=== PATIENT | female | born 1950 | race Caucasian/White ===

== ENCOUNTER 2023-03-13 17:23 | Emergency (ER) | payer OTHER ==
--- OUTSIDE RECORDS SUMMARY | 2023-03-13 17:39 | XMS REPORT | Continuity of Care Document ---
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 [place] 58 the Medical morning Branch and 100 mg at noon and 100 mg in the evening. BABY Yes 81mg Take 81 mg [facility] ASPIRIN 1-31 by mouth ity of ORAL 13:15: daily. [place] [address] Medical Branch cholecalcif Yes 1{capsu Take 1 U nivers bubba, 1-31 le} capsule by ity of vitamin D3, 13:15: mouth in [place] 25 mcg 58 the Medical (1,000 morning. Branch unit) tablet Diphenhydra Yes 1{tbl} Take 1 Un [place] mine-Acetam 1-31 tablet by ity of inophen 13:15: mouth at [place] 25-500 mg 58 bedtime as Medi gunner Tab needed. Branch albuterol Yes 4{puff} Take 4 Uni vers 90 1-31 Puffs by ity of mcg/actuati 13:15: mouth 2 [place] as on inhaler 58 (two) Medical times Branch daily. albuterol Yes 2{puff} Inhale 2 U nivers 90 1-31 Puffs ity of mcg/actuati 13:15: every 6 [place] as on inhaler 58 (six) Medical hours as Branch needed. famotidine 0 Yes 20mg Take 20 mg U nivers 20 mg 1-31 by mouth ity of tablet 13:15: in the [place] [address] morning Medical and 20 mg Branch in the evening. ferrous 2022-0 Yes 2{tbl} Take 2 Univer s sulfate 325 1-31 tablets by it y of mg (65 mg 13:15: [place] iron[place] 58 the Medical tablet morning. Branch fluticasone 2022-0 Yes 1{spray Use 1 Un [place] propionate 1-31 } [place] in ity o f 50 13:15: each [place] mcg/actuati 58 nostril in Co dical on nasal the Branch spray morning. As needed foLIC acid 2022-0 Yes 1mg Take 1 mg Un [place] 1 mg tablet 1-31 by mouth ity of 13:15: in the [place] [address] morning. Medical Branch gabapentin 2022-0 Yes 300mg Take 300 Un [place] 300 mg 1-31 mg by ity of capsule 13:15: mouth in [place] 58 the Medical morning Branch and 300 mg in the evening. mirtazapine 2022-0 Yes 15mg Take 15 mg [facility] 7.5 mg 1-31 by mouth ity of tablet 13:15: every [place] [address] evening. Medical Branch simvastatin 2022-0 Yes 20mg Take 20 mg [facility] 20 mg 1-31 by mouth ity of tablet 13:15: every [place] [address] evening. Medical Branch zonisamide 2022-0 Yes 100mg Take 100 Un [place] 100 mg 1-31 mg by ity of capsule 13:15: mouth in [place] [address] the Medical morning Branch and 100 mg at noon and 100 mg in the evening. BABY 2022-0 Yes 81mg Take 81 mg [facility] ASPIRIN 1-31 by mouth ity of ORAL 13:15: daily. [place] [address] Medical Branch cholecalcif 2022-0 Yes 1{capsu Take 1 U nivers bubba, 1-31 le} capsule by ity of vitamin D3, 13:15: mouth in [place] 25 mcg 58 the Medical (1,000 morning. Branch unit) tablet Diphenhydra 2022-0 Yes 1{tbl} Take 1 Un [place] mine-Acetam 1-31 tablet by ity of inophen 13:15: mouth at [place] 25-500 mg 58 bedtime as Medi gunner Tab needed. Branch albuterol 0 Yes 4{puff} Take 4 Uni vers 90 1-31 Puffs by ity of mcg/actuati 13:15: mouth 2 [place] as on inhaler 58 (two) Medical times Branch daily. albuterol 2022-0 Yes 2{puff} Inhale 2 U nivers 90 1-31 Puffs ity of mcg/actuati 13:15: every 6 [place] as on inhaler 58 (six) Medical hours as Branch needed. famotidine 0 Yes 20mg Take 20 mg U nivers 20 mg 1-31 by mouth ity of tablet 13:15: in the [place] morning Medical and 20 mg Branch in the evening. ferrous 2022-0 Yes 2{tbl} Take 2 Univer s sulfate 325 1-31 tablets by it y of mg (65 mg 13:15: mouth in [facility] s iron) 58 the Medical tablet morning. Branch fluticasone Yes 1{spray Use 1 Un [place] propionate 1-31 } [place] in ity o f 50 13:15: each [place] mcg/actuati 58 nostril in Co dical on nasal the Branch spray morning. As needed foLIC acid 0 Yes 1mg Take 1 mg Un [place] 1 mg tablet 1-31 by mouth ity of 13:15: in the [place] morning. Medical Branch gabapentin 2022-0 Yes 300mg Take 300 Un [place] 300 mg 1-31 mg by ity of capsule 13:15: mouth in [place] 58 the Medical morning Branch and 300 mg in the evening. mirtazapine 2022-0 Yes 15mg Take 15 mg [facility] 7.5 mg 1-31 by mouth ity of tablet 13:15: every [place] evening. Medical Branch simvastatin 2022-0 Yes 20mg Take 20 mg [facility] 20 mg 1-31 by mouth ity of tablet 13:15: every [place] evening. Medical Branch zonisamide 2022-0 Yes 100mg Take 100 Un [place] 100 mg 1-31 mg by ity of capsule 13:15: mouth in [place] 58 the Medical morning Branch and 100 mg at noon and 100 mg in the evening. BABY 2022-0 Yes 81mg Take 81 mg [facility] ASPIRIN 1-31 by mouth ity of ORAL 13:15: daily. [place] [address] Medical Branch cholecalcif Yes 1{capsu Take 1 U nivers bubba, 1-31 le} capsule by ity of vitamin D3, 13:15: mouth in [place] 25 mcg 58 the Medical (1,000 morning. Branch unit) tablet Diphenhydra Yes 1{tbl} Take 1 Un [place] mine-Acetam 1-31 tablet by ity of inophen 13:15: mouth at [place] 25-500 mg 58 bedtime as Medi gunner Tab needed. Branch albuterol Yes 4{puff} Take 4 Uni vers 90 1-31 Puffs by ity of mcg/actuati 13:15: mouth 2 [place] as on inhaler 58 (two) Medical times Branch daily. albuterol Yes 2{puff} Inhale 2 U nivers 90 1-31 Puffs ity of mcg/actuati 13:15: every 6 [place] as on inhaler 58 (six) Medical hours as Branch needed. famotidine Yes 20mg Take 20 mg U nivers 20 mg 1-31 by mouth ity of tablet 13:15: in the [place] [address] morning Medical and 20 mg Branch in the evening. ferrous Yes 2{tbl} Take 2 Univer s sulfate 325 1-31 tablets by it y of mg (65 mg 13:15: mouth in [facility] s iron) 58 the Medical tablet morning. Branch fluticasone Yes 1{spray Use 1 Un m[place] propionate 1-31 } [place] in ity o f 50 13:15: each [place] mcg/actuati 58 nostril in Co dical on nasal the Branch spray morning. As needed foLIC acid Yes 1mg Take 1 mg Un m[place] 1 mg tablet 1-31 by mouth ity of 13:15: in the [place] [address] morning. Medical Branch gabapentin 0 Yes 300mg Take 300 Un [place] 300 mg 1-31 mg by ity of capsule 13:15: mouth in [place] 58 the Medical morning Branch and 300 mg in the evening. mirtazapine 0 Yes 15mg Take 15 mg [facility] 7.5 mg 1-31 by mouth ity of tablet 13:15: every [place] evening. Medical Branch simvastatin Yes 20mg Take 20 mg [facility] 20 mg 1-31 by mouth ity of tablet 13:15: every [place] [address] evening. Medical Branch zonisamide Yes 100mg Take 100 Un m[place] 100 mg 1-31 mg by ity of capsule 13:15: mouth in [place] 58 the Medical morning Branch and 100 mg at noon and 100 mg in the evening. BABY Yes 81mg Take 81 mg [facility] ASPIRIN 1-31 by mouth ity of ORAL 13:15: daily. [place] [address] Medical Branch cholecalcif Yes 1{capsu Take 1 U nivers bubba, 1-31 le} capsule by ity of vitamin D3, 13:15: mouth in [place] 25 mcg 58 the Medical (1,000 morning. Branch unit) tablet Diphenhydra Yes 1{tbl} Take 1 Un [place] mine-Acetam 1-31 tablet by ity of inophen 13:15: mouth at [place] 25-500 mg 58 bedtime as Medi gunner Tab needed. Branch albuterol Yes 4{puff} Take 4 Uni vers 90 1-31 Puffs by ity of mcg/actuati 13:15: mouth 2 [place] as on inhaler 58 (two) Medical times Branch daily. albuterol Yes 2{puff} Inhale 2 U nivers 90 1-31 Puffs ity of mcg/actuati 13:15: every 6 [place] as on inhaler 58 (six) Medical hours as Branch needed. famotidine Yes 20mg Take 20 mg U nivers 20 mg 1-31 by mouth ity of tablet 13:15: in the [place] [address] morning Medical and 20 mg Branch in the evening. ferrous Yes 2{tbl} Take 2 Univer s sulfate 325 1-31 tablets by it y of mg (65 mg 13:15: mouth [place] iron[place] 58 the Medical tablet morning. Branch fluticasone Yes 1{spray Use 1 Un m[place] propionate 1-31 } [place] in ity o f 50 13:15: each [place] mcg/actuati 58 nostril in Co dical on nasal the Branch spray morning. As needed foLIC acid Yes 1mg Take 1 mg Un m[place] 1 mg tablet 1-31 by mouth ity of 13:15: in the [place] [address] morning. Medical Branch gabapentin Yes 300mg Take 300 Un [place] 300 mg 1-31 mg by ity of capsule 13:15: mouth in [place] 58 the Medical morning Branch and 300 mg in the evening. mirtazapine Yes 15mg Take 15 mg [facility] 7.5 mg 1-31 by mouth ity of tablet 13:15: every [place] [address] evening. Medical Branch simvastatin 0 Yes 20mg Take 20 mg [facility] 20 mg 1-31 by mouth ity of tablet 13:15: every [place] [address] evening. Medical Branch zonisamide Yes 100mg Take 100 Un [place] 100 mg 1-31 mg by ity of capsule 13:15: mouth in [place] 58 the Medical morning Branch and 100 mg at noon and 100 mg in the evening. BABY Yes 81mg Take 81 mg [facility] ASPIRIN 1-31 by mouth ity of ORAL 13:15: daily. [place] [address] Medical Branch cholecalcif Yes 1{capsu Take 1 U nivers bubba, 1-31 le} capsule by ity of vitamin D3, 13:15: mouth in [place] 25 mcg 58 the Medical (1,000 morning. Branch unit) tablet Diphenhydra Yes 1{tbl} Take 1 Un [place] mine-Acetam 1-31 tablet by ity of inophen 13:15: mouth at [place] 25-500 mg 58 bedtime as Medi gunner Tab needed. Branch albuterol Yes 4{puff} Take 4 Uni vers 90 1-31 Puffs by ity of mcg/actuati 13:15: mouth 2 [place] as on inhaler 58 (two) Medical times Branch daily. albuterol Yes 2{puff} Inhale 2 U nivers 90 1-31 Puffs ity of mcg/actuati 13:15: every 6 [place] as on inhaler 58 (six) Medical hours as Branch needed. famotidine Yes 20mg Take 20 mg U nivers 20 mg 1-31 by mouth ity of tablet 13:15: in the [place] [address] morning Medical and 20 mg Branch in the evening. ferrous Yes 2{tbl} Take 2 Univer s sulfate 325 1-31 tablets by it y of mg (65 mg 13:15: mouth in [place] iron[place] 58 the Medical tablet morning. Branch fluticasone Yes 1{spray Use 1 Un [place] propionate 1-31 } [place] in ity o f 50 13:15: each [place] mcg/actuati 58 nostril in Me dical on nasal the Branch spray morning. As needed foLIC acid 0 Yes 1mg Take 1 mg Un m[place] 1 mg tablet 1-31 by mouth ity of 13:15: in the [place] 58 morning. Medical Branch gabapentin 0 Yes 300mg Take 300 Un [place] 300 mg 1-31 mg by ity of capsule 13:15: mouth in [place] 58 the Medical morning Branch and 300 mg in the evening. mirtazapine 0 Yes 15mg Take 15 mg [facility] 7.5 mg 1-31 by mouth ity of tablet 13:15: every [place] 58 evening. Medical Branch simvastatin 2022-0 Yes 20mg Take 20 mg [facility] 20 mg 1-31 by mouth ity of tablet 13:15: every [place] 58 evening. Medical Branch zonisamide Yes 100mg Take 100 Un [place] 100 mg 1-31 mg by ity of capsule 13:15: mouth in [place] 58 the Medical morning Branch and 100 mg at noon and 100 mg in the evening. BABY 0 Yes 81mg Take 81 mg [facility] ASPIRIN 1-31 by mouth ity of ORAL 13:15: daily. [place] 58 Medical Branch cholecalcif 0 Yes 1{capsu Take 1 U nivers bubba, 1-31 le} capsule by ity of vitamin D3, 13:15: mouth in [place] 25 mcg 58 the Medical (1,000 morning. Branch unit) tablet Diphenhydra Yes 1{tbl} Take 1 Un [place] mine-Acetam 1-31 tablet by ity of inophen 13:15: mouth at [place] 25-500 mg 58 bedtime as Medi gunner Tab needed. Branch albuterol Yes 4{puff} Take 4 Uni vers 90 1-31 Puffs by ity of mcg/actuati 13:15: mouth 2 [place] as on inhaler 58 (two) Medical times Branch daily. albuterol Yes 2{puff} Inhale 2 U nivers 90 1-31 Puffs ity of mcg/actuati 13:15: every 6 [place] as on inhaler 58 (six) Medical hours as Branch needed. famotidine 0 Yes 20mg Take 20 mg U nivers 20 mg 1-31 by mouth ity of tablet 13:15: in the [place] [address] morning Medical and 20 mg Branch in the evening. ferrous 2022-0 Yes 2{tbl} Take 2 Univer s sulfate 325 1-31 tablets by it y of mg (65 mg 13:15: mouth in [place] iron[place] 58 the Medical tablet morning. Branch fluticasone 2022-0 Yes 1{spray Use 1 Un [place] propionate 1-31 } [place] in ity o f 50 13:15: each [place] mcg/actuati 58 nostril in Co dical on nasal the Branch spray morning. As needed foLIC acid 2022-0 Yes 1mg Take 1 mg Un m[place]icio 1 mg tablet 1-31 by mouth ity of 13:15: in the [place] [address] morning. Medical Branch gabapentin 2022-0 Yes 300mg Take 300 Un [place] 300 mg 1-31 mg by ity of capsule 13:15: mouth in [place] 58 the Medical morning Branch and 300 mg in the evening. mirtazapine 2022-0 Yes 15mg Take 15 mg [facility] 7.5 mg 1-31 by mouth ity of tablet 13:15: every [place] [address] evening. Medical Branch simvastatin 2022-0 Yes 20mg Take 20 mg [facility] 20 mg 1-31 by mouth ity of tablet 13:15: every [place] [address] evening. Medical Branch zonisamide 2022-0 Yes 100mg Take 100 Un [place] 100 mg 1-31 mg by ity of capsule 13:15: mouth in [place] [address] the Medical morning Branch and 100 mg at noon and 100 mg in the evening. BABY 2022-0 Yes 81mg Take 81 mg [facility] ASPIRIN 1-31 by mouth ity of ORAL 13:15: daily. [place] [address] Medical Branch cholecalcif 2022-0 Yes 1{capsu Take 1 U nivers bubba, 1-31 le} capsule by ity of vitamin D3, 13:15: mouth in [place] 25 mcg 58 the Medical (1,000 morning. Branch unit) tablet Diphenhydra 2022-0 Yes 1{tbl} Take 1 Un [place] mine-Acetam 1-31 tablet by ity of inophen 13:15: mouth at [place] 25-500 mg 58 bedtime as Medi gunner Tab needed. Branch albuterol Yes 4{puff} Take 4 Uni vers 90 1-31 Puffs by ity of mcg/actuati 13:15: mouth 2 [place] as on inhaler 58 (two) Medical times Branch daily. albuterol 0 Yes 2{puff} Inhale 2 U nivers 90 1-31 Puffs ity of mcg/actuati 13:15: every 6 [place] as on inhaler 58 (six) Medical hours as Branch needed. famotidine Yes 20mg Take 20 mg U nivers 20 mg 1-31 by mouth ity of tablet 13:15: in the [place] 58 morning Medical and 20 mg Branch in the evening. ferrous Yes 2{tbl} Take 2 Univer s sulfate 325 1-31 tablets by it y of mg (65 mg 13:15: mouth in [facility] s iron) 58 the Medical tablet morning. Branch fluticasone Yes 1{spray Use 1 Un [place] propionate 1-31 } [place] in ity o f 50 13:15: each [place] mcg/actuati 58 nostril in Me dical on nasal the Branch spray morning. As needed foLIC acid Yes 1mg Take 1 mg Un m[place] 1 mg tablet 1-31 by mouth ity of 13:15: in the [place] morning. Medical Branch gabapentin 2022-0 Yes 300mg Take 300 Un m[place] 300 mg 1-31 mg by ity of capsule 13:15: mouth in [place] 58 the Medical morning Branch and 300 mg in the evening. mirtazapine 0 Yes 15mg Take 15 mg [facility] 7.5 mg 1-31 by mouth ity of tablet 13:15: every [place] evening. Medical Branch simvastatin 2022-0 Yes 20mg Take 20 mg [facility] 20 mg 1-31 by mouth ity of tablet 13:15: every [place] 58 evening. Medical Branch zonisamide 2022-0 Yes 100mg Take 100 Un [place] 100 mg 1-31 mg by ity of capsule 13:15: mouth in [place] 58 the Medical morning Branch and 100 mg at noon and 100 mg in the evening. BABY 2022-0 Yes 81mg Take 81 mg [facility] ASPIRIN 1-31 by mouth ity of ORAL 13:15: daily. [place] [address] Medical Branch cholecalcif 2022-0 Yes 1{capsu Take 1 U nivers bubba, 1-31 le} capsule by ity of vitamin D3, 13:15: mouth in [place] 25 mcg 58 the Medical (1,000 morning. Branch unit) tablet Diphenhydra Yes 1{tbl} Take 1 Un [place] mine-Acetam 1-31 tablet by ity of inophen 13:15: mouth at [place] 25-500 mg 58 bedtime as Medi gunner Tab needed. Branch albuterol Yes 4{puff} Take 4 Uni vers 90 1-31 Puffs by ity of mcg/actuati 13:15: mouth 2 [place] on inhaler 58 (two) Medical times Branch daily. albuterol Yes 2{puff} Inhale 2 U nivers 90 1-31 Puffs ity of mcg/actuati 13:15: every 6 [place] on inhaler 58 (six) Medical hours as Branch needed. famotidine Yes 20mg Take 20 mg U nivers 20 mg 1-31 by mouth ity of tablet 13:15: in the [place] [address] morning Medical and 20 mg Branch in the evening. ferrous Yes 2{tbl} Take 2 Univer s sulfate 325 1-31 tablets by it y of mg (65 mg 13:15: mouth in [place] iron) 58 the Medical tablet morning. Branch fluticasone Yes 1{spray Use 1 Un [place] propionate 1-31 } [place] in ity o f 50 13:15: each [place] mcg/actuati 58 nostril in Co dical on nasal the Branch spray morning. As needed foLIC acid 0 Yes 1mg Take 1 mg Un m[place]icio 1 mg tablet 1-31 by mouth ity of 13:15: in the [place] [address] morning. Medical Branch gabapentin 2022-0 Yes 300mg Take 300 Un [place] 300 mg 1-31 mg by ity of capsule 13:15: mouth in [place] 58 the Medical morning Branch and 300 mg in the evening. mirtazapine 2022-0 Yes 15mg Take 15 mg [facility] 7.5 mg 1-31 by mouth ity of tablet 13:15: every [place] evening. Medical Branch simvastatin Yes 20mg Take 20 mg [facility] 20 mg 1-31 by mouth ity of tablet 13:15: every [place] [address] evening. Medical Branch zonisamide Yes 100mg Take 100 Un [place] 100 mg 1-31 mg by ity of capsule 13:15: mouth in [place] 58 the Medical morning Branch and 100 mg at noon and 100 mg in the evening. BABY Yes 81mg Take 81 mg [facility] ASPIRIN 1-31 by mouth ity of ORAL 13:15: daily. [place] [address] Medical Branch cholecalcif Yes 1{capsu Take 1 U nivers bubba, 1-31 le} capsule by ity of vitamin D3, 13:15: mouth in [place] 25 mcg 58 the Medical (1,000 morning. Branch unit) tablet Diphenhydra Yes 1{tbl} Take 1 Un [place] mine-Acetam 1-31 tablet by ity of inophen 13:15: mouth at [place] 25-500 mg 58 bedtime as Medi gunner Tab needed. Branch albuterol Yes 4{puff} Take 4 Uni vers 90 1-31 Puffs by ity of mcg/actuati 13:15: mouth 2 [place] as on inhaler 58 (two) Medical times Branch daily. albuterol Yes 2{puff} Inhale 2 U nivers 90 1-31 Puffs ity of mcg/actuati 13:15: every 6 [place] on inhaler 58 (six) Medical hours as Branch needed. HYDROcodone 2022- No 4647 1{tbl} Take 1 U nivers -acetaminop 1-31 02-08 tablet by it y of hen ([facility]) 00:00: 05:59 [place] 5-325 mg 00 :00 every 6 Medical tablet (six) Branch hours as needed for Pain (scale 7-10) for up to 7 days. Indication s: acute pain HYDROcodone 2022- No 4647 1{tbl} Take 1 U nivers -acetaminop 1-31 02-08 tablet by it y of hen ([facility]CO) 00:00: 05:59 mouth [place] 5-325 mg 00 :00 every 6 Medical tablet (six) Branch hours as needed for Pain (scale 7-10) for up to 7 days. Indication s: acute pain HYDROcodone 0 2022- No 4647 1{tbl} Take 1 U nivers -acetaminop -08 tablet by it y of hen (NORCO) 00:00: 05:59 mouth [place] 5-325 mg 00 :00 every 6 Medical tablet (six) Branch hours as needed for Pain (scale 7-10) for up to 7 days. Indication s: acute pain No known 2021-09 No No known Unive rs medications 2-22 medication it y of 14:21: s [place] [address] Medical Branch gabapentin 2021-09 Yes 300mg Take 300 Un [place] 300 mg 2-22 mg by ity of capsule 13:39: mouth in [place] [address] the Medical morning Branch and 300 mg in the evening. mirtazapine 2021-09 Yes 15mg Take 15 mg [facility] 7.5 mg 2-22 by mouth ity of tablet 13:39: every [place] [address] evening. Medical Branch simvastatin 2021-09 Yes 20mg Take 20 mg [facility] 20 mg 2-22 by mouth ity of tablet 13:39: every [place] [address] evening. Medical Branch zonisamide 2021-09 Yes 300mg Take 300 Un [place] 100 mg 2-22 mg by ity of capsule 13:39: mouth in [place] [address] the Medical morning. Branch gabapentin 2021-09 Yes 300mg Take 300 Un [place] 300 mg 2-22 mg by ity of capsule 13:39: mouth in [place] [address] the Medical morning Branch and 300 mg in the evening. mirtazapine 2021-09 Yes 15mg Take 15 mg [facility] 7.5 mg 2-22 by mouth ity of tablet 13:39: every [place] [address] evening. Medical Branch simvastatin 2021-09 Yes 20mg Take 20 mg [facility] 20 mg 2-22 by mouth ity of tablet 13:39: every [place] [address] evening. Medical Branch zonisamide 2021-09 Yes 300mg Take 300 Un [place] 100 mg 2-22 mg by ity of capsule 13:39: mouth in [place] [address] the Medical morning. Branch gabapentin 2021-09 Yes 300mg Take 300 Un [place] 300 mg 2-22 mg by ity of capsule 13:39: mouth in [place] [address] the Medical morning Branch and 300 mg in the evening. mirtazapine 2021-1 Yes 15mg Take 15 mg [facility] 7.5 mg 2-22 by mouth ity of tablet 13:39: every [place] 29 evening. Medical Branch simvastatin 2021- Yes 20mg Take 20 mg [facility] 20 mg 2-22 by mouth ity of tablet 13:39: every [place] 29 evening. Medical Branch zonisamide 2021- Yes 300mg Take 300 Un [place] 100 mg 2-22 mg by ity of capsule 13:39: mouth in [place] 29 the Medical morning. Branch gabapentin 2021- Yes 300mg Take 300 Un [place] 300 mg 2-22 mg by ity of capsule 13:39: mouth in [place] 29 the Medical morning Branch and 300 mg in the evening. mirtazapine 2021-1 Yes 15mg Take 15 mg [facility] 7.5 mg 2-22 by mouth ity of tablet 13:39: every [place] 29 evening. Medical Branch simvastatin 2021- Yes 20mg Take 20 mg [facility] 20 mg 2-22 by mouth ity of tablet 13:39: every [place] 29 evening. Medical Branch zonisamide 2021- Yes 300mg Take 300 Un [place] 100 mg 2-22 mg by ity of capsule 13:39: mouth in [place] 29 the Medical morning. Branch gabapentin 2021- Yes 300mg Take 300 Un [place] 300 mg 2-22 mg by ity of capsule 13:39: mouth in [place] 29 the Medical morning Branch and 300 mg in the evening. mirtazapine 2021- Yes 15mg Take 15 mg [facility] 7.5 mg 2-22 by mouth ity of tablet 13:39: every [place] 29 evening. Medical Branch simvastatin 2021- Yes 20mg Take 20 mg [facility] 20 mg 2-22 by mouth ity of tablet 13:39: every [place] 29 evening. Medical Branch zonisamide 2021- Yes 300mg Take 300 Un [place] 100 mg 2-22 mg by ity of capsule 13:39: mouth in [place] 29 the Medical morning. Branch gabapentin 2021- Yes 300mg Take 300 Un [place] 300 mg 2-22 mg by ity of capsule 13:39: mouth in [place] 29 the Medical morning Branch and 300 mg in the evening. mirtazapine 2-1 Yes 15mg Take 15 mg [facility] 7.5 mg 2-22 by mouth ity of tablet 13:39: every [place] 29 evening. Medical Branch simvastatin 2021-09 Yes 20mg Take 20 mg [facility] 20 mg 2-22 by mouth ity of tablet 13:39: every [place] 29 evening. Medical Branch zonisamide 2021-09 Yes 300mg Take 300 Un [place] 100 mg 2-22 mg by ity of capsule 13:39: mouth in [place] 29 the Medical morning. Branch gabapentin 2021-09 Yes 300mg Take 300 Un [place] 300 mg 2-22 mg by ity of capsule 13:39: mouth in [place] 29 the Medical morning Branch and 300 mg in the evening. mirtazapine 2021-09 Yes 15mg Take 15 mg [facility] 7.5 mg 2-22 by mouth ity of tablet 13:39: every [place] 29 evening. Medical Branch simvastatin 2021-09 Yes 20mg Take 20 mg [facility] 20 mg 2-22 by mouth ity of tablet 13:39: every [place] 29 evening. Medical Branch zonisamide 2021-09 Yes 300mg Take 300 Un [place] 100 mg 2-22 mg by ity of capsule 13:39: mouth in [place] 29 the Medical morning. Branch fluticasone 2021-09 Yes 1{spray Use 1 Un [place] propionate 2-22 } [place] in ity o f 50 13:39: each [place] mcg/actuati 28 nostril in Co dical on nasal the Branch spray morning. foLIC acid 2021-09 Yes 1mg Take 1 mg Un m[place] 1 mg tablet 2-22 by mouth ity of 13:39: in the [place] 28 morning. Medical Branch BABY 2021-09 Yes 325mg Take 325 [facility] ASPIRIN 2-22 mg by ity of ORAL 13:39: mouth [place] 28 daily. Medical Branch cholecalcif 2021-09 Yes 1{capsu Take 1 U nivers bubba, 2-22 le} capsule by ity of vitamin D3, 13:39: mouth in [place] 25 mcg 28 the Medical (1,000 morning. Branch unit) tablet Diphenhydra 2021-09 Yes 1{tbl} Take 1 Un [place] mine-Acetam 2-22 tablet by ity of inophen 13:39: mouth at [place] 25-500 mg 28 bedtime as Medi gunner Tab needed. Branch albuterol 2021-09 Yes 4{puff} Take 4 Uni vers 90 2-22 Puffs by ity of mcg/actuati 13:39: mouth 2 [place] on inhaler 28 (two) Medical times Branch daily. albuterol 2021-09 Yes 2{puff} Inhale 2 U nivers 90 2-22 Puffs ity of mcg/actuati 13:39: every 6 [place] as on inhaler 28 (six) Medical hours as Branch needed. famotidine 2021-09 Yes 20mg Take 20 mg U nivers 20 mg 2-22 by mouth ity of tablet 13:39: in the [place] 28 morning Medical and 20 mg Branch in the evening. ferrous 2021-09 Yes 2{tbl} Take 2 Univer s sulfate 325 2-22 tablets by it y of mg (65 mg 13:39: [place] iron[place] 28 the Medical tablet morning. Branch fluticasone 2021-09 Yes 1{spray Use 1 Un [facility] propionate 2-22 } [place] in ity o f 50 13:39: each [place] mcg/actuati 28 nostril in Co dical on nasal the Branch spray morning. foLIC acid 2021-09 Yes 1mg Take 1 mg [facility] m[facility] 1 mg tablet 2-22 by mouth ity of 13:39: in the [place] 28 morning. Medical Branch BABY 2021-09 Yes 325mg Take 325 [facility] ASPIRIN 2-22 mg by ity of ORAL 13:39: mouth [place] 28 daily. Medical Branch cholecalcif 2021-09 Yes 1{capsu Take 1 U nivers bubba, 2-22 le} capsule by ity of vitamin D3, 13:39: mouth in [place] 25 mcg 28 the Medical (1,000 morning. Branch unit) tablet Diphenhydra 2021-09 Yes 1{tbl} Take 1 Un m[facility] mine-Acetam 2-22 tablet by ity of inophen 13:39: mouth at [place] 25-500 mg 28 bedtime as Medi gunner Tab needed. Branch albuterol 2021-09 Yes 4{puff} Take 4 Uni vers 90 2-22 Puffs by ity of mcg/actuati 13:39: mouth 2 [place] as on inhaler 28 (two) Medical times Branch daily. albuterol 2021-09 Yes 2{puff} Inhale 2 U nivers 90 2-22 Puffs ity of mcg/actuati 13:39: every 6 [place] as on inhaler 28 (six) Medical hours as Branch needed. famotidine 2021-09 Yes 20mg Take 20 mg [facility] nivers 20 mg 2-22 by mouth ity of tablet 13:39: in the [place] 28 morning Medical and 20 mg Branch in the evening. ferrous 2021-09 Yes 2{tbl} Take 2 Univer s sulfate 325 2-22 tablets by it y of mg (65 mg 13:39: [place] iron[place] 28 the Medical tablet morning. Branch fluticasone 2021-09 Yes 1{spray Use 1 Un [facility] propionate 2-22 } [place] in ity o f 50 13:39: each [place] mcg/actuati 28 nostril in Me dical on nasal the Branch spray morning. foLIC acid 2021-09 Yes 1mg Take 1 mg [facility] 1 mg tablet 2-22 by mouth ity of 13:39: in the [place] 28 morning. Medical Branch BABY 2021-09 Yes 325mg Take 325 [facility] ASPIRIN 2-22 mg by ity of ORAL 13:39: mouth [place] 28 daily. Medical Branch cholecalcif 2021-09 Yes 1{capsu Take 1 U nivers bubba, 2-22 le} capsule by ity of vitamin D3, 13:39: mouth in [place] 25 mcg 28 the Medical (1,000 morning. Branch unit) tablet Diphenhydra 2021-09 Yes 1{tbl} Take 1 Un [facility] mine-Acetam 2-22 tablet by ity of inophen 13:39: mouth at [place] 25-500 mg 28 bedtime as Medi gunner Tab needed. Branch albuterol 2021-09 Yes 4{puff} Take 4 Uni vers 90 2-22 Puffs by ity of mcg/actuati 13:39: mouth 2 [place] on inhaler 28 (two) Medical times Branch daily. albuterol 2021-09 Yes 2{puff} Inhale 2 U nivers 90 2-22 Puffs ity of mcg/actuati 13:39: every 6 [place] on inhaler 28 (six) Medical hours as Branch needed. famotidine 2021-09 Yes 20mg Take 20 mg U nivers 20 mg 2-22 by mouth ity of tablet 13:39: in the [place] 28 morning Medical and 20 mg Branch in the evening. ferrous 2021-09 Yes 2{tbl} Take 2 Un[facility] s sulfate 325 2-22 tablets by it y of mg (65 mg 13:39: [facility] the Medical tablet morning. Branch fluticasone 2021-09 Yes 1{spray Use 1 Un m[facility] propionate 2-22 } [place] in ity o f 50 13:39: each [place] mcg/actuati 28 nostril in Co dical on nasal the Branch spray morning. foLIC acid 2021-09 Yes 1mg Take 1 mg [facility] 1 mg tablet 2-22 by mouth ity of 13:39: in the [place] 28 morning. Medical Branch BABY 2021-09 Yes 325mg Take 325 [facility] ASPIRIN 2-22 mg by ity of ORAL 13:39: mouth [place] 28 daily. Medical Branch cholecalcif 2021-09 Yes 1{capsu Take 1 U nivers bubba, 2-22 le} capsule by ity of vitamin D3, 13:39: mouth in [place] 25 mcg 28 the Medical (1,000 morning. Branch unit) tablet Diphenhydra 2021-09 Yes 1{tbl} Take 1 [facility] mine-Acetam 2-22 tablet by ity of inophen 13:39: mouth at [place] 25-500 mg 28 bedtime as Medi gunner Tab needed. Branch albuterol 2021-09 Yes 4{puff} Take 4 Uni vers 90 2-22 Puffs by ity of mcg/actuati 13:39: mouth 2 [place] on inhaler 28 (two) Medical times Branch daily. albuterol 2021-09 Yes 2{puff} Inhale 2 U nivers 90 2-22 Puffs ity of mcg/actuati 13:39: every 6 [place] on inhaler 28 (six) Medical hours as Branch needed. famotidine 2021-09 Yes 20mg Take 20 mg U nivers 20 mg 2-22 by mouth ity of tablet 13:39: in the [place] 28 morning Medical and 20 mg Branch in the evening. ferrous 2021-09 Yes 2{tbl} Take 2 Univer s sulfate 325 2-22 tablets by it y of mg (65 mg 13:39: mouth [place] iron[place] 28 the Medical tablet morning. Branch fluticasone 2021-09 Yes 1{spray Use 1 Un [facility] propionate 2-22 } [place] in ity o f 50 13:39: each [place] mcg/actuati 28 nostril in Me dical on nasal the Branch spray morning. foLIC acid 2021-09 Yes 1mg Take 1 mg [facility] m[facility] 1 mg tablet 2-22 by mouth ity of 13:39: in the [place] 28 morning. Medical Branch BABY 2021-09 Yes 325mg Take 325 [facility] ASPIRIN 2-22 mg by ity of ORAL 13:39: mouth [place] 28 daily. Medical Branch cholecalcif 2021-09 Yes 1{capsu Take 1 U nivers bubba, 2-22 le} capsule by ity of vitamin D3, 13:39: mouth in [place] 25 mcg 28 the Medical (1,000 morning. Branch unit) tablet Diphenhydra 2021-09 Yes 1{tbl} Take 1 [facility] mine-Acetam 2-22 tablet by ity of inophen 13:39: mouth at [place] 25-500 mg 28 bedtime as Medi gunner Tab needed. Branch albuterol 2021-09 Yes 4{puff} Take 4 Uni vers 90 2-22 Puffs by ity of mcg/actuati 13:39: mouth 2 [place] on inhaler 28 (two) Medical times Branch daily. albuterol 2021-09 Yes 2{puff} Inhale 2 U nivers 90 2-22 Puffs ity of mcg/actuati 13:39: every 6 [place] on inhaler 28 (six) Medical hours as Branch needed. famotidine 2021-09 Yes 20mg Take 20 mg U nivers 20 mg 2-22 by mouth ity of tablet 13:39: in the [place] 28 morning Medical and 20 mg Branch in the evening. ferrous 2021-09 Yes 2{tbl} Take 2 Univer s sulfate 325 2-22 tablets by it y of mg (65 mg 13:39: mouth [place] iron[place] 28 the Medical tablet morning. Branch fluticasone 2021-09 Yes 1{spray Use 1 Un [facility] propionate 2-22 } [place] in ity o f 50 13:39: each [place] mcg/actuati 28 nostril in Me dical on nasal the Branch spray morning. foLIC acid 2021-09 Yes 1mg Take 1 mg [facility] 1 mg tablet 2-22 by mouth ity of 13:39: in the [place] 28 morning. Medical Branch BABY 2021-09 Yes 325mg Take 325 [facility] ASPIRIN 2-22 mg by ity of ORAL 13:39: mouth [place] 28 daily. Medical Branch cholecalcif 2021-09 Yes 1{capsu Take 1 U nivers bubba, 2-22 le} capsule by ity of vitamin D3, 13:39: mouth in [place] 25 mcg 28 the Medical (1,000 morning. Branch unit) tablet Diphenhydra 2021-09 Yes 1{tbl} Take 1 Un [facility] mine-Acetam 2-22 tablet by ity of inophen 13:39: mouth at [place] 25-500 mg 28 bedtime as Medi gunner Tab needed. Branch albuterol 2021-09 Yes 4{puff} Take 4 Uni vers 90 2-22 Puffs by ity of mcg/actuati 13:39: mouth 2 [place] on inhaler 28 (two) Medical times Branch daily. albuterol 2021-09 Yes 2{puff} Inhale 2 U nivers 90 2-22 Puffs ity of mcg/actuati 13:39: every 6 [place] on inhaler 28 (six) Medical hours as Branch needed. famotidine 2021-09 Yes 20mg Take 20 mg U nivers 20 mg 2-22 by mouth ity of tablet 13:39: in the [place] 28 morning Medical and 20 mg Branch in the evening. ferrous 2021-09 Yes 2{tbl} Take 2 Univer s sulfate 325 2-22 tablets by it y of mg (65 mg 13:39: mouth [place] iron[place] 28 the Medical tablet morning. Branch fluticasone 2021-09 Yes 1{spray Use 1 Un [facility] propionate 2-22 } [place] in ity o f 50 13:39: each [place] mcg/actuati 28 nostril in Me dical on nasal the Branch spray morning. foLIC acid 2021-09 Yes 1mg Take 1 mg [facility] 1 mg tablet 2-22 by mouth ity of 13:39: in the [place] 28 morning. Medical Branch BABY 2021-09 Yes 325mg Take 325 [facility] ASPIRIN 2-22 mg by ity of ORAL 13:39: mouth [place] 28 daily. Medical Branch cholecalcif 2021-09 Yes 1{capsu Take 1 U nivers bubba, 2-22 le} capsule by ity of vitamin D3, 13:39: mouth in [place] 25 mcg 28 the Medical (1,000 morning. Branch unit) tablet Diphenhydra 2021-09 Yes 1{tbl} Take 1 Un [facility] mine-Acetam 2-22 tablet by ity of inophen 13:39: mouth at [place] 25-500 mg 28 bedtime as Medi gunner Tab needed. Branch albuterol 2021-09 Yes 4{puff} Take 4 Uni vers 90 2-22 Puffs by ity of mcg/actuati 13:39: mouth 2 [place] on inhaler 28 (two) Medical times Branch daily. albuterol 2021-09 Yes 2{puff} Inhale 2 U nivers 90 2-22 Puffs ity of mcg/actuati 13:39: every 6 [place] on inhaler 28 (six) Medical hours as Branch needed. famotidine 2021-09 Yes 20mg Take 20 mg U nivers 20 mg 2-22 by mouth ity of tablet 13:39: in the [place] 28 morning Medical and 20 mg Branch in the evening. ferrous 2021-09 Yes 2{tbl} Take 2 Univer s sulfate 325 2-22 tablets by it y of mg (65 mg 13:39: mouth [place] iron[place] 28 the Medical tablet morning. Branch sodium 2021-09 Yes 650mg Take 650 Univer s bicarbonate 2-09 mg by ity of 650 mg 00:00: mouth in [place] tablet 00 the Medical morning Branch and 650 mg in the evening. calcium 2021-09 Yes 2{capsu Take 2 Unive rs acetate,morena 2-09 le} capsules ity of sphat bind, 00:00: by mouth [place] 667 mg 00 in the Medical capsule morning Branch and 2 capsules in the evening. sodium 2021-09 Yes 650mg Take 650 Univer s bicarbonate 2-09 mg by ity of 650 mg 00:00: mouth in [place] tablet 00 the Medical morning Branch and 650 mg in the evening. calcium 2021-09 Yes 2{capsu Take 2 Unive rs acetate,morena 2-09 le} capsules ity of sphat bind, 00:00: by mouth [place] 667 mg 00 in the Medical capsule morning Branch and 2 capsules in the evening. sodium 2021-09 Yes 650mg Take 650 Univer s bicarbonate 2-09 mg by ity of 650 mg 00:00: mouth in [place] tablet 00 the Medical morning Branch and 650 mg in the evening. calcium 2021-09 Yes 2{capsu Take 2 Unive rs acetate,morena 2-09 le} capsules ity of sphat bind, 00:00: by mouth [place] 667 mg 00 in the Medical capsule morning Branch and 2 capsules in the evening. sodium 2021-09 Yes 650mg Take 650 Univer s bicarbonate 2-09 mg by ity of 650 mg 00:00: mouth in [place] tablet 00 the Medical morning Branch and 650 mg in the evening. calcium 2021-09 Yes 2{capsu Take 2 Unive rs acetate,morena 2-09 le} capsules ity of sphat bind, 00:00: by mouth [place] 667 mg 00 in the Medical capsule morning Branch and 2 capsules in the evening. sodium 2021-09 Yes 650mg Take 650 Univer s bicarbonate 2-09 mg by ity of 650 mg 00:00: mouth in [place] tablet 00 the Medical morning Branch and 650 mg in the evening. calcium 2021-09 Yes 2{capsu Take 2 Unive rs acetate,morena 2-09 le} capsules ity of sphat bind, 00:00: by mouth [place] 667 mg 00 in the Medical capsule morning Branch and 2 capsules in the evening. sodium 2021-09 Yes 650mg Take 650 Univer s bicarbonate 2-09 mg by ity of 650 mg 00:00: mouth in [place] tablet 00 the Medical morning Branch and 650 mg in the evening. calcium 2021-09 Yes 2{capsu Take 2 Unive rs acetate,morena 2-09 le} capsules ity of sphat bind, 00:00: by mouth [place] 667 mg 00 in the Medical capsule morning Branch and 2 capsules in the evening. sodium 2021-09 Yes 650mg Take 650 Univer s bicarbonate 2-09 mg by ity of 650 mg 00:00: mouth in [place] tablet 00 the Medical morning Branch and 650 mg in the evening. calcium 2021-09 Yes 2{capsu Take 2 Unive rs acetate,morena 2-09 le} capsules ity of sphat bind, 00:00: by mouth [place] 667 mg 00 in the Medical capsule morning Branch and 2 capsules in the evening. sodium 2021-09 Yes 650mg Take 650 Univer s bicarbonate 2-09 mg by ity of 650 mg 00:00: mouth in [place] tablet 00 the Medical morning Branch and 650 mg in the evening. calcium 2021- Yes 2{capsu Take 2 Unive rs acetate,morena 2-09 le} capsules ity of sphat bind, 00:00: by mouth [place] 667 mg 00 in the Medical capsule morning Branch and 2 capsules in the evening. sodium 2021-09 Yes 650mg Take 650 Univer s bicarbonate 2-09 mg by ity of 650 mg 00:00: mouth in [place] tablet 00 the Medical morning Branch and 650 mg in the evening. calcium 2021-09 Yes 2{capsu Take 2 Unive rs acetate,morena 2-09 le} capsules ity of sphat bind, 00:00: by mouth [place] 667 mg 00 in the Medical capsule morning Branch and 2 capsules in the evening. sodium 2021-09 Yes 650mg Take 650 Univer s bicarbonate 2-09 mg by ity of 650 mg 00:00: mouth in [place] tablet 00 the Medical morning Branch and 650 mg in the evening. calcium 2021-09 Yes 2{capsu Take 2 Unive rs acetate,morena 2-09 le} capsules ity of sphat bind, 00:00: by mouth [place] 667 mg 00 in the Medical capsule morning Branch and 2 capsules in the evening. sodium 2021-09 Yes 650mg Take 650 Univer s bicarbonate 2-09 mg by ity of 650 mg 00:00: mouth in [place] tablet 00 the Medical morning Branch and 650 mg in the evening. calcium 2021-09 Yes 2{capsu Take 2 Unive rs acetate,morena 2-09 le} capsules ity of sphat bind, 00:00: by mouth [place] 667 mg 00 in the Medical capsule morning Branch and 2 capsules in the evening. sodium 2021-09 Yes 650mg Take 650 Univer s bicarbonate 2-09 mg by ity of 650 mg 00:00: mouth in [place] tablet 00 the Medical morning Branch and 650 mg in the evening. calcium 2021-09 Yes 2{capsu Take 2 Unive rs acetate,morena 2-09 le} capsules ity of sphat bind, 00:00: by mouth [place] 667 mg 00 in the Medical capsule morning Branch and 2 capsules in the evening. sodium 2021- Yes 650mg Take 650 Univer s bicarbonate 2-09 mg by ity of 650 mg 00:00: mouth in [place] tablet 00 the Medical morning Branch and 650 mg in the evening. calcium 2021- Yes 2{capsu Take 2 Unive rs acetate,morena 2-09 le} capsules ity of sphat bind, 00:00: by mouth [place] 667 mg 00 in the Medical capsule morning Branch and 2 capsules in the evening. sodium 2021- Yes 650mg Take 650 Univer s bicarbonate 2-09 mg by ity of 650 mg 00:00: mouth in [place] tablet 00 the Medical morning Branch and 650 mg in the evening. calcium 2021- Yes 2{capsu Take 2 Unive rs acetate,morena 2-09 le} capsules ity of sphat bind, 00:00: by mouth [place] 667 mg 00 in the Medical capsule morning Branch and 2 capsules in the evening. sodium 2021-09 Yes 650mg Take 650 Univer s bicarbonate 2-09 mg by ity of 650 mg 00:00: mouth in [place] tablet 00 the Medical morning Branch and 650 mg in the evening. calcium 2021- Yes 2{capsu Take 2 Unive rs acetate,morena 2-09 le} capsules ity of sphat bind, 00:00: by mouth [place] 667 mg 00 in the Medical capsule morning Branch and 2 capsules in the evening. sodium 2021-09 Yes 650mg Take 650 Univer s bicarbonate 2-09 mg by ity of 650 mg 00:00: mouth in [place] tablet 00 the Medical morning Branch and 650 mg in the evening. calcium 2021- Yes 2{capsu Take 2 Unive rs acetate,morena 2-09 le} capsules ity of sphat bind, 00:00: by mouth [place] 667 mg 00 in the Medical capsule morning Branch and 2 capsules in the evening. sodium 2021-09 Yes 650mg Take 650 Univer s bicarbonate 2-09 mg by ity of 650 mg 00:00: mouth in [place] tablet 00 the Medical morning Branch and 650 mg in the evening. calcium 2021- Yes 2{capsu Take 2 Unive rs acetate,morena 2-09 le} capsules ity of sphat bind, 00:00: by mouth [place] 667 mg 00 in the Medical capsule morning Branch and 2 capsules in the evening. sodium 2021- Yes 650mg Take 650 Univer s bicarbonate 2-09 mg by ity of 650 mg 00:00: mouth in [place] tablet 00 the Medical morning Branch and 650 mg in the evening. calcium 2021-09 Yes 2{capsu Take 2 Unive rs acetate,morena 11-07 le} capsules ity of sphat bind, 00:00: by mouth [place] 667 mg 00 in the Medical capsule morning Branch and 2 capsules in the evening. pantoprazol 2021-09- No 40mg Take 40 mg [facility] e 40 mg EC 11-07 by mouth ity of tablet 00:00: 05:59 in the [place] 00 :00 morning. Medical Branch pantoprazol 2021-2022- No 40mg Take 40 mg [facility] e 40 mg EC 11-07 by mouth ity of tablet 00:00: 05:59 in the [place] 00 :00 morning. Medical Branch pantoprazol 2021-2022- No 40mg Take 40 mg [facility] e 40 mg EC 11-07 by mouth ity of tablet 00:00: 05:59 in the [place] 00 :00 morning. Medical Branch pantoprazol 2021-2022- No 40mg Take 40 mg [facility] e 40 mg EC 11-07 by mouth ity of tablet 00:00: 05:59 in the [place] 00 :00 morning. Medical Branch pantoprazol 2021-2022- No 40mg Take 40 mg [facility] e 40 mg EC 11-07 by mouth ity of tablet 00:00: 05:59 in the [place] 00 :00 morning. Medical Branch pantoprazol 2021-2022- No 40mg Take 40 mg [facility] e 40 mg EC 11-07 by mouth ity of tablet 00:00: 05:59 in the [place] 00 :00 morning. Medical Branch pantoprazol 2021-2022- No 40mg Take 40 mg [facility] e 40 mg EC 11-07 by mouth ity of tablet 00:00: 05:59 in the [place] 00 :00 morning. Medical Branch pantoprazol 2021-2022- No 40mg Take 40 mg [facility] e 40 mg EC 11-07 by mouth ity of tablet 00:00: 05:59 in the [place] 00 :00 morning. Medical Branch pantoprazol 2021-2022- No 40mg Take 40 mg [facility] e 40 mg EC 11-07 by mouth ity of tablet 00:00: 05:59 in the [place] 00 :00 morning. Medical Branch pantoprazol 2021-09- No 40mg Take 40 mg [facility] e 40 mg EC 11-07 by mouth ity of tablet 00:00: 05:59 in the [place] 00 :00 morning. Medical Branch sucralfate 2021-2022- No 1g Take 1 g Un m[facility] 100 mg/mL 11-07 by mouth ity o f suspension 00:00: 05:59 every [place] 00 :00 evening. Medical Branch sucralfate 2021-09- No 1g Take 1 g Un m[facility] 100 mg/mL 11-07 by mouth ity o f suspension 00:00: 05:59 every [place] 00 :00 evening. Medical Branch sucralfate 2021-09- No 1g Take 1 g Un m[facility] 100 mg/mL 11-07 by mouth ity o f suspension 00:00: 05:59 every [place] 00 :00 evening. Medical Branch sucralfate 2021-09- No 1g Take 1 g Un m[facility] 100 mg/mL 11-07 by mouth ity o f suspension 00:00: 05:59 every [place] 00 :00 evening. Medical Branch sucralfate 2021-09- No 1g Take 1 g Un m[facility] 100 mg/mL 11-07 by mouth ity o f suspension 00:00: 05:59 every [place] 00 :00 evening. Medical Branch sucralfate 2021-09- No 1g Take 1 g Un m[facility] 100 mg/mL 11-07 by mouth ity o f suspension 00:00: 05:59 every [place] 00 :00 evening. Medical Branch sucralfate 2021-09- No 1g Take 1 g Un m[facility] 100 mg/mL 11-07 by mouth ity o f suspension 00:00: 05:59 every [place] 00 :00 evening. Medical Branch calcitrioL 2021-09 Yes .25ug Take 0.25 U nivers 0.25 mcg 2-08 mcg by ity of capsule 00:00: mouth in [place] 00 the Medical morning. Branch calcitrioL 2021-09 Yes .25ug Take 0.25 U nivers 0.25 mcg 2-08 mcg by ity of capsule 00:00: mouth in [place] the morning. Branch calcitrioL 2021-09 Yes .25ug Take 0.25 U nivers 0.25 mcg 2-08 mcg by ity of capsule 00:00: mouth in [place] the morning. Branch calcitrioL 2021-09 Yes .25ug Take 0.25 U nivers 0.25 mcg 2-08 mcg by ity of capsule 00:00: mouth in [place] the morning. Branch calcitrioL 2021-09 Yes .25ug Take 0.25 U nivers 0.25 mcg 2-08 mcg by ity of capsule 00:00: mouth in [place] the morning. Branch calcitrioL 2021-09 Yes .25ug Take 0.25 U nivers 0.25 mcg 2-08 mcg by ity of capsule 00:00: mouth in [place] the morning. Branch calcitrioL 2021-09 Yes .25ug Take 0.25 U nivers 0.25 mcg 2-08 mcg by ity of capsule 00:00: mouth in [place] the morning. Branch calcitrioL 2021-09 Yes .25ug Take 0.25 U nivers 0.25 mcg 2-08 mcg by ity of capsule 00:00: mouth in [place] the morning. Branch calcitrioL 2021-09 Yes .25ug Take 0.25 U nivers 0.25 mcg 2-08 mcg by ity of capsule 00:00: mouth in [place] the morning. Branch calcitrioL 2021-09 Yes .25ug Take 0.25 U nivers 0.25 mcg 2-08 mcg by ity of capsule 00:00: mouth in [place] the morning. Branch calcitrioL 2021-09 Yes .25ug Take 0.25 U nivers 0.25 mcg 2-08 mcg by ity of capsule 00:00: mouth in [place] the morning. Branch furosemide 2021-09 Yes 40mg Take 40 mg U nivers 40 mg 2-04 by mouth ity of tablet 00:00: in the [place] morning Medical and 40 mg Branch in the evening. furosemide 2021-1 Yes 40mg Take 40 mg U nivers 40 mg 2-04 by mouth ity of tablet 00:00: in the [place] morning Medical and 40 mg Branch in the evening. furosemide 2022-1 Yes 40mg Take 40 mg U nivers 40 mg 2-04 by mouth ity of tablet 00:00: in the [place] morning Medical and 40 mg Branch in the evening. furosemide 2022-1 Yes 40mg Take 40 mg U nivers 40 mg 2-04 by mouth ity of tablet 00:00: in the [place] morning Medical and 40 mg Branch in the evening. furosemide 2022-1 Yes 40mg Take 40 mg U nivers 40 mg 2-04 by mouth ity of tablet 00:00: in the [place] morning Medical and 40 mg Branch in the evening. furosemide 2022-1 Yes 40mg Take 40 mg U nivers 40 mg 2-04 by mouth ity of tablet 00:00: in the [place] morning Medical and 40 mg Branch in the evening. furosemide 2022-1 Yes 40mg Take 40 mg U nivers 40 mg 2-04 by mouth ity of tablet 00:00: in the [place] morning Medical and 40 mg Branch in the evening. furosemide 2022-1 Yes 40mg Take 40 mg U nivers 40 mg 2-04 by mouth ity of tablet 00:00: in the [place] morning Medical and 40 mg Branch in the evening. furosemide 2022-1 Yes 40mg Take 40 mg U nivers 40 mg 2-04 by mouth ity of tablet 00:00: in the [place] morning Medical and 40 mg Branch in the evening. furosemide 2022-1 Yes 40mg Take 40 mg U nivers 40 mg 2-04 by mouth ity of tablet 00:00: in the [place] morning Medical and 40 mg Branch in the evening. furosemide 2022-1 Yes 40mg Take 40 mg U nivers 40 mg 2-04 by mouth ity of tablet 00:00: in the [place] morning Medical and 40 mg Branch in the evening. furosemide 2022-1 Yes 40mg Take 40 mg U nivers 40 mg 2-04 by mouth ity of tablet 00:00: in the [place] morning Medical and 40 mg Branch in the evening. furosemide 2022-1 Yes 40mg Take 40 mg U nivers 40 mg 2-04 by mouth ity of tablet 00:00: in the [place] [id number] morning Medical and 40 mg Branch in the evening. furosemide 2022-1 Yes 40mg Take 40 mg U nivers 40 mg 2-04 by mouth ity of tablet 00:00: in the [place] 00 morning Medical and 40 mg Branch in the evening. furosemide 2022-1 Yes 40mg Take 40 mg U nivers 40 mg 2-04 by mouth ity of tablet 00:00: in the [place] 00 morning Medical and 40 mg Branch in the evening. furosemide 2022-1 Yes 40mg Take 40 mg U nivers 40 mg 2-04 by mouth ity of tablet 00:00: in the [place] 00 morning Medical and 40 mg Branch in the evening. furosemide 2022-1 Yes 40mg Take 40 mg U nivers 40 mg 2-04 by mouth ity of tablet 00:00: in the [place] 00 morning Medical and 40 mg Branch in the evening. furosemide 2022-1 Yes 40mg Take 40 mg [facility] nivers 40 mg 2-04 by mouth ity of tablet 00:00: in the [place] morning Medical and 40 mg Branch in the evening. clopidogreL 2022-1 Yes 75mg Take 75 mg [facility] 75 mg 2-03 by mouth ity of tablet 00:00: in the [place] 00 morning. Medical Branch clopidogreL 2022-1 Yes 75mg Take 75 mg [facility] 75 mg 2-03 by mouth ity of tablet 00:00: in the [place] 00 morning. Medical Branch clopidogreL 2022-1 Yes 75mg Take 75 mg [facility] 75 mg 2-03 by mouth ity of tablet 00:00: in the [place] 00 morning. Medical Branch clopidogreL 2022-1 Yes 75mg Take 75 mg [facility] 75 mg 2-03 by mouth ity of tablet 00:00: in the [place] 00 morning. Medical Branch clopidogreL 2022-1 Yes 75mg Take 75 mg [facility] 75 mg 2-03 by mouth ity of tablet 00:00: in the [place] 00 morning. Medical Branch clopidogreL 2022-1 Yes 75mg Take 75 mg [facility] 75 mg 2-03 by mouth ity of tablet 00:00: in the [place] 00 morning. Medical Branch clopidogreL 2022-1 Yes 75mg Take 75 mg [facility] 75 mg 2-03 by mouth ity of tablet 00:00: in the [place] 00 morning. Medical Branch clopidogreL 2022-1 Yes 75mg Take 75 mg [facility] 75 mg 2-03 by mouth ity of tablet 00:00: in the [place] 00 morning. Medical Branch clopidogreL 2022-1 Yes 75mg Take 75 mg [facility] 75 mg 2-03 by mouth ity of tablet 00:00: in the [place] 00 morning. Medical Branch clopidogreL 2-1 Yes 75mg Take 75 mg [facility] 75 mg 2-03 by mouth ity of tablet 00:00: in the [place] 00 morning. Medical Branch clopidogreL 2022-1 Yes 75mg Take 75 mg [facility] 75 mg 2-03 by mouth ity of tablet 00:00: in the [place] 00 morning. Medical Branch clopidogreL 2022-1 Yes 75mg Take 75 mg [facility] 75 mg 2-03 by mouth ity of tablet 00:00: in the [place] 00 morning. Medical Branch clopidogreL 2022-1 Yes 75mg Take 75 mg [facility] 75 mg 2-03 by mouth ity of tablet 00:00: in the [place] 00 morning. Medical Branch clopidogreL 2022-1 Yes 75mg Take 75 mg [facility] 75 mg 2-03 by mouth ity of tablet 00:00: in the [place] 00 morning. Medical Branch clopidogreL 2022-1 Yes 75mg Take 75 mg [facility] 75 mg 2-03 by mouth ity of tablet 00:00: in the [place] 00 morning. Medical Branch clopidogreL 2022-1 Yes 75mg Take 75 mg [facility] 75 mg 2-03 by mouth ity of tablet 00:00: in the [place] 00 morning. [facility] clopidogreL 2-1 Yes 75mg Take 75 mg [facility] 75 mg 2-03 by mouth ity of tablet 00:00: in the [place] 00 morning. [facility] Branch clopidogreL 2-1 Yes 75mg Take 75 mg [facility] 75 mg 2-03 by mouth ity of tablet 00:00: in the [place] 00 morning. [facility] Branch atorvastati 2-1 Yes 80mg Take 80 mg Univers n 80 mg 1-16 by mouth ity of tablet 00:00: at [place] [address] bedtime. Medical Branch atorvastati 2-1 Yes 80mg Take 80 mg Univers n 80 mg 1-16 by mouth ity of tablet 00:00: at [place] [address] bedtime. Medical Branch atorvastati 2022-1 Yes 80mg Take 80 mg Univers n 80 mg 1-16 by mouth ity of tablet 00:00: at [place] [address] bedtime. Medical Branch atorvastati 2022-1 Yes 80mg Take 80 mg Univers n 80 mg 1-16 by mouth ity of tablet 00:00: at [place] [address] bedtime. Medical Branch atorvastati 2-1 Yes 80mg Take 80 mg Univers n 80 mg 1-16 by mouth ity of tablet 00:00: at [place] [address] bedtime. [facility] Yes 80mg Take 80 mg [facility] n 80 mg 1-16 by mouth ity of tablet 00:00: at [place] [address] bedtime. Medical Branch atorvasta 2021-09 Yes 80mg Take 80 mg Univers n 80 mg 1-16 by mouth ity of tablet 00:00: at [place] [address] bedtime. Medical Branch atorvasta 2021-09 Yes 80mg Take 80 mg Univers n 80 mg 1-16 by mouth ity of tablet 00:00: at [place] [address] bedtime. Medical Branch atorvasta 2021-09 Yes 80mg Take 80 mg [facility] n 80 mg 1-16 by mouth ity of tablet 00:00: at [place] [address] bedtime. [facility] Branch atorvasta 2021-09 Yes 80mg Take 80 mg Univers n 80 mg 1-16 by mouth ity of tablet 00:00: at [place] [address] bedtime. Medical Branch atorvasta 2021-09 Yes 80mg Take 80 mg [facility] n 80 mg 1-16 by mouth ity of tablet 00:00: at [place] [address] bedtime. Medical Branch atorvasta 2021-09 Yes 80mg Take 80 mg [facility] n 80 mg 1-16 by mouth ity of tablet 00:00: at [place] [address] bedtime. Medical Branch atorvasta 2021-09 Yes 80mg Take 80 mg [facility] n 80 mg 1-16 by mouth ity of tablet 00:00: at [place] [address] bedtime. Medical Branch atorvasta 2021-09 Yes 80mg Take 80 mg [facility] n 80 mg 1-16 by mouth ity of tablet 00:00: at [place] [address] bedtime. Medical Branch atorvasta 2021-09 Yes 80mg Take 80 mg [facility] n 80 mg 1-16 by mouth ity of tablet 00:00: at [place] [address] bedtime. [facility] Branch atorvasta 2021-09 Yes 80mg Take 80 mg [facility] n 80 mg 1-16 by mouth ity of tablet 00:00: at [place] [address] bedtime. [facility] Branch atorvasta 2021-09 Yes 80mg Take 80 mg [facility] n 80 mg 1-16 by mouth ity of tablet 00:00: at [place] [address] bedtime. [facility] Branch atorvasta 2021-09 Yes 80mg Take 80 mg [facility] n 80 mg 1-16 by mouth ity of tablet 00:00: at [place] [address] bedtime. [facility] Branch rOPINIRole 2021-09 Yes 2mg Take 2 mg Un [facility] 2 mg tablet 1-10 by mouth ity of 00:00: at [place] bedtime. Medical Branch traMADoL 50 2021-09 Yes 1{tbl} Take 1 Un mauricio mg tablet 1-10 tablet by ity o f 00:00: mouth at [place] bedtime as Medical needed. Branch rOPINIRole 2021-09 Yes 2mg Take 2 mg Un m[facility]icio 2 mg tablet 1-10 by mouth ity of 00:00: at [place] bedtime. Medical Branch traMADoL 50 2021-09 Yes 1{tbl} Take 1 Un mauricio mg tablet 1-10 tablet by ity o f 00:00: mouth at [place] bedtime as Medical needed. Branch rOPINIRole 2021-09 Yes 2mg Take 2 mg Un mauricio 2 mg tablet 1-10 by mouth ity of 00:00: at [place] bedtime. Medical Branch traMADoL 50 2021-09 Yes 1{tbl} Take 1 Un mauricio mg tablet 1-10 tablet by ity o f 00:00: mouth at [place] bedtime as Medical needed. Branch rOPINIRole 2021-09 Yes 2mg Take 2 mg Un mauricio 2 mg tablet 1-10 by mouth ity of 00:00: at [place] [address] bedtime. Medical Branch traMADoL 50 2021-09 Yes 1{tbl} Take 1 Un mauricio mg tablet 1-10 tablet by ity o f 00:00: mouth at [place] [address] bedtime as Medical needed. Branch rOPINIRole 2021-09 Yes 2mg Take 2 mg Un mauricio 2 mg tablet 1-10 by mouth ity of 00:00: at [place] [address] bedtime. Medical Branch traMADoL 50 2021-09 Yes 1{tbl} Take 1 Un mauricio mg tablet 1-10 tablet by ity o f 00:00: mouth at [place] bedtime as Medical needed. Branch rOPINIRole 2021-09 Yes 2mg Take 2 mg Un mauricio 2 mg tablet 1-10 by mouth ity of 00:00: at [place] [address] bedtime. Medical Branch traMADoL 50 2021-09 Yes 1{tbl} Take 1 Un mauricio mg tablet 1-10 tablet by ity o f 00:00: mouth at [place] 00 bedtime as Medical needed. Branch rOPINIRole 2021-09 Yes 2mg Take 2 mg Un mauricio 2 mg tablet 1-10 by mouth ity of 00:00: at [place] bedtime. Medical Branch traMADoL 50 2021-09 Yes 1{tbl} Take 1 Un mauricio mg tablet 1-10 tablet by ity o f 00:00: mouth at [place] bedtime as Medical needed. Branch rOPINIRole 2021-09 Yes 2mg Take 2 mg Un mauricio 2 mg tablet 1-10 by mouth ity of 00:00: at [place] bedtime. Medical Branch traMADoL 50 2021-09 Yes 1{tbl} Take 1 Un mauricio mg tablet 1-10 tablet by ity o f 00:00: mouth at [place] bedtime as Medical needed. Branch rOPINIRole 2021-09 Yes 2mg Take 2 mg Un mauricio 2 mg tablet 1-10 by mouth ity of 00:00: at [place] bedtime. Medical Branch traMADoL 50 2021-09 Yes 1{tbl} Take 1 Un mauricio mg tablet 1-10 tablet by ity o f 00:00: mouth at [place] bedtime as Medical needed. Branch rOPINIRole 2021-09 Yes 2mg Take 2 mg Un m[facility]icio 2 mg tablet 1-10 by mouth ity of 00:00: at [place] [address] bedtime. Medical Branch traMADoL 50 2021-09 Yes 1{tbl} Take 1 Un mauricio mg tablet 1-10 tablet by ity o f 00:00: mouth at [place] [address] bedtime as Medical needed. Branch rOPINIRole 2021-09 Yes 2mg Take 2 mg Un mauricio 2 mg tablet 1-10 by mouth ity of 00:00: at [place] [address] bedtime. Medical Branch traMADoL 50 2021-09 Yes 1{tbl} Take 1 Un mauricio mg tablet 1-10 tablet by ity o f 00:00: mouth at [place] bedtime as Medical needed. Branch rOPINIRole 2021-09 Yes 2mg Take 2 mg Un mauricio 2 mg tablet 1-10 by mouth ity of 00:00: at [place] [address] bedtime. Medical Branch traMADoL 50 2021-09 Yes 1{tbl} Take 1 Un mauricio mg tablet 1-10 tablet by ity o f 00:00: mouth at [place] 00 bedtime as Medical needed. Branch rOPINIRole 2021-09 Yes 2mg Take 2 mg Un mauricio 2 mg tablet 1-10 by mouth ity of 00:00: at [place] bedtime. Medical Branch traMADoL 50 2021-09 Yes 1{tbl} Take 1 Un mauricio mg tablet 1-10 tablet by ity o f 00:00: mouth at [place] bedtime as Medical needed. Branch rOPINIRole 2021-09 Yes 2mg Take 2 mg Un mauricio 2 mg tablet 1-10 by mouth ity of 00:00: at [place] bedtime. Medical Branch traMADoL 50 2021-09 Yes 1{tbl} Take 1 Un mauricio mg tablet 1-10 tablet by ity o f 00:00: mouth at [place] bedtime as Medical needed. Branch rOPINIRole 2021-09 Yes 2mg Take 2 mg Un mauricio 2 mg tablet 1-10 by mouth ity of 00:00: at [place] bedtime. Medical Branch traMADoL 50 2021-09 Yes 1{tbl} Take 1 Un mauricio mg tablet 1-10 tablet by ity o f 00:00: mouth at [place] bedtime as Medical needed. Branch rOPINIRole 2021-09 Yes 2mg Take 2 mg Un mauricio 2 mg tablet 1-10 by mouth ity of 00:00: at [place] [address] bedtime. Medical Branch traMADoL 50 2021-09 Yes 1{tbl} Take 1 Un mauricio mg tablet 1-10 tablet by ity o f 00:00: mouth at [place] bedtime as Medical needed. Branch rOPINIRole 2021-09 Yes 2mg Take 2 mg Un mauricio 2 mg tablet 1-10 by mouth ity of 00:00: at [place] bedtime. Medical Branch traMADoL 50 2021-09 Yes 1{tbl} Take 1 Un mauricio mg tablet 1-10 tablet by ity o f 00:00: mouth at [place] bedtime as Medical needed. Branch rOPINIRole 2021-09 Yes 2mg Take 2 mg Un m[facility]icio 2 mg tablet 1-10 by mouth ity of 00:00: at [place] [address] bedtime. Medical Branch traMADoL 50 2021-09 Yes 1{tbl} Take 1 Un mauricio mg tablet 1-10 tablet by ity o f 00:00: mouth at [place] 00 bedtime as Medical needed. Branch No known 2021-09 No No known Unive rs medications 1-02 medication it y of 17:21: s [place] [facility] No known 2021-09 No No known Unive rs medications 1-02 medication it y of 17:21: s [address] No known 2021-09 No No known Unive rs medications 1-02 medication it y of 17:21: s [place] [facility] No known 2021- No No known Unive rs medications -02 medication it y of 17:21: s [place] [facility] No known 2021-09 No No known Unive rs medications -02 medication it y of 17:21: s [place] [facility] No known 2021-09 No No known Unive rs medications - medication it y of 17:21: s [place] [facility] amLODIPine 2021-09 Yes 1{tbl} Take 1 Uni vers 10 mg 1-02 tablet by ity of tablet 00:00: mouth [place] 00 every Medical evening. Branch amLODIPine 2021-09 Yes 1{tbl} Take 1 Uni vers 10 mg 1-02 tablet by ity of tablet 00:00: mouth [place] 00 every Medical evening. Branch amLODIPine 2021-09 Yes 1{tbl} Take 1 Uni vers 10 mg 1-02 tablet by ity of tablet 00:00: mouth [place] 00 every Medical evening. Branch amLODIPine 2021-09 Yes 1{tbl} Take 1 Uni vers 10 mg 1-02 tablet by ity of tablet 00:00: mouth [place] 00 every Medical evening. Branch amLODIPine 2021-09 Yes 1{tbl} Take 1 Uni vers 10 mg 1-02 tablet by ity of tablet 00:00: mouth [place] 00 every Medical evening. Branch amLODIPine 2021-09 Yes 1{tbl} Take 1 Uni vers 10 mg 1-02 tablet by ity of tablet 00:00: mouth [place] 00 every Medical evening. Branch amLODIPine 2021-09 Yes 1{tbl} Take 1 Uni vers 10 mg 1-02 tablet by ity of tablet 00:00: mouth [place] 00 every Medical evening. Branch amLODIPine 2021-09 Yes 1{tbl} Take 1 Uni vers 10 mg 1-02 tablet by ity of tablet 00:00: mouth [place] 00 every Medical evening. Branch amLODIPine 2021-09 Yes 1{tbl} Take 1 Uni vers 10 mg 1-02 tablet by ity of tablet 00:00: mouth [place] 00 every Medical evening. Branch amLODIPine 2021-09 Yes 1{tbl} Take 1 Uni vers 10 mg 1-02 tablet by ity of tablet 00:00: mouth [place] 00 every Medical evening. Branch amLODIPine 2021-09 Yes 1{tbl} Take 1 Uni vers 10 mg 1-02 tablet by ity of tablet 00:00: mouth [place] 00 every Medical evening. Branch amLODIPine 2021-09 Yes 1{tbl} Take 1 Uni vers 10 mg 1-02 tablet by ity of tablet 00:00: mouth [place] 00 every Medical evening. Branch amLODIPine 2021-09 Yes 1{tbl} Take 1 Uni vers 10 mg 1-02 tablet by ity of tablet 00:00: mouth [place] 00 every Medical evening. Branch amLODIPine 2021-09 Yes 1{tbl} Take 1 Uni vers 10 mg 1-02 tablet by ity of tablet 00:00: mouth [place] 00 every Medical evening. Branch amLODIPine 2021-09 Yes 1{tbl} Take 1 Uni vers 10 mg 1-02 tablet by ity of tablet 00:00: mouth [place] 00 every Medical evening. Branch amLODIPine 2021-09 Yes 1{tbl} Take 1 Uni vers 10 mg 1-02 tablet by ity of tablet 00:00: mouth [place] 00 every Medical evening. Branch amLODIPine 2021-09 Yes 1{tbl} Take 1 Uni vers 10 mg 1-02 tablet by ity of tablet 00:00: mouth [place] 00 every Medical evening. Branch amLODIPine 2021-09 Yes 1{tbl} Take 1 Uni vers 10 mg 1-02 tablet by ity of tablet 00:00: mouth [place] 00 every Medical evening. Branch No known 2021-09 No No known Unive rs medications 0-26 medication it y of 11:42: [address] No known 2021-09 No No known Unive rs medications 0-26 medication it y of 11:42: [address] No known 2021-09 No No known Unive rs medications 0-26 medication it y of 11:42: [address] Branch lisinopriL 2021-09 Yes 10mg Take 10 mg U nivers 10 mg 0-21 by mouth ity of tablet 00:00: in the [place] 00 morning. Medical Branch lisinopriL 2022-1 Yes 10mg Take 10 mg U nivers 10 mg 0-21 by mouth ity of tablet 00:00: in the [place] 00 morning. Medical Branch lisinopriL 2022-1 Yes 10mg Take 10 mg U nivers 10 mg 0-21 by mouth ity of tablet 00:00: in the [place] 00 morning. Medical Branch lisinopriL 2022-1 Yes 10mg Take 10 mg U nivers 10 mg 0-21 by mouth ity of tablet 00:00: in the [place] 00 morning. Medical Branch lisinopriL 2-1 Yes 10mg Take 10 mg U nivers 10 mg 0-21 by mouth ity of tablet 00:00: in the [place] 00 morning. Medical Branch lisinopriL 2-1 Yes 10mg Take 10 mg U nivers 10 mg 0-21 by mouth ity of tablet 00:00: in the [place] 00 morning. Medical Branch lisinopriL 2-1 Yes 10mg Take 10 mg U nivers 10 mg 0-21 by mouth ity of tablet 00:00: in the [place] 00 morning. Medical Branch lisinopriL 2-1 Yes 10mg Take 10 mg U nivers 10 mg 0-21 by mouth ity of tablet 00:00: in the [place] 00 morning. Medical Branch lisinopriL 2-1 Yes 10mg Take 10 mg U nivers 10 mg 0-21 by mouth ity of tablet 00:00: in the [place] 00 morning. Medical Branch lisinopriL 2022-1 Yes 10mg Take 10 mg U nivers 10 mg 0-21 by mouth ity of tablet 00:00: in the [place] 00 morning. Medical Branch lisinopriL 2022-1 Yes 10mg Take 10 mg U nivers 10 mg 0-21 by mouth ity of tablet 00:00: in the [place] 00 morning. Medical Branch lisinopriL 2022-1 Yes 10mg Take 10 mg U nivers 10 mg 0-21 by mouth ity of tablet 00:00: in the [place] 00 morning. Medical Branch lisinopriL 2022-1 Yes 10mg Take 10 mg U nivers 10 mg 0-21 by mouth ity of tablet 00:00: in the [place] 00 morning. Medical Branch lisinopriL 2022-1 Yes 10mg Take 10 mg U nivers 10 mg 0-21 by mouth ity of tablet 00:00: in the [place] 00 morning. Medical Branch lisinopriL 2021-09 Yes 10mg Take 10 mg U nivers 10 mg 0-21 by mouth ity of tablet 00:00: in the [place] 00 morning. Medical Branch lisinopriL 2021-09 Yes 10mg Take 10 mg U nivers 10 mg 0-21 by mouth ity of tablet 00:00: in the [place] 00 morning. Medical Branch lisinopriL 2021-09 Yes 10mg Take 10 mg U nivers 10 mg 0-21 by mouth ity of tablet 00:00: in the [place] 00 morning. Medical Branch lisinopriL 2021-09 Yes 10mg Take 10 mg U nivers 10 mg 0-21 by mouth ity of tablet 00:00: in the [place] 00 morning. Medical Branch calcitrioL 2022- No .25ug Take 0.25 Univers 0.25 mcg 7-22 12-22 mcg by ity of capsule 00:00: 00:00 mouth in [place] 00 :00 the Medical morning. Branch calcitrioL 2021-0 2022- No .25ug Take 0.25 Univers 0.25 mcg 7-22 12-22 mcg by ity of capsule 00:00: 00:00 mouth in [place] 00 :00 the Medical morning. Branch calcitrioL 0 2022- No .25ug Take 0.25 Univers 0.25 mcg 7-22 12-22 mcg by ity of capsule 00:00: 00:00 mouth in [place] 00 :00 the Medical morning. Branch zonisamide Yes Seizures TAKE Ho [facility]ris (ZONEGRAN) 4-13 THREE (3) Heal th 100 mg 00:00: CAPSULE(S) capsule 00 BY MOUTH DAILY. zonisamide Yes Seizures TAKE Ho rris (ZONEGRAN) 4-13 THREE (3) Heal th 100 mg 00:00: CAPSULE(S) capsule 00 BY MOUTH DAILY. lisinopriL Yes Essential TAKE ONE [facility] (PRINIVIL, 3-18 hypertensio (1) He alth ZESTRIL) 10 00:00: n TABLET(S) mg tablet 00 BY MOUTH DAILY. lisinopriL Yes Essential TAKE ONE [facility] (PRINIVIL, 3-18 hypertensio (1) He alth ZESTRIL) 10 00:00: n TABLET(S) mg tablet 00 BY MOUTH DAILY. clopidogreL Yes Coronary TAKE ONE [facility] (PLAVIX) 75 1-11 artery (1) Health mg tablet 00:00: disease TABLET(S) 00 with angina BY MOUTH pectoris, ONCE A unspecified DAY. vessel or lesion type, unspecified whether lovelock or transplante d heart clopidogreL Yes Coronary TAKE ONE [facility] (PLAVIX) 75 1-11 artery (1) Health mg tablet 00:00: disease TABLET(S) 00 with angina BY MOUTH pectoris, ONCE A unspecified DAY. vessel or lesion type, unspecified whether lovelock or transplante d heart Estradiol 2019-09 Yes See Memoria 0.1 MG/ML 2-09 Instructio l Vaginal 17:15: ns, apply Cynthia nn Cream 00 pea size [Estrace] amount to urethra and vagina 3xweek. May dispose of applicator ., # 43 gm, 3 Refill(s), Pharmacy: [facility], 149.86, cm, 09/06/20 10:05:00 [employer], Height, 77.273, kg, 09/06/20 10:05:00 [employer], Weight 24 HR 2019-09 Yes 10 mg = 1 Memoria Oxybutynin 2-09 tab, PO, l chloride 10 17:15: Daily, # He rmann MG Extended 00 30 tab, 1 Release Refill(s), Tablet Pharmacy: [Ditropan] [facility], 149.86, cm, 09/06/20 10:05:00 [employer], Height, 77.273, kg, 09/06/20 10:05:00 [employer], Weight Estradiol 2019-09 Yes See Memoria 0.1 MG/ML 2-09 Instructio l Vaginal 17:15: ns, apply Cynthia nn Cream 00 pea size [Estrace] amount to urethra and vagina 3xweek. May dispose of applicator ., # 43 gm, 3 Refill(s), Pharmacy: [facility], 149.86, cm, 09/06/20 10:05:00 [employer], Height, 77.273, kg, 09/06/20 10:05:00 [employer], Weight 24 HR 2019-09 Yes 10 mg = 1 [facility] Oxybutynin 2-09 tab, PO, l chloride 10 17:15: Daily, # He rmann MG Extended 00 30 tab, 1 Release Refill(s), Tablet Pharmacy: [Ditropan] [facility], 149.86, cm, 09/06/20 10:05:00 [employer], Height, 77.273, kg, 09/06/20 10:05:00 [employer], Weight Estradiol 2019-09 Yes See Memoria 0.1 MG/ML 2-09 Instructio l Vaginal 17:15: ns, apply Cynthia nn Cream 00 pea size [Estrace] amount to urethra and vagina 3xweek. May dispose of applicator ., # 43 gm, 3 Refill(s), Pharmacy: [facility], 149.86, cm, 09/06/20 10:05:00 [employer], Height, 77.273, kg, 09/06/20 10:05:00 [employer], Weight 24 HR 2019-09 Yes 10 mg = 1 [facility]oria Oxybutynin 2-09 tab, PO, l chloride 10 17:15: Daily, # He rmann MG Extended 00 30 tab, 1 Release Refill(s), Tablet Pharmacy: [Ditropan] [facility], 149.86, cm, 09/06/20 10:05:00 [employer], Height, 77.273, kg, 09/06/20 10:05:00 [employer], Weight Estradiol 2019-09 Yes See Memoria 0.1 MG/ML 2-09 Instructio l Vaginal 17:15: ns, apply Cynthia nn Cream 00 pea size [Estrace] amount to urethra and vagina 3xweek. May dispose of applicator ., # 43 gm, 3 Refill(s), Pharmacy: [facility], 149.86, cm, 09/06/20 10:05:00 [employer], Height, 77.273, kg, 09/06/20 10:05:00 [employer], Weight 24 HR 2019-09 Yes 10 mg = 1 [facility] Oxybutynin 2-09 tab, PO, l chloride 10 17:15: Daily, # He rmann MG Extended 00 30 tab, 1 Release Refill(s), Tablet Pharmacy: [Ditropan] [facility], 149.86, cm, 09/06/20 10:05:00 [employer], Height, 77.273, kg, 09/06/20 10:05:00 [employer], Weight Estradiol 2019-09 Yes See Memoria 0.1 MG/ML 2-09 Instructio l Vaginal 17:15: ns, apply Cynthia nn Cream 00 pea size [Estrace] amount to urethra and vagina 3xweek. May dispose of applicator ., # 43 gm, 3 Refill(s), Pharmacy: [facility], 149.86, cm, 09/06/20 10:05:00 [employer], Height, 77.273, kg, 09/06/20 10:05:00 [employer], Weight 24 HR 2019- Yes 10 mg = 1 [facility] Oxybutynin 2-09 tab, PO, l chloride 10 17:15: Daily, # He rmann MG Extended 00 30 tab, 1 Release Refill(s), Tablet Pharmacy: [Ditropan] [facility], 149.86, cm, 09/06/20 10:05:00 [employer], Height, 77.273, kg, 09/06/20 10:05:00 [employer], Weight Estradiol 2019-09 Yes See Memoria 0.1 MG/ML 2-09 Instructio l Vaginal 17:15: ns, apply Cynthia nn Cream 00 pea size [Estrace] amount to urethra and vagina 3xweek. May dispose of applicator ., # 43 gm, 3 Refill(s), Pharmacy: [facility], 149.86, cm, 09/06/20 10:05:00 [employer], Height, 77.273, kg, 09/06/20 10:05:00 [employer], Weight 24 HR 2019-09 Yes 10 mg = 1 [facility] Oxybutynin 2-09 tab, PO, l chloride 10 17:15: Daily, # He rmann MG Extended 00 30 tab, 1 Release Refill(s), Tablet Pharmacy: [Ditropan] [facility], 149.86, cm, 09/06/20 10:05:00 [employer], Height, 77.273, kg, 09/06/20 10:05:00 [employer], Weight Folic Acid 2019-09 Yes 0 Memoria 1 MG Oral 2-09 Refill(s) l Tablet 16:15: clopidogrel 2019-09 Yes 0 Memori a 75 mg oral 2-09 Refill(s) l tablet 16:15: lisinopril 2019-09 Yes 0 Memoria 10 mg oral 2-09 Refill(s) l tablet 16:15: Furosemide 2019-09 Yes 0 Memoria 40 MG Oral 2-09 Refill(s) l Tablet 16:15: cyclobenzap 2019-09 Yes 0 Memori a rine 10 mg 2-09 Refill(s) l oral tablet 16:15: Vitamin D3 2019-09 Yes 0 Memoria 2-09 Refill(s) l 16:15: biotin 2019-09 Yes PO, Daily, Memor ia 2-09 0 l 16:15: Refill(s) multivitami 2019-09 Yes Daily, 0 Me moria n 2-09 Refill(s) l 16:15: Fish Oil 2019-09 Yes PO, 0 Memoria 2-09 Refill(s) l 16:15: Folic Acid 2019-09 Yes 0 Memoria 1 MG Oral 2-09 Refill(s) l Tablet 16:15: clopidogrel 2019-09 Yes 0 Memori a 75 mg oral 2-09 Refill(s) l tablet 16:15: lisinopril 2019-09 Yes 0 Memoria 10 mg oral 2-09 Refill(s) l tablet 16:15: Furosemide 2019-09 Yes 0 Memoria 40 MG Oral 2-09 Refill(s) l Tablet 16:15: cyclobenzap 2019-09 Yes 0 Memori a rine 10 mg 2-09 Refill(s) l oral tablet 16:15: Ki n Vitamin D3 2019-09 Yes 0 Memoria 2-09 Refill(s) l 16:15: biotin 2019-09 Yes PO, Daily, Memor ia 2-09 0 l 16:15: Refill(s) multivitami 2019-09 Yes Daily, 0 Me moria n 2-09 Refill(s) l 16:15: Fish Oil 2019-09 Yes PO, 0 Memoria 2-09 Refill(s) l 16:15: Folic Acid 2019-09 Yes 0 Memoria 1 MG Oral 2-09 Refill(s) l Tablet 16:15: clopidogrel 2019-09 Yes 0 Memori a 75 mg oral 2-09 Refill(s) l tablet 16:15: lisinopril 2019-09 Yes 0 Memoria 10 mg oral 2-09 Refill(s) l tablet 16:15: Furosemide 2019-09 Yes 0 Memoria 40 MG Oral 2-09 Refill(s) l Tablet 16:15: cyclobenzap 2019-09 Yes 0 Memori a rine 10 mg 2-09 Refill(s) l oral tablet 16:15: Vitamin D3 2019-09 Yes 0 Memoria 2-09 Refill(s) l 16:15: biotin 2019-09 Yes PO, Daily, Memor ia 2-09 0 l 16:15: Refill(s) multivitami 2019-09 Yes Daily, 0 Me moria n 2-09 Refill(s) l 16:15: Fish Oil 2019-09 Yes PO, 0 Memoria 2-09 Refill(s) l 16:15: Folic Acid 2019-09 Yes 0 Memoria 1 MG Oral 2-09 Refill(s) l Tablet 16:15: clopidogrel 2019-09 Yes 0 Memori a 75 mg oral 2-09 Refill(s) l tablet 16:15: lisinopril 2019-09 Yes 0 Memoria 10 mg oral 2-09 Refill(s) l tablet 16:15: Furosemide 2019-09 Yes 0 Memoria 40 MG Oral 2-09 Refill(s) l Tablet 16:15: cyclobenzap 2019-09 Yes 0 Memori a rine 10 mg 2-09 Refill(s) l oral tablet 16:15: Vitamin D3 2019-09 Yes 0 Memoria 2-09 Refill(s) l 16:15: biotin 2019-09 Yes PO, Daily, Memor ia 2-09 0 l 16:15: Refill(s) multivitami 2019-09 Yes Daily, 0 Me moria n 2-09 Refill(s) l 16:15: Fish Oil 2019-09 Yes PO, 0 Memoria 2-09 Refill(s) l 16:15: Folic Acid 2019-09 Yes 0 Memoria 1 MG Oral 2-09 Refill(s) l Tablet 16:15: clopidogrel 2019-09 Yes 0 Memori a 75 mg oral 2-09 Refill(s) l tablet 16:15: lisinopril 2019-09 Yes 0 Memoria 10 mg oral 2-09 Refill(s) l tablet 16:15: Furosemide 2019-09 Yes 0 [facility]oria 40 MG Oral 2-09 Refill(s) l Tablet 16:15: cyclobenzap 2019-09 Yes 0 Memori a rine 10 mg 2-09 Refill(s) l oral tablet 16:15: Vitamin D3 2019-09 Yes 0 Memoria 2-09 Refill(s) l 16:15: biotin 2019-09 Yes PO, Daily, Memor ia 2-09 0 l 16:15: Refill(s) multivitami 2019-09 Yes Daily, 0 Me moria n 2-09 Refill(s) l 16:15: Fish Oil 2019-09 Yes PO, 0 Memoria 2-09 Refill(s) l 16:15: Folic Acid 2019-09 Yes 0 Memoria 1 MG Oral 2-09 Refill(s) l Tablet 16:15: clopidogrel 2019-09 Yes 0 Memori a 75 mg oral 2-09 Refill(s) l tablet 16:15: lisinopril 2019-09 Yes 0 Memoria 10 mg oral 2-09 Refill(s) l tablet 16:15: Furosemide 2019-09 Yes 0 Memoria 40 MG Oral 2-09 Refill(s) l Tablet 16:15: cyclobenzap 2019-09 Yes 0 Memori a rine 10 mg 2-09 Refill(s) l oral tablet 16:15: Ki Vitamin D3 2019-09 Yes 0 Memoria 2-09 Refill(s) l 16:15: biotin 2019-09 Yes PO, Daily, Memor ia 2-09 0 l 16:15: Refill(s) multivitami 2019-09 Yes Daily, 0 Me moria n 2-09 Refill(s) l 16:15: Fish Oil 2019-09 Yes PO, 0 Memoria 2-09 Refill(s) l 16:15: cyclobenzap Yes Chronic 10mg Take 1 H arris rine 7-20 left-sided tablet by [facility] (FLEXERIL) 00:00: back pain, mouth 3 10 mg 00 unspecified times tablet back daily as location needed for Muscle Spasms. folic acid Yes Coronary 1mg QD Take 1 H arris (FOLVITE) 1 7-20 artery tablet by [facility] mg tablet 00:00: disease mouth 00 with angina daily. pectoris, unspecified vessel or lesion type, unspecified whether lovelock or transplante d heart cyclobenzap Yes Chronic 10mg Take 1 H arris rine 7-20 left-sided tablet by [facility] (FLEXERIL) 00:00: back pain, mouth 3 10 mg 00 unspecified times tablet back daily as location needed for Muscle Spasms. folic acid Yes Coronary 1mg QD Take 1 H [facility] (FOLVITE) 1 7-20 artery tablet by [facility] mg tablet 00:00: disease mouth 00 with angina daily. pectoris, unspecified vessel or lesion type, unspecified whether lovelock or transplante d heart atorvastati Yes Type 2 80mg Take 1 Ho [facility]ris n (LIPITOR) 6-19 diabetes tablet by Health 80 mg 00:00: mellitus mouth at tablet 00 with bedtime chronic nightly. kidney disease, without long-term current use of insulin, unspecified CKD stage atorvastati Yes Type 2 80mg Take 1 [facility]ris n (LIPITOR) 6-19 diabetes tablet by Health 80 mg 00:00: mellitus mouth at tablet 00 with bedtime chronic nightly. kidney disease, without long-term current use of insulin, unspecified CKD stage cyclobenzap Yes History of 10mg Take 1 [facility] rine 4-21 nerve tablet by [facility] (FLEXERIL) 00:00: impingement mouth 3 10 mg 00 times tablet daily as needed for Muscle Spasms. cyclobenzap Yes History of 10mg Take 1 Rubio rine 4-21 nerve tablet by [facility] (FLEXERIL) 00:00: impingement mouth 3 10 mg 00 times tablet daily as needed for Muscle Spasms. folic acid Yes Alcoholism 1mg QD Take 1 [facility] (FOLVITE) 1 3-25 tablet by [facility] mg tablet 00:00: mouth 00 daily. furosemide Yes Lower 40mg Q.5D Take 1 Wesley is (LASIX) 40 3-25 extremity tablet by [facility] mg tablet 00:00: edema mouth 2 00 times daily. folic acid Yes Alcoholism 1mg QD Take 1 [facility] (FOLVITE) 1 3-25 tablet by a lth mg tablet 00:00: mouth 00 daily. furosemide Yes Lower 40mg Q.5D Take 1 [facility] is (LASIX) 40 3-25 extremity tablet by [facility] mg tablet 00:00: edema mouth 2 00 times daily. BIOTIN OR Yes 1{tbl} QD Take 1 Wesley is 2-19 tablet by [facility] 09:32: mouth 59 daily. cholecalcif 2018-09 Yes 1{capsu Take 1 H arris bubba, 2-10 le} capsule by [facility] vitamin D3, 13:31: mouth. (VITAMIN D3 46 OR) clopidogrel 2018-09 Yes Coronary 75mg QD Take 1 [facility] (PLAVIX) 75 0-28 artery tablet by [facility] mg tablet 00:00: disease mouth 00 involving daily. [place] heart, angina presence unspecified , unspecified vessel or lesion type clopidogrel 2018-09 Yes Coronary 75mg QD Take 1 [facility] (PLAVIX) 75 0-28 artery tablet by [facility]alth mg tablet 00:00: disease mouth 00 involving daily. [place] heart, angina presence unspecified , unspecified vessel or lesion type mirtazapine 2018-09 Yes 15mg Take 15 mg [facility] (REMERON) 0-22 by mouth Colleg e 7.5 MG 18:48: nightly. of tablet 33 Medicin e gabapentin 2018-09 Yes 100mg Take 100 [facility] (NEURONTIN) 0-22 mg by [facility] 300 MG 18:48: mouth 3 of capsule 33 times Medicin daily. e simvastatin 2018-09 Yes 20mg Take 20 mg [facility] (ZOCOR) 20 0-22 by mouth Colle ge MG tablet 18:48: every of 33 evening. Medicin e zonisamide 2018-09 Yes 100mg Take 100 [facility] (ZONEGRAN) 0-22 mg by [place] 100 MG 18:48: mouth 3 of capsule 33 times Medicin daily. e fluticasone 2018-09 Yes 1{spray 1 [place] by [facility] (FLONASE) 0-22 } Each College 50 MCG/ACT 18:48: Nostril of nasal spray 33 route Medicin daily. e albuterol 2018-09 Yes 4{puff} Inhale 4 [facility] HFA 0-22 Puffs by [facility] (PROVENTIL 18:48: mouth two of HFA, 33 times Medicin VENTOLIN daily. e HFA) 108 (90 base) mcg/act inhaler BABY 2018-09 Yes 325mg Take 325 [facility] ASPIRIN OR 0-22 mg by [facility] 18:48: mouth of 33 daily. Medicin e Multiple 2018-09 Yes Take by [facility] Vitamins-Mi 0-22 mouth. Rafael adkins nerals 18:48: of (MULTIVITAM 33 Medicin IN PO) e BIOTIN OR 2018-09 Yes 5000ug Take 5,000 [place] 0-22 mcg by [facility] 18:48: mouth of 33 daily. Medicin e FLAXSEED, 2018-09 Yes Take by [facility] r LINSEED, OR 0-22 mouth. Rafael adkins 18:48: of 33 Medicin e Coenzyme 2018-09 Yes Take by [facility] Q10 (COQ10 0-22 mouth. [place] OR) 18:48: of 33 Medicin e famotidine 2018-09 Yes 20mg Take 20 mg [facility] (PEPCID) 20 0-22 by mouth Sudeep ege MG tablet 18:48: two times of 33 daily. Medicin e folic acid 2018-09 Yes 1mg Take 1 mg [facility] (FOLVITE) 1 0-22 by mouth Sudeep ege MG tablet 18:48: daily. of 33 Medicin e atorvastati 2018-09 Yes 80mg Take 80 mg [facility] n (LIPITOR) 0-22 by mouth Sdueep ege 80 MG 18:48: daily. of tablet 33 Medicin e clopidogrel 2018-09 Yes 75mg Take 75 mg [facility] (PLAVIX) 75 0-22 by mouth Sudeep ege MG tablet 18:48: daily. of 33 Medicin e sertraline 2018-09 2019- No 50mg Take 50 mg [facility] (ZOLOFT) 50 0-22 10-22 by mouth Col lege MG tablet 18:47: 00:00 daily. of 55 :00 Medicin e sertraline 2018-09 2019- No 200mg Take 200 [facility] (ZOLOFT) 0-22 10-22 mg by College 100 MG 18:47: 00:00 mouth of tablet 52 :00 daily. Medicin e folic acid 2018-09 Yes 1mg Take 1 mg [facility] (FOLVITE) 1 0-17 by mouth Sudeep ege MG tablet 20:52: daily. of 05 Medicin e atorvastati 2018-09 Yes 80mg Take 80 mg [facility] n (LIPITOR) 0-17 by mouth Sudeep ege 80 MG 20:52: daily. of tablet 05 Medicin e clopidogrel 2018-09 Yes 75mg Take 75 mg [facility] (PLAVIX) 75 0-17 by mouth Sudeep ege MG tablet 20:52: daily. of 05 Medicin e Nutritional 2018-09 Yes Take by [place] [facility] Supplements 0-17 mouth. Colleg e (VITAMIN D 20:52: of BOOSTER OR) 05 Medicin e sertraline 2018-09 Yes 200mg Take 200 [facility] (ZOLOFT) 0-17 mg by [facility] 100 MG 20:52: mouth of tablet 05 daily. Medicin e sertraline 2018-09 Yes 50mg Take 50 mg [facility] (ZOLOFT) 50 0-17 by mouth Sudeep ege MG tablet 20:52: daily. of 05 Medicin e mirtazapine 2018-09 Yes 15mg Take 15 mg [facility] (REMERON) 0-17 by mouth Colleg e 7.5 MG 20:52: nightly. of tablet 05 Medicin e gabapentin 2018-09 Yes 100mg Take 100 [facility] (NEURONTIN) 0-17 mg by [facility] 300 MG 20:52: mouth 3 of capsule 05 times Medicin daily. e simvastatin 2018-09 Yes 20mg Take 20 mg [facility] (ZOCOR) 20 0-17 by mouth Colle ge MG tablet 20:52: every of 05 evening. Medicin e zonisamide 2018-09 Yes 300mg Take 300 [facility] (ZONEGRAN) 0-17 mg by [facility] 100 MG 20:52: mouth of capsule 05 daily. Medicin e fluticasone 2018-09 Yes 1{spray 1 [place] by [facility] (FLONASE) 0-17 } Each College 50 MCG/ACT 20:52: Nostril of nasal spray 05 route Medicin daily. e albuterol 2018-09 Yes 4{puff} Inhale 4 [facility] HFA 0-17 Puffs by [facility] (PROVENTIL 20:52: mouth two of HFA, 05 times Medicin VENTOLIN daily. e HFA) 108 (90 base) mcg/act inhaler BABY 2018-09 Yes 325mg Take 325 [facility] ASPIRIN OR 0-17 mg by [facility] 20:52: mouth of 05 daily. Medicin e Multiple 2018-09 Yes Take by [facility] Vitamins-Mi 0-17 mouth. Rafael adkins nerals 20:52: of (MULTIVITAM 05 Medicin IN PO) e Nutritional 2018-09 Yes Take by [facility] Supplements 0-17 mouth. Rafael adkins (VITAMIN D 20:52: of BOOSTER OR) 05 Medicin e BIOTIN OR 2018-09 Yes 5000ug Take 5,000 [facility] 0-17 mcg by [facility] 20:52: mouth of 05 daily. Medicin e FLAXSEED, 2018-09 Yes Take by [facility] r LINSEED, OR 0-17 mouth. Rafael adkins 20:52: of 05 Medicin e Coenzyme 2018-09 Yes Take by [facility] Q10 (COQ10 0-17 mouth. [facility] OR) 20:52: of 05 Medicin e famotidine 2018-09 Yes 20mg Take 20 mg [facility] (PEPCID) 20 0-17 by mouth Sudeep ege MG tablet 20:52: two times of 05 daily. Medicin e NIFEdipine 2018-09 Yes [id number] 30mg Take 1 Tab [facility] (ADALAT CC) 0-17 by mouth Sudeep ege 30 MG CR 00:00: daily. of tablet 00 Medicin e NIFEdipine 2018-09 Yes [id number] 30mg Take 1 Tab [facility] (ADALAT CC) 0-17 by mouth Sudeep ege 30 MG CR 00:00: daily. of tablet 00 Medicin e albuterol Yes Wheezing 2{puff} Inhale 2 [facility] 90 8-27 Puffs by Health mcg/actuati 00:00: mouth 4 on inhaler 00 times daily as needed for Wheezing. albuterol Yes Wheezing 2{puff} Inhale 2 [facility] 90 8-27 Puffs by Health mcg/actuati 00:00: mouth 4 on inhaler 00 times daily as needed for Wheezing. famotidine Yes Dyspepsia 20mg Take 1 [facility] (PEPCID) 20 8-13 tablet by [facility] mg tablet 00:00: mouth 2 00 times daily as needed for Heartburn. fluticasone 2019-0 Yes Other 1{spray Use 1 H arris propionate 8-13 seasonal } [place] in H ealth (FLONASE) 00:00: allergic each 50 00 rhinitis nostril mcg/actuati daily as on nasal needed for spray Rhinitis or Allergies. aspirin 2019- Yes Coronary 81mg QD Chew and [facility] (ASPIRIN) 8-13 artery swallow 1 [facility] 81 mg 00:00: disease tablet by chewable 00 involving mouth tablet [place] daily. heart, angina presence unspecified , unspecified vessel or lesion type famotidine Yes Dyspepsia 20mg Take 1 [facility] (PEPCID) 20 8-13 tablet by [facility] mg tablet 00:00: mouth 2 00 times daily as needed for Heartburn. fluticasone 2018- Yes Other 1{spray Use 1 H arris propionate 8-13 seasonal } [place] in [facility] (FLONASE) 00:00: allergic each 50 00 rhinitis nostril mcg/actuati daily as on nasal needed for spray Rhinitis or Allergies. aspirin Yes Coronary 81mg QD Chew and [facility] (ASPIRIN) 8-13 artery swallow 1 [facility] 81 mg 00:00: disease tablet by chewable 00 involving mouth tablet [place] daily. 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 lidocaine Yes History of QD Apply to [facility] (RECTICARE) 2-01 nerve affected [facility] 5 % topical 00:00: impingement area cream 00 daily. influenza 2017-09- No Encounter .5mL [facility] vaccine 10-25 for Health (65 16:30: 02:05 vaccination YR+) 00 :00 (FLUAD) 45 mcg (15 mcg x 3)/0.5 mL injection 0.5 mL influenza 2017-09- No Encounter .5mL [facility] vaccine 1-27 01-13 for Health (65 16:30: 02:05 vaccination YR+) 00 :00 (FLUAD) 45 mcg (15 mcg x 3)/0.5 mL injection 0.5 mL nicotine 2017-09 Yes Needs 1{patch Apply 1 [facility] (NICODERM 1-27 smoking } Patch to [facility] CQ) 21 00:00: cessation skin as mg/24 hr 00 education directed patch every 24 hours. nicotine 2017-09 Yes Needs 1{patch Apply 1 [facility] (NICODERM 1-27 smoking } Patch to [facility] CQ) 21 00:00: cessation skin as mg/24 hr 00 education directed patch every 24 hours. polyethylen Yes Fecal Add Harri s e glycol 8-03 occult lukewarm Healt h (GOLYTELY) 00:00: blood test drinking 236-22.74-6 00 positive water to .74 -5.86 the fill gram oral [place] (4 solution liters) and shake. Drink as directed by your doctor.. polyethylen Yes Fecal Add Harri s e glycol 8-03 occult lukewarm Healt h (GOLYTELY) 00:00: blood test drinking 236-22.74-6 00 positive water to .74 -5.86 the fill gram oral [place] (4 solution liters) and shake. Drink as directed by your doctor.. polyethylen Yes Positive Add Ho rris e glycol 6-11 fecal [facility] (ET Water) 00:00: occult drinking 236-22.74-6 00 blood test water to .74 -5.86 the fill gram oral [place] (4 solution liters) and shake. Drink as directed by your doctor.. polyethylen Yes Positive Add Ho rris e glycol 6-11 fecal [facility] (CaptureProofLY) 00:00: occult drinking 236-22.74-6 00 blood test water to .74 -5.86 the fill gram oral [place] (4 solution liters) and shake. Drink as directed by your doctor.. blood Yes Diabetes 2 times Harri s glucose 5-21 mellitus weekly to [facility] test strips 00:00: type 2 in test blood 00 nonobese sugar. blood Yes Diabetes 2 times Harri s glucose 5-21 mellitus weekly to [facility] test strips 00:00: type 2 in test blood 00 nonobese sugar. Furosemide No Notes: Memor ia 40 MG Oral 3-29 (Same as: l Tablet 15:07: Lasix) May Cynthia nn [Lasix] 00 cause GI upset. Give with food or milk. clopidogrel No Notes: Torito ruth 3-29 (Same As: l 15:07: Plavix) Roberto 00 Aspirin 81 No Notes: Do Me moria MG Enteric 3-29 not crush l Coated 15:07: or chew. [place] Tablet 00 (Same As: Ecotrin) Hydralazine No Notes: Torito ruth Hydrochlori 3-29 (Same as: l de 25 MG 15:07: Apresoline Her sherman Oral Tablet 00 ) May interfere w/enteral feedings Take With Food. Imdur No Notes: Memoria 3-29 (Same l 15:07: as:Imdur) Roberto 00 "Do Not Crush" Take on empty stomach/ full glass of water. Do not crush Furosemide No Notes: Memor ia 40 MG Oral 3-29 (Same as: l Tablet 15:07: Lasix) May Cynthia nn [Lasix] 00 cause GI upset. Give with food or milk. clopidogrel No Notes: Torito ruth 3-29 (Same As: l 15:07: Plavix) Furosemide No Notes: Memor ia 40 MG Oral 3-29 (Same as: l Tablet 15:07: Lasix) May Cynthia nn [Lasix] 00 cause GI upset. Give with food or milk. clopidogrel No Notes: Torito ruth 3-29 (Same As: l 15:07: Plavix) [place] 00 Aspirin 81 No Notes: Do Me moria MG Enteric 3-29 not crush l Coated 15:07: or chew. Roberto Tablet 00 (Same As: Ecotrin) Hydralazine No Notes: Torito ruth Hydrochlori 3-29 (Same as: l de 25 MG 15:07: Apresoline Her sherman Oral Tablet 00 ) May interfere w/enteral feedings Take With Food. Imdur No Notes: Memoria 3-29 (Same l 15:07: as:Imdur) [place] 00 "Do Not Crush" Take on empty stomach/ full glass of water. Do not crush Aspirin 81 No Notes: Do Me moria MG Enteric 3-29 not crush l Coated 15:07: or chew. [place] Tablet 00 (Same As: Ecotrin) Hydralazine No Notes: Torito ruth Hydrochlori 3-29 (Same as: l de 25 MG 15:07: Apresoline Her sherman Oral Tablet 00 ) May interfere w/enteral feedings Take With Food. Imdur No Notes: Memoria 3-29 (Same l 15:07: as:Imdur) [place] 00 "Do Not Crush" Take on empty stomach/ full glass of water. Do not crush Furosemide 2018- No Notes: Memor ia 40 MG Oral 3-29 (Same as: l Tablet 15:07: Lasix) May Cynthia nn [Lasix] 00 cause GI upset. Give with food or milk. clopidogrel No Notes: Torito ruth 3-29 (Same As: l 15:07: Plavix) [place] 00 Aspirin 81 No Notes: Do Me moria MG Enteric 3-29 not crush l Coated 15:07: or chew. [place] Tablet 00 (Same As: Ecotrin) Hydralazine No Notes: Torito ruth Hydrochlori 3-29 (Same as: l de 25 MG 15:07: Apresoline Her sherman Oral Tablet 00 ) May interfere w/enteral feedings Take With Food. Imdur No Notes: Memoria 3-29 (Same l 15:07: as:Imdur) [place] 00 "Do Not Crush" Take on empty stomach/ full glass of water. Do not crush Furosemide 2018-0 No Notes: Memor ia 40 MG Oral 3-29 (Same as: l Tablet 15:07: Lasix) May Cynthia nn [Lasix] 00 cause GI upset. Give with food or milk. clopidogrel 0 No Notes: Torito ruth 3-29 (Same As: l 15:07: Plavix) [place] 00 Aspirin 81 No Notes: Do Me moria MG Enteric 3-29 not crush l Coated 15:07: or chew. [place] Tablet 00 (Same As: Ecotrin) Hydralazine No Notes: Torito ruth Hydrochlori 3-29 (Same as: l de 25 MG 15:07: Apresoline Her sherman Oral Tablet 00 ) May interfere w/enteral feedings Take With Food. Imdur No Notes: Memoria 3-29 (Same l 15:07: as:Imdur) [place] 00 "Do Not Crush" Take on empty stomach/ full glass of water. Do not crush Furosemide No Notes: Memor ia 40 MG Oral 3-29 (Same as: l Tablet 15:07: Lasix) May Cynthia nn [Lasix] 00 cause GI upset. Give with food or milk. clopidogrel No Notes: Torito ruth 3-29 (Same As: l 15:07: Plavix) [place] 00 Aspirin 81 No Notes: Do Me moria MG Enteric 3-29 not crush l Coated 15:07: or chew. [place] Tablet 00 (Same As: Ecotrin) Hydralazine No Notes: Torito ruth Hydrochlori 3-29 (Same as: l de 25 MG 15:07: Apresoline Her sherman Oral Tablet 00 ) May interfere w/enteral feedings Take With Food. Imdur No Notes: Memoria 3-29 (Same l 15:07: as:Imdur) [place] 00 "Do Not Crush" Take on empty stomach/ full glass of water. Do not crush Zonegran No Notes: Memoria 3-29 Contraindi l 14:46: cated in Roberto 00 patients with hypersensi tivity to sulfonamid es. (Same As: Zonegran) [facility] No Notes: Memoria 3-29 Contraindi l 14:46: cated in [place] 00 patients with hypersensi tivity to sulfonamid es. (Same As: Zonegran) [facility] No Notes: Memoria 3-29 Contraindi l 14:46: cated in Roberto 00 patients with hypersensi tivity to sulfonamid es. (Same As: Zonegran) [facility] No Notes: Memoria 3-29 Contraindi l 14:46: cated in [place] 00 patients with hypersensi tivity to sulfonamid es. (Same As: [facility]) [facility] No Notes: Memoria 3-29 Contraindi l 14:46: cated in Roberto 00 patients with hypersensi tivity to sulfonamid es. (Same As: [facility]) [facility] No Notes: Memoria 3-29 Contraindi l 14:46: cated in Roberto 00 patients with hypersensi tivity to sulfonamid es. (Same As: [facility]) amLODIPine 2018-0 Yes 5 mg = 1 Mem oria 5 mg oral 3-29 tab, PO, l tablet 14:40: Daily, # [place] 00 30 tab, 0 Refill(s) gabapentin 2018-0 Yes C, PO, Memor ia 100 MG Oral 3-29 TID, # 90 l Capsule 14:40: cap, 1 Roberto 00 Refill(s) Hydrochloro 2018-0 Yes 25 mg, PO, Memoria thiazide 3-29 Daily, 0 l 14:40: Refill(s) zonisamide 2018-0 Yes 100 mg = 1 M emoria 100 MG Oral 3-29 cap, PO, l Capsule 14:40: TID, # 60 Cynthia nn [Zonegran] 00 cap, 0 Refill(s) atorvastati 2018-0 Yes 40 mg = 1 M emoria n 40 mg 3-29 tab, PO, l oral tablet 14:40: Bedtime, # Roberto 00 30 tab, 0 Refill(s) amLODIPine 2018-0 Yes 5 mg = 1 Mem oria 5 mg oral 3-29 tab, PO, l tablet 14:40: Daily, # [place] 00 30 tab, 0 Refill(s) gabapentin 2018-0 Yes C, PO, Memor ia 100 MG Oral 3-29 TID, # 90 l Capsule 14:40: cap, 1 [place] 00 Refill(s) Hydrochloro 2018-0 Yes 25 mg, PO, Memoria thiazide 3-29 Daily, 0 l 14:40: Refill(s) zonisamide 2018-0 Yes 100 mg = 1 M emoria 100 MG Oral 3-29 cap, PO, l Capsule 14:40: TID, # 60 Cynthia nn [Zonegran] 00 cap, 0 Refill(s) atorvastati 2018-0 Yes 40 mg = 1 M emoria n 40 mg 3-29 tab, PO, l oral tablet 14:40: Bedtime, # [place] 00 30 tab, 0 Refill(s) amLODIPine 2018-0 Yes 5 mg = 1 Mem oria 5 mg oral 3-29 tab, PO, l tablet 14:40: Daily, # [place] 00 30 tab, 0 Refill(s) gabapentin 2018-0 Yes C, PO, Memor ia 100 MG Oral 3-29 TID, # 90 l Capsule 14:40: cap, 1 Roberto 00 Refill(s) Hydrochloro 2018-0 Yes 25 mg, PO, Memoria thiazide 3-29 Daily, 0 l 14:40: Refill(s) zonisamide 2018-0 Yes 100 mg = 1 M emoria 100 MG Oral 3-29 cap, PO, l Capsule 14:40: TID, # 60 Cynthia nn [Zonegran] 00 cap, 0 Refill(s) atorvastati 2018-0 Yes 40 mg = 1 M emoria n 40 mg 3-29 tab, PO, l oral tablet 14:40: Bedtime, # [place] 00 30 tab, 0 Refill(s) amLODIPine 2018-0 Yes 5 mg = 1 Mem oria 5 mg oral 3-29 tab, PO, l tablet 14:40: Daily, # [place] 00 30 tab, 0 Refill(s) gabapentin 2018-0 Yes C, PO, Memor ia 100 MG Oral 3-29 TID, # 90 l Capsule 14:40: cap, 1 [place] 00 Refill(s) Hydrochloro 2018-0 Yes 25 mg, PO, Memoria thiazide 3-29 Daily, 0 l 14:40: Refill(s) zonisamide 2018-0 Yes 100 mg = 1 M emoria 100 MG Oral 3-29 cap, PO, l Capsule 14:40: TID, # 60 Cynthia nn [Zonegran] 00 cap, 0 Refill(s) atorvastati 2018-0 Yes 40 mg = 1 M emoria n 40 mg 3-29 tab, PO, l oral tablet 14:40: Bedtime, # [place] 00 30 tab, 0 Refill(s) amLODIPine 2018-0 Yes 5 mg = 1 Mem oria 5 mg oral 3-29 tab, PO, l tablet 14:40: Daily, # [place] 00 30 tab, 0 Refill(s) gabapentin 2018-0 Yes C, PO, Memor ia 100 MG Oral 3-29 TID, # 90 l Capsule 14:40: cap, 1 Roberto 00 Refill(s) Hydrochloro 2018-0 Yes 25 mg, PO, Memoria thiazide 3-29 Daily, 0 l 14:40: Refill(s) [place] 00 zonisamide 2017-0 Yes 100 mg = 1 M emoria 100 MG Oral 3-29 cap, PO, l Capsule 14:40: TID, # 60 Cynthia nn [Zonegran] 00 cap, 0 Refill(s) atorvastati 2018-0 Yes 40 mg = 1 M emoria n 40 mg 3-29 tab, PO, l oral tablet 14:40: Bedtime, # Roberto 00 30 tab, 0 Refill(s) amLODIPine Yes 5 mg = 1 Mem oria 5 mg oral 3-29 tab, PO, l tablet 14:40: Daily, # [place] 00 30 tab, 0 Refill(s) gabapentin 2017-0 Yes C, PO, Memor ia 100 MG Oral 3-29 TID, # 90 l Capsule 14:40: cap, 1 [place] 00 Refill(s) Hydrochloro 2018-0 Yes 25 mg, PO, Memoria thiazide 3-29 Daily, 0 l 14:40: Refill(s) [place] 00 zonisamide 2018-0 Yes 100 mg = 1 M emoria 100 MG Oral 3-29 cap, PO, l Capsule 14:40: TID, # 60 Cynthia nn [Zonegran] 00 cap, 0 Refill(s) atorvastati 2017-0 Yes 40 mg = 1 M emoria n 40 mg 3-29 tab, PO, l oral tablet 14:40: Bedtime, # [place] 00 30 tab, 0 Refill(s) Nitroglycer No Notes: Torito ruth in 12-24 (Same l 23:16: as:Nitroqu [place] 00 ick, Nitrostat) "Do Not Crush" Sublingual tablet Nitroglycer No Notes: Torito ruth in 12-24 (Same l 23:16: as:Nitroqu [place] 00 ick, Nitrostat) "Do Not Crush" Sublingual tablet Nitroglycer 2017-0 No Notes: Torito ruth in - (Same l 23:16: as:Nitroqu [place] 00 ick, Nitrostat) "Do Not Crush" Sublingual tablet Nitroglycer 0 No Notes: Torito ruth in 12-24 (Same l 23:16: as:Nitroqu [place] 00 ick, Nitrostat) "Do Not Crush" Sublingual tablet Nitroglycer 0 No Notes: Torito ruth in 12-24 (Same l 23:16: as:Nitroqu [place] 00 ick, Nitrostat) "Do Not Crush" Sublingual tablet Nitroglycer No Notes: Torito ruth in 12-24 (Same l 23:16: as:Nitroqu [place] 00 ick, Nitrostat) "Do Not Crush" Sublingual tablet atorvastati 0 No Notes: Torito ruth n 12-24 (Same as: l 14:37: Lipitor) [place] 00 metoprolol 0 No Notes: Memor ia extended - (Same as: l release 14:37: Toprol XL) Herm bekah 00 Do Not Crush atorvastati 2017-0 No Notes: Torito ruth n - (Same as: l 14:37: Lipitor) [place] 00 metoprolol 2017-0 No Notes: Memor ia extended - (Same as: l release 14:37: Toprol XL) Herm bekah 00 Do Not Crush atorvastati 2017-0 No Notes: Torito ruth n 3- (Same as: l 14:37: Lipitor) [place] 00 metoprolol 2017-0 No Notes: Memor ia extended - (Same as: l release 14:37: Toprol XL) Herm bekah 00 Do Not Crush atorvastati 2018-0 No Notes: Torito ruth n - (Same as: l 14:37: Lipitor) [place] 00 metoprolol 2017-0 No Notes: Memor ia extended - (Same as: l release 14:37: Toprol XL) Herm bekah 00 Do Not Crush atorvastati 2018-0 No Notes: Torito ruth n - (Same as: l 14:37: Lipitor) [place] 00 metoprolol 2018-0 No Notes: Memor ia extended 12-24 (Same as: l release 14:37: Toprol XL) Herm bekah 00 Do Not Crush atorvastati No Notes: Torito ruth n 12-24 (Same as: l 14:37: Lipitor) [place] 00 metoprolol No Notes: Memor ia extended 12-24 (Same as: l release 14:37: Toprol XL) Herm bekah 00 Do Not Crush Heparin 60 No Route: Memor ia unit/kg 12-24 IVP, PRN, l Bolus 14:36: 3,500 [place] (Heparin 00 unit, 3.5 Dosing mL, Drug Weight) form: INJ, PRN, Heparin Protocol, Start date: 12/24/17 9:36:00 CDT Stop date: 01/23/18 9:35:00 CDT, 30 day Heparin 30 No Route: Memor ia unit/kg 12-24 IVP, PRN, l Bolus 14:36: 1,800 [place] (Heparin 00 unit, 1.8 Dosing mL, Drug Weight) form: INJ, PRN, Heparin Protocol, Start date: 12/24/17 9:36:00 CDT Stop date: 01/23/18 9:35:00 CDT, 30 day Heparin - No 3,000 Memoria one time 12-24 unit, l bolus for 14:36: Route: IV, He rmann ACS 00 Drug form: INJ, ONCE, Dosing Weight 79.545, kg, Priority: STAT, Start date: 12/24/17 9:36:00 CDT, Stop date: 12/24/17 9:36:00 CDT heparin No 500 mL, Memoria additive 12-24 Rate: l 25,000 unit 14:36: 14.19 Cynthia nn [12 00 ml/hr, unit/kg/hr] Infuse + Premix over: 35.2 Diluent hr, Route: Dextrose 5% IV, Dosing 500 mL Weight 59.12 kg, Total Volume: 500 mL, Start date: 12/24/17 9:36:00 CDT, Duration: 30 day, Stop date: 01/23/18 9:35:00 CDT, 1.6, m2 Heparin 60 No Route: Memor ia unit/kg 12-24 IVP, PRN, l Bolus 14:36: 3,500 [place] (Heparin 00 unit, 3.5 Dosing mL, Drug Weight) form: INJ, PRN, Heparin Protocol, Start date: 12/24/17 9:36:00 CDT Stop date: 01/23/18 9:35:00 CDT, 30 day Heparin 30 No Route: Memor ia unit/kg - IVP, PRN, l Bolus 14:36: 1,800 [place] (Heparin 00 unit, 1.8 Dosing mL, Drug Weight) form: INJ, PRN, Heparin Protocol, Start date: 12/24/17 9:36:00 CDT Stop date: 01/23/18 9:35:00 CDT, 30 day Heparin - No 3,000 Memoria one time 12-24 unit, l bolus for 14:36: Route: IV, He rmann ACS 00 Drug form: INJ, ONCE, Dosing Weight 79.545, kg, Priority: STAT, Start date: 12/24/17 9:36:00 CDT, Stop date: 12/24/17 9:36:00 CDT heparin No 500 mL, Memoria additive 12-24 Rate: l 25,000 unit 14:36: 14.19 Cynthia nn [12 00 ml/hr, unit/kg/hr] Infuse + Premix over: 35.2 Diluent hr, Route: Dextrose 5% IV, Dosing 500 mL Weight 59.12 kg, Total Volume: 500 mL, Start date: 12/24/17 9:36:00 CDT, Duration: 30 day, Stop date: 01/23/18 9:35:00 CDT, 1.6, m2 Heparin 60 No Route: Memor ia unit/kg - IVP, PRN, l Bolus 14:36: 3,500 [place] (Heparin 00 unit, 3.5 Dosing mL, Drug Weight) form: INJ, PRN, Heparin Protocol, Start date: 12/24/17 9:36:00 CDT Stop date: 01/23/18 9:35:00 CDT, 30 day Heparin 30 No Route: Memor ia unit/kg 12-24 IVP, PRN, l Bolus 14:36: 1,800 [place] (Heparin 00 unit, 1.8 Dosing mL, Drug Weight) form: INJ, PRN, Heparin Protocol, Start date: 12/24/17 9:36:00 CDT Stop date: 01/23/18 9:35:00 CDT, 30 day Heparin - No 3,000 Memoria one time 3-28 unit, l bolus for 14:36: Route: IV, He ann ACS 00 Drug form: INJ, ONCE, Dosing Weight 79.545, kg, Priority: STAT, Start date: 12/24/17 9:36:00 CDT, Stop date: 12/24/17 9:36:00 CDT heparin No 500 mL, Memoria additive - Rate: l 25,000 unit 14:36: 14.19 Cynthia nn [12 00 ml/hr, unit/kg/hr] Infuse + Premix over: 35.2 Diluent hr, Route: Dextrose 5% IV, Dosing 500 mL Weight 59.12 kg, Total Volume: 500 mL, Start date: 12/24/17 9:36:00 CDT, Duration: 30 day, Stop date: 01/23/18 9:35:00 CDT, 1.6, m2 Heparin 60 0 No Route: Memor ia unit/kg - IVP, PRN, l Bolus 14:36: 3,500 [place] (Heparin 00 unit, 3.5 Dosing mL, Drug Weight) form: INJ, PRN, Heparin Protocol, Start date: 12/24/17 9:36:00 CDT Stop date: 01/23/18 9:35:00 CDT, 30 day Heparin 30 No Route: Memor ia unit/kg -28 IVP, PRN, l Bolus 14:36: 1,800 [place] (Heparin 00 unit, 1.8 Dosing mL, Drug Weight) form: INJ, PRN, Heparin Protocol, Start date: 12/24/17 9:36:00 CDT Stop date: 01/23/18 9:35:00 CDT, 30 day Heparin - No 3,000 Memoria one time 3-28 unit, l bolus for 14:36: Route: IV, He rmann ACS 00 Drug form: INJ, ONCE, Dosing Weight 79.545, kg, Priority: STAT, Start date: 12/24/17 9:36:00 CDT, Stop date: 12/24/17 9:36:00 CDT heparin No 500 mL, Memoria additive 3- Rate: l 25,000 unit 14:36: 14.19 Cynthia nn [12 00 ml/hr, unit/kg/hr] Infuse + Premix over: 35.2 Diluent hr, Route: Dextrose 5% IV, Dosing 500 mL Weight 59.12 kg, Total Volume: 500 mL, Start date: 12/24/17 9:36:00 CDT, Duration: 30 day, Stop date: 01/23/18 9:35:00 CDT, 1.6, m2 Heparin 60 No Route: Memor ia unit/kg 3- IVP, PRN, l Bolus 14:36: 3,500 [place] (Heparin 00 unit, 3.5 Dosing mL, Drug Weight) form: INJ, PRN, Heparin Protocol, Start date: 12/24/17 9:36:00 CDT Stop date: 01/23/18 9:35:00 CDT, 30 day Heparin 30 No Route: Memor ia unit/kg 3- IVP, PRN, l Bolus 14:36: 1,800 [place] (Heparin 00 unit, 1.8 Dosing mL, Drug Weight) form: INJ, PRN, Heparin Protocol, Start date: 12/24/17 9:36:00 CDT Stop date: 01/23/18 9:35:00 CDT, 30 day Heparin - No 3,000 Memoria one time 3-28 unit, l bolus for 14:36: Route: IV, He rmann ACS 00 Drug form: INJ, ONCE, Dosing Weight 79.545, kg, Priority: STAT, Start date: 12/24/17 9:36:00 CDT, Stop date: 12/24/17 9:36:00 CDT heparin No 500 mL, Memoria additive 3-28 Rate: l 25,000 unit 14:36: 14.19 Cynthia nn [12 00 ml/hr, unit/kg/hr] Infuse + Premix over: 35.2 Diluent hr, Route: Dextrose 5% IV, Dosing 500 mL Weight 59.12 kg, Total Volume: 500 mL, Start date: 12/24/17 9:36:00 CDT, Duration: 30 day, Stop date: 01/23/18 9:35:00 CDT, 1.6, m2 Heparin 60 No Route: Memor ia unit/kg 12-24 IVP, PRN, l Bolus 14:36: 3,500 [place] (Heparin 00 unit, 3.5 Dosing mL, Drug Weight) form: INJ, PRN, Heparin Protocol, Start date: 12/24/17 9:36:00 CDT Stop date: 01/23/18 9:35:00 CDT, 30 day Heparin 30 No Route: Memor ia unit/kg 12-24 IVP, PRN, l Bolus 14:36: 1,800 [place] (Heparin 00 unit, 1.8 Dosing mL, Drug Weight) form: INJ, PRN, Heparin Protocol, Start date: 12/24/17 9:36:00 CDT Stop date: 01/23/18 9:35:00 CDT, 30 day Heparin - No 3,000 Memoria one time - unit, l bolus for 14:36: Route: IV, He rmann ACS 00 Drug form: INJ, ONCE, Dosing Weight 79.545, kg, Priority: STAT, Start date: 12/24/17 9:36:00 CDT, Stop date: 12/24/17 9:36:00 CDT heparin No 500 mL, Memoria additive 12-24 Rate: l 25,000 unit 14:36: 14.19 Cynthia nn [12 00 ml/hr, unit/kg/hr] Infuse + Premix over: 35.2 Diluent hr, Route: Dextrose 5% IV, Dosing 500 mL Weight 59.12 kg, Total Volume: 500 mL, Start date: 12/24/17 9:36:00 CDT, Duration: 30 day, Stop date: 01/23/18 9:35:00 CDT, 1.6, m2 Docusate No Notes: Memoria 3-28 (Same as: l 14:00: Colace) [place] 00 (Do Not Crush) heparin No 5,000 Memoria 3-28 unit, l 14:00: Route: [place] 00 SUB-Q, Q12H, Dosing Weight 77.273, kg, Start date: 12/24/17 9:00:00 CDT, Stop date: 01/22/18 21:00:00 CDT Docusate 0 No Notes: Memoria 3-28 (Same as: l 14:00: Colace) Roberto 00 (Do Not Crush) heparin 0 No 5,000 Memoria 3-28 unit, l 14:00: Route: [place] 00 SUB-Q, Q12H, Dosing Weight 77.273, kg, Start date: 12/24/17 9:00:00 CDT, Stop date: 01/22/18 21:00:00 CDT Docusate 0 No Notes: Memoria 3-28 (Same as: l 14:00: Colace) [place] 00 (Do Not Crush) heparin 0 No 5,000 Memoria 3-28 unit, l 14:00: Route: Roberto 00 SUB-Q, Q12H, Dosing Weight 77.273, kg, Start date: 12/24/17 9:00:00 CDT, Stop date: 01/22/18 21:00:00 CDT Docusate 0 No Notes: Memoria 3-28 (Same as: l 14:00: Colace) [place] 00 (Do Not Crush) heparin 0 No 5,000 Memoria 3-28 unit, l 14:00: Route: [place] 00 SUB-Q, Q12H, Dosing Weight 77.273, kg, Start date: 12/24/17 9:00:00 CDT, Stop date: 01/22/18 21:00:00 CDT Docusate 0 No Notes: Memoria 3-28 (Same as: l 14:00: Colace) [place] 00 (Do Not Crush) heparin 0 No 5,000 Memoria 3-28 unit, l 14:00: Route: [place] 00 SUB-Q, Q12H, Dosing Weight 77.273, kg, Start date: 12/24/17 9:00:00 CDT, Stop date: 01/22/18 21:00:00 CDT Docusate 0 No Notes: Memoria 3-28 (Same as: l 14:00: Colace) [place] 00 (Do Not Crush) heparin 2017-0 No 5,000 Memoria 3-28 unit, l 14:00: Route: [place] 00 SUB-Q, Q12H, Dosing Weight 77.273, kg, Start date: 12/24/17 9:00:00 CDT, Stop date: 01/22/18 21:00:00 CDT ProAir HFA 2017-0 Yes 2 puff, Torito ruth 3-28 INHALATION l 13:46: , QID, 0 [place] 00 Refill(s) ProAir HFA 2017-0 Yes 2 puff, Torito ruth 3-28 INHALATION l 13:46: , QID, 0 [place] 00 Refill(s) ProAir HFA 2017-0 Yes 2 puff, Torito ruth 3-28 INHALATION l 13:46: , QID, 0 [place] 00 Refill(s) ProAir HFA 2017-0 Yes 2 puff, Torito ruth 3-28 INHALATION l 13:46: , QID, 0 [place] 00 Refill(s) ProAir HFA 2017-0 Yes 2 puff, Torito ruth 3-28 INHALATION l 13:46: , QID, 0 [place] 00 Refill(s) ProAir HFA 2017-0 Yes 2 puff, Torito ruth 3-28 INHALATION l 13:46: , QID, 0 [place] 00 Refill(s) Fluticasone 0 Yes 2 spray, Me moria propionate 3-28 NASAL, l 0.05 13:45: Daily, 0 [place] MG/ACTUAT 00 Refill(s) Metered Dose Nasal [place] [Flonase] Fluticasone 2017-0 Yes 2 spray, Me moria propionate 3-28 NASAL, l 0.05 13:45: Daily, 0 Roberto MG/ACTUAT 00 Refill(s) Metered Dose Nasal [place] [Flonase] Fluticasone 2018-0 Yes 2 spray, Me moria propionate 3-28 NASAL, l 0.05 13:45: Daily, 0 Roberto MG/ACTUAT 00 Refill(s) Metered Dose Nasal [place] [Flonase] Fluticasone 2018-0 Yes 2 spray, Me moria propionate 3-28 NASAL, l 0.05 13:45: Daily, 0 Roberto MG/ACTUAT 00 Refill(s) Metered Dose Nasal [place] [Flonase] Fluticasone Yes 2 spray, Me moria propionate 3-28 NASAL, l 0.05 13:45: Daily, 0 [place] MG/ACTUAT 00 Refill(s) Metered Dose Nasal [place] [Flonase] Fluticasone Yes 2 spray, Me moria propionate 3-28 NASAL, l 0.05 13:45: Daily, 0 [place] MG/ACTUAT 00 Refill(s) Metered Dose Nasal [place] [Flonase] Acetaminoph No Notes: Torito ruth en 325 MG / 328 (Same as: l Hydrocodone 06:32: [place] Cynthia nn Bitartrate 00 325/5) Do 5 MG Oral not exceed Tablet 4gm/day of acetaminop hen. Ondansetron No Notes: Torito ruth 3 (Same as: l 06:32: Zofran) Roberto 00 MEDICATION WASTE Product Size: 4 mg Product Wasted: ___ mg Morphine No Notes: Memoria 12-24 (Same l 06:32: as:MORPhin [place] 00 e Sulfate) Acetaminoph No Notes: Do M emoria en 12-24 not exceed l 06:32: 4 gm/day. [place] 00 (Same as: Tylenol) Acetaminoph No Notes: Torito ruth en 325 MG / 12-24 (Same as: l Hydrocodone 06:32: [place] Cynthia nn Bitartrate 00 325/5) Do 5 MG Oral not exceed Tablet 4gm/day of acetaminop hen. Ondansetron No Notes: Torito ruth - (Same as: l 06:32: Zofran) [place] 00 MEDICATION WASTE Product Size: 4 mg Product Wasted: ___ mg Morphine No Notes: Memoria 12-24 (Same l 06:32: as:MORPhin [place] 00 e Sulfate) Acetaminoph No Notes: Do M emoria en 12-24 not exceed l 06:32: 4 gm/day. Roberto 00 (Same as: Tylenol) Acetaminoph No Notes: Torito ruth en 325 MG / 328 (Same as: l Hydrocodone 06:32: [place] Cynthia nn Bitartrate 00 325/5) Do 5 MG Oral not exceed Tablet 4gm/day of acetaminop hen. Acetaminoph No Notes: Torito ruth en 325 MG / 12-24 (Same as: l Hydrocodone 06:32: [place] Cynthia nn Bitartrate 00 325/5) Do 5 MG Oral not exceed Tablet 4gm/day of acetaminop hen. Ondansetron No Notes: Torito ruth 12-24 (Same as: l 06:32: Zofran) [place] 00 MEDICATION WASTE Product Size: 4 mg Product Wasted: ___ mg Morphine No Notes: Memoria 12-24 (Same l 06:32: as:MORPhin [place] 00 e Sulfate) Acetaminoph No Notes: Do M emoria en 12-24 not exceed l 06:32: 4 gm/day. [place] 00 (Same as: Tylenol) Ondansetron No Notes: Torito ruth 12-24 (Same as: l 06:32: Zofran) [place] 00 MEDICATION WASTE Product Size: 4 mg Product Wasted: ___ mg Morphine No Notes: Memoria 12-24 (Same l 06:32: as:MORPhin [place] 00 e Sulfate) Acetaminoph No Notes: Do M emoria en 12-24 not exceed l 06:32: 4 gm/day. [place] 00 (Same as: Tylenol) Acetaminoph No Notes: Torito ruth en 325 MG / 12-24 (Same as: l Hydrocodone 06:32: [place] Cynthia nn Bitartrate 00 325/5) Do 5 MG Oral not exceed Tablet 4gm/day of acetaminop hen. Ondansetron No Notes: Torito ruth 3- (Same as: l 06:32: Zofran) [place] 00 MEDICATION WASTE Product Size: 4 mg Product Wasted: ___ mg Morphine No Notes: Memoria 12-24 (Same l 06:32: as:MORPhin [place] 00 e Sulfate) Acetaminoph No Notes: Do M emoria en 12-24 not exceed l 06:32: 4 gm/day. Roberto (Same as: Tylenol) Acetaminoph No Notes: Torito ruth en 325 MG / 12-24 (Same as: l Hydrocodone 06:32: [place] Cynthia nn Bitartrate 00 325/5) Do 5 MG Oral not exceed Tablet 4gm/day of acetaminop hen. Ondansetron No Notes: Torito ruth 12-24 (Same as: l 06:32: Zofran) MEDICATION WASTE Product Size: 4 mg Product Wasted: ___ mg Morphine No Notes: Memoria 12-24 (Same l 06:32: as:MORPhin e Sulfate) Acetaminoph No Notes: Do M emoria en 12-24 not exceed l 06:32: 4 gm/day. Roberto 00 (Same as: Tylenol) Lovenox No 77.273 mg, Torito ruth 12-24 Route: l 05:46: SUB-Q, Drug form: INJ, ONCE, Dosing Weight 77.273, kg, Priority: STAT, Start date: 12/24/17 0:46:00 CDT, Stop date: 12/24/17 0:46:00 CDT Aspirin No 324 mg, Memoria 12-24 Route: l 05:46: CHEW, Drug form: CHEWTAB, ONCE, Dosing Weight 77.273, kg, Priority: STAT, Start date: 12/24/17 0:46:00 CDT, Stop date: 12/24/17 0:46:00 CDT Lovenox 2017- No 77.273 mg, Torito ruth 12-24 Route: l 05:46: SUB-Q, Drug form: INJ, ONCE, Dosing Weight 77.273, kg, Priority: STAT, Start date: 12/24/17 0:46:00 CDT, Stop date: 12/24/17 0:46:00 CDT Aspirin No 324 mg, Memoria 12-24 Route: l 05:46: CHEW, Drug form: CHEWTAB, ONCE, Dosing Weight 77.273, kg, Priority: STAT, Start date: 12/24/17 0:46:00 CDT, Stop date: 12/24/17 0:46:00 CDT Lovenox 2017-0 No 77.273 mg, Torito ruth 12-24 Route: l 05:46: SUB-Q, Roberto Drug form: INJ, ONCE, Dosing Weight 77.273, kg, Priority: STAT, Start date: 12/24/17 0:46:00 CDT, Stop date: 12/24/17 0:46:00 CDT Aspirin 2017-0 No 324 mg, Memoria 12-24 Route: l 05:46: CHEW, Drug [place] 00 form: CHEWTAB, ONCE, Dosing Weight 77.273, kg, Priority: STAT, Start date: 12/24/17 0:46:00 CDT, Stop date: 12/24/17 0:46:00 CDT Lovenox 2017-0 No 77.273 mg, Torito ruth 12-24 Route: l 05:46: SUB-Q, [place] 00 Drug form: INJ, ONCE, Dosing Weight 77.273, kg, Priority: STAT, Start date: 12/24/17 0:46:00 CDT, Stop date: 12/24/17 0:46:00 CDT Aspirin 2017-0 No 324 mg, Memoria 12-24 Route: l 05:46: CHEW, Drug form: CHEWTAB, ONCE, Dosing Weight 77.273, kg, Priority: STAT, Start date: 12/24/17 0:46:00 CDT, Stop date: 12/24/17 0:46:00 CDT Lovenox 2017-0 No 77.273 mg, Torito ruth 12-24 Route: l 05:46: SUB-Q, [place] 00 Drug form: INJ, ONCE, Dosing Weight 77.273, kg, Priority: STAT, Start date: 12/24/17 0:46:00 CDT, Stop date: 12/24/17 0:46:00 CDT Aspirin 2017-0 No 324 mg, Memoria 12-24 Route: l 05:46: CHEW, Drug [place] 00 form: CHEWTAB, ONCE, Dosing Weight 77.273, kg, Priority: STAT, Start date: 12/24/17 0:46:00 CDT, Stop date: 12/24/17 0:46:00 CDT Lovenox 2018-0 No 77.273 mg, Torito ruth 3 Route: l 05:46: SUB-Q, [place] 00 Drug form: INJ, ONCE, Dosing Weight 77.273, kg, Priority: STAT, Start date: 12/24/17 0:46:00 CDT, Stop date: 12/24/17 0:46:00 CDT Aspirin 2018-0 No 324 mg, Memoria 3- Route: l 05:46: CHEW, Drug [place] 00 form: CHEWTAB, ONCE, Dosing Weight 77.273, kg, Priority: STAT, Start date: 12/24/17 0:46:00 CDT, Stop date: 12/24/17 0:46:00 CDT Lasix 2018-0 No 80 mg, Memoria 3- Route: l 03:45: IVP, Drug [place] 00 form: INJ, ONCE, Dosing Weight 77.273, kg, Priority: STAT, Start date: 12/23/17 22:45:00 CDT, Stop date: 12/23/17 22:45:00 CDT Lasix 2018-0 No 80 mg, Memoria 3- Route: l 03:45: IVP, Drug [place] 00 form: INJ, ONCE, Dosing Weight 77.273, kg, Priority: STAT, Start date: 12/23/17 22:45:00 CDT, Stop date: 12/23/17 22:45:00 CDT Lasix 2018-0 No 80 mg, Memoria 3- Route: l 03:45: IVP, Drug [place] 00 form: INJ, ONCE, Dosing Weight 77.273, kg, Priority: STAT, Start date: 12/23/17 22:45:00 CDT, Stop date: 12/23/17 22:45:00 CDT Lasix 2018-0 No 80 mg, Memoria 3- Route: l 03:45: IVP, Drug [place] 00 form: INJ, ONCE, Dosing Weight 77.273, kg, Priority: STAT, Start date: 12/23/17 22:45:00 CDT, Stop date: 12/23/17 22:45:00 CDT Lasix 2018-0 No 80 mg, Memoria 3- Route: l 03:45: IVP, Drug [place] 00 form: INJ, ONCE, Dosing Weight 77.273, kg, Priority: STAT, Start date: 12/23/17 22:45:00 CDT, Stop date: 12/23/17 22:45:00 CDT Lasix 2018-0 No 80 mg, Memoria 3-28 Route: l 03:45: IVP, Drug [place] 00 form: INJ, ONCE, Dosing Weight 77.273, kg, Priority: STAT, Start date: 12/23/17 22:45:00 CDT, Stop date: 12/23/17 22:45:00 CDT Levaquin 2018-0 No 750 mg, Memori a 3-28 Route: l 03:22: IVPB, Drug [place] 00 form: SOLN, ONCE, Dosing Weight 77.273, kg, Start date: 12/23/17 22:22:00 CDT, Stop date: 12/23/17 22:22:00 CDT, ABX Indication : Pneumonia Levaquin 2018-0 No 750 mg, Memori a 3-28 Route: l 03:22: IVPB, Drug [place] 00 form: SOLN, ONCE, Dosing Weight 77.273, kg, Start date: 12/23/17 22:22:00 CDT, Stop date: 12/23/17 22:22:00 CDT, ABX Indication : Pneumonia Levaquin 2018-0 No 750 mg, Memori a 3-28 Route: l 03:22: IVPB, Drug [place] 00 form: SOLN, ONCE, Dosing Weight 77.273, kg, Start date: 12/23/17 22:22:00 CDT, Stop date: 12/23/17 22:22:00 CDT, ABX Indication : Pneumonia Levaquin 2018-0 No 750 mg, Memori a 3-28 Route: l 03:22: IVPB, Drug [place] 00 form: SOLN, ONCE, Dosing Weight 77.273, kg, Start date: 12/23/17 22:22:00 CDT, Stop date: 12/23/17 22:22:00 CDT, ABX Indication : Pneumonia Levaquin 2018-0 No 750 mg, Memori a 3-28 Route: l 03:22: IVPB, Drug [place] 00 form: SOLN, ONCE, Dosing Weight 77.273, kg, Start date: 12/23/17 22:22:00 CDT, Stop date: 12/23/17 22:22:00 CDT, ABX Indication : Pneumonia Levaquin 2018-0 No 750 mg, Memori a - Route: l 03:22: IVPB, Drug [place] 00 form: SOLN, ONCE, Dosing Weight 77.273, kg, Start date: 12/23/17 22:22:00 CDT, Stop date: 12/23/17 22:22:00 CDT, ABX Indication : Pneumonia Magnesium 2018-0 No 2 gm, Memoria Sulfate - Route: l 02:21: IVPB, Drug [place] 00 form: INJ, ONCE, Dosing Weight 77.273, kg, Total dose = 2 gm, Start date: 12/23/17 21:21:00 CDT, Stop date: 12/23/17 21:21:00 CDT Magnesium 2018-0 No 2 gm, Memoria Sulfate 12-24 Route: l 02:21: IVPB, Drug [place] 00 form: INJ, ONCE, Dosing Weight 77.273, kg, Total dose = 2 gm, Start date: 12/23/17 21:21:00 CDT, Stop date: 12/23/17 21:21:00 CDT Magnesium 2018-0 No 2 gm, Memoria Sulfate - Route: l 02:21: IVPB, Drug [place] 00 form: INJ, ONCE, Dosing Weight 77.273, kg, Total dose = 2 gm, Start date: 12/23/17 21:21:00 CDT, Stop date: 12/23/17 21:21:00 CDT Magnesium 2018-0 No 2 gm, Memoria Sulfate - Route: l 02:21: IVPB, Drug [place] 00 form: INJ, ONCE, Dosing Weight 77.273, kg, Total dose = 2 gm, Start date: 12/23/17 21:21:00 CDT, Stop date: 12/23/17 21:21:00 CDT Magnesium 2018-0 No 2 gm, Memoria Sulfate 12-24 Route: l 02:21: IVPB, Drug [place] 00 form: INJ, ONCE, Dosing Weight 77.273, kg, Total dose = 2 gm, Start date: 12/23/17 21:21:00 CDT, Stop date: 12/23/17 21:21:00 CDT Magnesium 2018-0 No 2 gm, Memoria Sulfate 12-24 Route: l 02:21: IVPB, Drug Roberto form: INJ, ONCE, Dosing Weight 77.273, kg, Total dose = 2 gm, Start date: 12/23/17 21:21:00 CDT, Stop date: 12/23/17 21:21:00 CDT methylPREDN 2018-0 No 125 mg, Mem oria ISolone 12-24 Route: l SODium 02:16: IVP, ONCE, Cynthia nn SUCCinate Dosing Weight 77.273, kg, Priority: STAT, Start date: 12/23/17 21:16:00 CDT, Stop date: 12/23/17 21:16:00 CDT methylPREDN 2018-0 No 125 mg, Mem oria ISolone 12-24 Route: l SODium 02:16: IVP, ONCE, Cynthia nn SUCCinate Dosing Weight 77.273, kg, Priority: STAT, Start date: 12/23/17 21:16:00 CDT, Stop date: 12/23/17 21:16:00 CDT methylPREDN 2018-0 No 125 mg, Mem oria ISolone 12-24 Route: l SODium 02:16: IVP, ONCE, Cynthia nn SUCCinate Dosing Weight 77.273, kg, Priority: STAT, Start date: 12/23/17 21:16:00 CDT, Stop date: 12/23/17 21:16:00 CDT methylPREDN 2018-0 No 125 mg, Mem oria ISolone 12-24 Route: l SODium 02:16: IVP, ONCE, Cynthia nn SUCCinate Dosing Weight 77.273, kg, Priority: STAT, Start date: 12/23/17 21:16:00 CDT, Stop date: 12/23/17 21:16:00 CDT methylPREDN 2018-0 No 125 mg, Mem oria ISolone 12-24 Route: l SODium 02:16: IVP, ONCE, Cynthia nn SUCCinate Dosing Weight 77.273, kg, Priority: STAT, Start date: 12/23/17 21:16:00 CDT, Stop date: 12/23/17 21:16:00 CDT methylPREDN 2018-0 No 125 mg, Mem oria ISolone - Route: l 02:16: IVP, ONCE, Cynthia nn SUCCinate 00 Dosing Weight 77.273, kg, Priority: STAT, Start date: 12/23/17 21:16:00 CDT, Stop date: 12/23/17 21:16:00 CDT Albuterol 2017-0 No 9 mL, Memoria 0.833 MG/ML 12-24 Route: l :15: NEB, Drug Roberto Ipratropium 00 Form: [place] SOLN, 0.167 MG/ML Dosing Inhalant Weight Solution 77.273, kg, ONCE, STAT, Start date: 12/23/17 21:15:00 CDT, Stop date: 12/23/17 21:15:00 CDT Albuterol 2017-0 No 9 mL, Memoria 0.833 MG/ML 12-24 Route: l :15: NEB, Drug Roberto Ipratropium 00 Form: [place] SOLN, 0.167 MG/ML Dosing Inhalant Weight Solution 77.273, kg, ONCE, STAT, Start date: 12/23/17 21:15:00 CDT, Stop date: 12/23/17 21:15:00 CDT Albuterol 2017-0 No 9 mL, Memoria 0.833 MG/ML 12-24 Route: :15: NEB, Drug [place] Ipratropium 00 Form: [place] SOLN, 0.167 MG/ML Dosing Inhalant Weight Solution 77.273, kg, ONCE, STAT, Start date: 12/23/17 21:15:00 CDT, Stop date: 12/23/17 21:15:00 CDT Albuterol 2018-0 No 9 mL, Memoria 0.833 MG/ML 12-24 Route: l :15: NEB, Drug [place] Ipratropium 00 Form: [place] SOLN, 0.167 MG/ML Dosing Inhalant Weight Solution 77.273, kg, ONCE, STAT, Start date: 12/23/17 21:15:00 CDT, Stop date: 12/23/17 21:15:00 CDT Albuterol 2017-0 No 9 mL, Memoria 0.833 MG/ML 12-24 Route: l :15: NEB, Drug Roberto Ipratropium 00 Form: [place] SOLN, 0.167 MG/ML Dosing Inhalant Weight Solution 77.273, kg, ONCE, STAT, Start date: 12/23/17 21:15:00 CDT, Stop date: 12/23/17 21:15:00 CDT Albuterol 2018-0 No 9 mL, Memoria 0.833 MG/ML 12-24 Route: l / 02:15: NEB, Drug Roberto Ipratropium 00 Form: [place] SOLN, 0.167 MG/ML Dosing Inhalant Weight Solution 77.273, kg, ONCE, STAT, Start date: 12/23/17 21:15:00 CDT, Stop date: 12/23/17 21:15:00 CDT blood 2015-09 Yes Type 2 Use as [place] glucose 1- diabetes directed.. 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 He alth meter 00:00: mellitus 00 with diabetic polyneuropa thy, without long-term current use of insulin furosemide 2014-0 Yes 20mg Take 1 Tab [place] (LASIX) 20 6-19 by mouth Colle ge MG tablet 00:00: daily. of Medicin e furosemide 2014- Yes 20mg Take 1 Tab [place] (LASIX) 20 6-19 by mouth Colle ge MG tablet 00:00: daily. of Medicin e Immunizations Ordered Immunization Filled Immunization Date Status Commen ts Source Name Name Moderna Sars-cov-2 2020-11-28 Completed [facility] Vaccination 00:00:00 Moderna Sars-cov-2 2020-11-28 Completed [facility] Vaccination 00:00:00 Moderna Sars-cov-2 2020-11-01 Completed [facility] Vaccination 00:00:00 Moderna Sars-cov-2 2020-11-01 Completed [facility] Vaccination 00:00:00 Zoster Vaccine 2019-08-02 Completed [facility] (Shingrix) 00:00:00 Influenza, Injectable, 2019-08-02 Completed [facility] Quadrivalent, 00:00:00 Preservative Free Zoster Vaccine 2019-08-02 Completed [facility] (Shingrix) 00:00:00 Influenza, Injectable, 2019-08-02 Completed [facility] Quadrivalent, 00:00:00 Preservative Free PPV 23 (Pneumococcal 2019-06-01 Completed [facility] Polysaccharide 23 00:00:00 Valent) Zoster Vaccine 2019-06-01 Completed [facility] (Shingrix) 00:00:00 PPV 23 (Pneumococcal 2019-06-01 Completed [facility] Polysaccharide 23 00:00:00 Valent) Zoster Vaccine 2019-06-01 Completed [facility] (Shingrix) 00:00:00 Influenza, Vaccine 2018-08-25 Completed [facility] <FLUCELVAX>(Preservati 00:00:00 ve-Free) PNEUMOCOCCAL 23-VALPS 2018-08-25 Completed [facility] VACCINE 25 MCG/0.5 ML 00:00:00 INJECTION Influenza, Vaccine 2018-08-25 Completed [facility] <FLUCELVAX>(Preservati 00:00:00 ve-Free) PNEUMOCOCCAL 23-VALPS 2018-08-25 Completed [facility] VACCINE 25 MCG/0.5 ML 00:00:00 INJECTION Influenza Vaccine, 2017-08-19 Completed [facility] Seasonal, Injectable 00:00:00 Influenza Vaccine, 2017-08-19 Completed [facility] Seasonal, Injectable 00:00:00 Influenza Vaccine 2016-07-30 Completed [facility] 00:00:00 Influenza Vaccine 2016-07-30 Completed [facility] 00:00:00 Pneumococcal 13-valent 2016-07-30 Completed [facility] conj 0.5 mL injection 00:00:00 Pneumococcal 13-valent 2016-07-30 Completed [facility] conj 0.5 mL injection 00:00:00 Influenza Vaccine 2015-09-08 Completed [facility] 00:00:00 Tdap Tetanus, 2015-09-08 Completed [facility] diphtheria, acellular 00:00:00 pertussis Vaccine Influenza Vaccine 2015-09-08 Completed [facility] 00:00:00 Tdap Tetanus, 2015-09-08 Completed [facility] diphtheria, acellular 00:00:00 pertussis Vaccine Influenza Vaccine 2014-06-21 Completed [facility] 00:00:00 Influenza Vaccine 2014-06-21 Completed [facility] 00:00:00 Influenza Vaccine 2013-09-07 Completed [facility] 00:00:00 Influenza Vaccine 2013-09-07 Completed [facility] 00:00:00 Influenza Vaccine 2012-06-30 Completed [facility] 00:00:00 Influenza Vaccine 2012-06-30 Completed [facility] 00:00:00 PPD 2011-12-23 Completed [facility] 00:00:00 PPD 2011-12-23 Completed [facility] 00:00:00 Influenza Vaccine 2011-06-14 Completed [facility] 00:00:00 Influenza Vaccine 2011-06-14 Completed [facility] 00:00:00 Influenza Vaccine 2010-08-01 Completed [facility] 00:00:00 Influenza Vaccine 2010-08-01 Completed [facility] 00:00:00 TT Tetanus Toxoid 2005-03-18 Completed [facility] Vaccine 00:00:00 PPV 23 Pneumococcal 2005-03-18 [facility] Tetanus Toxoid 2005-03-18 Completed [facility] Vaccine 00:00:00 PPV 23 Pneumococcal 2005-03-18 [facility] [employer] 00:00:00 Vital Signs Vital Name Observation Time Observation Value Comments Source Systolic blood 2023 23:46:00 119 mm[Hg] Univer sity of pressure [facility] Diastolic blood 2023 23:46:00 69 mm[Hg] Unive rsity of [facility] Heart rate 2023 23:46:00 59 /min [facility] Respiratory rate 2023 23:46:00 16 /min [facility] Oxygen saturation in 2023 23:46:00 100 /min [facility] Pulse oximetry Branch Body temperature 2023 19:55:00 36.89 Josiane [facility] Body weight 2023 19:55:00 73.12 kg [facility] BMI 2023 19:55:00 32.54 kg/m2 [facility] Systolic blood 2022-10-29 18:30:00 101 mm[Hg] Univer sity of pressure [facility] Diastolic blood 2022-10-29 18:30:00 47 mm[Hg] Unive rsity of pressure [facility] Heart rate 2022-10-29 18:30:00 71 /min [facility] Respiratory rate 2022-10-29 18:30:00 37 /min [facility] Oxygen saturation in 2022-10-29 18:30:00 92 /min University of Arterial blood by [facility] Pulse oximetry Branch Body temperature 2022-10-29 17:07:00 36.44 Josiane [facility] Body height 2022-10-16 19:43:00 149.9 cm [facility] Body weight 2022-10-16 19:43:00 73.2 kg [facility] BMI 2022-10-16 19:43:00 32.58 kg/m2 [facility] Systolic blood 2022-10-29 13:37:00 168 mm[Hg] Univer sity of pressure [facility] Diastolic blood 2022-10-29 13:37:00 69 mm[Hg] Unive rsity of pressure [facility] Heart rate 2022-10-29 13:37:00 72 /min [facility] Body temperature 2022-10-29 13:37:00 36.83 Josiane [facility] Respiratory rate 2022-10-29 13:37:00 19 /min [facility] Oxygen saturation in 2022-10-29 13:37:00 100 /min University of Arterial blood by [facility] gunner Pulse oximetry Branch Body height 2022-10-16 19:43:00 149.9 cm [facility] Body weight 2022-10-16 19:43:00 73.2 kg [facility] BMI 2022-10-16 19:43:00 32.58 kg/m2 [facility] Systolic blood 2022-09-19 20:45:00 125 mm[Hg] Univer sity of [facility] Diastolic blood 2022-09-19 20:45:00 66 mm[Hg] Unive rsity of [facility] Heart rate 2022-09-19 20:45:00 70 /min [facility] Body temperature 2022-09-19 20:45:00 36.56 Josiane [facility] Respiratory rate 2022-09-19 20:45:00 18 /min [facility] Body height 2022-09-19 20:45:00 149.9 cm [facility] Body weight 2022-09-19 20:45:00 73.211 kg Universi ty of [facility] BMI 2022-09-19 20:45:00 32.60 kg/m2 [facility] Oxygen saturation in 2022-09-19 20:45:00 97 /min University Arterial blood by [facility] Pulse oximetry Branch BMI 2019-07-20 18:40:00 36.76 kg/m2 [facility] Systolic blood 2019-07-20 18:40:00 135 mm[Hg] [facility] of pressure Medicine Diastolic blood 2019-07-20 18:40:00 73 mm[Hg] [facility] pressure Medicine Heart rate 2019-07-20 18:40:00 70 /min [facility] of [facility] Body temperature 2019-07-20 18:40:00 36.5 Josiane [facility] Respiratory rate 2019-07-20 18:40:00 16 /min [facility] Body height 2019-07-20 18:40:00 149.9 cm [facility] Body weight 2019-07-20 18:40:00 82.555 kg [facility] Systolic blood 2019-07-15 20:47:00 142 mm[Hg] [facility] of pressure Medicine Diastolic blood 2019-07-15 20:47:00 92 mm[Hg] [facility] pressure Medicine Heart rate 2019-07-15 20:47:00 62 /min [facility] Body height 2019-07-15 20:47:00 149.9 cm [facility] Body weight 2019-07-15 20:47:00 81.647 kg [facility] BMI 2019-07-15 20:47:00 36.36 kg/m2 [facility] Oxygen saturation in 2019-07-15 20:47:00 98 /min [facility] of Arterial blood by Medicine Pulse oximetry Systolic (mm Hg) 2020-09-06 16:05:00 Torito Mejia Diastolic (mm Hg) 2020-09-06 16:05:00 Sudeep Mejia Heart Rate 2020-09-06 16:05:00 [facility] 2020-09-06 16:05:00 149.86 cm [facility] Weight 2020-09-06 16:05:00 [facility] [place] BMI Calculated 2020-09-06 16:05:00 [facility] Temperature Oral (F) 2017-12-25 16:54:00 98.9 F [facility] [place] Systolic (mm Hg) 2017-12-25 13:00:00 Torito rial [facility] Diastolic (mm Hg) 2017-12-25 13:00:00 [facility] [place] Respitory Rate 2017-12-25 13:00:00 Mem[facility] al [facility] Temperature Oral (F) 2017-12-25 13:00:00 98.9 F [facility] Systolic (mm Hg) 2017-12-25 12:00:00 Torito [facility] [place] Diastolic (mm Hg) 2017-12-25 12:00:00 Mem [facility] [place] Respitory Rate 2017-12-25 12:00:00 [facility] [place] Systolic (mm Hg) 2017-12-25 11:00:00 Torito rial [place] Diastolic (mm Hg) 2017-12-25 11:00:00 Mem [facility] [place] Respitory Rate 2017-12-25 11:00:00 [facility] [place] Temperature Oral (F) 2017-12-25 09:00:00 98.3 F [facility] BMI Calculated 2017-12-24 15:44:00 [facility] [place] Weight 2017-12-24 15:44:00 [facility] [place] Height 2017-12-24 15:44:00 152.4 cm [facility] BMI Calculated 2017-12-24 13:59:00 [facility] [place] Height 2017-12-24 13:59:00 152.4 cm [facility] Weight 2017-12-24 13:59:00 [facility] Heart Rate 2017-12-24 11:12:00 [facility] Heart Rate 2017-12-24 08:00:00 [facility] Heart Rate 2017-12-24 06:26:00 [facility] Weight 2017-12-24 01:43:00 [facility] [place] BMI Calculated 2017-12-24 01:43:00 [facility] Height 2017-12-24 01:43:00 152.4 cm [facility] Procedures Procedure Date / Time Performing Clinician Source Performed XR ANKLE 3+ VW RIGHT 2023 21:22:54 Katherine Tripp [facility] XR FOOT 3+ VW RIGHT 2023 21:22:54 Katherine Tripp [facility] AUTHORIZATION FOR RELEASE 2022-11-11 06:01:00 Doctor Boogie, [facility] [place] [facility] ASSIGNMENT OF BENEFITS 2022-11-07 18:02:55 Doctor Boogie, [facility] Name Medical Branch LAPAROSCOPIC 2022-10-29 14:43:00 Rosamaria Melton [facility] INTRAPERITONEAL CATHETER [facility] Branch PLACEMENT POTASSIUM SERUM 2022-10-29 13:32:00 French Vanegas [facility] POTASSIUM SERUM 2022-10-29 13:32:00 French Vanegas [facility] POCT GLUCOSE (AUTOMATED) 2022-10-29 13:30:00 Rosamaria Melton [facility] POCT GLUCOSE (AUTOMATED) 2022-10-29 13:30:00 Rosamaria Melton [facility] DAY SURGERY - ADC 2022-10-29 06:01:00 Doctor Boogie, [facility] [place] [facility] MEDICAL RELEASE/CLEARANCE 2022-09-24 06:01:00 Doctor Boogie, [facility] FORMS [place] MEDICAL RELEASE/CLEARANCE 2022-09-24 06:01:00 Doctor Boogie [facility] FORMS [place] [place] MEDICAL RELEASE/CLEARANCE 2022-09-20 06:01:00 Doctor Hyman [facility] FORMS [place] [facility] DISCLOSURE AND CONSENT, 2022-09-19 06:01:00 Doctor Boogie [facility] MEDICAL AND SURGICAL [place] [facility] PROCEDURES REFERRAL- REQUEST/RESPONSE 2022-09-06 06:01:00 Doctor Boogie [facility] [place] [facility] DERMATOPATHOLOGY TISSUE 2022-07-31 00:00:00 Ita Tripp [facility] EXAM [facility] Measurement of post-voiding 2020-09-06 17:44:00 [facility] residual urine and/or bladder capacity by ultrasound, non-imaging COMPREHENSIVE METABOLIC 2019-07-15 22:00:[address] [facility] Medicine LIPID PANEL 2019-07-15 22:00:00 Wen Schroeder [facility] CBC W/AUTO DIFF WITH 2019-07-15 22:00:00 Wen Schroeder [facility] ELECTROCARDIOGRAM COMPLETE 2019-07-15 20:56:00 Wen Schroeder [facility] Appendectomy [facility] Carpal tunnel [facility] Plan of Care Planned Activity Planned Date Details Comments Source Future Scheduled 2028-11-24 Screening for malignant [facility] Test 00:00:00 neoplasm of colon (procedure) [code = 833755862] Future Scheduled 2028-11-24 Screening for malignant [facility] Test 00:00:00 neoplasm of colon (procedure) [code = 919141266] Future Scheduled 2028-11-24 Screening for malignant [facility] Test 00:00:00 neoplasm of colon (procedure) [code = 299301628] Future Scheduled 2028-11-24 Screening for malignant [facility] Test 00:00:00 neoplasm of colon (procedure) [code = 926556353] Future Scheduled 2021-07-17 Breast Cancer Scrn [facility] 00:00:00 (Yearly) [code = Breast Cancer Scrn (Yearly)] Future Scheduled 2021-07-17 CORONARY ARTERY DISEASE [facility] Test 00:00:00 AGE 18 AND UP [code = CORONARY ARTERY DISEASE AGE 18 AND UP] Future Scheduled 2021-07-17 Hemoglobin A1c [facility] 00:00:00 measurement (procedure) [code = 29759017] Future Scheduled 2021-07-17 Breast Cancer Scrn [facility] 00:00:00 (Yearly) [code = Breast Cancer Scrn (Yearly)] Future Scheduled 2021-07-17 CORONARY ARTERY DISEASE [facility] Test 00:00:00 AGE 18 AND UP [code = CORONARY ARTERY DISEASE AGE 18 AND UP] Future Scheduled 2021-07-17 Hemoglobin A1c [facility] 00:00:00 measurement (procedure) [code = 98495837] Future Scheduled 2021-01-23 COVID-19 Vaccine (3 - [facility] 00:00:00 Booster for Moderna series) [code = COVID-19 Vaccine (3 - Booster for Moderna series)] Future Scheduled 2021-01-23 COVID-19 Vaccine (3 - [facility] 00:00:00 Booster for Moderna series) [code = COVID-19 Vaccine (3 - Booster for Moderna series)] Future Scheduled 2020-05-20 DM Retinal Exam (Yearly) [facility] 00:00:00 [code = DM Retinal Exam (Yearly)] Future Scheduled 2020-05-20 DM Retinal Exam (Yearly) [facility] 00:00:00 [code = DM Retinal Exam (Yearly)] Future Scheduled 2020-05-11 DM Foot Exam (Yearly) [facility] 00:00:00 [code = DM Foot Exam (Yearly)] Future Scheduled 2020-05-11 Diabetic foot [facility] 00:00:00 examination (regime/therapy) [code = 700436052] Diagnostic Test 2019-07-15 MYOCARD PERFUSION - Expected: Rosalva Mantilla Pending 00:00:00 LEXISCAN [code = 78739] 07/15/2019, of edicine Expires: 01/13/2021 Diagnostic Test 2019-07-15 ECHO, COMPLETE [code = Expected: indigo Neeses Pending 00:00:00 [id number]] 07/15/2019, of Medicine Expires: 01/14/2020 Future Scheduled 2010-03-06 Screening for malignant [facility] Test 00:00:00 neoplasm of colon (procedure) [code = 524886905] Future Scheduled 2010-03-06 Screening for malignant [facility] Test 00:00:00 neoplasm of colon (procedure) [code = 948972955] Future Scheduled 2002-02-19 Screening for malignant [facility] Test 00:00:00 neoplasm of colon (procedure) [code = 106317703] Future Scheduled 2002-02-19 Screening for malignant [facility] Test 00:00:00 neoplasm of colon (procedure) [code = 792350231] Future Scheduled 2002-02-19 Screening for malignant [facility] Test 00:00:00 neoplasm of colon (procedure) [code = 197203022] Future Scheduled 2002-02-19 Screening for malignant [facility] Test 00:00:00 neoplasm of colon (procedure) [code = 742203405] Future Scheduled COLON CANCER SCREENING: [facility] Test COLONOSCOPY [code = of Medic ine COLON CANCER SCREENING: COLONOSCOPY] Future Scheduled MAMMOGRAM ANNUAL [code = [facility] Test MAMMOGRAM ANNUAL] of Medicin e Future Scheduled MEDICARE AWV [code = [employer] [facility] MEDICARE AWV] of Medicine Future Scheduled TETANUS SHOT (ADULT) [employer] Test [code = TETANUS SHOT of Medi cine (ADULT)] Future Scheduled BMI FOLLOW UP PLAN [code [facility] [employer] [facility] [employer] Test = BMI FOLLOW UP PLAN] of Med icine Future Scheduled HEPATITIS C SCREENING [employer] Test [code = HEPATITIS C of Medic ine SCREENING] Future Scheduled FALL SCREEN [code = FALL [employer] Test SCREEN] of Medicine Future Scheduled OSTEOPOROSIS SCREENING [employer] Test [code = OSTEOPOROSIS of Medi cine SCREENING] Future Scheduled PNEUMOVAX >=65 (PPSV23) [employer] Test [code = PNEUMOVAX >=65 of Me dicine (PPSV23)] Future Scheduled PREVNAR >= 65 (PCV13) [employer] Test [code = PREVNAR >= 65 of Med icine (PCV13)] Future Scheduled FLU VACCINE > 6 MONTHS [employer] Test [code = FLU VACCINE > 6 of M edicine MONTHS] Future Scheduled ELECTROCARDIOGRAM [facility] [facility] [employer] Test COMPLETE [code = 61666] of M edicine Future Scheduled COLON CANCER SCREENING: [facility] [facility] [employer] Test COLONOSCOPY [code = of Medic ine COLON CANCER SCREENING: COLONOSCOPY] Future Scheduled MAMMOGRAM ANNUAL [code = [facility] Test MAMMOGRAM ANNUAL] of Medicin e Future Scheduled MEDICARE AWV [code = [employer] Test MEDICARE AWV] of Medicine Future Scheduled TETANUS SHOT (ADULT) [employer] Test [code = TETANUS SHOT of Medi cine (ADULT)] Future Scheduled BMI FOLLOW UP PLAN [code [facility] [facility] [employer] Test = BMI FOLLOW UP PLAN] of Med icine Future Scheduled HEPATITIS C SCREENING [employer] Test [code = HEPATITIS C of Medic ine SCREENING] Future Scheduled FALL SCREEN [code = FALL [employer] Test SCREEN] of Medicine Future Scheduled OSTEOPOROSIS SCREENING [employer] Test [code = OSTEOPOROSIS of Medi cine SCREENING] Future Scheduled PNEUMOVAX >=65 (PPSV23) [employer] Test [code = PNEUMOVAX >=65 of Me dicine (PPSV23)] Future Scheduled PREVNAR >= 65 (PCV13) [employer] Test [code = PREVNAR >= 65 of Med icine (PCV13)] Future Scheduled FLU VACCINE > 6 MONTHS [employer] Test [code = FLU VACCINE > 6 of M edicine MONTHS] Encounters Start End Encounter Admission Attending Care Care Encounter Source Date/Time Date/Time Type Type Clinicians Facility Department ID 2023-03-07 2023-03-07 Outpatient R ISAURO DOUGLASS [facility] [id number] Univers 09:50:00 09:50:00 ity of [facility] 2023-03-06 2023-03-06 Outpatient R KEITH, [facility] [id number] Univers 10:15:00 10:15:[address] [facility] 2023 2023 Emergency X BENNETTPINEDAESTEFANY, [facility] ERT [id number] Univers 14:57:00 18:51:[address] [facility] 2023 2023 Emergency [facility] 1.2.840.114 [id number] Univers 14:57:00 18:51:00 Katherine FLORES 350.1.13.10 ity of [place] 4.2.7.2.686 [facility] [phone] [facility] 084 Branch 2022-11-11 2022-11-11 Orders Doctor AMOS 1.2.840.114 [id number] Univers 00:00:00 00:00:00 Only Unassigned, JENNY 350.1.13.10 ity of [place] [facility] 4.2.7.2.686 [place] as [phone] [facility] 009 Branch 2022-11-08 2022-11-08 Letter AMOS Jo 1.2.840.114 [id number] Univers 00:00:00 00:00:00 (Out) Marta JENNY 350.1.13.10 it y of [facility] 4.2.7.2.686 [place] as [id number] [facility] 019 Branch 2022-11-07 2022-11-07 Outpatient R PARVEZ TOLEDO [facility] [id number] Univers 12:04:24 23:59:[address] [facility] 2022-11-07 2022-11-07 [facility] 1.2.840.114 [id number] Univers 12:00:00 23:59:00 Encounter Parvez FLORES 350.1.13.10 ity of [place] 4.2.7.2.686 [facility] [id number] [facility] [address] [place] 2022-11-07 2022-11-07 Laboratory Only, Ang Db Test [facility] 1.2.8 40.114 [id number] Univers 12:30:00 12:45:00 Only Unknown, Attending HEALTH 350.1.13.10 ity of Sridhar Fang 4.2.7.2.686 [place] HAKEEM?BLEA [id number] [address] MEDICAL OFFICE BUILDING 2022-11-07 2022-11-07 Orders Doctor AMOS 1.2.840.114 [id number] Univers 00:00:00 00:00:00 Only Unassigned, JENNY 350.1.13.10 ity of [place] [facility] 4.2.7.2.686 [place] as [phone] [facility] [address] [place] 2022-11-07 2022-11-07 Letter Doctor AMOS 1.2.840.114 [id number] Univers 00:00:00 00:00:00 (Out) Unassigned, JENNY 350.1.13.10 ity of [place] [facility] 4.2.7.2.686 [place] as [id number] [facility] [address] [place] 2022-11-07 2022-11-07 Letter Doctor AMOS 1.2.840.114 [id number] Univers 00:00:00 00:00:00 (Out) Unassigned, JENNY 350.1.13.10 ity of [place] [facility] 4.2.7.2.686 [place] as [phone] [facility] [address] [place] 2022-10-29 2022-10-29 Outpatient R [facility]NM [facility] [id number] Univers 07:16:00 13:04:00 ROSAMARIA itsofiya of [facility] 2022-10-29 2022-10-29 Hospital [facility] 1.2.840.114 [id number] Univers 07:16:00 13:04:00 Encounter Rosamaria FLORES 350.1.13.10 ity [place] [id number] [facility] 071 Branch 2022-10-29 2022-10-29 Surgery [facility] 1.2.303.870 [id number] Univers 08:15:00 09:55:00 Rosamaria MARK 350.1.13.10 i ty of [facility] 4.2.7.2.[place] [id number] [facility] [address] [place] 2022-10-29 2022-10-29 Orders Doctor AMOS 1.2.840.114 [id number] Univers 00:00:00 00:00:00 Only Unassigned, JENNY 350.1.13.10 ity of [place] [facility] 4.2.7.2.686 [place] as [id number] [address] 2022-09-27 2022-09-27 Telephone [facility] 1.2.840.114 [id number] Univers 00:00:00 00:00:00 Rosamaria MARK 350.1.13.10 i ty [place] [id number] Co dical [address] 2022-09-20 2022-09-20 [facility] [id number] Univers 10:15:00 10:15:[address] [facility] 2022-09-20 2022-09-20 Prep For [facility] 1.2.840.114 [id number] Univers 00:00:00 00:00:00 Surgery Rosamaria MARK 350.1.13.10 i ty of [place] [phone] Co dical [address] 2022-09-20 2022-09-20 Orders Doctor AMOS 1.2.840.114 [id number] Univers 00:00:00 00:00:00 Only Unassigned, JENNY 350.1.13.10 ity of [place] [facility] 4.2.7.2.686 [place] as [id number] [address] 2022-09-19 2022-09-19 [facility] [id number] Univers 13:30:00 14:40:[address] [facility] 2022-09-19 2022-09-19 Office [facility] 1.2.943.320 [id number] Univers 13:30:00 14:40:45 Visit Rosamaria FLORES 350.1.13.10 i ty [place] [id number] Co dical [address] 2022-09-19 2022-09-19 Orders Doctor AMOS 1.2.840.114 [id number] Univers 00:00:00 00:00:00 Only Unassigned, JENNY 350.1.13.10 ity of [place] [facility] 4.2.7.2.686 [place] as [phone] [facility] [address] [place] 2022-09-06 2022-09-06 Orders Doctor AMOS 1.2.840.114 [id number] Univers 00:00:00 00:00:00 Only Unassigned, JENNY 350.1.13.10 ity of [place] [facility] 4.2.7.2.686 [place] as [id number] [address] 2022-08-14 2022-08-14 Joslyn Campbell Nurse Visit [facility] 1.2.840.114 [id number] Univers 11:00:00 11:15:00 Visit Gurinder BaileyPEC 350.1.1 3.10 it[place] of [place] [id number] [address] [facility] 2022-08-14 2022-08-14 Outpatient Joseph BAILEY [facility] [id number] Univers 11:00:00 11:00:00 GURINDER montes of [facility] 2022-07-31 2022-07-31 Office Sonal Redman [facility] 1.2 .840.114 [id number] Univers 16:00:00 16:15:00 Visit Rhonda Ragsdale 350.1.13.10 it[place] [id number] [address] [facility] 2022-07-31 2022-07-31 Outpatient Joseph RAGSDALE [facility] [id number] Univers 16:00:00 16:00:00 RHONDA chew [facility] 2022-07-24 2022-07-24 Outpatient R QUOC [facility] [id number] Univers 10:30:00 15:01:[address] [facility] 2022-07-24 2022-07-24 Office Sonal Redman [facility] 1.2 .840.114 [id number] Univers 10:30:00 15:01:23 Visit Estrellita Carter [facility] 350.1.13.10 jyoti [facility] 4.2.7.2.686 [facility] [id number] [address] [facility] 2020-11-28 2020-11-[address] [facility] [id number] [place] 00:00:00 00:00:00 Health 2020-11-01 2020-11-01 Outpatient OREN PETERSON [facility] [id number] [place] 15:59:48 16:22:30 Health 2020-09-19 2020-09-20 Outpatient nullFlavo [facility] [id number] Memoria 22:00:00 05:59:59 r Urology 02 l Katina Cynthia [employer] [facility] 2020-09-19 2020-09-20 Outpatient nullFlavo [facility] [id number] Memoria 22:00:00 05:59:59 r Urology 02 l Katina Marie nn [facility] 2020-09-19 2020-09-19 Outpatient Jarodboni MG [facility] [id number] 16:00:00 23:59:59 Jillian L 02 2020-09-19 2020-09-19 Outpatient [facility] [id number] Memoria 16:00:00 16:00:00 02 l [place] 2020-09-15 2020-09-15 Outpatient MHIE [facility] [id number] Memoria 13:30:00 13:30:00 01 l [place] 2020-09-15 2020-09-15 Outpatient MHIE [facility] [id number] Memoria 13:30:00 13:30:00 01 l [place] 2020-09-06 2020-09-07 Outpatient nullFlavo [facility] Multi 37 [id number] Memoria 16:20:00 05:59:59 r Specialty 00 l [facility] Diego godfrey Tr 2020-09-06 2020-09-07 Outpatient nullFlavo [facility] Multi 37 [id number] Memoria 16:20:00 05:59:59 r Specialty 00 l Clinic Zen Armando 2020-09-06 2020-09-06 Outpatient GINGER Chery [facility] [id number] 10:20:00 23:59:59 Jillian Cynthia 00 2020-09-06 2020-09-06 Outpatient [facility] [id number] Memoria 10:20:00 10:20:00 00 l Roberto 2019-07-20 2019-07-20 Office Leander Horton [facility] 1.2.840.114 [id number] [facility] 13:36:20 14:10:09 Visit AMBULATOR 350.1.13.21 College Y 0.2.7.2.686 of [id number] Medi jeremi 335 e 2019-07-15 2019-07-15 Office Alexandre [facility] 1.2.840.114 [id number] [facility] 15:15:30 16:40:46 Visit Ziad AMBULATOR 350.1.13.21 College Y 0.2.7.2.686 of [id number] Medi jeremi 315 e 2017-12-24 2017-12-25 Inpatient nullFlavo [facility] [id number] Memoria 01:32:00 20:30:00 r Roberto 00 l [facility] 2017-12-24 2017-12-25 [facility] [id number] Memoria 01:32:00 20:30:00 r [place] 00 l [facility] 2017-12-23 2017-12-25 Outpatient [facility]SE [facility] [id number] 20:32:00 15:30:00 00 2017-11-11 2017-11-[address] [facility] [id number] [place] 00:00:00 00:00:00 Health 2017-10-27 2017-10-[address] [facility] [id number] [place] 00:00:00 00:00:00 Health 2017-09-18 2017-09-[address] [facility] [id number] [place] 00:00:00 00:00:00 Health 2017-09-16 2017-09-[address] [facility] [id number] [place] 00:00:00 00:00:00 Health 2017-08-26 2017-08-[address] [facility] [id number] [place] 13:04:32 13:04:32 Health 2017-08-19 2017-08-[address] [facility] [id number] [place] 13:03:17 13:03:17 Health 2017-08-19 2017-08-[address] [facility] [id number] [place] 00:00:00 00:00:00 Health Results Test Description Test Time Test Comments Results Result Comments Source POCT GLUCOSE (AUTOMATED) 2022-10-29 13:42:50 Test Item Value Reference Range Interpretation Comme nts POCT GLU (test code = 1951106432) 160 mg/dL 70-110 H Lab Interpretation (test code = 48261-2) [facility]10[facility]29 13:42:50 Test Item Value Reference Range Interpretation Comments POCT GLU (test code = 1313604108) 160 mg/dL 70-110 H Lab Interpretation (test code = Abnormal 89837-4) [facility] [id number] 23:17:00 Test Item Value Reference Range Interpretation Comments Result 2 (Urine Culture) See Result Comment (test code = Result 2 (Urine Culture)) [facility] LAB [id number] 23:17:00 Test Item Value Reference Range Interpretation Comments Result 2 (Urine Culture) See Result Comment (test code = Result 2 (Urine Culture)) [facility] [id number] 23:17:00 Test Item Value Reference Range Interpretation Comments Result 2 (Urine Culture) See Result Comment (test code = Result 2 (Urine Culture)) [facility] [id number] 23:17:00 Test Item Value Reference Range Interpretation Comments Result 2 (Urine Culture) See Result Comment (test code = Result 2 (Urine Culture)) [facility] [id number] 23:17:00 Test Item Value Reference Range Interpretation Comments Result 2 (Urine Culture) See Result Comment (test code = Result 2 (Urine Culture)) [facility] [id number] 23:17:00 Test Item Value Reference Range Interpretation Comments Result 2 (Urine Culture) See Result Comment (test code = Result 2 (Urine Culture)) [facility] [id number] 20:49:00 Test Item Value Reference Range Interpretation Comments Result 2 (Urine Culture) See Result Comment (test code = Result 2 (Urine Culture)) [facility] [id number] 20:49:00 Test Item Value Reference Range Interpretation Comments Result 2 (Urine Culture) See Result Comment (test code = Result 2 (Urine Culture)) [facility] [id number] 20:49:00 Test Item Value Reference Range Interpretation Comments Result 2 (Urine Culture) See Result Comment (test code = Result 2 (Urine Culture)) [facility] [id number] 20:49:00 Test Item Value Reference Range Interpretation Comments Result 2 (Urine Culture) See Result Comment (test code = Result 2 (Urine Culture)) [facility] LAB [id number] 20:49:00 Test Item Value Reference Range Interpretation Comments Result 2 (Urine Culture) See Result Comment (test code = Result 2 (Urine Culture)) [facility] LAB [id number] 20:49:00 Test Item Value Reference Range Interpretation Comments Result 2 (Urine Culture) See Result Comment (test code = Result 2 (Urine Culture)) [facility] [id number] 07:51:27 Test Item Value Reference Range Interpretation Comments GLUCOSE (test code = See_Comment H [Autom ated message] 2345-7) The system [employer] generated this result transmitted ref erence range: 70 - 99 MG/DL. The reference r usama was not used to interpret this result as normal/abnor mal. BLOOD UREA NITROGEN See_Comment H [Automa clarence message] (test code = 3091-6) The [facility] tem which generated this result transmitted ref erence range: 8 - 23 M G/DL. The reference r usama was not used to interpret this result as normal/abnor mal. CREATININE (test code = See_Comment H [Au tomated message] 2160-0) The system [employer] generated this result transmitted ref erence range: 0.60 - 1 .30 MG/DL. The refe rence range was not u sed to interpret this result as normal/abnor mal. EGFR AA (test code = See_Comment L [Autom ated message] 61170-1) The system [employer] generated this result transmitted ref erence range: >60 ML/MIN/1.73. Th e reference range was not used to int erpret this result as normal/abnormal . EGFR (test code = See_Comment L [Automate d message] 82170-8) The system [facility] [employer] generated this result transmitted ref erence range: >60 ML/MIN/1.73. Th e reference range was not used to int erpret this result as normal/abnormal . BUN/CREAT RATIO (test See_Comment [Auto mated message] code = 3097-3) The system [employer] generated this result transmitted ref erence range: 6 - 28 R ATIO. The reference r usama was not used to interpret this result as normal/abnor mal. SODIUM (test code = See_Comment [Automa clarence message] 2951-2) The system [facility] [employer] generated this result transmitted ref erence range: 133 - 14 6 MEQ/L. The refe rence range was not u sed to interpret this result as normal/abnor mal. POTASSIUM (test code = See_Comment [Aut omated message] 2823-3) The system [facility] [employer] generated this result transmitted ref erence range: 3.5 - 5. 4 MEQ/L. The refe rence range was not u sed to interpret this result as normal/abnor mal. CHLORIDE (test code = See_Comment [Auto mated message] 6645-0) The system [facility] [employer] generated this result transmitted ref erence range: 95 - 107 MEQ/L. The reference r usama was not used to interpret this result as normal/abnor mal. CO2 (test code = See_Comment [Automated message] 1962-8) The system [facility] [employer] generated this result transmitted ref erence range: 19 - 31 MEQ/L. The reference r usama was not used to interpret this result as normal/abnor mal. CALCIUM (test code = See_Comment [Autom ated message] 00501-6) The system [facility] [employer] generated this result transmitted ref erence range: 8.5 - 10 .5 MG/DL. The refe rence range was not u sed to interpret this result as normal/abnor mal. PROTEIN TOTAL (test See_Comment [Automa clarence message] code = 2885-2) The system [employer] generated this result transmitted ref erence range: 6.1 - 8. 3 G/DL. The reference r usama was not used to interpret this result as normal/abnor mal. ALBUMIN (test code = See_Comment [Autom ated message] 90104-5) The system [facility] generated this result transmitted ref erence range: 3.5 - 5. 2 G/DL. The reference r usama was not used to interpret this result as normal/abnor mal. GLOBULINS, SERUM, TOTAL See_Comment H [Au tomated message] (test code = 97940-8) The sy stem which generated this result transmitted ref erence range: 1.9 - 3. 7 G/DL. The reference r usama was not used to interpret this result as normal/abnor mal. A/G RATIO (test code = See_Comment [Aut omated message] 1759-0) The system [facility] [employer] generated this result transmitted ref erence range: 1.0 - 2. 6 RATIO. The refe rence range was not u sed to interpret this result as normal/abnor mal. BILIRUBIN TOTAL (test See_Comment [Auto mated message] code = 1975-2) The system [facility] generated this result transmitted ref erence range: <=1.2 MG /DL. The reference r usama was not used to interpret this result as normal/abnor mal. ALKALINE PHOSPHATASE 107 U/L 40-142 (test code = 6768-6) AST (SGOT) (test code = 23 U/L 9-40 1920-8) ALT (SGPT) (test code = 12 U/L 5-40 Unl ess Otherwise 1744-2) Indicated, All Testing Performed At: [facility], [address] [place] [address] Laborator y Director: Diego León M.D. CLIA Number [id number] Cap Accreditation N o. [id number] Lab Interpretation Abnormal (test code = 81797-3) [facility] Francisco[facility] POUEC5222-68-05 07:51:27 Test Item Value Reference Range Interpretation Comments CHOLESTEROL (test code = See_Comment [A utomated message] 2092-3) The system [facility] generated this result transmitted ref erence range: <200 MG/ DL. The reference r usama was not used to interpret this result as normal/abnor mal. TRIGLYCERIDES (test code See_Comment [A utomated message] = 2571-8) The system whic h generated this result transmitted ref erence range: <150 MG/ DL. The reference r usama was not used to interpret this result as normal/abnor mal. HDL CHOLESTEROL (test See_Comment L [Auto mated message] code = 2085-9) The system wh ich generated this result transmitted ref erence range: >39 MG/D L. The reference range was not used to int erpret this result as normal/abnormal . LDL CHOLESTEROL See_Comment [Automated message] CALCULATED (test code = The system which 79013-0) generated this result transmitted ref erence range: <100 MG/ DL. The reference r usama was not used to interpret this result as normal/abnor mal. LDL/HDL RATIO, SERUM See_Comment Unless Otherwise (test code = 44708-0) Indica clarence, All Testing Perform ed At: [facility], [address] [place] [address] Laborator y Director: Diego León M.D. CLIA Number [id number] Cap Accreditation N o. [id number] [Auto mated message] The sy stem which generated this result transmit clarence reference range : <3.22 RATIO. Th e reference range was not used to int erpret this result as normal/abnormal . Lab Interpretation (test Abnormal code = 15094-4) [facility] W/AUTO DIFF WITH [id number] 07:03:43 Test Item Value Reference Range Interpretation Comments WHITE BLOOD CELL COUNT See_Comment [Aut omated message] (test code = 46611-8) The sy stem which generated this result transmitted ref erence range: 4.0 - 11 .0 K/UL. The refer ence range was not u sed to interpret this result as normal/abnor mal. RED BLOOD CELL COUNT See_Comment L [Autom ated message] (test code = 37480-2) The sy stem which generated this result transmitted ref erence range: 3.80 - 5 .10 M/UL. The refer ence range was not u sed to interpret this result as normal/abnor mal. HEMOGLOBIN (test code = See_Comment L [Au tomated message] 718-7) The system [employer] generated this result transmitted ref erence range: 11.5 - 1 5.5 G/DL. The refer ence range was not u sed to interpret this result as normal/abnor mal. HEMATOCRIT (test code = 28.0 % 34-45 L 54379-6) MEAN CORPUSCULAR VOLUME 89.5 fL 80-100 (test code = 63907-3) MEAN CORPUSCULAR 30.7 PG 27-34 HEMOGLOBIN (test code = 97548-5) MEAN CORPUSCULAR See_Comment [Automated message] HEMOGLOBIN CONC (test The sy stem which code = 80813-1) generated th is result transmitted ref erence range: 32.0 - 3 5.5 G/DL. The refer ence range was not u sed to interpret this result as normal/abnor mal. RED CELL DISTRIBUTION 12.6 % 11-15 WIDTH (test code = 14881-5) NEUTROPHILS % (test code 69.1 % 40-74 = 80566-6) LYMPHOCYTES % (test code 24.7 % 19-48 = 86907-6) MONOCYTES % (test code = 5.3 % 4-13 20612-7) EOSINOPHILS % (test code 0.8 % 0-7 = 31562-3) BASOPHILS % (test code = 0.1 % 0-2 96016-2) PLATELET COUNT (test See_Comment L Unless Otherwise code = 03668-1) Indicated, A ll Testing Perform ed At: [facility], [address] [place] [address], [place] [address] Laborator y Director: Diego León M.D. CLIA Number [id number] Cap Accreditation N o. [id number] [Autom ated message] The sy stem which generated this result transmit clarence reference range : 130 - 400 K/UL. The reference range was not used to int erpret this result as normal/abnormal . Lab Interpretation (test Abnormal code = 03425-9) [facility] FranciscoLyirmuxsTRYNMLAJSQ6332-75-35 10:07:00 Test Item Value Reference Range Interpretation Comments Platelet (test code = Platelet) 145 133-450 [facility] CenterZudbibfIGMNDYBFUK0394-26-41 10:07:00 Test Item Value Reference Range Interpretation Comments RDW (test code = RDW) 15.1 11.5-14.5 [facility] CenterKaxobhfWFTDRJYOLC9016-49-16 10:07:00 Test Item Value Reference Range Interpretation Comments MCHC (test code = MCHC) 33.3 32.0-36.0 [facility] CenterQppvkdyOHJFBFALLK2232-01-92 10:07:00 Test Item Value Reference Range Interpretation Comments MCV (test code = MCV) 101.0 80.0-98.0 [facility] CenterJfhgeeySGRNJXZEBU5313-16-23 10:07:00 Test Item Value Reference Range Interpretation Comments MCH (test code = MCH) 33.6 pg 27.0-31.0 [facility] CenterAnlstseFSFLYQHKXF2425-29-37 10:07:00 Test Item Value Reference Range Interpretation Comments Hgb (test code = Hgb) 9.1 12.0-16.0 [facility] CenterHtczmrlNNXAGTGJBF8120-15-47 10:07:00 Test Item Value Reference Range Interpretation Comments Hct (test code = Hct) 27.3 36.0-48.0 [facility] CenterMtjmgrdBVXESKBPAF3764-68-32 10:07:00 Test Item Value Reference Range Interpretation Comments RBC (test code = RBC) 2.70 4.20-5.40 [facility] CenterVstjisqSLCSXDAUVK0919-21-45 10:07:00 Test Item Value Reference Range Interpretation Comments WBC (test code = WBC) 11.2 3.7-10.4 [facility]2018-03-29 10:07:00 Test Item Value Reference Range Interpretation Comments eGFR (test code = eGFR) 24 [facility]2018-03-29 10:07:00 Test Item Value Reference Range Interpretation Comments Calcium Lvl (test code = Calcium Lvl) 8.0 8.5-10.5 [facility]2018-03-29 10:07:00 Test Item Value Reference Range Interpretation Comments AGAP (test code = AGAP) 12.0 10.0-20.0 [facility]2018-03-29 10:07:00 Test Item Value Reference Range Interpretation Comments BUN (test code = BUN) 38 7-22 [facility]2018-03-29 10:07:00 Test Item Value Reference Range Interpretation Comments Glucose Lvl (test code = Glucose Lvl) 110 70-99 [facility]2018-03-29 10:07:00 Test Item Value Reference Range Interpretation Comments Sodium Lvl (test code = Sodium Lvl) 137 135-145 [facility]2018-03-29 10:07:00 Test Item Value Reference Range Interpretation Comments Creatinine Lvl (test code = Creatinine 2.12 0.50-1.40 Lvl) [facility]2018-03-29 10:07:00 Test Item Value Reference Range Interpretation Comments CO2 (test code = CO2) 29 24-32 [facility]2018-03-29 10:07:00 Test Item Value Reference Range Interpretation Comments Chloride Lvl (test code = Chloride Lvl) 100 95-109 [facility]2018-03-29 10:07:00 Test Item Value Reference Range Interpretation Comments Potassium Lvl (test code = Potassium 4.0 3.5-5.1 Lvl) [facility] CenterAevezwiSCUUEINHVA3379-96-33 10:07:00 Test Item Value Reference Range Interpretation Comments Macrocyte (test code = 1+ *ABN*(12/25/17 Macrocyte) 5:07 AM) [facility] CenterWxhypdzFZMAXWYPOG2195-07-26 10:07:00 Test Item Value Reference Range Interpretation Comments Monocytes # (test code 0.7 See_Comment [Aut omated message] The = Monocytes #) system which generated this result tra nsmitted reference range : <=0.8. The reference r usama was not used to int erpret this result as normal/abnormal . [facility] CenterEvklhryMBHEFVLVOA5149-10-79 10:07:00 Test Item Value Reference Range Interpretation Comments Lymphocytes # (test code = Lymphocytes 1.1 1.0-5.5 #) [facility] CenterQufzojfBLVJPYLXFS1111-82-32 10:07:00 Test Item Value Reference Range Interpretation Comments Segs-Bands # (test code = Segs-Bands #) 9.4 1.5-8.1 [facility] CenterConuiqnAXDAFHHXXF7398-33-64 10:07:00 Test Item Value Reference Range Interpretation Comments Segs (test code = Segs) 84.0 45.0-75.0 [facility] CenterBbduyxkFAWYTIUTWL4507-84-17 10:07:00 Test Item Value Reference Range Interpretation Comments Monocytes (test code = Monocytes) 6.2 2.0-12.0 [facility] CenterAjdlhkdAUHPQXQJIS2890-14-07 10:07:00 Test Item Value Reference Range Interpretation Comments Lymphocytes (test code = Lymphocytes) 9.8 20.0-40.0 [facility] CenterFxlluwcWUERTDDZTZ3468-12-48 10:07:00 Test Item Value Reference Range Interpretation Comments MPV (test code = MPV) 9.3 7.4-10.4 [facility] CenterKabqktpKQAFVJSLXU4606-66-97 10:07:00 Test Item Value Reference Range Interpretation Comments MCH (test code = MCH) 33.6 pg 27.0-31.0 [facility] CenterFukrnewNYHQPZIFWX4038-88-36 10:07:00 Test Item Value Reference Range Interpretation Comments Hgb (test code = Hgb) 9.1 12.0-16.0 [facility] CenterWyiniprEBXSZJCGGK5202-09-68 10:07:00 Test Item Value Reference Range Interpretation Comments Hct (test code = Hct) 27.3 36.0-48.0 [facility] CenterBibonhjOGEFUWPGSI6028-26-28 10:07:00 Test Item Value Reference Range Interpretation Comments RBC (test code = RBC) 2.70 4.20-5.40 [facility] CenterJvvqdgpUXMZNGCUDY2839-21-07 10:07:00 Test Item Value Reference Range Interpretation Comments WBC (test code = WBC) 11.2 3.7-10.4 [facility]2018-03-29 10:07:00 Test Item Value Reference Range Interpretation Comments eGFR (test code = eGFR) 24 [facility]2018-03-29 10:07:00 Test Item Value Reference Range Interpretation Comments Calcium Lvl (test code = Calcium Lvl) 8.0 8.5-10.5 [facility]2018-03-29 10:07:00 Test Item Value Reference Range Interpretation Comments AGAP (test code = AGAP) 12.0 10.0-20.0 [facility]2018-03-29 10:07:00 Test Item Value Reference Range Interpretation Comments BUN (test code = BUN) 38 7-22 [facility]2018-03-29 10:07:00 Test Item Value Reference Range Interpretation Comments Glucose Lvl (test code = Glucose Lvl) 110 70-99 [facility]2018-03-29 10:07:00 Test Item Value Reference Range Interpretation Comments Sodium Lvl (test code = Sodium Lvl) 137 135-145 [facility]2018-03-29 10:07:00 Test Item Value Reference Range Interpretation Comments Creatinine Lvl (test code = Creatinine 2.12 0.50-1.40 Lvl) [facility]2018-03-29 10:07:00 Test Item Value Reference Range Interpretation Comments CO2 (test code = CO2) 29 24-32 [facility]2018-03-29 10:07:00 Test Item Value Reference Range Interpretation Comments Chloride Lvl (test code = Chloride Lvl) 100 95-109 [facility]2018-03-29 10:07:00 Test Item Value Reference Range Interpretation Comments Potassium Lvl (test code = Potassium 4.0 3.5-5.1 Lvl) [facility] CenterBxwrezcUACZJQRGHN1925-28-40 10:07:00 Test Item Value Reference Range Interpretation Comments Macrocyte (test code = 1+ *ABN*(12/25/17 Macrocyte) 5:07 AM) [facility] CenterVymwczgQTCZHHVGNY3784-59-27 10:07:00 Test Item Value Reference Range Interpretation Comments Monocytes # (test code 0.7 See_Comment [Aut omated message] The = Monocytes #) system which generated this result tra nsmitted reference range : <=0.8. The reference r usama was not used to int erpret this result as normal/abnormal . [facility] CenterSfvktjiRIQPIHSWFG1663-38-07 10:07:00 Test Item Value Reference Range Interpretation Comments Lymphocytes # (test code = Lymphocytes 1.1 1.0-5.5 #) [facility] CenterKqgnhmzFNJVFLHXCA3849-18-03 10:07:00 Test Item Value Reference Range Interpretation Comments Segs-Bands # (test code = Segs-Bands #) 9.4 1.5-8.1 [facility] CenterYrghnzmOPMJQKFQQV2426-88-53 10:07:00 Test Item Value Reference Range Interpretation Comments Segs (test code = Segs) 84.0 45.0-75.0 [facility] CenterSrqfahxHMAJDFXJEX0050-96-09 10:07:00 Test Item Value Reference Range Interpretation Comments Monocytes (test code = Monocytes) 6.2 2.0-12.0 [facility] CenterIocnxcqQAVZNITZUL0810-72-43 10:07:00 Test Item Value Reference Range Interpretation Comments Lymphocytes (test code = Lymphocytes) 9.8 20.0-40.0 [place] [address]891-03-29 10:07:00 Test Item Value Reference Range Interpretation Comments MPV (test code = MPV) 9.3 7.4-10.4 [facility] CenterNlnwvtzNGHJOYXAIT4435-88-16 10:07:00 Test Item Value Reference Range Interpretation Comments Platelet (test code = Platelet) 145 133-450 [facility] CenterHbrzeteQYLRNTZRBC4139-91-69 10:07:00 Test Item Value Reference Range Interpretation Comments RDW (test code = RDW) 15.1 11.5-14.5 [facility] CenterBmyiixrASDMUMJIBD4239-61-57 10:07:00 Test Item Value Reference Range Interpretation Comments MCHC (test code = MCHC) 33.3 32.0-36.0 [facility] CenterBxwrefoUBWNAUZFZR3712-05-33 10:07:00 Test Item Value Reference Range Interpretation Comments MCV (test code = MCV) 101.0 80.0-98.0 [facility] CenterEerxgmwNUCQIFNOYZ8625-25-41 10:07:00 Test Item Value Reference Range Interpretation Comments MCH (test code = MCH) 33.6 pg 27.0-31.0 [facility] CenterNfkusxlBBZRJANJRW9976-54-92 10:07:00 Test Item Value Reference Range Interpretation Comments Hgb (test code = Hgb) 9.1 12.0-16.0 [facility] CenterFrbriewBVDNOEQEYB2611-29-54 10:07:00 Test Item Value Reference Range Interpretation Comments Hct (test code = Hct) 27.3 36.0-48.0 [facility] CenterJwnyyezEBJVEABAET6546-97-57 10:07:00 Test Item Value Reference Range Interpretation Comments RBC (test code = RBC) 2.70 4.20-5.40 [facility] CenterXlsciteTZSMNHXBZO3055-07-53 10:07:00 Test Item Value Reference Range Interpretation Comments WBC (test code = WBC) 11.2 3.7-10.4 [facility]2018-03-29 10:07:00 Test Item Value Reference Range Interpretation Comments eGFR (test code = eGFR) 24 [facility]2018-03-29 10:07:00 Test Item Value Reference Range Interpretation Comments Calcium Lvl (test code = Calcium Lvl) 8.0 8.5-10.5 [facility]2018-03-29 10:07:00 Test Item Value Reference Range Interpretation Comments AGAP (test code = AGAP) 12.0 10.0-20.0 [facility]2018-03-29 10:07:00 Test Item Value Reference Range Interpretation Comments BUN (test code = BUN) 38 7-22 [facility]2018-03-29 10:07:00 Test Item Value Reference Range Interpretation Comments Glucose Lvl (test code = Glucose Lvl) 110 70-99 [facility]2018-03-29 10:07:00 Test Item Value Reference Range Interpretation Comments Sodium Lvl (test code = Sodium Lvl) 137 135-145 [facility]2018-03-29 10:07:00 Test Item Value Reference Range Interpretation Comments Creatinine Lvl (test code = Creatinine 2.12 0.50-1.40 Lvl) [facility]2018-03-29 10:07:00 Test Item Value Reference Range Interpretation Comments CO2 (test code = CO2) 29 24-32 [facility]2018-03-29 10:07:00 Test Item Value Reference Range Interpretation Comments Chloride Lvl (test code = Chloride Lvl) 100 95-109 [facility]2018-03-29 10:07:00 Test Item Value Reference Range Interpretation Comments Potassium Lvl (test code = Potassium 4.0 3.5-5.1 Lvl) [facility] CenterWisuwshBIWMGMZCWW5838-91-00 10:07:00 Test Item Value Reference Range Interpretation Comments Macrocyte (test code = 1+ *ABN*(12/25/17 Macrocyte) 5:07 AM) [facility] CenterQqazeckLPLGCJSXFX6073-13-98 10:07:00 Test Item Value Reference Range Interpretation Comments Monocytes # (test code 0.7 See_Comment [Aut omated message] The = Monocytes #) system which generated this result tra nsmitted reference range : <=0.8. The reference r usama was not used to int erpret this result as normal/abnormal . [facility] CenterPxjyeacYCOPVUARKQ8615-60-45 10:07:00 Test Item Value Reference Range Interpretation Comments Lymphocytes # (test code = Lymphocytes 1.1 1.0-5.5 #) [facility] CenterPhcalrdUMTYNTAEPU8580-59-77 10:07:00 Test Item Value Reference Range Interpretation Comments Segs-Bands # (test code = Segs-Bands #) 9.4 1.5-8.1 [facility] CenterHtyxvhuPXNRTWTPVF6106-75-93 10:07:00 Test Item Value Reference Range Interpretation Comments Segs (test code = Segs) 84.0 45.0-75.0 [facility] CenterRkviefgVSDKJPNIRO3479-60-54 10:07:00 Test Item Value Reference Range Interpretation Comments Monocytes (test code = Monocytes) 6.2 2.0-12.0 [facility] CenterLbxosotVMAWEGDLDN2410-19-81 10:07:00 Test Item Value Reference Range Interpretation Comments Lymphocytes (test code = Lymphocytes) 9.8 20.0-40.0 [facility] CenterSmczfnpSPHWRWTAQK5618-65-36 10:07:00 Test Item Value Reference Range Interpretation Comments MPV (test code = MPV) 9.3 7.4-10.4 [facility] CenterKkzcwwoNEOTYDAXQE5904-14-50 10:07:00 Test Item Value Reference Range Interpretation Comments Platelet (test code = Platelet) 145 133-450 [facility] CenterJegoniyFJIGWDXNGE8866-48-88 10:07:00 Test Item Value Reference Range Interpretation Comments RDW (test code = RDW) 15.1 11.5-14.5 [facility] CenterUvqesxmUTWSPIBEYE7604-04-98 10:07:00 Test Item Value Reference Range Interpretation Comments MCHC (test code = MCHC) 33.3 32.0-36.0 [facility] CenterQmbqjmoEYITGPDETY3076-40-29 10:07:00 Test Item Value Reference Range Interpretation Comments MCV (test code = MCV) 101.0 80.0-98.0 [facility] CenterQgcsuppKGSXVAJQHU7853-37-07 10:07:00 Test Item Value Reference Range Interpretation Comments MCH (test code = MCH) 33.6 pg 27.0-31.0 [facility] CenterEozdlvwVFZJNYUCOD2375-59-97 10:07:00 Test Item Value Reference Range Interpretation Comments Hgb (test code = Hgb) 9.1 12.0-16.0 [facility] CenterOrftqsnODNARQFQTW6531-77-21 10:07:00 Test Item Value Reference Range Interpretation Comments Hct (test code = Hct) 27.3 36.0-48.0 [facility] CenterRmenlqoHOWCKKTFHH8220-64-89 10:07:00 Test Item Value Reference Range Interpretation Comments RBC (test code = RBC) 2.70 4.20-5.40 [facility] CenterTebtnifHHJUXWXGXV5738-14-36 10:07:00 Test Item Value Reference Range Interpretation Comments WBC (test code = WBC) 11.2 3.7-10.4 [facility]2018-03-29 10:07:00 Test Item Value Reference Range Interpretation Comments eGFR (test code = eGFR) 24 [facility]2018-03-29 10:07:00 Test Item Value Reference Range Interpretation Comments Calcium Lvl (test code = Calcium Lvl) 8.0 8.5-10.5 [facility]2018-03-29 10:07:00 Test Item Value Reference Range Interpretation Comments AGAP (test code = AGAP) 12.0 10.0-20.0 [facility]2018-03-29 10:07:00 Test Item Value Reference Range Interpretation Comments BUN (test code = BUN) 38 7-22 [facility]2018-03-29 10:07:00 Test Item Value Reference Range Interpretation Comments Glucose Lvl (test code = Glucose Lvl) 110 70-99 [facility]2018-03-29 10:07:00 Test Item Value Reference Range Interpretation Comments Sodium Lvl (test code = Sodium Lvl) 137 135-145 [facility]2018-03-29 10:07:00 Test Item Value Reference Range Interpretation Comments Creatinine Lvl (test code = Creatinine 2.12 0.50-1.40 Lvl) [facility]2018-03-29 10:07:00 Test Item Value Reference Range Interpretation Comments CO2 (test code = CO2) 29 24-32 [facility]2018-03-29 10:07:00 Test Item Value Reference Range Interpretation Comments Chloride Lvl (test code = Chloride Lvl) 100 95-109 [facility]2018-03-29 10:07:00 Test Item Value Reference Range Interpretation Comments Potassium Lvl (test code = Potassium 4.0 3.5-5.1 Lvl) [facility] CenterTbcoaiiJMHFXIDZZH7143-28-09 10:07:00 Test Item Value Reference Range Interpretation Comments Macrocyte (test code = 1+ *ABN*(12/25/17 Macrocyte) 5:07 AM) [facility] CenterOeueosqTUNUOEZKPD1126-03-47 10:07:00 Test Item Value Reference Range Interpretation Comments Monocytes # (test code 0.7 See_Comment [Aut omated message] The = Monocytes #) system which generated this result tra nsmitted reference range : <=0.8. The reference r usama was not used to int erpret this result as normal/abnormal . [facility] CenterXmpitngJCIMKZXZMS1618-38-01 10:07:00 Test Item Value Reference Range Interpretation Comments Lymphocytes # (test code = Lymphocytes 1.1 1.0-5.5 #) [facility] CenterGinpwiiRVNQNITQJI9879-62-06 10:07:00 Test Item Value Reference Range Interpretation Comments Segs-Bands # (test code = Segs-Bands #) 9.4 1.5-8.1 [facility] CenterZbpthxsZVQRZZZWTS5151-61-53 10:07:00 Test Item Value Reference Range Interpretation Comments Segs (test code = Segs) 84.0 45.0-75.0 [facility] CenterWmsonjdNTSIZVWACH0301-10-37 10:07:00 Test Item Value Reference Range Interpretation Comments Monocytes (test code = Monocytes) 6.2 2.0-12.0 [facility] CenterXfuizoiWPSJGOHMHW1548-07-34 10:07:00 Test Item Value Reference Range Interpretation Comments Lymphocytes (test code = Lymphocytes) 9.8 20.0-40.0 [facility] CenterVaxiiufNBWILBUFTD0397-88-13 10:07:00 Test Item Value Reference Range Interpretation Comments MPV (test code = MPV) 9.3 7.4-10.4 [facility] CenterXewuuqvHVHTGJQVVU6258-13-74 10:07:00 Test Item Value Reference Range Interpretation Comments Platelet (test code = Platelet) 145 133-450 [facility] CenterAtozkmoUOFHIXMGAC0514-26-90 10:07:00 Test Item Value Reference Range Interpretation Comments RDW (test code = RDW) 15.1 11.5-14.5 [facility] CenterBpkeppbKOVHYYMNFB1723-00-63 10:07:00 Test Item Value Reference Range Interpretation Comments MCHC (test code = MCHC) 33.3 32.0-36.0 [facility] CenterAqdcgorDHWRIJCVUJ9559-46-47 10:07:00 Test Item Value Reference Range Interpretation Comments MCV (test code = MCV) 101.0 80.0-98.0 [facility] CenterPtvkauvBPPPCZVTWV9092-53-06 10:07:00 Test Item Value Reference Range Interpretation Comments MCH (test code = MCH) 33.6 pg 27.0-31.0 [facility] CenterGckknzwVITWUCLNLF5342-18-73 10:07:00 Test Item Value Reference Range Interpretation Comments Hgb (test code = Hgb) 9.1 12.0-16.0 [facility] CenterGswslulQEYYECLJEN0215-97-39 10:07:00 Test Item Value Reference Range Interpretation Comments Hct (test code = Hct) 27.3 36.0-48.0 [facility] CenterVwblniaVTVRHJBGIT3059-41-09 10:07:00 Test Item Value Reference Range Interpretation Comments RBC (test code = RBC) 2.70 4.20-5.40 [facility] CenterEbjvcfwAEJMUTOFBL5441-68-04 10:07:00 Test Item Value Reference Range Interpretation Comments WBC (test code = WBC) 11.2 3.7-10.4 [facility]2018-03-29 10:07:00 Test Item Value Reference Range Interpretation Comments eGFR (test code = eGFR) 24 [facility]2018-03-29 10:07:00 Test Item Value Reference Range Interpretation Comments Calcium Lvl (test code = Calcium Lvl) 8.0 8.5-10.5 [facility]2018-03-29 10:07:00 Test Item Value Reference Range Interpretation Comments AGAP (test code = AGAP) 12.0 10.0-20.0 [facility]2018-03-29 10:07:00 Test Item Value Reference Range Interpretation Comments BUN (test code = BUN) 38 7-22 [facility]2018-03-29 10:07:00 Test Item Value Reference Range Interpretation Comments Glucose Lvl (test code = Glucose Lvl) 110 70-99 [facility]2018-03-29 10:07:00 Test Item Value Reference Range Interpretation Comments Sodium Lvl (test code = Sodium Lvl) 137 135-145 [facility]2018-03-29 10:07:00 Test Item Value Reference Range Interpretation Comments Creatinine Lvl (test code = Creatinine 2.12 0.50-1.40 Lvl) [facility]2018-03-29 10:07:00 Test Item Value Reference Range Interpretation Comments eGFR (test code = eGFR) 24 [facility]2018-03-29 10:07:00 Test Item Value Reference Range Interpretation Comments Calcium Lvl (test code = Calcium Lvl) 8.0 8.5-10.5 [facility]2018-03-29 10:07:00 Test Item Value Reference Range Interpretation Comments AGAP (test code = AGAP) 12.0 10.0-20.0 [facility]2018-03-29 10:07:00 Test Item Value Reference Range Interpretation Comments CO2 (test code = CO2) [facility]2018-03-29 10:07:00 Test Item Value Reference Range Interpretation Comments BUN (test code = BUN) 38 7-22 [facility]2018-03-29 10:07:00 Test Item Value Reference Range Interpretation Comments Glucose Lvl (test code = Glucose Lvl) 110 70-99 [facility]2018-03-29 10:07:00 Test Item Value Reference Range Interpretation Comments Sodium Lvl (test code = Sodium Lvl) 137 135-145 [facility]2018-03-29 10:07:00 Test Item Value Reference Range Interpretation Comments Creatinine Lvl (test code = Creatinine 2.12 0.50-1.40 Lvl) [facility]2018-03-29 10:07:00 Test Item Value Reference Range Interpretation Comments CO2 (test code = CO2) [facility]2018-03-29 10:07:00 Test Item Value Reference Range Interpretation Comments Chloride Lvl (test code = Chloride Lvl) 100 95-109 [facility]2018-03-29 10:07:00 Test Item Value Reference Range Interpretation Comments Potassium Lvl (test code = Potassium 4.0 3.5-5.1 Lvl) [facility] CenterIjxcvdxTNBXEHDIGD5659-61-53 10:07:00 Test Item Value Reference Range Interpretation Comments Macrocyte (test code = 1+ *ABN*(12/25/17 Macrocyte) 5:07 AM) [facility] CenterVudyavbTVAFNDLDYE2555-03-37 10:07:00 Test Item Value Reference Range Interpretation Comments Monocytes # (test code 0.7 See_Comment [Aut omated message] The = Monocytes #) system which generated this result tra nsmitted reference range : <=0.8. The reference r usama was not used to int erpret this result as normal/abnormal . [facility] CenterHnxdoatPTRIBGMTOA4500-53-68 10:07:00 Test Item Value Reference Range Interpretation Comments Lymphocytes # (test code = Lymphocytes 1.1 1.0-5.5 #) [facility] UWNXW5158-04-75 10:07:00 Test Item Value Reference Range Interpretation Comments Chloride Lvl (test code = Chloride Lvl) 100 95-109 [facility] CenterItquweeTFFMZVPLMX0380-09-75 10:07:00 Test Item Value Reference Range Interpretation Comments Segs-Bands # (test code = Segs-Bands #) 9.4 1.5-8.1 [facility] CenterFlqrcmhJUDCNBMQFY7352-31-80 10:07:00 Test Item Value Reference Range Interpretation Comments Segs (test code = Segs) 84.0 45.0-75.0 [facility] CenterGyrkbttTRXMJOEQXU2649-81-85 10:07:00 Test Item Value Reference Range Interpretation Comments Monocytes (test code = Monocytes) 6.2 2.0-12.0 [facility] CenterLxrmadmXFXSIZGKPY9674-51-51 10:07:00 Test Item Value Reference Range Interpretation Comments Lymphocytes (test code = Lymphocytes) 9.8 20.0-40.0 [facility] CenterSmjhnkbIEMFQXVYMC6431-16-81 10:07:00 Test Item Value Reference Range Interpretation Comments MPV (test code = MPV) 9.3 7.4-10.4 [facility] CenterQpliiorOJELKUFCIM0114-88-91 10:07:00 Test Item Value Reference Range Interpretation Comments Platelet (test code = Platelet) 145 133-450 [facility] CenterTuxtbwnUMYCWREMQW7999-32-71 10:07:00 Test Item Value Reference Range Interpretation Comments RDW (test code = RDW) 15.1 11.5-14.5 [facility] CenterSyfbltqNRPEVBPXOU4583-80-27 10:07:00 Test Item Value Reference Range Interpretation Comments MCHC (test code = MCHC) 33.3 32.0-36.0 [facility] CenterRvlrtbsTCOIPFTLEZ5893-81-38 10:07:00 Test Item Value Reference Range Interpretation Comments MCV (test code = MCV) 101.0 80.0-98.0 [facility] CenterEmzwcatTAOXTWBLIY1972-37-41 10:07:00 Test Item Value Reference Range Interpretation Comments MCH (test code = MCH) 33.6 pg 27.0-31.0 [facility]2018-03-29 10:07:00 Test Item Value Reference Range Interpretation Comments Potassium Lvl (test code = Potassium 4.0 3.5-5.1 Lvl) [facility] CenterYxettonMQLCSCSEMU3611-79-17 10:07:00 Test Item Value Reference Range Interpretation Comments Hgb (test code = Hgb) 9.1 12.0-16.0 [facility] CenterOlmekchAYQUOKFASG1161-26-19 10:07:00 Test Item Value Reference Range Interpretation Comments Hct (test code = Hct) 27.3 36.0-48.0 [facility] CenterCkavsxnSWTNKEKXPZ6794-90-06 10:07:00 Test Item Value Reference Range Interpretation Comments RBC (test code = RBC) 2.70 4.20-5.40 [facility] CenterNuleewvDOYQHWGWHH1416-09-84 10:07:00 Test Item Value Reference Range Interpretation Comments WBC (test code = WBC) 11.2 3.7-10.4 [facility] CenterOhgpqkjSYORLCWKKM6802-82-07 10:07:00 Test Item Value Reference Range Interpretation Comments Macrocyte (test code = 1+ *ABN*(12/25/17 Macrocyte) 5:07 AM) [facility] CenterKpmokfhMSCYSYMSPN2451-04-24 10:07:00 Test Item Value Reference Range Interpretation Comments Monocytes # (test code 0.7 See_Comment [Aut omated message] The = Monocytes #) system which generated this result tra nsmitted reference range : <=0.8. The reference r usama was not used to int erpret this result as normal/abnormal . [facility] CenterCxrutacHBXYCWIIFH7305-43-77 10:07:00 Test Item Value Reference Range Interpretation Comments Lymphocytes # (test code = Lymphocytes 1.1 1.0-5.5 #) [facility] CenterSedzvbgJALQZFVRPP9301-50-93 10:07:00 Test Item Value Reference Range Interpretation Comments Segs-Bands # (test code = Segs-Bands #) 9.4 1.5-8.1 [facility] CenterJpvusqrJBTCQYESUC0850-11-89 10:07:00 Test Item Value Reference Range Interpretation Comments Segs (test code = Segs) 84.0 45.0-75.0 [facility] CenterQsuksovIHSFDLLAVN7840-90-14 10:07:00 Test Item Value Reference Range Interpretation Comments Monocytes (test code = Monocytes) 6.2 2.0-12.0 [facility] CenterCcthoipIRUQVMWLQG1611-52-36 10:07:00 Test Item Value Reference Range Interpretation Comments Lymphocytes (test code = Lymphocytes) 9.8 20.0-40.0 [facility] CenterEtrvjhkTJFWKQUMLS1359-37-98 10:07:00 Test Item Value Reference Range Interpretation Comments MPV (test code = MPV) 9.3 7.4-10.4 [facility] CenterJaqwlwhXLZDGBWWIB6471-46-89 10:07:00 Test Item Value Reference Range Interpretation Comments Platelet (test code = Platelet) 145 133-450 [facility] CenterTweetvqZTHVINWMWJ9178-40-67 10:07:00 Test Item Value Reference Range Interpretation Comments RDW (test code = RDW) 15.1 11.5-14.5 [facility] CenterWeeneeiYEOTZIVUKK0584-74-05 10:07:00 Test Item Value Reference Range Interpretation Comments MCHC (test code = MCHC) 33.3 32.0-36.0 [facility] CenterTpifvuhDIDFPFTBLE4957-23-41 10:07:00 Test Item Value Reference Range Interpretation Comments MCV (test code = MCV) 101.0 80.0-98.0 [facility]2018-03-28 23:58:33 Test Item Value Reference Range Interpretation Comments Creatinine Lvl (test code = Creatinine 1.65 0.50-1.40 Lvl) [facility]2018-03-28 23:58:33 Test Item Value Reference Range Interpretation Comments eGFR (test code = eGFR) 32 [facility]2018-03-28 23:58:33 Test Item Value Reference Range Interpretation Comments Creatinine Lvl (test code = Creatinine 1.65 0.50-1.40 Lvl) [facility]2018-03-28 23:58:33 Test Item Value Reference Range Interpretation Comments eGFR (test code = eGFR) 32 [facility]2018-03-28 23:58:33 Test Item Value Reference Range Interpretation Comments Creatinine Lvl (test code = Creatinine 1.65 0.50-1.40 Lvl) [facility]2018-03-28 23:58:33 Test Item Value Reference Range Interpretation Comments eGFR (test code = eGFR) 32 [facility]2018-03-28 23:58:33 Test Item Value Reference Range Interpretation Comments Creatinine Lvl (test code = Creatinine 1.65 0.50-1.40 Lvl) [facility]2018-03-28 23:58:33 Test Item Value Reference Range Interpretation Comments eGFR (test code = eGFR) 32 [facility]annL[facility] [id number] 23:58:33 Test Item Value Reference Range Interpretation Comments Creatinine Lvl (test code = Creatinine 1.65 0.50-1.40 Lvl) [facility]annL[facility] KRAJG7303-59-89 23:58:33 Test Item Value Reference Range Interpretation Comments eGFR (test code = eGFR) 32 [facility] Centerfitaborate PHHVF8249-90-50 23:58:33 Test Item Value Reference Range Interpretation Comments Creatinine Lvl (test code = Creatinine 1.65 0.50-1.40 Lvl) [facility] CenterannL[facility] PCDCY4905-79-44 23:58:33 Test Item Value Reference Range Interpretation Comments eGFR (test code = eGFR) 32 [facility] [employer] UTVCVRC3219-76-66 21:46:00 Test Item Value Reference Range Interpretation Comments Total CK (test code = Total CK) 222 12-191 [facility] [employer] AEMJUIS5206-57-11 21:46:00 Test Item Value Reference Range Interpretation Comments CK MB (test code = CK MB) 5.7 0.5-3.6 [facility] CenterMedicalis CMGCRUP4070-74-67 21:46:00 Test Item Value Reference Range Interpretation Comments Troponin-I (test code 1.50 See_Comment [Auto mated message] The = Troponin-I) system which g enerated this result transmit clarence reference range : <=0.40. The reference r usama was not used to interpr et this result as juanjose l/abnormal. [facility] DgiepqbWSKCKSKBST9172-52-08 21:46:00 Test Item Value Reference Range Interpretation Comments PTT (test code = PTT) 43.1 s 22.9-35.8 [facility] FctrnewXKGVNULFOY3003-88-25 21:46:00 Test Item Value Reference Range Interpretation Comments INR (test code = INR) 1.13 1 0.85-1.17 [facility] KmgwqwzCWGIEIXSMY8948-06-20 21:46:00 Test Item Value Reference Range Interpretation Comments PT (test code = PT) 14.5 s 12.0-14.7 [facility] [employer] SYJLIXE7869-92-71 21:46:00 Test Item Value Reference Range Interpretation Comments Total CK (test code = Total CK) 222 12-191 [facility] 21:46:00 Test Item Value Reference Range Interpretation Comments CK MB (test code = CK MB) 5.7 0.5-3.6 [facility] CenterMedical[facility] RYLHDXZ0425-93-34 21:46:00 Test Item Value Reference Range Interpretation Comments Troponin-I (test code 1.50 See_Comment [Auto mated message] The = Troponin-I) system which g enerated this result transmit clarence reference range : <=0.40. The reference r usama was not used to interpr et this result as juanjose l/abnormal. [facility] CenterUtozuwzCMROAFZUUO3324-64-27 21:46:00 Test Item Value Reference Range Interpretation Comments PTT (test code = PTT) 43.1 s 22.9-35.8 [facility] CenterDclenwvGDDMKPVPQP4756-56-51 21:46:00 Test Item Value Reference Range Interpretation Comments INR (test code = INR) 1.13 1 0.85-1.17 [facility] CenterYmirqgcXWRWCNBVIW2113-73-17 21:46:00 Test Item Value Reference Range Interpretation Comments PT (test code = PT) 14.5 s 12.0-14.7 [facility] CenterAfterSteps ILKUVTJ7603-90-69 21:46:00 Test Item Value Reference Range Interpretation Comments Total CK (test code = Total CK) 222 12-191 [facility] CenterEmu MessengerUO[facility] UGDEQNA6286-88-63 21:46:00 Test Item Value Reference Range Interpretation Comments CK MB (test code = CK MB) 5.7 0.5-3.6 [facility] CenterTangible PlayUOFL [facility] KUMTCTE8632-78-37 21:46:00 Test Item Value Reference Range Interpretation Comments Troponin-I (test code 1.50 See_Comment [Auto mated message] The = Troponin-I) system which g enerated this result transmit clarence reference range : <=0.40. The reference r usama was not used to interpr et this result as juanjose l/abnormal. [facility] CenterDfsefuqRQQRSDROXH3623-02-89 21:46:00 Test Item Value Reference Range Interpretation Comments PTT (test code = PTT) 43.1 s 22.9-35.8 [facility] CenterVkoyohxRLHKAKCKPV4643-27-26 21:46:00 Test Item Value Reference Range Interpretation Comments INR (test code = INR) 1.13 1 0.85-1.17 [facility]UztngznYVJGWZACOG3066-23-28 21:46:00 Test Item Value Reference Range Interpretation Comments PT (test code = PT) 14.5 s 12.0-14.7 [facility] CenterTangible PlayUOFL [facility] [id number] 21:46:00 Test Item Value Reference Range Interpretation Comments Total CK (test code = Total CK) 222 12-191 [facility] EUEXENP9731-75-54 21:46:00 Test Item Value Reference Range Interpretation Comments CK MB (test code = CK MB) 5.7 0.5-3.6 [facility] RUNMUSL0254-83-96 21:46:00 Test Item Value Reference Range Interpretation Comments Troponin-I (test code 1.50 See_Comment [Auto mated message] The = Troponin-I) system which g enerated this result transmit clarence reference range : <=0.40. The reference r usama was not used to interpr et this result as juanjose l/abnormal. [facility] CenterVpskzdiHEPRMKAPYK2892-41-28 21:46:00 Test Item Value Reference Range Interpretation Comments PTT (test code = PTT) 43.1 s 22.9-35.8 [facility] CenterLvmkkzmZZBWEUBSAL2745-57-33 21:46:00 Test Item Value Reference Range Interpretation Comments INR (test code = INR) 1.13 1 0.85-1.17 [facility] RegionRfkjpjzMGJIJHVLWA4045-95-48 21:46:00 Test Item Value Reference Range Interpretation Comments PT (test code = PT) 14.5 s 12.0-14.7 [facility] CenterTangible PlayUOFL [facility] KWYJKSH1958-27-55 21:46:00 Test Item Value Reference Range Interpretation Comments Total CK (test code = Total CK) 222 12-191 [facility] EMXBZOR0517-98-72 21:46:00 Test Item Value Reference Range Interpretation Comments CK MB (test code = CK MB) 5.7 0.5-3.6 [facility] PJRUQMA4525-89-12 21:46:00 Test Item Value Reference Range Interpretation Comments Troponin-I (test code 1.50 See_Comment [Auto mated message] The = Troponin-I) system which g enerated this result transmit clarence reference range : <=0.40. The reference r usama was not used to interpr et this result as juanjose l/abnormal. [facility] CenterZvjslvgBDZVCTROGN1987-82-13 21:46:00 Test Item Value Reference Range Interpretation Comments PTT (test code = PTT) 43.1 s 22.9-35.8 [facility] CenterZtfungbVGWMQUBFRD2776-87-56 21:46:00 Test Item Value Reference Range Interpretation Comments INR (test code = INR) 1.13 1 0.85-1.17 [facility] CenterYgdhpxoSNYDQPGSFL5727-43-06 21:46:00 Test Item Value Reference Range Interpretation Comments PT (test code = PT) 14.5 s 12.0-14.7 [facility] [id number] 21:46:00 Test Item Value Reference Range Interpretation Comments Total CK (test code = Total CK) 222 12-191 [facility] [id number] 21:46:00 Test Item Value Reference Range Interpretation Comments CK MB (test code = CK MB) 5.7 0.5-3.6 [facility] AGGBIQB2153-94-60 21:46:00 Test Item Value Reference Range Interpretation Comments Troponin-I (test code 1.50 See_Comment [Auto mated message] The = Troponin-I) system which g enerated this result transmit clarence reference range : <=0.40. The reference r usama was not used to interpr et this result as juanjose l/abnormal. [facility] CenterMfbgbvhDIPFGRRWXJ8916-69-38 21:46:00 Test Item Value Reference Range Interpretation Comments PTT (test code = PTT) 43.1 s 22.9-35.8 [facility] CenterTcbspfrHFKMJVBLJF7338-39-44 21:46:00 Test Item Value Reference Range Interpretation Comments INR (test code = INR) 1.13 1 0.85-1.17 [facility] CenterGlajurlWOLZKIRTKY9861-40-02 21:46:00 Test Item Value Reference Range Interpretation Comments PT (test code = PT) 14.5 s 12.0-14.7 [facility] CenterEuuhahxMFBZCQURWA1214-53-25 14:39:00 Test Item Value Reference Range Interpretation Comments Segs (test code = Segs) 87.8 45.0-75.0 [facility] CenterEpumbpeHAVWUJSCKM6078-02-19 14:39:00 Test Item Value Reference Range Interpretation Comments Lymphocytes (test code = Lymphocytes) 9.7 20.0-40.0 [facility] CenterYhkxujiJKFAPXAJKM1205-16-58 14:39:00 Test Item Value Reference Range Interpretation Comments Segs-Bands # (test code = Segs-Bands #) 2.5 1.5-8.1 [facility] CenterTqokvfeAUGUWBIOXH1646-36-29 14:39:00 Test Item Value Reference Range Interpretation Comments Macrocyte (test code = 1+ *ABN*(12/24/17 Macrocyte) 9:39 AM) [facility] CenterUwaefrhCIAVWJZQLE6690-16-00 14:39:00 Test Item Value Reference Range Interpretation Comments Monocytes # (test code 0.1 See_Comment [Aut omated message] The = Monocytes #) system which generated this result tra nsmitted reference range : <=0.8. The reference r usama was not used to int erpret this result as normal/abnormal . [facility] CenterXeeuzilEEVSIAPHGH5696-73-43 14:39:00 Test Item Value Reference Range Interpretation Comments Lymphocytes # (test code = Lymphocytes 0.3 1.0-5.5 #) [facility] CenterQeltyiqJEAUPCZWBT4856-65-11 14:39:00 Test Item Value Reference Range Interpretation Comments Basophils (test code = 0.3 See_Comment [Aut omated message] The Basophils) system which ge nerated this result tra nsmitted reference range : <=1.0. The reference r usama was not used to int erpret this result as normal/abnormal . [facility] CenterAlprpmfIJPZKBOHHY5271-31-74 14:39:00 Test Item Value Reference Range Interpretation Comments Monocytes (test code = Monocytes) 2.2 2.0-12.0 [facility] CenterEtkjmxpOPKNKQQBUC1316-41-51 14:39:00 Test Item Value Reference Range Interpretation Comments PT (test code = PT) 14.0 s 12.0-14.7 [facility] CenterOvophuxGFSUGSMPXD3994-45-72 14:39:00 Test Item Value Reference Range Interpretation Comments INR (test code = INR) 1.08 1 0.85-1.17 [facility] CenterFvrhznwLRPGORKQVG3536-68-61 14:39:00 Test Item Value Reference Range Interpretation Comments PTT (test code = PTT) 35.2 s 22.9-35.8 [facility] CenterAkkarghCCLVCERQAS8251-53-81 14:39:00 Test Item Value Reference Range Interpretation Comments MCHC (test code = MCHC) 34.0 32.0-36.0 [facility] CenterBtvtkfhWFZIJURZSV3302-05-65 14:39:00 Test Item Value Reference Range Interpretation Comments RBC (test code = RBC) 3.28 4.20-5.40 [facility] CenterMuanysjEKGIERXCQR8105-90-23 14:39:00 Test Item Value Reference Range Interpretation Comments WBC (test code = WBC) 2.9 3.7-10.4 [facility] CenterXnthzuvBWSGQNQNUY2143-16-72 14:39:00 Test Item Value Reference Range Interpretation Comments MCV (test code = MCV) 100.6 80.0-98.0 [facility] CenterAjaybuzREVNFFSFAN7596-43-16 14:39:00 Test Item Value Reference Range Interpretation Comments Hct (test code = Hct) 33.0 36.0-48.0 [facility] CenterArvwjkdMBGCATYBGL5172-30-80 14:39:00 Test Item Value Reference Range Interpretation Comments MCH (test code = MCH) 34.2 pg 27.0-31.0 [facility] CenterQlwjqllWKDOIGNTGK8571-95-86 14:39:00 Test Item Value Reference Range Interpretation Comments MPV (test code = MPV) 9.2 7.4-10.4 [facility] CenterEsihrggOLEBEGUZRH2107-65-50 14:39:00 Test Item Value Reference Range Interpretation Comments Platelet (test code = Platelet) 186 133-450 [facility] CenterJnrqacxDXJBERMKZS6295-46-51 14:39:00 Test Item Value Reference Range Interpretation Comments RDW (test code = RDW) 14.8 11.5-14.5 [facility] CenterKwaogynQKHMQNJTNK3236-06-96 14:39:00 Test Item Value Reference Range Interpretation Comments Hgb (test code = Hgb) 11.2 12.0-16.0 [facility]LghylquOTNVWG0947-69-69 14:39:00 Test Item Value Reference Range Interpretation Comments VLDL (test code = VLDL) 22 1 [facility] CenterBxawdtaPUQFIH7488-23-31 14:39:00 Test Item Value Reference Range Interpretation Comments CHD Risk (test code = CHD Risk) 1.53 1 3.90-5.80 [facility] CenterDxuvwboVEBMFN7390-67-10 14:39:00 Test Item Value Reference Range Interpretation Comments HDL (test code = HDL) 168 [facility] CenterFirrmrlRIVRWP0993-60-27 14:39:00 Test Item Value Reference Range Interpretation Comments LDL (Calculated) (test code = LDL 67 (Calculated)) [facility] CenterShfijxmAVZICU2029-08-22 14:39:00 Test Item Value Reference Range Interpretation Comments Chol (test code = Chol) 257 [facility] CenterUrjyqraQGXJFN5722-66-35 14:39:00 Test Item Value Reference Range Interpretation Comments Trig (test code = Trig) 108 [facility] EZFMHXJIB5746-48-99 14:39:00 Test Item Value Reference Range Interpretation Comments Hgb A1C (test code = Hgb A1C) 5.4 [facility] CenterIdnptyxVNJMYUWMGO8204-05-04 14:39:00 Test Item Value Reference Range Interpretation Comments Segs (test code = Segs) 87.8 45.0-75.0 [facility] CenterYwxlzeaVRLCOHZHGC1025-36-08 14:39:00 Test Item Value Reference Range Interpretation Comments Lymphocytes (test code = Lymphocytes) 9.7 20.0-40.0 [facility] CenterUtootomEUNOLNDVAF2681-89-75 14:39:00 Test Item Value Reference Range Interpretation Comments Segs-Bands # (test code = Segs-Bands #) 2.5 1.5-8.1 [facility] CenterVnuwiioIUKRPXGQQI2436-17-38 14:39:00 Test Item Value Reference Range Interpretation Comments Macrocyte (test code = 1+ *ABN*(12/24/17 Macrocyte) 9:39 AM) [facility] CenterBqugafkAQMJVRMWOG2366-66-97 14:39:00 Test Item Value Reference Range Interpretation Comments Monocytes # (test code 0.1 See_Comment [Aut omated message] The = Monocytes #) system which generated this result tra nsmitted reference range : <=0.8. The reference r usama was not used to int erpret this result as normal/abnormal . [facility] CenterAqgczfsDINIHDBWKC8989-25-08 14:39:00 Test Item Value Reference Range Interpretation Comments Lymphocytes # (test code = Lymphocytes 0.3 1.0-5.5 #) [facility] CenterSzexdvaMWEPVVYXHH1831-75-18 14:39:00 Test Item Value Reference Range Interpretation Comments Basophils (test code = 0.3 See_Comment [Aut omated message] The Basophils) system which ge nerated this result tra nsmitted reference range : <=1.0. The reference r usama was not used to int erpret this result as normal/abnormal . [facility] CenterQyswilmINIIWDOANS4940-66-13 14:39:00 Test Item Value Reference Range Interpretation Comments Monocytes (test code = Monocytes) 2.2 2.0-12.0 [facility] CenterCihayzvLGGGNNVPHU5943-41-22 14:39:00 Test Item Value Reference Range Interpretation Comments PT (test code = PT) 14.0 s 12.0-14.7 [facility] CenterIgopzqgXNPTDIYNUW8132-69-73 14:39:00 Test Item Value Reference Range Interpretation Comments INR (test code = INR) 1.08 1 0.85-1.17 [facility] CenterPvefojgYXYDESHRDL1390-23-76 14:39:00 Test Item Value Reference Range Interpretation Comments PTT (test code = PTT) 35.2 s 22.9-35.8 [facility] CenterZaipyphTMTFQLGCVN4123-28-07 14:39:00 Test Item Value Reference Range Interpretation Comments MCHC (test code = MCHC) 34.0 32.0-36.0 [facility] CenterSqpwiyoKGDFFUJGTI7736-51-15 14:39:00 Test Item Value Reference Range Interpretation Comments RBC (test code = RBC) 3.28 4.20-5.40 [facility] CenterEfscafeQLCATVDYUJ4148-69-26 14:39:00 Test Item Value Reference Range Interpretation Comments WBC (test code = WBC) 2.9 3.7-10.4 [facility] CenterCjnxfmpXUZOSITWGS9049-52-12 14:39:00 Test Item Value Reference Range Interpretation Comments MCV (test code = MCV) 100.6 80.0-98.0 [facility] CenterStflnhtVAWIYXCUPJ3525-97-93 14:39:00 Test Item Value Reference Range Interpretation Comments Hct (test code = Hct) 33.0 36.0-48.0 [facility] CenterRbpaqnhKVCTXQGAWU2225-94-03 14:39:00 Test Item Value Reference Range Interpretation Comments MCH (test code = MCH) 34.2 pg 27.0-31.0 [facility] CenterJnfbuqlIMTMIUXOGK5207-98-13 14:39:00 Test Item Value Reference Range Interpretation Comments MPV (test code = MPV) 9.2 7.4-10.4 [facility] CenterGvenuraJCQPFDABMH9430-13-59 14:39:00 Test Item Value Reference Range Interpretation Comments Platelet (test code = Platelet) 186 133-450 [facility] CenterQigbkgtSYVTZHUEFT0967-72-63 14:39:00 Test Item Value Reference Range Interpretation Comments RDW (test code = RDW) 14.8 11.5-14.5 [facility]ZkguxkjWASYUWMRFS4814-43-17 14:39:00 Test Item Value Reference Range Interpretation Comments Hgb (test code = Hgb) 11.2 12.0-16.0 [facility] CenterYmvpmkzRSOFVS5068-71-81 14:39:00 Test Item Value Reference Range Interpretation Comments VLDL (test code = VLDL) 22 1 [facility] CenterXahzzarVOHPRO2385-85-66 14:39:00 Test Item Value Reference Range Interpretation Comments CHD Risk (test code = CHD Risk) 1.53 1 3.90-5.80 [facility] CenterXngsqosQGHXYU0436-01-84 14:39:00 Test Item Value Reference Range Interpretation Comments HDL (test code = HDL) 168 [facility] CenterOopjrchXAKYVV8191-20-70 14:39:00 Test Item Value Reference Range Interpretation Comments LDL (Calculated) (test code = LDL 67 (Calculated)) [facility] CenterSeoneikGSEOKS2829-51-12 14:39:00 Test Item Value Reference Range Interpretation Comments Chol (test code = Chol) 257 [facility] CenterWrsskpgGVTUXT6733-86-41 14:39:00 Test Item Value Reference Range Interpretation Comments Trig (test code = Trig) 108 [facility] JGCXHIJBI9212-95-28 14:39:00 Test Item Value Reference Range Interpretation Comments Hgb A1C (test code = Hgb A1C) 5.4 [facility] CenterRmjahgzTRPTUJZHDS0410-56-43 14:39:00 Test Item Value Reference Range Interpretation Comments Segs (test code = Segs) 87.8 45.0-75.0 [facility]ZneglgpRVMKNFCHPP2115-54-57 14:39:00 Test Item Value Reference Range Interpretation Comments Lymphocytes (test code = Lymphocytes) 9.7 20.0-40.0 [facility] CenterInwxkcgJZRRYCGLRF4314-40-82 14:39:00 Test Item Value Reference Range Interpretation Comments Segs-Bands # (test code = Segs-Bands #) 2.5 1.5-8.1 [facility]XfcyaewDOKXCGWPFW2523-50-63 14:39:00 Test Item Value Reference Range Interpretation Comments Macrocyte (test code = 1+ *ABN*(12/24/17 Macrocyte) 9:39 AM) [facility] CenterJkjdwefMAEQAIBIIA5002-41-92 14:39:00 Test Item Value Reference Range Interpretation Comments Monocytes # (test code 0.1 See_Comment [Aut omated message] The = Monocytes #) system which generated this result tra nsmitted reference range : <=0.8. The reference r usama was not used to int erpret this result as normal/abnormal . [facility] CenterNiscrxjZAPSDZFIFD3054-81-18 14:39:00 Test Item Value Reference Range Interpretation Comments Lymphocytes # (test code = Lymphocytes 0.3 1.0-5.5 #) [facility] CenterSqljlhqOJMXFFUWZH3581-23-55 14:39:00 Test Item Value Reference Range Interpretation Comments Basophils (test code = 0.3 See_Comment [Aut omated message] The Basophils) system which ge nerated this result tra nsmitted reference range : <=1.0. The reference r usama was not used to int erpret this result as normal/abnormal . [facility] CenterWxmvotyCCXXRQPXTR4341-72-72 14:39:00 Test Item Value Reference Range Interpretation Comments Monocytes (test code = Monocytes) 2.2 2.0-12.0 [facility] CenterJnsaxgfUTRNMVBVLZ5221-95-36 14:39:00 Test Item Value Reference Range Interpretation Comments PT (test code = PT) 14.0 s 12.0-14.7 [facility] CenterVgekfqtYVTRFIEBCE4091-08-22 14:39:00 Test Item Value Reference Range Interpretation Comments INR (test code = INR) 1.08 1 0.85-1.17 [facility] CenterVwdwfctJTEEHBSHLX1212-25-26 14:39:00 Test Item Value Reference Range Interpretation Comments PTT (test code = PTT) 35.2 s 22.9-35.8 [facility] CenterCtkpumxMVUVHMIGUJ9432-68-54 14:39:00 Test Item Value Reference Range Interpretation Comments MCHC (test code = MCHC) 34.0 32.0-36.0 [facility] CenterQnegmdoAKFEHLHKEX3714-98-39 14:39:00 Test Item Value Reference Range Interpretation Comments RBC (test code = RBC) 3.28 4.20-5.40 [facility] CenterPgajrssCIQFBPUEPP2562-67-05 14:39:00 Test Item Value Reference Range Interpretation Comments WBC (test code = WBC) 2.9 3.7-10.4 [facility] CenterIdkasdxZQEHXJIZIE6099-83-15 14:39:00 Test Item Value Reference Range Interpretation Comments MCV (test code = MCV) 100.6 80.0-98.0 [facility]FlbvyxfLPZPEFVEOY3915-01-37 14:39:00 Test Item Value Reference Range Interpretation Comments Hct (test code = Hct) 33.0 36.0-48.0 [facility]JyetyrfPXCFAJRTVX6651-47-70 14:39:00 Test Item Value Reference Range Interpretation Comments MCH (test code = MCH) 34.2 pg 27.0-31.0 [facility] RegionJcrsixyQEJGPQEOSY3038-84-66 14:39:00 Test Item Value Reference Range Interpretation Comments MPV (test code = MPV) 9.2 7.4-10.4 [facility]VscjibzZMKQCUHUIN9271-74-74 14:39:00 Test Item Value Reference Range Interpretation Comments Platelet (test code = Platelet) 186 133-450 [facility]JlufqrjGGCNUOKJLJ1308-04-98 14:39:00 Test Item Value Reference Range Interpretation Comments RDW (test code = RDW) 14.8 11.5-14.5 [facility] CenterKteikxrFZRGIHWMLV3404-86-07 14:39:00 Test Item Value Reference Range Interpretation Comments Hgb (test code = Hgb) 11.2 12.0-16.0 [facility] CenterAuagnvmXQHUOB3801-01-83 14:39:00 Test Item Value Reference Range Interpretation Comments VLDL (test code = VLDL) 22 1 [facility] CenterNjvqrllVCPHHZ1993-71-25 14:39:00 Test Item Value Reference Range Interpretation Comments CHD Risk (test code = CHD Risk) 1.53 1 3.90-5.80 [facility] CenterSsrnbuvTMIUWQ9083-11-33 14:39:00 Test Item Value Reference Range Interpretation Comments HDL (test code = HDL) 168 [facility]FfccqsaHOSUAR8684-39-97 14:39:00 Test Item Value Reference Range Interpretation Comments LDL (Calculated) (test code = LDL 67 (Calculated)) [facility] CenterIglkutsFMSNXE4108-99-62 14:39:00 Test Item Value Reference Range Interpretation Comments Chol (test code = Chol) 257 [facility] CenterGrtjjsqOYMJLZ7179-66-58 14:39:00 Test Item Value Reference Range Interpretation Comments Trig (test code = Trig) 108 [facility] XVSGOUKVI6571-83-24 14:39:00 Test Item Value Reference Range Interpretation Comments Hgb A1C (test code = Hgb A1C) 5.4 [facility]TwfnzgiAELRQOIHWV8862-01-69 14:39:00 Test Item Value Reference Range Interpretation Comments Segs (test code = Segs) 87.8 45.0-75.0 [facility] CenterAtjutwyOPSZVKUPMI5921-10-38 14:39:00 Test Item Value Reference Range Interpretation Comments Lymphocytes (test code = Lymphocytes) 9.7 20.0-40.0 [facility] CenterWsshwqkALGUSTFUSM2972-31-99 14:39:00 Test Item Value Reference Range Interpretation Comments Segs-Bands # (test code = Segs-Bands #) 2.5 1.5-8.1 [facility] CenterBvpadwyZZCTXYWOXP9015-50-34 14:39:00 Test Item Value Reference Range Interpretation Comments Macrocyte (test code = 1+ *ABN*(12/24/17 Macrocyte) 9:39 AM) [facility] CenterSdxrscgJLUKTPBNUH1694-46-78 14:39:00 Test Item Value Reference Range Interpretation Comments Monocytes # (test code 0.1 See_Comment [Aut omated message] The = Monocytes #) system which generated this result tra nsmitted reference range : <=0.8. The reference r usama was not used to int erpret this result as normal/abnormal . [facility] CenterXdrcsatVPPETHHRLO0912-57-90 14:39:00 Test Item Value Reference Range Interpretation Comments Lymphocytes # (test code = Lymphocytes 0.3 1.0-5.5 #) [facility] CenterAqqgqaaKGCXWVWUTP3790-29-18 14:39:00 Test Item Value Reference Range Interpretation Comments Basophils (test code = 0.3 See_Comment [Aut omated message] The Basophils) system which ge nerated this result tra nsmitted reference range : <=1.0. The reference r usama was not used to int erpret this result as normal/abnormal . [facility] CenterAvyydmsCGMNSIZSED8178-40-20 14:39:00 Test Item Value Reference Range Interpretation Comments Monocytes (test code = Monocytes) 2.2 2.0-12.0 [facility] CenterYdnhgbyDWABFIDSLS9280-33-65 14:39:00 Test Item Value Reference Range Interpretation Comments PT (test code = PT) 14.0 s 12.0-14.7 [facility] CenterJutmjjfLITBLHMIWK1318-97-48 14:39:00 Test Item Value Reference Range Interpretation Comments INR (test code = INR) 1.08 1 0.85-1.17 [facility] CenterLljeszbJWCQKQNWDS5912-53-53 14:39:00 Test Item Value Reference Range Interpretation Comments PTT (test code = PTT) 35.2 s 22.9-35.8 [facility] CenterEweswszIMWVFLHXDW8016-13-18 14:39:00 Test Item Value Reference Range Interpretation Comments MCHC (test code = MCHC) 34.0 32.0-36.0 [facility] CenterRvuchxpHOXVABTCPC4375-57-68 14:39:00 Test Item Value Reference Range Interpretation Comments RBC (test code = RBC) 3.28 4.20-5.40 [facility] CenterWwsguvqUHUGCOBOSK5150-08-63 14:39:00 Test Item Value Reference Range Interpretation Comments WBC (test code = WBC) 2.9 3.7-10.4 [facility] CenterEznkiotWUJYAWCELL1566-37-20 14:39:00 Test Item Value Reference Range Interpretation Comments MCV (test code = MCV) 100.6 80.0-98.0 [facility] CenterIylgdplNUGVWAXQMA2839-27-51 14:39:00 Test Item Value Reference Range Interpretation Comments Hct (test code = Hct) 33.0 36.0-48.0 [facility] CenterAkznrilOJJNXEIFDM2944-24-46 14:39:00 Test Item Value Reference Range Interpretation Comments MCH (test code = MCH) 34.2 pg 27.0-31.0 [facility] CenterWwkrqrgCDQTPWLRDO7882-22-88 14:39:00 Test Item Value Reference Range Interpretation Comments MPV (test code = MPV) 9.2 7.4-10.4 [facility] CenterYzuuqhmXFYOVPXYXH9835-48-83 14:39:00 Test Item Value Reference Range Interpretation Comments Platelet (test code = Platelet) 186 133-450 [facility] CenterCcybeyoDDTMPSZXOL0417-94-27 14:39:00 Test Item Value Reference Range Interpretation Comments RDW (test code = RDW) 14.8 11.5-14.5 [facility] CenterGfyuuxdDXLMOUKCQJ8376-35-37 14:39:00 Test Item Value Reference Range Interpretation Comments Hgb (test code = Hgb) 11.2 12.0-16.0 [facility] CenterFwwkruxUCJWOS7146-45-28 14:39:00 Test Item Value Reference Range Interpretation Comments VLDL (test code = VLDL) 22 1 [facility] CenterIinhlolYDSFYG6646-85-34 14:39:00 Test Item Value Reference Range Interpretation Comments CHD Risk (test code = CHD Risk) 1.53 1 3.90-5.80 [facility] CenterKtcuhtqWLMLPJ4709-06-99 14:39:00 Test Item Value Reference Range Interpretation Comments HDL (test code = HDL) 168 [facility] CenterRpahruxIZJGUY2570-86-28 14:39:00 Test Item Value Reference Range Interpretation Comments LDL (Calculated) (test code = LDL 67 (Calculated)) [facility] CenterKvulrwfQWOYGD9714-70-79 14:39:00 Test Item Value Reference Range Interpretation Comments Chol (test code = Chol) 257 [facility] CenterEmrspgpZKWWCP3406-63-63 14:39:00 Test Item Value Reference Range Interpretation Comments Trig (test code = Trig) 108 [facility] DHVEYMEUN4520-31-31 14:39:00 Test Item Value Reference Range Interpretation Comments Hgb A1C (test code = Hgb A1C) 5.4 [facility] CenterFlzrfulMYVFZJUAAU0664-52-21 14:39:00 Test Item Value Reference Range Interpretation Comments Segs (test code = Segs) 87.8 45.0-75.0 [facility]OyefuccYGTTVLKHCI9948-61-53 14:39:00 Test Item Value Reference Range Interpretation Comments Lymphocytes (test code = Lymphocytes) 9.7 20.0-40.0 [facility] CenterSsfojmoEWNDUFUMLJ6819-34-39 14:39:00 Test Item Value Reference Range Interpretation Comments Segs-Bands # (test code = Segs-Bands #) 2.5 1.5-8.1 [facility] CenterHiwlozjCOEYEXCGXF5700-46-27 14:39:00 Test Item Value Reference Range Interpretation Comments Macrocyte (test code = 1+ *ABN*(12/24/17 Macrocyte) 9:39 AM) [facility] CenterBedlktoBQBAGVSTMF4963-79-18 14:39:00 Test Item Value Reference Range Interpretation Comments Monocytes # (test code 0.1 See_Comment [Aut omated message] The = Monocytes #) system which generated this result tra nsmitted reference range : <=0.8. The reference r usama was not used to int erpret this result as normal/abnormal . [facility] CenterWdevotkPTXGPYCTMW3718-89-95 14:39:00 Test Item Value Reference Range Interpretation Comments Lymphocytes # (test code = Lymphocytes 0.3 1.0-5.5 #) [facility] CenterCpvrvhpQJCZFNUWQJ7494-01-01 14:39:00 Test Item Value Reference Range Interpretation Comments Basophils (test code = 0.3 See_Comment [Aut omated message] The Basophils) system which ge nerated this result tra nsmitted reference range : <=1.0. The reference r usama was not used to int erpret this result as normal/abnormal . [facility] CenterAqmqdpqPARWHQGIQE9349-42-43 14:39:00 Test Item Value Reference Range Interpretation Comments Monocytes (test code = Monocytes) 2.2 2.0-12.0 [facility] CenterUtbehlnLBQRVPRMOZ2218-54-37 14:39:00 Test Item Value Reference Range Interpretation Comments PT (test code = PT) 14.0 s 12.0-14.7 [facility] CenterLpyrhsbYDTLOSEDPZ5490-03-06 14:39:00 Test Item Value Reference Range Interpretation Comments INR (test code = INR) 1.08 1 0.85-1.17 [facility] CenterJhlsdvcQYQUFOQKBG1015-36-18 14:39:00 Test Item Value Reference Range Interpretation Comments PTT (test code = PTT) 35.2 s 22.9-35.8 [facility] CenterVbpbprqTNWHHCHCCI2139-01-98 14:39:00 Test Item Value Reference Range Interpretation Comments MCHC (test code = MCHC) 34.0 32.0-36.0 [facility] CenterZnshxouWBZOFQLGBN9644-27-82 14:39:00 Test Item Value Reference Range Interpretation Comments RBC (test code = RBC) 3.28 4.20-5.40 [facility] CenterOiqzqfaUXODCYXAOM2733-74-63 14:39:00 Test Item Value Reference Range Interpretation Comments WBC (test code = WBC) 2.9 3.7-10.4 [facility] CenterAdwohweBUFJEOZFHK8819-02-31 14:39:00 Test Item Value Reference Range Interpretation Comments MCV (test code = MCV) 100.6 80.0-98.0 [facility] CenterJsoucmyXAMPELARAE8167-31-20 14:39:00 Test Item Value Reference Range Interpretation Comments Hct (test code = Hct) 33.0 36.0-48.0 [facility] CenterJasailxEGTOSZGINQ8033-32-52 14:39:00 Test Item Value Reference Range Interpretation Comments MCH (test code = MCH) 34.2 pg 27.0-31.0 [facility] CenterIhjhwvlRPQRSSOHMK8425-40-74 14:39:00 Test Item Value Reference Range Interpretation Comments MPV (test code = MPV) 9.2 7.4-10.4 [facility]KvsagphAMMVPSTTIY2446-37-07 14:39:00 Test Item Value Reference Range Interpretation Comments Platelet (test code = Platelet) 186 133-450 [facility] RegionMgqevipUJNRZLNIEO8785-36-59 14:39:00 Test Item Value Reference Range Interpretation Comments RDW (test code = RDW) 14.8 11.5-14.5 [facility] CenterDjkythtXROCSWHZLO3042-18-14 14:39:00 Test Item Value Reference Range Interpretation Comments Hgb (test code = Hgb) 11.2 12.0-16.0 [facility] CenterJgehncoNXHZAI4506-71-41 14:39:00 Test Item Value Reference Range Interpretation Comments VLDL (test code = VLDL) 22 1 [facility] CenterBpprkpvLNPTCJ0155-76-40 14:39:00 Test Item Value Reference Range Interpretation Comments CHD Risk (test code = CHD Risk) 1.53 1 3.90-5.80 [facility] CenterRzzjojdGJVPSB3479-85-78 14:39:00 Test Item Value Reference Range Interpretation Comments HDL (test code = HDL) 168 [facility] CenterIkiuehePIIUGW0544-59-96 14:39:00 Test Item Value Reference Range Interpretation Comments LDL (Calculated) (test code = LDL 67 (Calculated)) [facility] CenterQjvamndNCXFDG4093-66-76 14:39:00 Test Item Value Reference Range Interpretation Comments Chol (test code = Chol) 257 [facility] CenterQtgwmodDHDMCH9502-30-82 14:39:00 Test Item Value Reference Range Interpretation Comments Trig (test code = Trig) 108 [facility] ZPLOPXIQQ7021-97-81 14:39:00 Test Item Value Reference Range Interpretation Comments Hgb A1C (test code = Hgb A1C) 5.4 [facility]NubbbwbVTJMHKVNBP1680-52-50 14:39:00 Test Item Value Reference Range Interpretation Comments Segs (test code = Segs) 87.8 45.0-75.0 [facility] RegionAswzgdnAJAXMSFNRD3851-25-53 14:39:00 Test Item Value Reference Range Interpretation Comments Lymphocytes (test code = Lymphocytes) 9.7 20.0-40.0 [facility] RegionFskhwwxGGIWPYHVMO9551-28-18 14:39:00 Test Item Value Reference Range Interpretation Comments Segs-Bands # (test code = Segs-Bands #) 2.5 1.5-8.1 [facility] CenterTcterodUJKHTOBJIX4593-67-79 14:39:00 Test Item Value Reference Range Interpretation Comments Macrocyte (test code = 1+ *ABN*(12/24/17 Macrocyte) 9:39 AM) [facility] CenterMjjojlkGCDVVNFGRD8422-22-22 14:39:00 Test Item Value Reference Range Interpretation Comments Monocytes # (test code 0.1 See_Comment [Aut omated message] The = Monocytes #) system which generated this result tra nsmitted reference range : <=0.8. The reference r usama was not used to int erpret this result as normal/abnormal . [facility] CenterGaokkzqLJPQFNRBFO9669-55-91 14:39:00 Test Item Value Reference Range Interpretation Comments Lymphocytes # (test code = Lymphocytes 0.3 1.0-5.5 #) [facility] CenterWntanijIHTUQFJGXM6515-62-48 14:39:00 Test Item Value Reference Range Interpretation Comments Basophils (test code = 0.3 See_Comment [Aut omated message] The Basophils) system which ge nerated this result tra nsmitted reference range : <=1.0. The reference r usama was not used to int erpret this result as normal/abnormal . [facility] CenterLttuorpLYHWGOFIIU9453-09-89 14:39:00 Test Item Value Reference Range Interpretation Comments Monocytes (test code = Monocytes) 2.2 2.0-12.0 [facility] CenterZcazxvxFSRVVFMGFS5998-76-02 14:39:00 Test Item Value Reference Range Interpretation Comments PT (test code = PT) 14.0 s 12.0-14.7 [facility] CenterBhzxgoaXKYLPDJOHO7064-34-59 14:39:00 Test Item Value Reference Range Interpretation Comments INR (test code = INR) 1.08 1 0.85-1.17 [facility] CenterQvghslkYZOFZJPMDH0511-90-15 14:39:00 Test Item Value Reference Range Interpretation Comments PTT (test code = PTT) 35.2 s 22.9-35.8 [facility] CenterZzooyjpHVKXXHPDYH5160-99-87 14:39:00 Test Item Value Reference Range Interpretation Comments MCHC (test code = MCHC) 34.0 32.0-36.0 [facility] CenterJhsugujLIUXHCUNRT9789-17-74 14:39:00 Test Item Value Reference Range Interpretation Comments RBC (test code = RBC) 3.28 4.20-5.40 [facility] CenterDminrvnDDPGKPTPCF9332-12-71 14:39:00 Test Item Value Reference Range Interpretation Comments WBC (test code = WBC) 2.9 3.7-10.4 [facility] CenterYptmvatDIMSHNAHEP3806-58-05 14:39:00 Test Item Value Reference Range Interpretation Comments MCV (test code = MCV) 100.6 80.0-98.0 [facility] CenterXbthnrdIQOCPGFPBI0583-11-27 14:39:00 Test Item Value Reference Range Interpretation Comments Hct (test code = Hct) 33.0 36.0-48.0 [facility] CenterKvuzvixUZHEXJXJDX9345-25-79 14:39:00 Test Item Value Reference Range Interpretation Comments MCH (test code = MCH) 34.2 pg 27.0-31.0 [facility] CenterPzvkcxhJVSDJIEFZX1972-85-58 14:39:00 Test Item Value Reference Range Interpretation Comments MPV (test code = MPV) 9.2 7.4-10.4 [facility] CenterIkllxflFOBSLFPIAT0899-85-19 14:39:00 Test Item Value Reference Range Interpretation Comments Platelet (test code = Platelet) 186 133-450 [facility] CenterYnralqwEWUJBOAKML8208-14-57 14:39:00 Test Item Value Reference Range Interpretation Comments RDW (test code = RDW) 14.8 11.5-14.5 [facility] CenterMzzqowkZUBYOMYDHM6578-51-90 14:39:00 Test Item Value Reference Range Interpretation Comments Hgb (test code = Hgb) 11.2 12.0-16.0 [facility] CenterWkojkjpZPCAXP0325-55-67 14:39:00 Test Item Value Reference Range Interpretation Comments VLDL (test code = VLDL) 22 1 [facility] CenterUqrhsvvIFOXGI1987-63-11 14:39:00 Test Item Value Reference Range Interpretation Comments CHD Risk (test code = CHD Risk) 1.53 1 3.90-5.80 [facility] CenterGhepcviMSRRXH2331-89-57 14:39:00 Test Item Value Reference Range Interpretation Comments HDL (test code = HDL) 168 [facility] CenterNibfwefQYHQDS2078-39-91 14:39:00 Test Item Value Reference Range Interpretation Comments LDL (Calculated) (test code = LDL 67 (Calculated)) [facility] CenterIracpmaJUANCP1930-05-22 14:39:00 Test Item Value Reference Range Interpretation Comments Chol (test code = Chol) 257 [place] [address]-03-28 14:39:00 Test Item Value Reference Range Interpretation Comments Trig (test code = Trig) 108 [facility]annSPECIAL EIBSNMCPJ6327-72-04 14:39:00 Test Item Value Reference Range Interpretation Comments Hgb A1C (test code = Hgb A1C) 5.4 [facility] CenterannCARDIAC YRWVCSI6738-69-41 13:42:00 Test Item Value Reference Range Interpretation Comments CK MB Index (test 2.6 1 See_Comment [Automate d message] The code = CK MB Index) system w GMI generated this result transmit clarence reference range : <=2.5. The reference range was not used to interpr et this result as juanjose l/abnormal. [facility] CenterannCARDIAC IMJYFQG0289-44-10 13:42:00 Test Item Value Reference Range Interpretation Comments CK MB (test code = CK MB) 6.9 0.5-3.6 [facility] CenterannCARDIAC OVKFDCG6504-11-24 13:42:00 Test Item Value Reference Range Interpretation Comments Troponin-I (test code 1.80 See_Comment [Auto mated message] The = Troponin-I) system which g enerated this result transmit clarence reference range : <=0.40. The reference r usama was not used to interpr et this result as juanjose l/abnormal. [facility] CenterKeychain LogisticsCARDIAC DLIJILE0774-31-16 13:42:00 Test Item Value Reference Range Interpretation Comments Total CK (test code = Total CK) 264 12-191 [facility] CenterannCARDIAC BUBIWAX4802-58-54 13:42:00 Test Item Value Reference Range Interpretation Comments Total CK (test code = Total CK) 265 12-191 [facility] CenterKeychain LogisticsCARDIAC LSALIDD8035-79-54 13:42:00 Test Item Value Reference Range Interpretation Comments CK MB Index (test 2.6 1 See_Comment [Automate d message] The code = CK MB Index) system w GMI generated this result transmit clarence reference range : <=2.5. The reference range was not used to interpr et this result as juanjose l/abnormal. [facility] [employer] GuidesannCARDIAC BMMWHEG3993-06-89 13:42:00 Test Item Value Reference Range Interpretation Comments CK MB (test code = CK MB) 6.9 0.5-3.6 [facility] EZHGAVM0771-69-36 13:42:00 Test Item Value Reference Range Interpretation Comments Troponin-I (test code 1.80 See_Comment [Auto mated message] The = Troponin-I) system which g enerated this result transmit clarence reference range : <=0.40. The reference r usama was not used to interpr et this result as juanjose l/abnormal. [facility] [employer] JVEIDUJ1906-26-88 13:42:00 Test Item Value Reference Range Interpretation Comments Total CK (test code = Total CK) 264 [facility] [employer] GuidesannCARDIAC DSXNAMB7412-99-37 13:42:00 Test Item Value Reference Range Interpretation Comments Total CK (test code = Total CK) 265 [facility] [employer] GuidesannCARDIAC SKQGCWJ1821-11-06 13:42:00 Test Item Value Reference Range Interpretation Comments CK MB Index (test 2.6 1 See_Comment [Automate d message] The code = CK MB Index) system w GMI generated this result transmit clarence reference range : <=2.5. The reference range was not used to interpr et this result as juanjose l/abnormal. [facility] [employer] TGHEHLG3876-89-37 13:42:00 Test Item Value Reference Range Interpretation Comments CK MB (test code = CK MB) 6.9 0.5-3.6 [facility] [employer] [id number] 13:42:00 Test Item Value Reference Range Interpretation Comments Troponin-I (test code 1.80 See_Comment [Auto mated message] The = Troponin-I) system which g enerated this result transmit clarence reference range : <=0.40. The reference r usama was not used to interpr et this result as juanjose l/abnormal. [facility] [employer] ODBJKUP0394-77-88 13:42:00 Test Item Value Reference Range Interpretation Comments Total CK (test code = Total CK) 264 [facility] [employer]CARDIAC BCHKJCI4676-91-30 13:42:00 Test Item Value Reference Range Interpretation Comments Total CK (test code = Total CK) 265 [facility] [employer] GuidesannCARDIAC YFUOUEI6296-26-52 13:42:00 Test Item Value Reference Range Interpretation Comments CK MB Index (test 2.6 1 See_Comment [Automate d message] The code = CK MB Index) system w GMI generated this result transmit clarence reference range : <=2.5. The reference range was not used to interpr et this result as juanjose l/abnormal. [facility] [employer] BQNVNEH5517-53-79 13:42:00 Test Item Value Reference Range Interpretation Comments CK MB (test code = CK MB) 6.9 0.5-3.6 [facility] [employer] GuidesannCARDIAC [id number] 13:42:00 Test Item Value Reference Range Interpretation Comments Troponin-I (test code 1.80 See_Comment [Auto mated message] The = Troponin-I) system which g enerated this result transmit clarence reference range : <=0.40. The reference r usama was not used to interpr et this result as juanjose l/abnormal. [facility] [employer] [id number] 13:42:00 Test Item Value Reference Range Interpretation Comments Total CK (test code = Total CK) 264 12191 [facility] [employer] YJYOILV3667-39-57 13:42:00 Test Item Value Reference Range Interpretation Comments Total CK (test code = Total CK) 265 12-191 [facility] [employer] NFSFDLV8623-55-95 13:42:00 Test Item Value Reference Range Interpretation Comments CK MB Index (test 2.6 1 See_Comment [Automate d message] The code = CK MB Index) system w GMI generated this result transmit clarence reference range : <=2.5. The reference range was not used to interpr et this result as juanjose l/abnormal. [facility] [employer] MSAUOYF3803-99-28 13:42:00 Test Item Value Reference Range Interpretation Comments CK MB (test code = CK MB) 6.9 0.5-3.6 [facility] [employer] PHCTZJV0725-20-74 13:42:00 Test Item Value Reference Range Interpretation Comments Troponin-I (test code 1.80 See_Comment [Auto mated message] The = Troponin-I) system which g enerated this result transmit clarence reference range : <=0.40. The reference r usama was not used to interpr et this result as juanjose l/abnormal. [facility] [employer] XUCUEZH5926-04-41 13:42:00 Test Item Value Reference Range Interpretation Comments Total CK (test code = Total CK) 264 12-191 [facility] HermannCARDIAC TWVJLZW6378-80-81 13:42:00 Test Item Value Reference Range Interpretation Comments Total CK (test code = Total CK) 265 [facility]annCARDIAC QBUIWRJ5871-79-43 13:42:00 Test Item Value Reference Range Interpretation Comments CK MB Index (test 2.6 1 See_Comment [Automate d message] The code = CK MB Index) system w [facility] generated this result transmit clarence reference range : <=2.5. The reference range was not used to interpr et this result as juanjose l/abnormal. [facility] [employer]idesannCARDIAC [id number] 13:42:00 Test Item Value Reference Range Interpretation Comments CK MB (test code = CK MB) 6.9 0.5-3.6 [facility] HermannCARbuilt.ioAC [id number] 13:42:00 Test Item Value Reference Range Interpretation Comments Troponin-I (test code 1.80 See_Comment [Auto mated message] The = Troponin-I) system which g enerated this result transmit clarence reference range : <=0.40. The reference r usama was not used to interpr et this result as juanjose l/abnormal. [facility] [employer] [id number] 13:42:00 Test Item Value Reference Range Interpretation Comments Total CK (test code = Total CK) 264 [facility] [employer] IITGWCY5104-12-90 13:42:00 Test Item Value Reference Range Interpretation Comments Total CK (test code = Total CK) 265 [facility] DelgtjpDLQWPNGFWG2161-47-97 08:18:00 Test Item Value Reference Range Interpretation Comments Platelet (test code = Platelet) 205 133-450 [facility] JzvwkdsZTLIRPXBSR1456-91-95 08:18:00 Test Item Value Reference Range Interpretation Comments MPV (test code = MPV) 9.3 7.4-10.4 [facility] [employer] [id number] 08:18:00 Test Item Value Reference Range Interpretation Comments Lactic Acid Lvl (test code = Lactic 1.1 0.5-2.2 Acid Lvl) [facility] [employer] [id number] 08:18:00 Test Item Value Reference Range Interpretation Comments eGFR (test code = eGFR) 41 [facility] [employer] [id number] 08:18:00 Test Item Value Reference Range Interpretation Comments ALT (test code = ALT) 22 See_Comment [Auto mated message] The system which ge nerated this result transmit clarence reference range : <=65. The reference range was not used to interpr et this result as juanjose l/abnormal. [facility] Centerfitaborate [id number] 08:18:00 Test Item Value Reference Range Interpretation Comments Calcium Lvl (test code = Calcium Lvl) 8.6 8.5-10.5 [facility] CenterKeychain LogisticsUNC [facility]ALTH CHATHAMYWJNH5854-90-80 08:18:00 Test Item Value Reference Range Interpretation Comments Total Protein (test code = Total 8.0 6.4-8.4 Protein) [facility] CenterKeychain LogisticsUNC [facility]ALTH CHATHAMJMIBB6628-41-05 08:18:00 Test Item Value Reference Range Interpretation Comments Albumin Lvl (test code = Albumin Lvl) 3.1 3.5-5.0 [facility]fit[facility] [id number] 08:18:00 Test Item Value Reference Range Interpretation Comments CO2 (test code = CO2) 26 24-32 [facility] [id number] 08:18:00 Test Item Value Reference Range Interpretation Comments Potassium Lvl (test code = Potassium 3.9 3.5-5.1 Lvl) [facility] [id number] 08:18:00 Test Item Value Reference Range Interpretation Comments Chloride Lvl (test code = Chloride Lvl) 97 95-109 [facility] [id number] 08:18:00 Test Item Value Reference Range Interpretation Comments AST (test code = AST) 24 See_Comment [Auto mated message] The system which ge nerated this result transmit clarence reference range : <=37. The reference range was not used to interpr et this result as juanjose l/abnormal. [facility] [id number] 08:18:00 Test Item Value Reference Range Interpretation Comments Alk Phos (test code = Alk Phos) 113 39-136 [facility] CenterL[facility] [id number] 08:18:00 Test Item Value Reference Range Interpretation Comments Bili Total (test code = Bili Total) 1.1 0.2-1.3 [facility]2018-03-28 08:18:00 Test Item Value Reference Range Interpretation Comments Sodium Lvl (test code = Sodium Lvl) 134 135-145 [place] 362778-03-28 08:18:00 Test Item Value Reference Range Interpretation Comments Glucose Lvl (test code = Glucose Lvl) 226 70-99 [place] 362778-03-28 08:18:00 Test Item Value Reference Range Interpretation Comments BUN (test code = BUN) 23 7-22 [place] 362778-03-28 08:18:00 Test Item Value Reference Range Interpretation Comments Creatinine Lvl (test code = Creatinine 1.36 0.50-1.40 Lvl) [place] 362778-03-28 08:18:00 Test Item Value Reference Range Interpretation Comments A/G Ratio (test code = A/G Ratio) 0.6 1 0.7-1.6 [place] [address]-03-28 08:18:00 Test Item Value Reference Range Interpretation Comments Globulin (test code = Globulin) 4.9 2.7-4.2 [place] 362778-03-28 08:18:00 Test Item Value Reference Range Interpretation Comments AGAP (test code = AGAP) 14.9 10.0-20.0 [place] 362778-03-28 08:18:00 Test Item Value Reference Range Interpretation Comments B/C Ratio (test code = B/C Ratio) 17 1 6-25 [facility] CenterKhtwvfdUIKTORWRKI7008-21-94 08:18:00 Test Item Value Reference Range Interpretation Comments Monocytes # (test code 0.1 See_Comment [Aut omated message] The = Monocytes #) system which generated this result tra nsmitted reference range : <=0.8. The reference r usama was not used to int erpret this result as normal/abnormal . [facility] CenterMsxhfnfWCJFDERDFG5902-38-97 08:18:00 Test Item Value Reference Range Interpretation Comments Monocytes (test code = Monocytes) 1.0 2.0-12.0 [place] 639828-03-28 08:18:00 Test Item Value Reference Range Interpretation Comments Atypical Lymphs (test code = Atypical 0.0 Lymphs) [place] [address]-03-28 08:18:00 Test Item Value Reference Range Interpretation Comments Bands (test code = 8.0 See_Comment [Automat ed message] The Bands) system which ge nerated this result transmit clarence reference range : <=11.0. The reference r usama was not used to interpr et this result as juanjose l/abnormal. [facility] CenterOypjpohGCPYEXSXZV6013-22-97 08:18:00 Test Item Value Reference Range Interpretation Comments Segs (test code = Segs) 88.0 45.0-75.0 [place] 639828-03-28 08:18:00 Test Item Value Reference Range Interpretation Comments Segs-Bands # (test code = Segs-Bands #) 6.0 1.5-8.1 [facility] CenterXviitdwUJMFBRBWQW6138-44-24 08:18:00 Test Item Value Reference Range Interpretation Comments Lymphocytes # (test code = Lymphocytes 0.2 1.0-5.5 #) [facility] CenterKhlxkhoKSCZBKCJHP5790-88-89 08:18:00 Test Item Value Reference Range Interpretation Comments Macrocyte (test code = 1+ *ABN*(12/24/17 Macrocyte) 3:18 AM) [facility] CenterWcunmfiGDLEIFDBHF8316-49-92 08:18:00 Test Item Value Reference Range Interpretation Comments Lymphocytes (test code = Lymphocytes) 3.0 20.0-40.0 [facility] CenterUktcbblDPQKTKBWYM5312-11-82 08:18:00 Test Item Value Reference Range Interpretation Comments Plt Morph (test code = Normal (12/24/17 3:18 Plt Morph) AM) [facility] CenterVysraweRJIYXBQOOO4573-80-87 08:18:00 Test Item Value Reference Range Interpretation Comments RBC (test code = RBC) 3.52 4.20-5.40 [facility] CenterWdojxweGPBODLSWEM4555-59-29 08:18:00 Test Item Value Reference Range Interpretation Comments WBC (test code = WBC) 6.3 3.7-10.4 [facility] CenterPrygkzrEVNGRKNVAZ5773-94-68 08:18:00 Test Item Value Reference Range Interpretation Comments MCV (test code = MCV) 99.7 80.0-98.0 [facility] CenterUzwquitGMPEPOPLNR1592-56-52 08:18:00 Test Item Value Reference Range Interpretation Comments Hgb (test code = Hgb) 11.9 12.0-16.0 [facility] CenterBoekiryBEFIOPYBXT2547-64-57 08:18:00 Test Item Value Reference Range Interpretation Comments MCH (test code = MCH) 33.7 pg 27.0-31.0 [place] 639828-03-28 08:18:00 Test Item Value Reference Range Interpretation Comments Hct (test code = Hct) 35.1 36.0-48.0 [facility] CenterCdouzrvZHKXVJQSKF0209-27-38 08:18:00 Test Item Value Reference Range Interpretation Comments MCHC (test code = MCHC) 33.8 32.0-36.0 [facility] CenterJbxxoetEUKMFPFGXD8366-39-46 08:18:00 Test Item Value Reference Range Interpretation Comments RDW (test code = RDW) 15.1 11.5-14.5 [facility] CenterSecodtvMBUEPSTQHD1228-79-55 08:18:00 Test Item Value Reference Range Interpretation Comments Platelet (test code = Platelet) 205 133-450 [facility] CenterXhqewwaPYKTVIERQP8828-26-84 08:18:00 Test Item Value Reference Range Interpretation Comments MPV (test code = MPV) 9.3 7.4-10.4 [facility]2018-03-28 08:18:00 Test Item Value Reference Range Interpretation Comments Lactic Acid Lvl (test code = Lactic 1.1 0.5-2.2 Acid Lvl) [facility]2018-03-28 08:18:00 Test Item Value Reference Range Interpretation Comments eGFR (test code = eGFR) 41 [facility]2018-03-28 08:18:00 Test Item Value Reference Range Interpretation Comments ALT (test code = ALT) 22 See_Comment [Auto mated message] The system which ge nerated this result transmit clarence reference range : <=65. The reference range was not used to interpr et this result as juanjose l/abnormal. [facility]2018-03-28 08:18:00 Test Item Value Reference Range Interpretation Comments Calcium Lvl (test code = Calcium Lvl) 8.6 8.5-10.5 [facility]2018-03-28 08:18:00 Test Item Value Reference Range Interpretation Comments Total Protein (test code = Total 8.0 6.4-8.4 Protein) [facility]2018-03-28 08:18:00 Test Item Value Reference Range Interpretation Comments Albumin Lvl (test code = Albumin Lvl) 3.1 3.5-5.0 [facility]2018-03-28 08:18:00 Test Item Value Reference Range Interpretation Comments CO2 (test code = CO2) 26 24-32 [facility]2018-03-28 08:18:00 Test Item Value Reference Range Interpretation Comments Potassium Lvl (test code = Potassium 3.9 3.5-5.1 Lvl) [facility]2018-03-28 08:18:00 Test Item Value Reference Range Interpretation Comments Chloride Lvl (test code = Chloride Lvl) 97 95-109 [facility]2018-03-28 08:18:00 Test Item Value Reference Range Interpretation Comments AST (test code = AST) 24 See_Comment [Auto mated message] The system which ge nerated this result transmit clarence reference range : <=37. The reference range was not used to interpr et this result as juanjose l/abnormal. [facility]2018-03-28 08:18:00 Test Item Value Reference Range Interpretation Comments Alk Phos (test code = Alk Phos) 113 39-136 [facility]2018-03-28 08:18:00 Test Item Value Reference Range Interpretation Comments Bili Total (test code = Bili Total) 1.1 0.2-1.3 [place] 362778-03-28 08:18:00 Test Item Value Reference Range Interpretation Comments Sodium Lvl (test code = Sodium Lvl) 134 135-145 [facility]2018-03-28 08:18:00 Test Item Value Reference Range Interpretation Comments Glucose Lvl (test code = Glucose Lvl) 226 70-99 [facility]2018-03-28 08:18:00 Test Item Value Reference Range Interpretation Comments BUN (test code = BUN) 23 7-22 [place] 362778-03-28 08:18:00 Test Item Value Reference Range Interpretation Comments Creatinine Lvl (test code = Creatinine 1.36 0.50-1.40 Lvl) [facility]2018-03-28 08:18:00 Test Item Value Reference Range Interpretation Comments A/G Ratio (test code = A/G Ratio) 0.6 1 0.7-1.6 [place] 362778-03-28 08:18:00 Test Item Value Reference Range Interpretation Comments Globulin (test code = Globulin) 4.9 2.7-4.2 [place] 362778-03-28 08:18:00 Test Item Value Reference Range Interpretation Comments AGAP (test code = AGAP) 14.9 10.0-20.0 [facility]2018-03-28 08:18:00 Test Item Value Reference Range Interpretation Comments B/C Ratio (test code = B/C Ratio) 17 1 6-25 [facility] CenterYvfpifrXOYBWYRFCO6793-57-70 08:18:00 Test Item Value Reference Range Interpretation Comments Monocytes # (test code 0.1 See_Comment [Aut omated message] The = Monocytes #) system which generated this result tra nsmitted reference range : <=0.8. The reference r usama was not used to int erpret this result as normal/abnormal . [facility] CenterOcefiqaHVJYEBNBFZ5032-63-98 08:18:00 Test Item Value Reference Range Interpretation Comments Monocytes (test code = Monocytes) 1.0 2.0-12.0 [facility] CenterFsqpwuvCHTCVKPDMT2881-50-79 08:18:00 Test Item Value Reference Range Interpretation Comments Atypical Lymphs (test code = Atypical 0.0 Lymphs) [facility] CenterLcceuogLABOMIHMAY5406-24-83 08:18:00 Test Item Value Reference Range Interpretation Comments Bands (test code = 8.0 See_Comment [Automat ed message] The Bands) system which ge nerated this result transmit clarence reference range : <=11.0. The reference r usama was not used to interpr et this result as juanjose l/abnormal. [facility] CenterBwrqiozOVNIOYSKMB2472-78-99 08:18:00 Test Item Value Reference Range Interpretation Comments Segs (test code = Segs) 88.0 45.0-75.0 [facility] CenterBnwadafICOLGMZNFL4759-30-26 08:18:00 Test Item Value Reference Range Interpretation Comments Segs-Bands # (test code = Segs-Bands #) 6.0 1.5-8.1 [facility] CenterTyacxbaPLIOBURULI8338-62-86 08:18:00 Test Item Value Reference Range Interpretation Comments Lymphocytes # (test code = Lymphocytes 0.2 1.0-5.5 #) [facility] CenterMvglvhvAOJVRVTOYY8459-76-42 08:18:00 Test Item Value Reference Range Interpretation Comments Macrocyte (test code = 1+ *ABN*(12/24/17 Macrocyte) 3:18 AM) [facility] CenterCmktqwsNEUVLMKEZP2272-96-49 08:18:00 Test Item Value Reference Range Interpretation Comments Lymphocytes (test code = Lymphocytes) 3.0 20.0-40.0 [facility] CenterNcgrmdjWJSETDYQMW2538-49-60 08:18:00 Test Item Value Reference Range Interpretation Comments Plt Morph (test code = Normal (12/24/17 3:18 Plt Morph) AM) [facility] CenterJtanbmqCBGKYXJTIF2347-99-81 08:18:00 Test Item Value Reference Range Interpretation Comments RBC (test code = RBC) 3.52 4.20-5.40 [facility] CenterVcsxfsbXTCFNNANUI9854-36-22 08:18:00 Test Item Value Reference Range Interpretation Comments WBC (test code = WBC) 6.3 3.7-10.4 [facility] CenterVbyvcxpUVUMCHKSHC7875-38-38 08:18:00 Test Item Value Reference Range Interpretation Comments MCV (test code = MCV) 99.7 80.0-98.0 [facility] CenterJhfolooFPTVMFHUKX7264-85-57 08:18:00 Test Item Value Reference Range Interpretation Comments Hgb (test code = Hgb) 11.9 12.0-16.0 [facility] CenterYmqvnqwMJICSDJJEE9225-34-08 08:18:00 Test Item Value Reference Range Interpretation Comments MCH (test code = MCH) 33.7 pg 27.0-31.0 [facility] CenterFbgdozyDXOGIBODCC7036-77-59 08:18:00 Test Item Value Reference Range Interpretation Comments Hct (test code = Hct) 35.1 36.0-48.0 [facility] CenterJdiyfeyWVVSARMPSH1355-63-96 08:18:00 Test Item Value Reference Range Interpretation Comments MCHC (test code = MCHC) 33.8 32.0-36.0 [facility] CenterCxlbkweZAJFKFCLYY2423-74-00 08:18:00 Test Item Value Reference Range Interpretation Comments RDW (test code = RDW) 15.1 11.5-14.5 [facility] CenterQjaxklkUGXUNWMDPU4748-98-40 08:18:00 Test Item Value Reference Range Interpretation Comments Platelet (test code = Platelet) 205 133-450 [facility] CenterAuqxfxfMCGMTAEELG3055-29-06 08:18:00 Test Item Value Reference Range Interpretation Comments MPV (test code = MPV) 9.3 7.4-10.4 [facility]2018-03-28 08:18:00 Test Item Value Reference Range Interpretation Comments Lactic Acid Lvl (test code = Lactic 1.1 0.5-2.2 Acid Lvl) [facility]2018-03-28 08:18:00 Test Item Value Reference Range Interpretation Comments eGFR (test code = eGFR) 41 [facility]2018-03-28 08:18:00 Test Item Value Reference Range Interpretation Comments ALT (test code = ALT) 22 See_Comment [Auto mated message] The system which ge nerated this result transmit clarence reference range : <=65. The reference range was not used to interpr et this result as juanjose l/abnormal. [place] 362778-03-28 08:18:00 Test Item Value Reference Range Interpretation Comments Calcium Lvl (test code = Calcium Lvl) 8.6 8.5-10.5 [facility]2018-03-28 08:18:00 Test Item Value Reference Range Interpretation Comments Total Protein (test code = Total 8.0 6.4-8.4 Protein) [facility]2018-03-28 08:18:00 Test Item Value Reference Range Interpretation Comments Albumin Lvl (test code = Albumin Lvl) 3.1 3.5-5.0 [facility]2018-03-28 08:18:00 Test Item Value Reference Range Interpretation Comments CO2 (test code = CO2) 26 24-32 [facility]2018-03-28 08:18:00 Test Item Value Reference Range Interpretation Comments Potassium Lvl (test code = Potassium 3.9 3.5-5.1 Lvl) [facility]2018-03-28 08:18:00 Test Item Value Reference Range Interpretation Comments Chloride Lvl (test code = Chloride Lvl) 97 95-109 [place] 362778-03-28 08:18:00 Test Item Value Reference Range Interpretation Comments AST (test code = AST) 24 See_Comment [Auto mated message] The system which ge nerated this result transmit clarence reference range : <=37. The reference range was not used to interpr et this result as juanjose l/abnormal. [place] 362778-03-28 08:18:00 Test Item Value Reference Range Interpretation Comments Alk Phos (test code = Alk Phos) 113 39-136 [facility]2018-03-28 08:18:00 Test Item Value Reference Range Interpretation Comments Bili Total (test code = Bili Total) 1.1 0.2-1.3 [facility]2018-03-28 08:18:00 Test Item Value Reference Range Interpretation Comments Sodium Lvl (test code = Sodium Lvl) 134 135-145 [facility]2018-03-28 08:18:00 Test Item Value Reference Range Interpretation Comments Glucose Lvl (test code = Glucose Lvl) 226 70-99 [facility]2018-03-28 08:18:00 Test Item Value Reference Range Interpretation Comments BUN (test code = BUN) 23 7-22 [facility]2018-03-28 08:18:00 Test Item Value Reference Range Interpretation Comments Creatinine Lvl (test code = Creatinine 1.36 0.50-1.40 Lvl) [facility]2018-03-28 08:18:00 Test Item Value Reference Range Interpretation Comments A/G Ratio (test code = A/G Ratio) 0.6 1 0.7-1.6 [place] 362778-03-28 08:18:00 Test Item Value Reference Range Interpretation Comments Globulin (test code = Globulin) 4.9 2.7-4.2 [facility]2018-03-28 08:18:00 Test Item Value Reference Range Interpretation Comments AGAP (test code = AGAP) 14.9 10.0-20.0 [facility]2018-03-28 08:18:00 Test Item Value Reference Range Interpretation Comments B/C Ratio (test code = B/C Ratio) 17 1 6-25 [facility] CenterPgpliklPGKNYPUAMJ4272-01-98 08:18:00 Test Item Value Reference Range Interpretation Comments Monocytes # (test code 0.1 See_Comment [Aut omated message] The = Monocytes #) system which generated this result tra nsmitted reference range : <=0.8. The reference r usama was not used to int erpret this result as normal/abnormal . [facility] CenterAhzcnesVPGAQIRCUU6311-88-13 08:18:00 Test Item Value Reference Range Interpretation Comments Monocytes (test code = Monocytes) 1.0 2.0-12.0 [facility] CenterVfwxdgvBVQXSIQTXJ1104-70-25 08:18:00 Test Item Value Reference Range Interpretation Comments Atypical Lymphs (test code = Atypical 0.0 Lymphs) [facility] CenterQjpabobNSEMIBIVHZ3971-32-51 08:18:00 Test Item Value Reference Range Interpretation Comments Bands (test code = 8.0 See_Comment [Automat ed message] The Bands) system which ge nerated this result transmit clarence reference range : <=11.0. The reference r usama was not used to interpr et this result as juanjose l/abnormal. [facility] CenterJrzlcsxJUXOVVKUOT6627-41-97 08:18:00 Test Item Value Reference Range Interpretation Comments Segs (test code = Segs) 88.0 45.0-75.0 [facility] CenterUotobjvGBETMYAONL2370-30-70 08:18:00 Test Item Value Reference Range Interpretation Comments Segs-Bands # (test code = Segs-Bands #) 6.0 1.5-8.1 [place] 639828-03-28 08:18:00 Test Item Value Reference Range Interpretation Comments Lymphocytes # (test code = Lymphocytes 0.2 1.0-5.5 #) [facility] CenterLdqioibSNBBFPAMDB8251-16-40 08:18:00 Test Item Value Reference Range Interpretation Comments Macrocyte (test code = 1+ *ABN*(12/24/17 Macrocyte) 3:18 AM) [facility] CenterZqdbqrkKNNHVHYXGP9440-14-03 08:18:00 Test Item Value Reference Range Interpretation Comments Lymphocytes (test code = Lymphocytes) 3.0 20.0-40.0 [facility] CenterRulqhrhXHPBSTOYBF3550-82-19 08:18:00 Test Item Value Reference Range Interpretation Comments Plt Morph (test code = Normal (12/24/17 3:18 Plt Morph) AM) [facility] CenterUgoppmjGJKXICKGTS6072-93-77 08:18:00 Test Item Value Reference Range Interpretation Comments RBC (test code = RBC) 3.52 4.20-5.40 [facility] CenterOkupzssJELEXRFUGK8146-80-67 08:18:00 Test Item Value Reference Range Interpretation Comments WBC (test code = WBC) 6.3 3.7-10.4 [facility] CenterBhxbuwnGJBUXRQHNB9112-43-40 08:18:00 Test Item Value Reference Range Interpretation Comments MCV (test code = MCV) 99.7 80.0-98.0 [facility] CenterMfflcohZMXIEOXHAK2278-86-29 08:18:00 Test Item Value Reference Range Interpretation Comments Hgb (test code = Hgb) 11.9 12.0-16.0 [facility] CenterNryrmruXCHMLUELVT8057-00-41 08:18:00 Test Item Value Reference Range Interpretation Comments MCH (test code = MCH) 33.7 pg 27.0-31.0 [facility] CenterZknmwnmPALDDSJVOM7513-25-55 08:18:00 Test Item Value Reference Range Interpretation Comments Hct (test code = Hct) 35.1 36.0-48.0 [facility] CenterPhwxmbwZBKXLWQHDN9834-78-89 08:18:00 Test Item Value Reference Range Interpretation Comments MCHC (test code = MCHC) 33.8 32.0-36.0 [facility] CenterOnlzophMEKANFEWBO6173-41-76 08:18:00 Test Item Value Reference Range Interpretation Comments RDW (test code = RDW) 15.1 11.5-14.5 [facility] CenterTweftczLZEJYOMUZR2520-77-45 08:18:00 Test Item Value Reference Range Interpretation Comments Platelet (test code = Platelet) 205 133-450 [facility] CenterFpkmeeqIAFTVMFMBF4509-97-89 08:18:00 Test Item Value Reference Range Interpretation Comments MPV (test code = MPV) 9.3 7.4-10.4 [facility]2018-03-28 08:18:00 Test Item Value Reference Range Interpretation Comments Lactic Acid Lvl (test code = Lactic 1.1 0.5-2.2 Acid Lvl) [facility]2018-03-28 08:18:00 Test Item Value Reference Range Interpretation Comments eGFR (test code = eGFR) 41 [facility]2018-03-28 08:18:00 Test Item Value Reference Range Interpretation Comments ALT (test code = ALT) 22 See_Comment [Auto mated message] The system which ge nerated this result transmit clarence reference range : <=65. The reference range was not used to interpr et this result as juanjose l/abnormal. [facility]2018-03-28 08:18:00 Test Item Value Reference Range Interpretation Comments Calcium Lvl (test code = Calcium Lvl) 8.6 8.5-10.5 [facility]2018-03-28 08:18:00 Test Item Value Reference Range Interpretation Comments Total Protein (test code = Total 8.0 6.4-8.4 Protein) [facility]2018-03-28 08:18:00 Test Item Value Reference Range Interpretation Comments Albumin Lvl (test code = Albumin Lvl) 3.1 3.5-5.0 [place] 362778-03-28 08:18:00 Test Item Value Reference Range Interpretation Comments CO2 (test code = CO2) 26 24-32 [place] 362778-03-28 08:18:00 Test Item Value Reference Range Interpretation Comments Potassium Lvl (test code = Potassium 3.9 3.5-5.1 Lvl) [place] 362778-03-28 08:18:00 Test Item Value Reference Range Interpretation Comments Chloride Lvl (test code = Chloride Lvl) 97 95-109 [place] 362778-03-28 08:18:00 Test Item Value Reference Range Interpretation Comments AST (test code = AST) 24 See_Comment [Auto mated message] The system which ge nerated this result transmit clarence reference range : <=37. The reference range was not used to interpr et this result as juanjose l/abnormal. [facility]2018-03-28 08:18:00 Test Item Value Reference Range Interpretation Comments Alk Phos (test code = Alk Phos) 113 39-136 [place] 362778-03-28 08:18:00 Test Item Value Reference Range Interpretation Comments Bili Total (test code = Bili Total) 1.1 0.2-1.3 [facility]2018-03-28 08:18:00 Test Item Value Reference Range Interpretation Comments Sodium Lvl (test code = Sodium Lvl) 134 135-145 [facility]2018-03-28 08:18:00 Test Item Value Reference Range Interpretation Comments Glucose Lvl (test code = Glucose Lvl) 226 70-99 [place] 362778-03-28 08:18:00 Test Item Value Reference Range Interpretation Comments BUN (test code = BUN) 23 7-22 [place] 362778-03-28 08:18:00 Test Item Value Reference Range Interpretation Comments Creatinine Lvl (test code = Creatinine 1.36 0.50-1.40 Lvl) [facility]2018-03-28 08:18:00 Test Item Value Reference Range Interpretation Comments A/G Ratio (test code = A/G Ratio) 0.6 1 0.7-1.6 [facility]2018-03-28 08:18:00 Test Item Value Reference Range Interpretation Comments Globulin (test code = Globulin) 4.9 2.7-4.2 [place] 362778-03-28 08:18:00 Test Item Value Reference Range Interpretation Comments AGAP (test code = AGAP) 14.9 10.0-20.0 [facility]2018-03-28 08:18:00 Test Item Value Reference Range Interpretation Comments B/C Ratio (test code = B/C Ratio) 17 1 6-25 [facility] CenterJoyuemyVCWGAGBCVV9725-22-20 08:18:00 Test Item Value Reference Range Interpretation Comments Monocytes # (test code 0.1 See_Comment [Aut omated message] The = Monocytes #) system which generated this result tra nsmitted reference range : <=0.8. The reference r usama was not used to int erpret this result as normal/abnormal . [facility] CenterYglsqcrKSMWJXEHAE2040-03-13 08:18:00 Test Item Value Reference Range Interpretation Comments Monocytes (test code = Monocytes) 1.0 2.0-12.0 [facility] CenterTbeigqvYHNMHRMQSQ8717-03-73 08:18:00 Test Item Value Reference Range Interpretation Comments Atypical Lymphs (test code = Atypical 0.0 Lymphs) [facility] CenterAptwtmhJRRYKPZNID1949-37-53 08:18:00 Test Item Value Reference Range Interpretation Comments Bands (test code = 8.0 See_Comment [Automat ed message] The Bands) system which ge nerated this result transmit clarence reference range : <=11.0. The reference r usama was not used to interpr et this result as juanjose l/abnormal. [facility] CenterPkxpithEFJHVMOFKZ8968-80-83 08:18:00 Test Item Value Reference Range Interpretation Comments Segs (test code = Segs) 88.0 45.0-75.0 [facility] CenterXfqabouZQSFJZPZPD5268-91-63 08:18:00 Test Item Value Reference Range Interpretation Comments Segs-Bands # (test code = Segs-Bands #) 6.0 1.5-8.1 [facility] CenterNwrbdesSVBFMNIBTL0351-52-29 08:18:00 Test Item Value Reference Range Interpretation Comments Lymphocytes # (test code = Lymphocytes 0.2 1.0-5.5 #) [facility] CenterGgeldpgGEVGDXDDIM8848-30-20 08:18:00 Test Item Value Reference Range Interpretation Comments Macrocyte (test code = 1+ *ABN*(12/24/17 Macrocyte) 3:18 AM) [facility] CenterJhdwsvwMRXWGTWMIT8790-63-90 08:18:00 Test Item Value Reference Range Interpretation Comments Lymphocytes (test code = Lymphocytes) 3.0 20.0-40.0 [facility] CenterDbkxcxdWWPNTYXGRS2935-76-25 08:18:00 Test Item Value Reference Range Interpretation Comments Plt Morph (test code = Normal (12/24/17 3:18 Plt Morph) AM) [facility] CenterJqedtxrHQVLIMVLHO1709-95-54 08:18:00 Test Item Value Reference Range Interpretation Comments RBC (test code = RBC) 3.52 4.20-5.40 [facility] CenterFrmiihcLQBWXUYVRR0708-35-54 08:18:00 Test Item Value Reference Range Interpretation Comments WBC (test code = WBC) 6.3 3.7-10.4 [facility] CenterYbxpuuvBGEPRFGFSP8843-37-91 08:18:00 Test Item Value Reference Range Interpretation Comments MCV (test code = MCV) 99.7 80.0-98.0 [facility] CenterTqtqpuoZHIFYTOPCJ9205-49-64 08:18:00 Test Item Value Reference Range Interpretation Comments Hgb (test code = Hgb) 11.9 12.0-16.0 [facility] CenterLfyukpnVOCMKMKIDA1430-38-30 08:18:00 Test Item Value Reference Range Interpretation Comments MCH (test code = MCH) 33.7 pg 27.0-31.0 [facility] CenterNxkgkazBPSKQQRGEV9419-38-64 08:18:00 Test Item Value Reference Range Interpretation Comments Hct (test code = Hct) 35.1 36.0-48.0 [facility] CenterZqeabubYKMWZSNIHF0968-60-84 08:18:00 Test Item Value Reference Range Interpretation Comments MCHC (test code = MCHC) 33.8 32.0-36.0 [facility] CenterIxuiggeDXVCXLQTFM7116-47-27 08:18:00 Test Item Value Reference Range Interpretation Comments RDW (test code = RDW) 15.1 11.5-14.5 [facility] CenterKxfpgbyCXPYXTRJDT7885-55-66 08:18:00 Test Item Value Reference Range Interpretation Comments Platelet (test code = Platelet) 205 133-450 [facility] CenterCnkcdshYCGOLWEKYC3681-73-61 08:18:00 Test Item Value Reference Range Interpretation Comments MPV (test code = MPV) 9.3 7.4-10.4 [facility]2018-03-28 08:18:00 Test Item Value Reference Range Interpretation Comments Lactic Acid Lvl (test code = Lactic 1.1 0.5-2.2 Acid Lvl) [facility]2018-03-28 08:18:00 Test Item Value Reference Range Interpretation Comments eGFR (test code = eGFR) 41 [facility]2018-03-28 08:18:00 Test Item Value Reference Range Interpretation Comments ALT (test code = ALT) 22 See_Comment [Auto mated message] The system which ge nerated this result transmit clarence reference range : <=65. The reference range was not used to interpr et this result as juanjose l/abnormal. [facility]2018-03-28 08:18:00 Test Item Value Reference Range Interpretation Comments Calcium Lvl (test code = Calcium Lvl) 8.6 8.5-10.5 [facility]2018-03-28 08:18:00 Test Item Value Reference Range Interpretation Comments Total Protein (test code = Total 8.0 6.4-8.4 Protein) [facility]2018-03-28 08:18:00 Test Item Value Reference Range Interpretation Comments Albumin Lvl (test code = Albumin Lvl) 3.1 3.5-5.0 [facility]2018-03-28 08:18:00 Test Item Value Reference Range Interpretation Comments CO2 (test code = CO2) 26 24-32 [facility]2018-03-28 08:18:00 Test Item Value Reference Range Interpretation Comments Potassium Lvl (test code = Potassium 3.9 3.5-5.1 Lvl) [facility]2018-03-28 08:18:00 Test Item Value Reference Range Interpretation Comments Chloride Lvl (test code = Chloride Lvl) 97 95-109 [facility]2018-03-28 08:18:00 Test Item Value Reference Range Interpretation Comments AST (test code = AST) 24 See_Comment [Auto mated message] The system which ge nerated this result transmit clarence reference range : <=37. The reference range was not used to interpr et this result as juanjose l/abnormal. [facility]2018-03-28 08:18:00 Test Item Value Reference Range Interpretation Comments Alk Phos (test code = Alk Phos) 113 39-136 [facility]2018-03-28 08:18:00 Test Item Value Reference Range Interpretation Comments Bili Total (test code = Bili Total) 1.1 0.2-1.3 [facility]2018-03-28 08:18:00 Test Item Value Reference Range Interpretation Comments Sodium Lvl (test code = Sodium Lvl) 134 135-145 [facility]2018-03-28 08:18:00 Test Item Value Reference Range Interpretation Comments Glucose Lvl (test code = Glucose Lvl) 226 70-99 [facility]2018-03-28 08:18:00 Test Item Value Reference Range Interpretation Comments BUN (test code = BUN) 23 7-22 [facility]2018-03-28 08:18:00 Test Item Value Reference Range Interpretation Comments Creatinine Lvl (test code = Creatinine 1.36 0.50-1.40 Lvl) [facility]2018-03-28 08:18:00 Test Item Value Reference Range Interpretation Comments A/G Ratio (test code = A/G Ratio) 0.6 1 0.7-1.6 [facility] [place]2018-03-28 08:18:00 Test Item Value Reference Range Interpretation Comments Globulin (test code = Globulin) 4.9 2.7-4.2 [facility] [place]2018-03-28 08:18:00 Test Item Value Reference Range Interpretation Comments AGAP (test code = AGAP) 14.9 10.0-20.0 [facility] [place]2018-03-28 08:18:00 Test Item Value Reference Range Interpretation Comments B/C Ratio (test code = B/C Ratio) 17 1 6-25 [facility] CenterBydepulYTALEEYSES7931-52-05 08:18:00 Test Item Value Reference Range Interpretation Comments Monocytes # (test code 0.1 See_Comment [Aut omated message] The = Monocytes #) system which generated this result tra nsmitted reference range : <=0.8. The reference r usama was not used to int erpret this result as normal/abnormal . [facility] CenterAcmqqwfYHWVULCPOD3024-23-12 08:18:00 Test Item Value Reference Range Interpretation Comments Monocytes (test code = Monocytes) 1.0 2.0-12.0 [facility] CenterUevwvhhWBHDORZQMM0501-31-61 08:18:00 Test Item Value Reference Range Interpretation Comments Atypical Lymphs (test code = Atypical 0.0 Lymphs) [facility] CenterTddxoirGCIUEMWOSA0799-78-53 08:18:00 Test Item Value Reference Range Interpretation Comments Bands (test code = 8.0 See_Comment [Automat ed message] The Bands) system which ge nerated this result transmit clarence reference range : <=11.0. The reference r usama was not used to interpr et this result as juanjose l/abnormal. [facility] CenterHkuympcGMRXSTGFCZ1334-36-69 08:18:00 Test Item Value Reference Range Interpretation Comments Segs (test code = Segs) 88.0 45.0-75.0 [facility] CenterBwmrqhbTILNXRGJDJ2096-42-83 08:18:00 Test Item Value Reference Range Interpretation Comments Segs-Bands # (test code = Segs-Bands #) 6.0 1.5-8.1 [facility] CenterTrhvaxrFOGPACHKIN7995-47-24 08:18:00 Test Item Value Reference Range Interpretation Comments Lymphocytes # (test code = Lymphocytes 0.2 1.0-5.5 #) [facility] CenterSnnkijbJPRQESZBDN9412-46-03 08:18:00 Test Item Value Reference Range Interpretation Comments Macrocyte (test code = 1+ *ABN*(12/24/17 Macrocyte) 3:18 AM) [facility] CenterUseyxgkGJXQNWDMIF8486-77-63 08:18:00 Test Item Value Reference Range Interpretation Comments Lymphocytes (test code = Lymphocytes) 3.0 20.0-40.0 [facility] CenterTcxtponOSINHPFWKJ3188-99-45 08:18:00 Test Item Value Reference Range Interpretation Comments Plt Morph (test code = Normal (12/24/17 3:18 Plt Morph) AM) [facility] CenterHnsdbueIQRPHSFWGU5011-69-97 08:18:00 Test Item Value Reference Range Interpretation Comments RBC (test code = RBC) 3.52 4.20-5.40 [facility] CenterGdfeeevEARSKYJZOB8213-80-35 08:18:00 Test Item Value Reference Range Interpretation Comments WBC (test code = WBC) 6.3 3.7-10.4 [facility] CenterAzxscyxHTCPIZEVIL5925-80-67 08:18:00 Test Item Value Reference Range Interpretation Comments MCV (test code = MCV) 99.7 80.0-98.0 [facility] CenterPirxtczWOVXXBITIP4079-91-09 08:18:00 Test Item Value Reference Range Interpretation Comments Hgb (test code = Hgb) 11.9 12.0-16.0 [facility] CenterMdvuxfxDHJFGJYZVT0115-75-27 08:18:00 Test Item Value Reference Range Interpretation Comments MCH (test code = MCH) 33.7 pg 27.0-31.0 [facility] CenterAvcwqiqPNLDYDWBBU5560-71-22 08:18:00 Test Item Value Reference Range Interpretation Comments Hct (test code = Hct) 35.1 36.0-48.0 [facility] CenterJdmdgcmHAKHXLIRAO0403-18-08 08:18:00 Test Item Value Reference Range Interpretation Comments MCHC (test code = MCHC) 33.8 32.0-36.0 [facility] CenterJfogsygSBUBYNJPTD9514-87-35 08:18:00 Test Item Value Reference Range Interpretation Comments RDW (test code = RDW) 15.1 11.5-14.5 [facility] CenterNxhcyweIWSHPCHBYK8204-63-44 08:18:00 Test Item Value Reference Range Interpretation Comments Platelet (test code = Platelet) 205 133-450 [facility] CenterKffcqrgFXPMNHFPBR5023-45-09 08:18:00 Test Item Value Reference Range Interpretation Comments MPV (test code = MPV) 9.3 7.4-10.4 [facility] [place]2018-03-28 08:18:00 Test Item Value Reference Range Interpretation Comments Lactic Acid Lvl (test code = Lactic 1.1 0.5-2.2 Acid Lvl) [facility] [place]2018-03-28 08:18:00 Test Item Value Reference Range Interpretation Comments eGFR (test code = eGFR) 41 [facility] [place]2018-03-28 08:18:00 Test Item Value Reference Range Interpretation Comments ALT (test code = ALT) 22 See_Comment [Auto mated message] The system which ge nerated this result transmit clarence reference range : <=65. The reference range was not used to interpr et this result as juanjose l/abnormal. [facility] [place]2018-03-28 08:18:00 Test Item Value Reference Range Interpretation Comments Calcium Lvl (test code = Calcium Lvl) 8.6 8.5-10.5 [facility] [place]2018-03-28 08:18:00 Test Item Value Reference Range Interpretation Comments Total Protein (test code = Total 8.0 6.4-8.4 Protein) [facility] [place]2018-03-28 08:18:00 Test Item Value Reference Range Interpretation Comments Albumin Lvl (test code = Albumin Lvl) 3.1 3.5-5.0 [facility] [place]2018-03-28 08:18:00 Test Item Value Reference Range Interpretation Comments CO2 (test code = CO2) 26 24-32 [facility] [place]2018-03-28 08:18:00 Test Item Value Reference Range Interpretation Comments Potassium Lvl (test code = Potassium 3.9 3.5-5.1 Lvl) [facility] [place]2018-03-28 08:18:00 Test Item Value Reference Range Interpretation Comments Chloride Lvl (test code = Chloride Lvl) 97 95-109 [facility] [place]2018-03-28 08:18:00 Test Item Value Reference Range Interpretation Comments AST (test code = AST) 24 See_Comment [Auto mated message] The system which ge nerated this result transmit clarence reference range : <=37. The reference range was not used to interpr et this result as juanjose l/abnormal. [facility] [place]2018-03-28 08:18:00 Test Item Value Reference Range Interpretation Comments Alk Phos (test code = Alk Phos) 113 39-136 [facility] [place]2018-03-28 08:18:00 Test Item Value Reference Range Interpretation Comments Bili Total (test code = Bili Total) 1.1 0.2-1.3 [facility] [place]2018-03-28 08:18:00 Test Item Value Reference Range Interpretation Comments Sodium Lvl (test code = Sodium Lvl) 134 135-145 [facility] [place]2018-03-28 08:18:00 Test Item Value Reference Range Interpretation Comments Glucose Lvl (test code = Glucose Lvl) 226 70-99 [place] 362778-03-28 08:18:00 Test Item Value Reference Range Interpretation Comments BUN (test code = BUN) 23 7-22 [facility] [place]2018-03-28 08:18:00 Test Item Value Reference Range Interpretation Comments Creatinine Lvl (test code = Creatinine 1.36 0.50-1.40 Lvl) [facility] [place]2018-03-28 08:18:00 Test Item Value Reference Range Interpretation Comments A/G Ratio (test code = A/G Ratio) 0.6 1 0.7-1.6 [place] 362778-03-28 08:18:00 Test Item Value Reference Range Interpretation Comments Globulin (test code = Globulin) 4.9 2.7-4.2 [place] 362778-03-28 08:18:00 Test Item Value Reference Range Interpretation Comments AGAP (test code = AGAP) 14.9 10.0-20.0 [facility] [place]2018-03-28 08:18:00 Test Item Value Reference Range Interpretation Comments B/C Ratio (test code = B/C Ratio) 17 1 6-25 [place] 639828-03-28 08:18:00 Test Item Value Reference Range Interpretation Comments Monocytes # (test code 0.1 See_Comment [Aut omated message] The = Monocytes #) system which generated this result tra nsmitted reference range : <=0.8. The reference r usama was not used to int erpret this result as normal/abnormal . [facility] CenterJkmvnvqRODZYAOVSU4556-86-29 08:18:00 Test Item Value Reference Range Interpretation Comments Monocytes (test code = Monocytes) 1.0 2.0-12.0 [facility] CenterJsvwukyZZHWCFUUEE2718-60-82 08:18:00 Test Item Value Reference Range Interpretation Comments Atypical Lymphs (test code = Atypical 0.0 Lymphs) [facility] CenterOucxzvkHHNXDICPGV2760-03-17 08:18:00 Test Item Value Reference Range Interpretation Comments Bands (test code = 8.0 See_Comment [Automat ed message] The Bands) system which ge nerated this result transmit clarence reference range : <=11.0. The reference r usama was not used to interpr et this result as juanjose l/abnormal. [facility] CenterMphmkgwKPADNOKYSM2687-06-16 08:18:00 Test Item Value Reference Range Interpretation Comments Segs (test code = Segs) 88.0 45.0-75.0 [place] [address]-03-28 08:18:00 Test Item Value Reference Range Interpretation Comments Segs-Bands # (test code = Segs-Bands #) 6.0 1.5-8.1 [facility] CenterMrtgmjdECZDIEJMIA1392-55-14 08:18:00 Test Item Value Reference Range Interpretation Comments Lymphocytes # (test code = Lymphocytes 0.2 1.0-5.5 #) [facility] CenterYfroqllPTFGSNEQGC7313-26-47 08:18:00 Test Item Value Reference Range Interpretation Comments Macrocyte (test code = 1+ *ABN*(12/24/17 Macrocyte) 3:18 AM) [facility] CenterJryhbnfPCHAKXIWVC2384-56-13 08:18:00 Test Item Value Reference Range Interpretation Comments Lymphocytes (test code = Lymphocytes) 3.0 20.0-40.0 [facility] CenterWvaisxvHGQXERXBGE4901-17-31 08:18:00 Test Item Value Reference Range Interpretation Comments Plt Morph (test code = Normal (12/24/17 3:18 Plt Morph) AM) [facility] CenterDamyaolOXHBLDJXGC4882-81-12 08:18:00 Test Item Value Reference Range Interpretation Comments RBC (test code = RBC) 3.52 4.20-5.40 [facility] CenterCahzafxBMSEGOHUDG8213-45-67 08:18:00 Test Item Value Reference Range Interpretation Comments WBC (test code = WBC) 6.3 3.7-10.4 [facility] CenterMrrmhldEVWOMMWYCR6564-40-17 08:18:00 Test Item Value Reference Range Interpretation Comments MCV (test code = MCV) 99.7 80.0-98.0 [facility] CenterMuljkkfBZGUFAILBZ0068-83-98 08:18:00 Test Item Value Reference Range Interpretation Comments Hgb (test code = Hgb) 11.9 12.0-16.0 [facility] CenterJineodwMNZNHNNWFZ6456-62-68 08:18:00 Test Item Value Reference Range Interpretation Comments MCH (test code = MCH) 33.7 pg 27.0-31.0 [facility] CenterOoavxgfRDOASRSIPH2773-01-79 08:18:00 Test Item Value Reference Range Interpretation Comments Hct (test code = Hct) 35.1 36.0-48.0 [facility] CenterZwirspmRSHCKMTYSJ0967-72-54 08:18:00 Test Item Value Reference Range Interpretation Comments MCHC (test code = MCHC) 33.8 32.0-36.0 [facility] CenterFdmgsecARCEPEPBYQ1040-33-70 08:18:00 Test Item Value Reference Range Interpretation Comments RDW (test code = RDW) 15.1 11.5-14.5 [facility] [id number] 02:37:00 Test Item Value Reference Range Interpretation Comments POC Creatinine (test code = POC 1.4 0.5-1.4 Creatinine) [facility] EKLAB8351-18-33 02:37:00 Test Item Value Reference Range Interpretation Comments POC Creatinine (test code = POC 1.4 0.5-1.4 Creatinine) [facility] [id number] 02:37:00 Test Item Value Reference Range Interpretation Comments POC Creatinine (test code = POC 1.4 0.5-1.4 Creatinine) [facility] [place]2018-03-28 02:37:00 Test Item Value Reference Range Interpretation Comments POC Creatinine (test code = POC 1.4 0.5-1.4 Creatinine) [facility] [place]2018-03-28 02:37:00 Test Item Value Reference Range Interpretation Comments POC Creatinine (test code = POC 1.4 0.5-1.4 Creatinine) [facility] [id number] 02:37:00 Test Item Value Reference Range Interpretation Comments POC Creatinine (test code = POC 1.4 0.5-1.4 Creatinine) [facility] YMAMFYQ3663-76-53 02:33:00 Test Item Value Reference Range Interpretation Comments BNP (test code = BNP) 1695 [facility] CenterTangible PlayUOFL [facility] DNLOHKV0425-44-24 02:33:00 Test Item Value Reference Range Interpretation Comments Troponin-I (test code 1.20 See_Comment [Auto mated message] The = Troponin-I) system which g enerated this result transmit clarence reference range : <=0.40. The reference r usama was not used to interpr et this result as juanjose l/abnormal. [facility] CenterWorldcoo LKRSMXM3662-11-93 02:33:00 Test Item Value Reference Range Interpretation Comments CK MB (test code = CK MB) 8.0 0.5-3.6 [facility] CZUIYCC4418-56-60 02:33:00 Test Item Value Reference Range Interpretation Comments CK MB Index (test 2.1 1 See_Comment [Automate d message] The code = CK MB Index) system w [facility] generated this result transmit clarence reference range : <=2.5. The reference range was not used to interpr et this result as juanjose l/abnormal. [facility] [place]2018-03-28 02:33:00 Test Item Value Reference Range Interpretation Comments Lactic Acid Lvl (test code = Lactic 3.7 0.5-2.2 Acid Lvl) [facility] [place]2018-03-28 02:33:00 Test Item Value Reference Range Interpretation Comments Phosphorus (test code = Phosphorus) 2.8 2.5-4.5 [place] 362778-03-28 02:33:00 Test Item Value Reference Range Interpretation Comments Magnesium Lvl (test code = Magnesium 2.7 1.8-2.4 Lvl) [place] 362778-03-28 02:33:00 Test Item Value Reference Range Interpretation Comments B/C Ratio (test code = B/C Ratio) 14 1 6-25 [place] [address]-03-28 02:33:00 Test Item Value Reference Range Interpretation Comments A/G Ratio (test code = A/G Ratio) 0.7 1 0.7-1.6 [place] 362778-03-28 02:33:00 Test Item Value Reference Range Interpretation Comments Globulin (test code = Globulin) 4.8 2.7-4.2 [place] 362778-03-28 02:33:00 Test Item Value Reference Range Interpretation Comments AST (test code = AST) 34 See_Comment [Auto mated message] The system which ge nerated this result transmit clarence reference range : <=37. The reference range was not used to interpr et this result as juanjose l/abnormal. [place] 362778-03-28 02:33:00 Test Item Value Reference Range Interpretation Comments ALT (test code = ALT) 26 See_Comment [Auto mated message] The system which ge nerated this result transmit clarence reference range : <=65. The reference range was not used to interpr et this result as juanjose l/abnormal. [place] 362778-03-28 02:33:00 Test Item Value Reference Range Interpretation Comments AGAP (test code = AGAP) 13.9 10.0-20.0 [facility] [place]2018-03-28 02:33:00 Test Item Value Reference Range Interpretation Comments Bili Total (test code = Bili Total) 1.4 0.2-1.3 [facility] [place]2018-03-28 02:33:00 Test Item Value Reference Range Interpretation Comments Alk Phos (test code = Alk Phos) 116 39-136 [facility] [place]2018-03-28 02:33:00 Test Item Value Reference Range Interpretation Comments Glucose Lvl (test code = Glucose Lvl) 231 70-99 [facility] [place]2018-03-28 02:33:00 Test Item Value Reference Range Interpretation Comments BUN (test code = BUN) 21 7-22 [facility] [place]2018-03-28 02:33:00 Test Item Value Reference Range Interpretation Comments Sodium Lvl (test code = Sodium Lvl) 135 135-145 [facility] [place]2018-03-28 02:33:00 Test Item Value Reference Range Interpretation Comments CO2 (test code = CO2) 28 24-32 [facility] [place]2018-03-28 02:33:00 Test Item Value Reference Range Interpretation Comments Chloride Lvl (test code = Chloride Lvl) 97 95-109 [facility] [place]2018-03-28 02:33:00 Test Item Value Reference Range Interpretation Comments Albumin Lvl (test code = Albumin Lvl) 3.4 3.5-5.0 [facility] [place]2018-03-28 02:33:00 Test Item Value Reference Range Interpretation Comments Potassium Lvl (test code = Potassium 3.9 3.5-5.1 Lvl) [facility] [place]2018-03-28 02:33:00 Test Item Value Reference Range Interpretation Comments Total Protein (test code = Total 8.2 6.4-8.4 Protein) [facility] [place]2018-03-28 02:33:00 Test Item Value Reference Range Interpretation Comments Calcium Lvl (test code = Calcium Lvl) 8.8 8.5-10.5 [facility] CenterOraghkfWGOKEERVMP2118-62-23 02:33:00 Test Item Value Reference Range Interpretation Comments PTT (test code = PTT) 30.4 s 22.9-35.8 [facility] CenterXayciajBAUBJVWWJO9142-19-99 02:33:00 Test Item Value Reference Range Interpretation Comments PT (test code = PT) 13.4 s 12.0-14.7 [facility] CenterRearsziUBKLUNCBNR8952-79-36 02:33:00 Test Item Value Reference Range Interpretation Comments INR (test code = INR) 1.02 1 0.85-1.17 [facility] CenterBgsefodDLHIUDNFQP4498-16-13 02:33:00 Test Item Value Reference Range Interpretation Comments Basophils (test code = 0.3 See_Comment [Aut omated message] The Basophils) system which ge nerated this result tra nsmitted reference range : <=1.0. The reference r usama was not used to int erpret this result as normal/abnormal . [facility] CenterAtqkxpkZWKDMUFSLK0176-69-66 02:33:00 Test Item Value Reference Range Interpretation Comments Eosinophils (test code = 0.1 See_Comment [A utomated message] The Eosinophils) system which ge nerated this result tra nsmitted reference range : <=4.0. The reference r usama was not used to int erpret this result as normal/abnormal . [facility] CenterKeychain LogisticsCARbuilt.ioAC EZRRVYJ2310-20-21 02:33:00 Test Item Value Reference Range Interpretation Comments BNP (test code = BNP) 1695 [facility] CenterScopelec[facility] 02:33:00 Test Item Value Reference Range Interpretation Comments Troponin-I (test code 1.20 See_Comment [Auto mated message] The = Troponin-I) system which g enerated this result transmit clarence reference range : <=0.40. The reference r usama was not used to interpr et this result as juanjose l/abnormal. [facility] CenterAfterStepsAC [id number] 02:33:00 Test Item Value Reference Range Interpretation Comments CK MB (test code = CK MB) 8.0 0.5-3.6 [facility] CenterKeychain LogisticsCARbuilt.ioAC [id number] 02:33:00 Test Item Value Reference Range Interpretation Comments CK MB Index (test 2.1 1 See_Comment [Automate d message] The code = CK MB Index) system w [facility] generated this result transmit clarence reference range : <=2.5. The reference range was not used to interpr et this result as juanjose l/abnormal. [facility] [employer] [id number] 02:33:00 Test Item Value Reference Range Interpretation Comments Lactic Acid Lvl (test code = Lactic 3.7 0.5-2.2 Acid Lvl) [place] 362778-03-28 02:33:00 Test Item Value Reference Range Interpretation Comments Phosphorus (test code = Phosphorus) 2.8 2.5-4.5 [place] 362778-03-28 02:33:00 Test Item Value Reference Range Interpretation Comments Magnesium Lvl (test code = Magnesium 2.7 1.8-2.4 Lvl) [place] 362778-03-28 02:33:00 Test Item Value Reference Range Interpretation Comments B/C Ratio (test code = B/C Ratio) 14 1 6-25 [place] [address]-03-28 02:33:00 Test Item Value Reference Range Interpretation Comments A/G Ratio (test code = A/G Ratio) 0.7 1 0.7-1.6 [place] [address]-03-28 02:33:00 Test Item Value Reference Range Interpretation Comments Globulin (test code = Globulin) 4.8 2.7-4.2 [place] 362778-03-28 02:33:00 Test Item Value Reference Range Interpretation Comments AST (test code = AST) 34 See_Comment [Auto mated message] The system which ge nerated this result transmit clarence reference range : <=37. The reference range was not used to interpr et this result as juanjose l/abnormal. [place] 362778-03-28 02:33:00 Test Item Value Reference Range Interpretation Comments ALT (test code = ALT) 26 See_Comment [Auto mated message] The system which ge nerated this result transmit clarence reference range : <=65. The reference range was not used to interpr et this result as juanjose l/abnormal. [place] 362778-03-28 02:33:00 Test Item Value Reference Range Interpretation Comments AGAP (test code = AGAP) 13.9 10.0-20.0 [place] 362778-03-28 02:33:00 Test Item Value Reference Range Interpretation Comments Bili Total (test code = Bili Total) 1.4 0.2-1.3 [place] 362778-03-28 02:33:00 Test Item Value Reference Range Interpretation Comments Alk Phos (test code = Alk Phos) 116 39-136 [facility] [place]2018-03-28 02:33:00 Test Item Value Reference Range Interpretation Comments Glucose Lvl (test code = Glucose Lvl) 231 70-99 [facility] [place]2018-03-28 02:33:00 Test Item Value Reference Range Interpretation Comments BUN (test code = BUN) 21 7-22 [facility] [place]2018-03-28 02:33:00 Test Item Value Reference Range Interpretation Comments Sodium Lvl (test code = Sodium Lvl) 135 135-145 [facility] [place]2018-03-28 02:33:00 Test Item Value Reference Range Interpretation Comments CO2 (test code = CO2) 28 24-32 [facility] [place]2018-03-28 02:33:00 Test Item Value Reference Range Interpretation Comments Chloride Lvl (test code = Chloride Lvl) 97 95-109 [facility] [place]2018-03-28 02:33:00 Test Item Value Reference Range Interpretation Comments Albumin Lvl (test code = Albumin Lvl) 3.4 3.5-5.0 [facility] [place]2018-03-28 02:33:00 Test Item Value Reference Range Interpretation Comments Potassium Lvl (test code = Potassium 3.9 3.5-5.1 Lvl) [facility] [place]2018-03-28 02:33:00 Test Item Value Reference Range Interpretation Comments Total Protein (test code = Total 8.2 6.4-8.4 Protein) [facility] [place]2018-03-28 02:33:00 Test Item Value Reference Range Interpretation Comments Calcium Lvl (test code = Calcium Lvl) 8.8 8.5-10.5 [facility] CenterXagyaguPECTUTRZYM9356-86-41 02:33:00 Test Item Value Reference Range Interpretation Comments PTT (test code = PTT) 30.4 s 22.9-35.8 [facility] CenterVbharctFTFQREXVRB2116-41-09 02:33:00 Test Item Value Reference Range Interpretation Comments PT (test code = PT) 13.4 s 12.0-14.7 [place] 639828-03-28 02:33:00 Test Item Value Reference Range Interpretation Comments INR (test code = INR) 1.02 1 0.85-1.17 [facility] CenterVwqtktmNOHQAXJHWB7881-58-16 02:33:00 Test Item Value Reference Range Interpretation Comments Basophils (test code = 0.3 See_Comment [Aut omated message] The Basophils) system which ge nerated this result tra nsmitted reference range : <=1.0. The reference r usama was not used to int erpret this result as normal/abnormal . [facility] CenterBtqqdlcMMKSJJHBMV3432-84-54 02:33:00 Test Item Value Reference Range Interpretation Comments Eosinophils (test code = 0.1 See_Comment [A utomated message] The Eosinophils) system which ge nerated this result tra nsmitted reference range : <=4.0. The reference r usama was not used to int erpret this result as normal/abnormal . [facility] [employer] NNAVULR0291-21-63 02:33:00 Test Item Value Reference Range Interpretation Comments BNP (test code = BNP) 1695 [facility] CenterKeychain LogisticsCARbuilt.ioAC PXQCUHU2228-76-08 02:33:00 Test Item Value Reference Range Interpretation Comments Troponin-I (test code 1.20 See_Comment [Auto mated message] The = Troponin-I) system which g enerated this result transmit clarence reference range : <=0.40. The reference r usama was not used to interpr et this result as juanjose l/abnormal. [facility] [employer] [id number] 02:33:00 Test Item Value Reference Range Interpretation Comments CK MB (test code = CK MB) 8.0 0.5-3.6 [facility] CenterKeychain LogisticsCARbuilt.ioAC [id number] 02:33:00 Test Item Value Reference Range Interpretation Comments CK MB Index (test 2.1 1 See_Comment [Automate d message] The code = CK MB Index) system w [facility] generated this result transmit clarence reference range : <=2.5. The reference range was not used to interpr et this result as juanjose l/abnormal. [facility] [employer] [id number] 02:33:00 Test Item Value Reference Range Interpretation Comments Lactic Acid Lvl (test code = Lactic 3.7 0.5-2.2 Acid Lvl) [facility] [employer] [facility] [id number] 02:33:00 Test Item Value Reference Range Interpretation Comments Phosphorus (test code = Phosphorus) 2.8 2.5-4.5 [facility] [employer] [id number] 02:33:00 Test Item Value Reference Range Interpretation Comments Magnesium Lvl (test code = Magnesium 2.7 1.8-2.4 Lvl) [place] [id number] 02:33:00 Test Item Value Reference Range Interpretation Comments B/C Ratio (test code = B/C Ratio) 14 1 6-25 [place] [address]-03-28 02:33:00 Test Item Value Reference Range Interpretation Comments A/G Ratio (test code = A/G Ratio) 0.7 1 0.7-1.6 [place] [address]-03-28 02:33:00 Test Item Value Reference Range Interpretation Comments Globulin (test code = Globulin) 4.8 2.7-4.2 [place] [address]-03-28 02:33:00 Test Item Value Reference Range Interpretation Comments AST (test code = AST) 34 See_Comment [Auto mated message] The system which ge nerated this result transmit clarence reference range : <=37. The reference range was not used to interpr et this result as juanjose l/abnormal. [place] 362778-03-28 02:33:00 Test Item Value Reference Range Interpretation Comments ALT (test code = ALT) 26 See_Comment [Auto mated message] The system which ge nerated this result transmit clarence reference range : <=65. The reference range was not used to interpr et this result as juanjose l/abnormal. [place] 362778-03-28 02:33:00 Test Item Value Reference Range Interpretation Comments AGAP (test code = AGAP) 13.9 10.0-20.0 [facility]2018-03-28 02:33:00 Test Item Value Reference Range Interpretation Comments Bili Total (test code = Bili Total) 1.4 0.2-1.3 [place] 362778-03-28 02:33:00 Test Item Value Reference Range Interpretation Comments Alk Phos (test code = Alk Phos) 116 39-136 [place] 362778-03-28 02:33:00 Test Item Value Reference Range Interpretation Comments Glucose Lvl (test code = Glucose Lvl) 231 70-99 [place] 362778-03-28 02:33:00 Test Item Value Reference Range Interpretation Comments BUN (test code = BUN) 21 7-22 [facility]2018-03-28 02:33:00 Test Item Value Reference Range Interpretation Comments Sodium Lvl (test code = Sodium Lvl) 135 135-145 [facility]2018-03-28 02:33:00 Test Item Value Reference Range Interpretation Comments CO2 (test code = CO2) 28 24-32 [facility]2018-03-28 02:33:00 Test Item Value Reference Range Interpretation Comments Chloride Lvl (test code = Chloride Lvl) 97 95-109 [facility]2018-03-28 02:33:00 Test Item Value Reference Range Interpretation Comments Albumin Lvl (test code = Albumin Lvl) 3.4 3.5-5.0 [facility]2018-03-28 02:33:00 Test Item Value Reference Range Interpretation Comments Potassium Lvl (test code = Potassium 3.9 3.5-5.1 Lvl) [facility]2018-03-28 02:33:00 Test Item Value Reference Range Interpretation Comments Total Protein (test code = Total 8.2 6.4-8.4 Protein) [place] 362778-03-28 02:33:00 Test Item Value Reference Range Interpretation Comments Calcium Lvl (test code = Calcium Lvl) 8.8 8.5-10.5 [facility] [id number] 02:33:00 Test Item Value Reference Range Interpretation Comments PTT (test code = PTT) 30.4 s 22.9-35.8 [facility] [id number] 02:33:00 Test Item Value Reference Range Interpretation Comments PT (test code = PT) 13.4 s 12.0-14.7 [place] [address]-03-28 02:33:00 Test Item Value Reference Range Interpretation Comments INR (test code = INR) 1.02 1 0.85-1.17 [facility] [id number] 02:33:00 Test Item Value Reference Range Interpretation Comments Basophils (test code = 0.3 See_Comment [Aut omated message] The Basophils) system which ge nerated this result tra nsmitted reference range : <=1.0. The reference r usama was not used to int erpret this result as normal/abnormal . [place] [address]-03-28 02:33:00 Test Item Value Reference Range Interpretation Comments Eosinophils (test code = 0.1 See_Comment [A utomated message] The Eosinophils) system which ge nerated this result tra nsmitted reference range : <=4.0. The reference r usama was not used to int erpret this result as normal/abnormal . [facility] CenterWorldcooAC [id number] 02:33:00 Test Item Value Reference Range Interpretation Comments BNP (test code = BNP) 1695 [facility] [id number] 02:33:00 Test Item Value Reference Range Interpretation Comments Troponin-I (test code 1.20 See_Comment [Auto mated message] The = Troponin-I) system which g enerated this result transmit clarence reference range : <=0.40. The reference r usama was not used to interpr et this result as juanjose l/abnormal. [facility] CenterWorldcoo [id number] 02:33:00 Test Item Value Reference Range Interpretation Comments CK MB (test code = CK MB) 8.0 0.5-3.6 [facility] [id number] 02:33:00 Test Item Value Reference Range Interpretation Comments CK MB Index (test 2.1 1 See_Comment [Automate d message] The code = CK MB Index) system w [facility] generated this result transmit clarence reference range : <=2.5. The reference range was not used to interpr et this result as juanjose l/abnormal. [facility] [employer]2018-03-28 02:33:00 Test Item Value Reference Range Interpretation Comments Lactic Acid Lvl (test code = Lactic 3.7 0.5-2.2 Acid Lvl) [facility] CenterNew [id number] 02:33:00 Test Item Value Reference Range Interpretation Comments Phosphorus (test code = Phosphorus) 2.8 2.5-4.5 [facility] CenterNew [id number] 02:33:00 Test Item Value Reference Range Interpretation Comments Magnesium Lvl (test code = Magnesium 2.7 1.8-2.4 Lvl) [facility] Centerfitaborate [id number] 02:33:00 Test Item Value Reference Range Interpretation Comments B/C Ratio (test code = B/C Ratio) 14 1 6-25 [place] 362778-03-28 02:33:00 Test Item Value Reference Range Interpretation Comments A/G Ratio (test code = A/G Ratio) 0.7 1 0.7-1.6 [place] 362778-03-28 02:33:00 Test Item Value Reference Range Interpretation Comments Globulin (test code = Globulin) 4.8 2.7-4.2 [place] 362778-03-28 02:33:00 Test Item Value Reference Range Interpretation Comments AST (test code = AST) 34 See_Comment [Auto mated message] The system which ge nerated this result transmit clarence reference range : <=37. The reference range was not used to interpr et this result as juanjose l/abnormal. [place] 362778-03-28 02:33:00 Test Item Value Reference Range Interpretation Comments ALT (test code = ALT) 26 See_Comment [Auto mated message] The system which ge nerated this result transmit clarence reference range : <=65. The reference range was not used to interpr et this result as juanjose l/abnormal. [facility]2018-03-28 02:33:00 Test Item Value Reference Range Interpretation Comments AGAP (test code = AGAP) 13.9 10.0-20.0 [facility]2018-03-28 02:33:00 Test Item Value Reference Range Interpretation Comments Bili Total (test code = Bili Total) 1.4 0.2-1.3 [place] 362778-03-28 02:33:00 Test Item Value Reference Range Interpretation Comments Alk Phos (test code = Alk Phos) 116 39-136 [facility]2018-03-28 02:33:00 Test Item Value Reference Range Interpretation Comments Glucose Lvl (test code = Glucose Lvl) 231 70-99 [facility]2018-03-28 02:33:00 Test Item Value Reference Range Interpretation Comments BUN (test code = BUN) 21 7-22 [facility]2018-03-28 02:33:00 Test Item Value Reference Range Interpretation Comments Sodium Lvl (test code = Sodium Lvl) 135 135-145 [facility]2018-03-28 02:33:00 Test Item Value Reference Range Interpretation Comments CO2 (test code = CO2) 24-32 [facility]2018-03-28 02:33:00 Test Item Value Reference Range Interpretation Comments Chloride Lvl (test code = Chloride Lvl) 97 95-109 [facility]2018-03-28 02:33:00 Test Item Value Reference Range Interpretation Comments Albumin Lvl (test code = Albumin Lvl) 3.4 3.5-5.0 [facility]2018-03-28 02:33:00 Test Item Value Reference Range Interpretation Comments Potassium Lvl (test code = Potassium 3.9 3.5-5.1 Lvl) [facility]2018-03-28 02:33:00 Test Item Value Reference Range Interpretation Comments Total Protein (test code = Total 8.2 6.4-8.4 Protein) [facility]2018-03-28 02:33:00 Test Item Value Reference Range Interpretation Comments Calcium Lvl (test code = Calcium Lvl) 8.8 8.5-10.5 [place] 639828-03-28 02:33:00 Test Item Value Reference Range Interpretation Comments PTT (test code = PTT) 30.4 s 22.9-35.8 [place] 639828-03-28 02:33:00 Test Item Value Reference Range Interpretation Comments PT (test code = PT) 13.4 s 12.0-14.7 [place] [address]-03-28 02:33:00 Test Item Value Reference Range Interpretation Comments INR (test code = INR) 1.02 1 0.85-1.17 [facility] [id number] 02:33:00 Test Item Value Reference Range Interpretation Comments Basophils (test code = 0.3 See_Comment [Aut omated message] The Basophils) system which ge nerated this result tra nsmitted reference range : <=1.0. The reference r usama was not used to int erpret this result as normal/abnormal . [place] 639828-03-28 02:33:00 Test Item Value Reference Range Interpretation Comments Eosinophils (test code = 0.1 See_Comment [A utomated message] The Eosinophils) system which ge nerated this result tra nsmitted reference range : <=4.0. The reference r usama was not used to int erpret this result as normal/abnormal . [facility] [employer] [id number] 02:33:00 Test Item Value Reference Range Interpretation Comments BNP (test code = BNP) 1695 [facility] [employer] [id number] 02:33:00 Test Item Value Reference Range Interpretation Comments Troponin-I (test code 1.20 See_Comment [Auto mated message] The = Troponin-I) system which g enerated this result transmit clarence reference range : <=0.40. The reference r usama was not used to interpr et this result as juanjose l/abnormal. [facility] [employer] [id number] 02:33:00 Test Item Value Reference Range Interpretation Comments CK MB (test code = CK MB) 8.0 0.5-3.6 [facility] [employer] [id number] 02:33:00 Test Item Value Reference Range Interpretation Comments CK MB Index (test 2.1 1 See_Comment [Automate d message] The code = CK MB Index) system w [facility] generated this result transmit clarence reference range : <=2.5. The reference range was not used to interpr et this result as juanjose l/abnormal. [facility] [employer]2018-03-28 02:33:00 Test Item Value Reference Range Interpretation Comments Lactic Acid Lvl (test code = Lactic 3.7 0.5-2.2 Acid Lvl) [facility] [employer]2018-03-28 02:33:00 Test Item Value Reference Range Interpretation Comments Phosphorus (test code = Phosphorus) 2.8 2.5-4.5 [facility] [employer]2018-03-28 02:33:00 Test Item Value Reference Range Interpretation Comments Magnesium Lvl (test code = Magnesium 2.7 1.8-2.4 Lvl) [facility] [employer] [id number] 02:33:00 Test Item Value Reference Range Interpretation Comments B/C Ratio (test code = B/C Ratio) 14 1 6-25 [facility] [employer]2018-03-28 02:33:00 Test Item Value Reference Range Interpretation Comments A/G Ratio (test code = A/G Ratio) 0.7 1 0.7-1.6 [facility] [employer]2018-03-28 02:33:00 Test Item Value Reference Range Interpretation Comments Globulin (test code = Globulin) 4.8 2.7-4.2 [facility]2018-03-28 02:33:00 Test Item Value Reference Range Interpretation Comments AST (test code = AST) 34 See_Comment [Auto mated message] The system which ge nerated this result transmit clarence reference range : <=37. The reference range was not used to interpr et this result as juanjose l/abnormal. [facility] CenterKeychain LogisticsUNC HEALTH [id number] 02:33:00 Test Item Value Reference Range Interpretation Comments ALT (test code = ALT) 26 See_Comment [Auto mated message] The system which ge nerated this result transmit clarence reference range : <=65. The reference range was not used to interpr et this result as juanjose l/abnormal. [facility]2018-03-28 02:33:00 Test Item Value Reference Range Interpretation Comments AGAP (test code = AGAP) 13.9 10.0-20.0 [facility]2018-03-28 02:33:00 Test Item Value Reference Range Interpretation Comments Bili Total (test code = Bili Total) 1.4 0.2-1.3 [facility]2018-03-28 02:33:00 Test Item Value Reference Range Interpretation Comments Alk Phos (test code = Alk Phos) 116 39-136 [facility]2018-03-28 02:33:00 Test Item Value Reference Range Interpretation Comments Glucose Lvl (test code = Glucose Lvl) 231 70-99 [facility]2018-03-28 02:33:00 Test Item Value Reference Range Interpretation Comments BUN (test code = BUN) 21 7-22 [facility] CenterKeychain LogisticsUNC HEALTH [id number] 02:33:00 Test Item Value Reference Range Interpretation Comments Sodium Lvl (test code = Sodium Lvl) 135 135-145 [facility]2018-03-28 02:33:00 Test Item Value Reference Range Interpretation Comments CO2 (test code = CO2) 28 24-32 [facility]2018-03-28 02:33:00 Test Item Value Reference Range Interpretation Comments Chloride Lvl (test code = Chloride Lvl) 97 95-109 [facility] CenterKeychain LogisticsUNC HEALTH [id number] 02:33:00 Test Item Value Reference Range Interpretation Comments Albumin Lvl (test code = Albumin Lvl) 3.4 3.5-5.0 [facility]2018-03-28 02:33:00 Test Item Value Reference Range Interpretation Comments Potassium Lvl (test code = Potassium 3.9 3.5-5.1 Lvl) [facility]2018-03-28 02:33:00 Test Item Value Reference Range Interpretation Comments Total Protein (test code = Total 8.2 6.4-8.4 Protein) [facility] [id number] 02:33:00 Test Item Value Reference Range Interpretation Comments Calcium Lvl (test code = Calcium Lvl) 8.8 8.5-10.5 [facility] C[id number] 02:33:00 Test Item Value Reference Range Interpretation Comments PTT (test code = PTT) 30.4 s 22.9-35.8 [facility] CenterUqkmjbeBKTEWZUEIT1594-08-24 02:33:00 Test Item Value Reference Range Interpretation Comments PT (test code = PT) 13.4 s 12.0-14.7 [facility] CenterAiixxvkGPLXTOVRPV1626-12-13 02:33:00 Test Item Value Reference Range Interpretation Comments INR (test code = INR) 1.02 1 0.85-1.17 [facility] [id number] 02:33:00 Test Item Value Reference Range Interpretation Comments Basophils (test code = 0.3 See_Comment [Aut omated message] The Basophils) system which nerated this result tra nsmitted reference range : <=1.0. The reference r usama was not used to int erpret this result as normal/abnormal . [facility] C[id number] 02:33:00 Test Item Value Reference Range Interpretation Comments Eosinophils (test code = 0.1 See_Comment [A utomated message] The Eosinophils) system which ge nerated this result tra nsmitted reference range : <=4.0. The reference r usama was not used to int erpret this result as normal/abnormal . [facility] CenterCARAC [id number] 02:33:00 Test Item Value Reference Range Interpretation Comments BNP (test code = BNP) 1695 [facility] [id number] 02:33:00 Test Item Value Reference Range Interpretation Comments Troponin-I (test code 1.20 See_Comment [Auto mated message] The = Troponin-I) system which g enerated this result transmit clarence reference range : <=0.40. The reference r usama was not used to interpr et this result as juanjose l/abnormal. [facility] CenterMedicalis [id number] 02:33:00 Test Item Value Reference Range Interpretation Comments CK MB (test code = CK MB) 8.0 0.5-3.6 [facility] CenterWorldcoo [id number] 02:33:00 Test Item Value Reference Range Interpretation Comments CK MB Index (test 2.1 1 See_Comment [Automate d message] The code = CK MB Index) system w [facility] generated this result transmit clarence reference range : <=2.5. The reference range was not used to interpr et this result as juanjose l/abnormal. [facility] [employer]2018-03-28 02:33:00 Test Item Value Reference Range Interpretation Comments Lactic Acid Lvl (test code = Lactic 3.7 0.5-2.2 Acid Lvl) [facility] [employer] [id number] 02:33:00 Test Item Value Reference Range Interpretation Comments Phosphorus (test code = Phosphorus) 2.8 2.5-4.5 [facility] [id number] 02:33:00 Test Item Value Reference Range Interpretation Comments Magnesium Lvl (test code = Magnesium 2.7 1.8-2.4 Lvl) [facility] [id number] 02:33:00 Test Item Value Reference Range Interpretation Comments B/C Ratio (test code = B/C Ratio) 14 1 6-25 [facility]2018-03-28 02:33:00 Test Item Value Reference Range Interpretation Comments A/G Ratio (test code = A/G Ratio) 0.7 1 0.7-1.6 [facility]2018-03-28 02:33:00 Test Item Value Reference Range Interpretation Comments Globulin (test code = Globulin) 4.8 2.7-4.2 [facility]2018-03-28 02:33:00 Test Item Value Reference Range Interpretation Comments AST (test code = AST) 34 See_Comment [Auto mated message] The system which ge nerated this result transmit clarence reference range : <=37. The reference range was not used to interpr et this result as juanjose l/abnormal. [facility]2018-03-28 02:33:00 Test Item Value Reference Range Interpretation Comments ALT (test code = ALT) 26 See_Comment [Auto mated message] The system which ge nerated this result transmit clarence reference range : <=65. The reference range was not used to interpr et this result as juanjose l/abnormal. [facility]2018-03-28 02:33:00 Test Item Value Reference Range Interpretation Comments AGAP (test code = AGAP) 13.9 10.0-20.0 [facility]2018-03-28 02:33:00 Test Item Value Reference Range Interpretation Comments Bili Total (test code = Bili Total) 1.4 0.2-1.3 [facility]2018-03-28 02:33:00 Test Item Value Reference Range Interpretation Comments Alk Phos (test code = Alk Phos) 116 39-136 [facility]2018-03-28 02:33:00 Test Item Value Reference Range Interpretation Comments Glucose Lvl (test code = Glucose Lvl) 231 70-99 [facility]2018-03-28 02:33:00 Test Item Value Reference Range Interpretation Comments BUN (test code = BUN) 21 7-22 [facility]2018-03-28 02:33:00 Test Item Value Reference Range Interpretation Comments Sodium Lvl (test code = Sodium Lvl) 135 135-145 [facility]2018-03-28 02:33:00 Test Item Value Reference Range Interpretation Comments CO2 (test code = CO2) 28 24-32 [facility]2018-03-28 02:33:00 Test Item Value Reference Range Interpretation Comments Chloride Lvl (test code = Chloride Lvl) 97 95-109 [facility]2018-03-28 02:33:00 Test Item Value Reference Range Interpretation Comments Albumin Lvl (test code = Albumin Lvl) 3.4 3.5-5.0 [facility]2018-03-28 02:33:00 Test Item Value Reference Range Interpretation Comments Potassium Lvl (test code = Potassium 3.9 3.5-5.1 Lvl) [facility]2018-03-28 02:33:00 Test Item Value Reference Range Interpretation Comments Total Protein (test code = Total 8.2 6.4-8.4 Protein) [facility] CenterCHEM [id number] 02:33:00 Test Item Value Reference Range Interpretation Comments Calcium Lvl (test code = Calcium Lvl) 8.8 8.5-10.5 [facility] [id number] 02:33:00 Test Item Value Reference Range Interpretation Comments PTT (test code = PTT) 30.4 s 22.9-35.8 [facility] CenterOuaqkzwFTENHGMEUR1862-36-12 02:33:00 Test Item Value Reference Range Interpretation Comments PT (test code = PT) 13.4 s 12.0-14.7 [facility] [id number] 02:33:00 Test Item Value Reference Range Interpretation Comments INR (test code = INR) 1.02 1 0.85-1.17 [facility] [id number] 02:33:00 Test Item Value Reference Range Interpretation Comments Basophils (test code = 0.3 See_Comment [Aut omated message] The Basophils) system which nerated this result tra nsmitted reference range : <=1.0. The reference r usama was not used to int erpret this result as normal/abnormal . [facility] CenterQeuuafyTRIGBEQGTX4279-29-20 02:33:00 Test Item Value Reference Range Interpretation Comments Eosinophils (test code = 0.1 See_Comment [A utomated message] The Eosinophils) system which ge nerated this result tra nsmitted reference range : <=4.0. The reference r usama was not used to int erpret this result as normal/abnormal . [facility] Glucose, [id number] 11:24:00 Test Item Value Reference Range Interpretation Comments POC Glucose (test 143 mg/dL 70-115 H If you con operator electronic warfare your code = POCGLUC) patient crit ically ill, the Joseluis Accu- Chek InformII meters hould not be used for Glu cose determinations. Draw a venous Glucose and send to the Main Lab for Analysis. Glycosylated [id number] 08:01:00 Test Item Value Reference Range Interpretation Comments HBA1c (test code = HBA1C) 6.1 % 4.8-5.9 H POC Glucose, [id number] 07:40:00 Test Item Value Reference Range Interpretation Comments POC Glucose (test 166 mg/dL 70-115 H If you con operator electronic warfare your code = POCGLUC) patient crit ically ill, the Joseluis Accu- Chek InformII meters hould not be used for Glu cose determinations. Draw a venous Glucose and send to the Main Lab for Analysis. Magnesium, [id number] 06:22:00 Test Item Value Reference Range Interpretation Comments Magnesium (test code = MG) 1.6 mg/dL 1.7-2.5 L Basic Metabolic [id number] 06:22:00 Test Item Value Reference Range Interpretation Comments Sodium (test code = 136 mmol/L 135-145 N NA) Potassium (test 3.9 mmol/L 3.5-5.1 N code = K) Chloride (test code 100 mmol/L 98-105 N = CL) Carbon Dioxide 24 mmol/L 22-29 N (test code = CO2) Glucose (test code 200 mg/dL 70-115 H = GLU) Blood Urea Nitrogen 43 mg/dL 8-23 H (test code = BUN) Creatinine (test 1.6 mg/dL 0.5-0.9 H code = CREAT) Calcium (test code 9.1 mg/dL 8.3-10.5 N = CA) BUN/Creatinine 26.9 Ratio (test code = BCRATIO) Anion Gap (test 12 mmol/L 7-16 N code = AGAP) Estimated GFR (test 34 eGFR (es timated code = GFR) mL/min/1.73m2 Glomerular Davey tration Rate) is an est imated value,calculate d from the patient's s nella creatinine usin g the MDRD equation.I t is NOT the patient 's actual GFR. The eGFR provides a more clinicallyusefu l measure of kidn ey disease than se rum creatinine alone.This calculation lenny es sex and race into account, if the informationis provided. If th e race is not provided , and the patient isAfrican-Ameri can, multiply by 1.2 12. If sex is not prov ided, and thepatient is female, multipl y by 0.742. Results for patients <18 ye ars ofage have not been validated by th e MDRD study and gaudencioul d be interpretedwith caution.eGFR Re sult Interpretation: eGFR > or = 60 is in t he Normal RangeeGF R < 60 may mean kidney diseaseeGFR < 1 5 may mean kidney failureRange s recommended by the National Kidney Foundation,http ://nkd ep.nih.gov [id number] 05:58:00 Test Item Value Reference Range Interpretation Comments WBC (test code = WBC) 4.3 K/cumm 4.4-10.5 L RBC (test code = RBC) 2.46 M/cumm 3.75-5.20 L Hemoglobin (test code = HGB) 7.8 gm/dL 12.2-14.8 L Hematocrit (test code = HCT) 25.0 % 36.5-44.4 L MCV (test code = MCV) 101.8 fL 80-100 H MCH (test code = MCH) 31.9 pg 27.0-32.5 N MCHC (test code = MCHC) 31.3 g/dL 32.0-37.5 L RDW (test code = RDW) 18.1 % 11.5-14.5 H Platelet Count (test code = 235 K/cumm 140-440 N PLTCT) MPV (test code = MPV) 10.5 fL POC Glucose, [id number] 21:04:00 Test Item Value Reference Range Interpretation Comments POC Glucose (test 203 mg/dL 70-115 H If you con operator electronic warfare your code = POCGLUC) patient crit ically ill, the [facility] Accu- Chek InformII meters hould not be used for Glu cose determinations. Draw a venous Glucose and send to the Main Lab for Analysis. POC Glucose, [id number] 17:02:00 Test Item Value Reference Range Interpretation Comments POC Glucose (test 131 mg/dL 70-115 H If you con operator electronic warfare your code = POCGLUC) patient crit ically ill, the [facility] Accu- Chek InformII meters hould not be used for Glu cose determinations. Draw a venous Glucose and send to the Main Lab for Analysis. POC Glucose, [id number] 11:50:00 Test Item Value Reference Range Interpretation Comments POC Glucose (test 141 mg/dL 70-115 H If you con operator electronic warfare your code = POCGLUC) patient crit ically ill, the [facility] Accu- Chek InformII meters hould not be used for Glu cose determinations. Draw a venous Glucose and send to the Main Lab for Analysis. POC Glucose, [id number] 07:14:00 Test Item Value Reference Range Interpretation Comments POC Glucose (test 184 mg/dL 70-115 H If you con operator electronic warfare your code = POCGLUC) patient crit ically ill, the [facility] Accu- Chek InformII meters hould not be used for Glu cose determinations. Draw a venous Glucose and send to the Main Lab for Analysis. POC Glucose, [id number] 20:59:00 Test Item Value Reference Range Interpretation Comments POC Glucose (test 250 mg/dL 70-115 H Notify RN or MDIf you code = POCGLUC) consider you r patient critically ill, the [facility] Accu-Chek InformII metershould not be used for Glucose determinations. Draw a venous Glucose and send to the Main Lab for Analysis. POC Glucose, [id number] 16:46:00 Test Item Value Reference Range Interpretation Comments POC Glucose (test 134 mg/dL 70-115 H If you con operator electronic warfare your code = POCGLUC) patient crit ically ill, the [facility] Accu- Chek InformII meters hould not be used for Glu cose determinations. Draw a venous Glucose and send to the Main Lab for Analysis. POC Glucose, [id number] 11:31:00 Test Item Value Reference Range Interpretation Comments POC Glucose (test 153 mg/dL 70-115 H If you con operator electronic warfare your code = POCGLUC) patient crit ically ill, the [facility] Accu- Chek InformII meters hould not be used for Glu cose determinations. Draw a venous Glucose and send to the Main Lab for Analysis. POC Glucose, [id number] 07:37:00 Test Item Value Reference Range Interpretation Comments POC Glucose (test 206 mg/dL 70-115 H If you con operator electronic warfare your code = POCGLUC) patient crit ically ill, the [facility] Accu- Chek InformII meters hould not be used for Glu cose determinations. Draw a venous Glucose and send to the Main Lab for Analysis. POC Glucose, [id number] 20:36:00 Test Item Value Reference Range Interpretation Comments POC Glucose (test 304 mg/dL 70-115 H Notify RN or MDIf you code = POCGLUC) consider you r patient critically ill, the [facility] Accu-Chek InformII metershould not be used for Glucose determinations. Draw a venous Glucose and send to the Main Lab for Analysis. POC Glucose, [id number] 17:02:00 Test Item Value Reference Range Interpretation Comments POC Glucose (test 155 mg/dL 70-115 H Notify RN or MDIf you code = POCGLUC) consider you r patient critically ill, the [facility] Accu-Chek InformII metershould not be used for Glucose determinations. Draw a venous Glucose and send to the Main Lab for Analysis. POC Glucose, [id number] 11:43:00 Test Item Value Reference Range Interpretation Comments POC Glucose (test 246 mg/dL 70-115 H Notify RN or MDIf you code = POCGLUC) consider you r patient critically ill, the [facility] Accu-Chek InformII metershould not be used for Glucose determinations. Draw a venous Glucose and send to the Main Lab for Analysis. POC Glucose, [id number] 07:32:00 Test Item Value Reference Range Interpretation Comments POC Glucose (test 201 mg/dL 70-115 H Notify RN or MDIf you code = POCGLUC) consider you r patient critically ill, the [facility] Accu-Chek InformII metershould not be used for Glucose determinations. Draw a venous Glucose and send to the Main Lab for Analysis. POC Glucose, [id number] 21:55:00 Test Item Value Reference Range Interpretation Comments POC Glucose (test 329 mg/dL 70-115 H Notify RN or MDIf you code = POCGLUC) consider you r patient critically ill, the [facility] Accu-Chek InformII metershould not be used for Glucose determinations. Draw a venous Glucose and send to the Main Lab for Analysis. POC Glucose, [id number] 16:51:00 Test Item Value Reference Range Interpretation Comments POC Glucose (test 213 mg/dL 70-115 H Notify RN or MDIf you code = POCGLUC) consider you r patient critically ill, the [facility] Accu-Chek InformII metershould not be used for Glucose determinations. Draw a venous Glucose and send to the Main Lab for Analysis. POC Glucose, [id number] 07:15:00 Test Item Value Reference Range Interpretation Comments POC Glucose (test 223 mg/dL 70-115 H Notify RN or MDIf you code = POCGLUC) consider you r patient critically ill, the [facility] Accu-Chek InformII metershould not be used for Glucose determinations. Draw a venous Glucose and send to the Main Lab for Analysis. Basic Metabolic [id number] 06:41:00 Test Item Value Reference Range Interpretation Comments Sodium (test code = 131 mmol/L 135-145 L NA) Potassium (test 3.9 mmol/L 3.5-5.1 N code = K) Chloride (test code 95 mmol/L 98-105 L = CL) Carbon Dioxide 26 mmol/L 22-29 N (test code = CO2) Glucose (test code 220 mg/dL 70-115 H = GLU) Blood Urea Nitrogen 39 mg/dL 8-23 H (test code = BUN) Creatinine (test 1.4 mg/dL 0.5-0.9 H code = CREAT) Calcium (test code 8.9 mg/dL 8.3-10.5 N = CA) BUN/Creatinine 27.9 Ratio (test code = BCRATIO) Anion Gap (test 10 mmol/L 7-16 N code = AGAP) Estimated GFR (test 40 eGFR (es timated code = GFR) mL/min/1.73m2 Glomerular Davey tration Rate) is an est imated value,calculate d from the patient's s nella creatinine usin g the MDRD equation.I t is NOT the patient 's actual GFR. The eGFR provides a more clinicallyusefu l measure of kidn ey disease than se rum creatinine alone.This calculation lenny es sex and race into account, if the informationis provided. If th e race is not provided , and the patient isAfrican-Ameri can, multiply by 1.2 12. If sex is not prov ided, and thepatient is female, multipl y by 0.742. Results for patients <18 ye ars ofage have not been validated by th e MDRD study and shoul d be interpretedwith caution.eGFR Re sult Interpretation: eGFR > or = 60 is in t he Normal RangeeGF R < 60 may mean kidney diseaseeGFR < 1 5 may mean kidney failureRange s recommended by the National Kidney Foundation,http ://nkd ep.nih.gov Magnesium, [id number] 06:41:00 Test Item Value Reference Range Interpretation Comments Magnesium (test code = MG) 1.5 mg/dL 1.7-2.5 L CBC with [id number] 06:16:00 Test Item Value Reference Range Interpretation Comments WBC (test code = WBC) 6.5 K/cumm 4.4-10.5 N RBC (test code = RBC) 2.54 M/cumm 3.75-5.20 L Hemoglobin (test code = HGB) 8.3 gm/dL 12.2-14.8 L Hematocrit (test code = HCT) 27.0 % 36.5-44.4 L MCV (test code = MCV) 106.1 fL 80-100 H MCH (test code = MCH) 32.7 pg 27.0-32.5 H MCHC (test code = MCHC) 30.8 g/dL 32.0-37.5 L RDW (test code = RDW) 18.7 % 11.5-14.5 H Platelet Count (test code = 272 K/cumm 140-440 N PLTCT) MPV (test code = MPV) 9.8 fL Diff Method (test code = DIFFM) Auto Neutrophil (test code = NEUT) 61.7 % 36-70 N Lymphocyte (test code = LYMPH) 32.0 % 12-44 N Monocyte (test code = MONO) 5.5 % 0-11 N Eosinophil (test code = EOS) 0.5 % 0-7 N Basophil (test code = BASO) 0.4 % 0-2 N Neutro Abs (test code = ANEUT) 4.0 K/cumm 1.6-7.4 N Lymph Abs (test code = ALYMPH) 2.1 K/cumm 0.5-4.6 N Ector Abs (test code = AMONO) 0.4 K/cumm 0.0-1.2 N Eos Abs (test code = AEOS) 0.03 K/cumm 0.00-0.74 N Baso Abs (test code = ABASO) 0.0 K/cumm 0.00-0.21 N Anisocytosis (test code = ANISO) Slight Macrocytosis (test code = MACRO) Moderate POC Glucose, [id number] 22:43:00 Test Item Value Reference Range Interpretation Comments POC Glucose (test 385 mg/dL 70-115 H If you con operator electronic warfare your code = POCGLUC) patient crit ically ill, the [facility] Accu- Chek InformII meters hould not be used for Glu cose determinations. Draw a venous Glucose and send to the Main Lab for Analysis. POC Glucose, [id number] 20:49:00 Test Item Value Reference Range Interpretation Comments POC Glucose (test 436 mg/dL 70-115 HH Repeat Chelita Thomas RN or code = POCGLUC) POC Glucose, [id number] 22:23:00 Test Item Value Reference Range Interpretation Comments POC Glucose (test 372 mg/dL 70-115 H Notify RN or MDIf you code = POCGLUC) consider you r patient critically ill, the [facility] Accu-Chek InformII metershould not be used for Glucose determinations. Draw a venous Glucose and send to the Main Lab for Analysis. US DUPLX EXT VEINS COMPRS, [id number] 19:45:00INDICATION: SwellingSTUDY: Duplex venous ultrasound examination of the bilateral lowerextremities.Site: R [id number]: NoneFINDINGS/TECHNIQUE:Grayscale, color Doppler and spectral images of the bilateral lowerextremity venous systems was performed.The common femoral, femoral (proximal, mid, and distal aspects),popliteal, anterior tibial and posterior tibial veins are withoutevidence of a filling defect to suggest venous thrombosis. The commonfemoral , superficial femoral, and popliteal veins are compressible.Spectral images demonstrate normal augmentation.IMPRESSION: No evidence of bilateral lowerextremity DVT.POC Glucose, [id number] 17:56:00 Test Item Value Reference Range Interpretation Comments POC Glucose (test 286 mg/dL 70-115 H If you con operator electronic warfare your code = POCGLUC) patient crit ically ill, the [facility] Accu- Chek InformII meters hould not be used for Glu cose determinations. Draw a venous Glucose and send to the Main Lab for Analysis. Basic Metabolic [id number] 06:55:00 Test Item Value Reference Range Interpretation Comments Sodium (test code = 130 mmol/L 135-145 L NA) Potassium (test 4.1 mmol/L 3.5-5.1 N code = K) Chloride (test code 96 mmol/L 98-105 L = CL) Carbon Dioxide 21 mmol/L 22-29 L (test code = CO2) Glucose (test code 270 mg/dL 70-115 H = GLU) Blood Urea Nitrogen 27 mg/dL 8-23 H (test code = BUN) Creatinine (test 1.2 mg/dL 0.5-0.9 H code = CREAT) Calcium (test code 8.9 mg/dL 8.3-10.5 N = CA) BUN/Creatinine 22.5 Ratio (test code = BCRATIO) Anion Gap (test 13 mmol/L 7-16 N code = AGAP) Estimated GFR (test 48 eGFR (es timated code = GFR) mL/min/1.73m2 Glomerular Davey tration Rate) is an est imated value,calculate d from the patient's s nella creatinine usin g the MDRD equation.I t is NOT the patient 's actual GFR. The eGFR provides a more clinicallyusefu l measure of kidn ey disease than se rum creatinine alone.This calculation lenny es sex and race into account, if the informationis provided. If th e race is not provided , and the patient isAfrican-Ameri can, multiply by 1.2 12. If sex is not prov ided, and thepatient is female, multipl y by 0.742. Results for patients <18 ye ars ofage have not been validated by th e MDRD study and shoul d be interpretedwith caution.eGFR Re sult Interpretation: eGFR > or = 60 is in t he Normal RangeeGF R < 60 may mean kidney diseaseeGFR < 1 5 may mean kidney failureRange s recommended by the National Kidney Foundation,http ://nkd ep.nih.gov Magnesium, [id number] 06:55:00 Test Item Value Reference Range Interpretation Comments Magnesium (test code = MG) 1.4 mg/dL 1.7-2.5 L CBC with [id number] 08:54:00 Test Item Value Reference Range Interpretation Comments WBC (test code = WBC) 5.4 K/cumm 4.4-10.5 N RBC (test code = RBC) 2.68 M/cumm 3.75-5.20 L Hemoglobin (test code 8.8 gm/dL 12.2-14.8 L = HGB) Hematocrit (test code 28.8 % 36.5-44.4 L = HCT) MCV (test code = MCV) 107.4 fL 80-100 H MCH (test code = MCH) 32.7 pg 27.0-32.5 H MCHC (test code = 30.4 g/dL 32.0-37.5 L MCHC) RDW (test code = RDW) 24.1 % 11.5-14.5 H Platelet Count (test 208 K/cumm 140-440 N code = PLTCT) MPV (test code = MPV) 8.9 fL Diff Method (test code Manual = DIFFM) Neutrophil (test code 69.0 % 36-70 N = NEUT) Bands (test code = 0.0 % 0-6 N BAND) Lymphocyte (test code 28.0 % 12-44 N = LYMPH) Monocyte (test code = 1.0 % 0-11 N MONO) Myelocyte (test code = 2.0 % 0.0-0.0 H MYELO) Neutro Abs (test code 3.7 K/cumm 1.6-7.4 N = ANEUT) Lymph Abs (test code = 1.5 K/cumm 0.5-4.6 N ALYMPH) Ector Abs (test code = 0.1 K/cumm 0.0-1.2 N AMONO) RBC Morphology (test Moderate Anisocytosis code = RBCMRPH) Platelet Est (test Normal Platelet on code = PLTEST) Smear Comprehensive Metabolic [id number] 06:11:00 Test Item Value Reference Range Interpretation Comments Sodium (test code = 127 mmol/L 135-145 L NA) Potassium (test 4.0 mmol/L 3.5-5.1 N code = K) Chloride (test code 95 mmol/L 98-105 L = CL) Carbon Dioxide 25 mmol/L 22-29 N (test code = CO2) Glucose (test code 228 mg/dL 70-115 H = GLU) Blood Urea Nitrogen 29 mg/dL 8-23 H (test code = BUN) Creatinine (test 1.2 mg/dL 0.5-0.9 H code = CREAT) Calcium (test code 8.6 mg/dL 8.3-10.5 N = CA) Prot Total (test 5.5 g/dL 6.4-8.3 L code = TP) Albumin (test code 3.2 g/dL 3.5-5.2 L = ALB) A/G Ratio (test 1.4 Ratio code = AGRATIO) Globulin (test code 2.3 2.9-3.1 L = GLOB) Bili Total (test 0.3 mg/dL 0.1-0.9 N code = TBIL) Alk Phos (test code 75 U/L 35-104 N = APHOS) AST (test code = 46 U/L 1-32 H AST) ALT (test code = 32 U/L 1-33 N ALT) BUN/Creatinine 24.2 Ratio (test code = BCRATIO) Anion Gap (test 7 mmol/L 7-16 N code = AGAP) Estimated GFR (test 48 eGFR (es timated code = GFR) mL/min/1.73m2 Glomerular Davey tration Rate) is an est imated value,calculate d from the patient's s nella creatinine usin g the MDRD equation.I t is NOT the patient 's actual GFR. The eGFR provides a more clinicallyusefu l measure of kidn ey disease than se rum creatinine alone.This calculation lenny es sex and race into account, if the informationis provided. If th e race is not provided , and the patient isAfrican-Ameri can, multiply by 1.2 12. If sex is not prov ided, and thepatient is female, multipl y by 0.742. Results for patients <18 ye ars ofage have not been validated by th e MDRD study and shoul d be interpretedwith caution.eGFR Re sult Interpretation: eGFR > or = 60 is in t he Normal RangeeGF R < 60 may mean kidney diseaseeGFR < 1 5 may mean kidney failureRange s recommended by the National Kidney Foundation,http ://nkd ep.nih.gov RBC, [id number] [id number] 06:00:00 Test Item Value Reference Range Interpretation Comments Product 1 Code (test code = E0382 PRODCODE1) Unit 1 ID (test code = [id number] UNITID1) Unit 1 ABO (test code = A UNITABO1) Unit 1 Rh (test code = POS UNITRH1) Unit 1 Interp (test code = Compatible UNITINTERP1) Unit 1 Status (test code = PT UNITSTAT1) XR KNEE 2V.-[id number] 16:04:05STUDY: Knee radiographHISTORY: pain COMPARISON: No PriorTECHNIQUE: AP and lateral views of the bilateral knee.SITE: [id number]:There is no acute fracture or knee dislocation, bilaterally. There ismildmedial tibiofemoral joint space narrowing, bilaterally. There is nosignificant suprapatellar effusion, bilaterally. Vascular calcificationsare present at the posterior aspects of both legs, consistent withpopliteal artery and distal femoral atherosclerotic calcification.IMPRESSION:No acute osseous abnormality.Mild medial tibiofemoral osteoarthrosis, bilaterally.XR KNEE 2V.-[id number] 16:04:05STUDY: Knee radiographHISTORY: pain COMPARISON: No PriorTECHNIQUE: AP and lateral views of the bilateral knee.SITE: [id number]:There is no acute fracture or knee dislocation, bilaterally. There ismildmedial tibiofemoral joint space narrowing, bilaterally. There is nosignificant suprapatellar effusion, bilaterally. Vascular calcificationsare present at the posterior aspects of both legs, consistent withpopliteal artery and distal femoral atherosclerotic calcification.IMPRESSION:No acute osseous abnormality.Mild medial tibiofemoral osteoarthrosis, bilaterally.CBC with [id number] 08:38:00 Test Item Value Reference Range Interpretation Comments WBC (test code = 5.5 K/cumm 4.4-10.5 N WBC) RBC (test code = 2.74 M/cumm 3.75-5.20 L VERIFIED BY CLINICAL RBC) HISTORYPATIENT TRASFUSED 1 UNI T LRBCREAD BACK L AB VALUESLINDA AGB OOLA @ 05:41 017 EO Hemoglobin (test 8.9 gm/dL 12.2-14.8 L VERIFIED BY CLINICAL code = HGB) HISTORYPATIENT TRASFUSED 1 UNI T LRBCREAD BACK L AB VALUESLINDA AGB OOLA @ 05:41 017 EO Hematocrit (test 29.3 % 36.5-44.4 L code = HCT) MCV (test code = 106.9 fL 80-100 H VERIFIED BY CLINICAL MCV) HISTORYPATIENT TRASFUSED 1 UNI T LRBCREAD BACK L AB VALUESLINDA AGB OOLA @ 05:41 017 EO MCH (test code = 32.3 pg 27.0-32.5 N MCH) MCHC (test code = 30.2 g/dL 32.0-37.5 L MCHC) RDW (test code = 24.1 % 11.5-14.5 H RDW) Platelet Count 105 K/cumm 140-440 L (test code = PLTCT) MPV (test code = 9.3 fL MPV) Diff Method (test Manual code = DIFFM) Neutrophil (test 62.6 % 36-70 N code = NEUT) Lymphocyte (test 28.0 % 12-44 N code = LYMPH) Monocyte (test 7.7 % 0-11 N code = MONO) Eosinophil (test 1.2 % 0-7 N code = EOS) Basophil (test 0.3 % 0-2 N code = BASO) Neutro Abs (test 3.4 K/cumm 1.6-7.4 N code = ANEUT) Lymph Abs (test 1.5 K/cumm 0.5-4.6 N code = ALYMPH) Ector Abs (test 0.4 K/cumm 0.0-1.2 N code = AMONO) Eos Abs (test 0.07 K/cumm 0.00-0.74 N code = AEOS) Baso Abs (test 0.0 K/cumm 0.00-0.21 N code = ABASO) RBC Morphology 1+ Anisocytosis 1+ (test code = Macrocytosis RBCMRPH) Platelet Est Normal Platelet on (test code = Smear PLTEST) POC Glucose, [id number] 07:30:00 Test Item Value Reference Range Interpretation Comments POC Glucose (test 161 mg/dL 70-115 H If you con operator electronic warfare your code = POCGLUC) patient crit ically ill, the [facility] Accu- Chek InformII meters hould not be used for Glu cose determinations. Draw a venous Glucose and send to the Main Lab for Analysis. POC Glucose, [id number] 21:07:00 Test Item Value Reference Range Interpretation Comments POC Glucose (test 222 mg/dL 70-115 H Notify RN or MDIf you code = POCGLUC) consider you r patient critically ill, the [facility] Accu-Chek InformII metershould not be used for Glucose determinations. Draw a venous Glucose and send to the Main Lab for Analysis. Antibody Screen - [id number] 18:24:00 Test Item Value Reference Range Interpretation Comments Antibody Screen (test code = ABSCR) Negative Blood Type and [id number] 18:21:00 Test Item Value Reference Range Interpretation Comments ABO type (test code = ABO) A Rh Type (test code = RH) Positive POC Glucose, [id number] 15:53:00 Test Item Value Reference Range Interpretation Comments POC Glucose (test 133 mg/dL 70-115 H If you con operator electronic warfare your code = POCGLUC) patient crit ically ill, the [facility] Accu- Chek InformII meters hould not be used for Glu cose determinations. Draw a venous Glucose and send to the Main Lab for Analysis. [id number] 14:32:00 Test Item Value Reference Range Interpretation Comments WBC (test code = WBC) 4.9 K/cumm 4.4-10.5 N RBC (test code = RBC) 2.10 M/cumm 3.75-5.20 L Hemoglobin (test code = HGB) 7.4 gm/dL 12.2-14.8 L Hematocrit (test code = HCT) 24.2 % 36.5-44.4 L MCV (test code = MCV) 115.2 fL 80-100 H MCH (test code = MCH) 35.4 pg 27.0-32.5 H MCHC (test code = MCHC) 30.7 g/dL 32.0-37.5 L RDW (test code = RDW) 18.5 % 11.5-14.5 H Platelet Count (test code = 69 K/cumm 140-440 L PLTCT) MPV (test code = MPV) 10.0 fL POC Glucose, [id number] 11:05:00 Test Item Value Reference Range Interpretation Comments POC Glucose (test 248 mg/dL 70-115 H If you con operator electronic warfare your code = POCGLUC) patient crit ically ill, the [facility] Accu- Chek InformII meters hould not be used for Glu cose determinations. Draw a venous Glucose and send to the Main Lab for Analysis. POC Glucose, [id number] 07:19:00 Test Item Value Reference Range Interpretation Comments POC Glucose (test 144 mg/dL 70-115 H If you con operator electronic warfare your code = POCGLUC) patient crit ically ill, the [facility] Accu- Chek InformII meters hould not be used for Glu cose determinations. Draw a venous Glucose and send to the Main Lab for Analysis. [id number] 06:52:00 Test Item Value Reference Range Interpretation Comments WBC (test code = WBC) 4.9 K/cumm 4.4-10.5 N RBC (test code = RBC) 2.10 M/cumm 3.75-5.20 L Hemoglobin (test code = HGB) 7.4 gm/dL 12.2-14.8 L Hematocrit (test code = HCT) 23.6 % 36.5-44.4 L MCV (test code = MCV) 112.6 fL 80-100 H MCH (test code = MCH) 35.2 pg 27.0-32.5 H MCHC (test code = MCHC) 31.2 g/dL 32.0-37.5 L RDW (test code = RDW) 18.5 % 11.5-14.5 H Platelet Count (test code = 66 K/cumm 140-440 L PLTCT) MPV (test code = MPV) 9.5 fL Basic Metabolic [id number] 06:10:00 Test Item Value Reference Range Interpretation Comments Sodium (test code = 134 mmol/L 135-145 L NA) Potassium (test 3.8 mmol/L 3.5-5.1 N code = K) Chloride (test code 98 mmol/L 98-105 N = CL) Carbon Dioxide 25 mmol/L 22-29 N (test code = CO2) Glucose (test code 143 mg/dL 70-115 H = GLU) Blood Urea Nitrogen 31 mg/dL 8-23 H (test code = BUN) Creatinine (test 1.0 mg/dL 0.5-0.9 H code = CREAT) Calcium (test code 8.3 mg/dL 8.3-10.5 N = CA) BUN/Creatinine 31.0 Ratio (test code = BCRATIO) Anion Gap (test 11 mmol/L 7-16 N code = AGAP) Estimated GFR (test 59 eGFR (es timated code = GFR) mL/min/1.73m2 Glomerular Davey tration Rate) is an est imated value,calculate d from the patient's s nella creatinine usin g the MDRD equation.I t is NOT the patient 's actual GFR. The eGFR provides a more clinicallyusefu l measure of kidn ey disease than se rum creatinine alone.This calculation lenny es sex and race into account, if the informationis provided. If th e race is not provided , and the patient isAfrican-Ameri can, multiply by 1.2 12. If sex is not prov ided, and thepatient is female, multipl y by 0.742. Results for patients <18 ye ars ofage have not been validated by th e MDRD study and shoul d be interpretedwith caution.eGFR Re sult Interpretation: eGFR > or = 60 is in t he Normal RangeeGF R < 60 may mean kidney diseaseeGFR < 1 5 may mean kidney failureRange s recommended by the National Kidney Foundation,http ://nkd ep.nih.gov POC Glucose, [id number] 20:34:00 Test Item Value Reference Range Interpretation Comments POC Glucose (test 212 mg/dL 70-115 H If you con operator electronic warfare your code = POCGLUC) patient crit ically ill, the Joseluis Accu- Chek InformII meters hould not be used for Glu cose determinations. Draw a venous Glucose and send to the Main Lab for Analysis. POC Glucose, [id number] 15:08:00 Test Item Value Reference Range Interpretation Comments POC Glucose (test 243 mg/dL 70-115 H If you con operator electronic warfare your code = POCGLUC) patient crit ically ill, the Joseluis Accu- Chek InformII meters hould not be used for Glu cose determinations. Draw a venous Glucose and send to the Main Lab for Analysis. POC Glucose, [id number] 10:53:00 Test Item Value Reference Range Interpretation Comments POC Glucose (test 164 mg/dL 70-115 H If you con operator electronic warfare your code = POCGLUC) patient crit ically ill, the Joseluis Accu- Chek InformII meters hould not be used for Glu cose determinations. Draw a venous Glucose and send to the Main Lab for Analysis. [id number] 09:16:00 Test Item Value Reference Range Interpretation Comments WBC (test code = WBC) 5.5 K/cumm 4.4-10.5 N RBC (test code = RBC) 2.14 M/cumm 3.75-5.20 L Hemoglobin (test code = HGB) 7.5 gm/dL 12.2-14.8 L Hematocrit (test code = HCT) 24.2 % 36.5-44.4 L MCV (test code = MCV) 112.9 fL 80-100 H MCH (test code = MCH) 35.2 pg 27.0-32.5 H MCHC (test code = MCHC) 31.2 g/dL 32.0-37.5 L RDW (test code = RDW) 18.5 % 11.5-14.5 H Platelet Count (test code = 54 K/cumm 140-440 L PLTCT) MPV (test code = MPV) 10.0 fL [id number] 08:40:00 Test Item Value Reference Range Interpretation Comments Lipase (test code = LIP) 226 U/L 13-60 H Basic Metabolic [id number] 08:40:00 Test Item Value Reference Range Interpretation Comments Sodium (test code = 131 mmol/L 135-145 L NA) Potassium (test 3.5 mmol/L 3.5-5.1 N code = K) Chloride (test code 96 mmol/L 98-105 L = CL) Carbon Dioxide 26 mmol/L 22-29 N (test code = CO2) Glucose (test code 130 mg/dL 70-115 H = GLU) Blood Urea Nitrogen 33 mg/dL 8-23 H (test code = BUN) Creatinine (test 0.9 mg/dL 0.5-0.9 N code = CREAT) Calcium (test code 8.2 mg/dL 8.3-10.5 L = CA) BUN/Creatinine 36.7 Ratio (test code = BCRATIO) Anion Gap (test 9 mmol/L 7-16 N code = AGAP) Estimated GFR (test >60 eGFR (es timated code = GFR) mL/min/1.73m2 Glomerular Davey tration Rate) is an est imated value,calculate d from the patient's s nella creatinine usin g the MDRD equation.I t is NOT the patient 's actual GFR. The eGFR provides a more clinicallyusefu l measure of kidn ey disease than se rum creatinine alone.This calculation lenny es sex and race into account, if the informationis provided. If th e race is not provided , and the patient isChase can, multiply by 1.2 12. If sex is not prov ided, and thepatient is female, multipl y by 0.742. Results for patients <18 ye ars ofage have not been validated by th e MDRD study and shoul d be interpretedwith caution.eGFR Re sult Interpretation: eGFR > or = 60 is in t he Normal RangeeGF R < 60 may mean kidney diseaseeGFR < 1 5 may mean kidney failureRange s recommended by the National Kidney Foundation,http ://nkd ep.nih.gov Magnesium, [id number] 08:40:00 Test Item Value Reference Range Interpretation Comments Magnesium (test code = MG) 1.6 mg/dL 1.7-2.5 L POC Glucose, [id number] 07:04:00 Test Item Value Reference Range Interpretation Comments POC Glucose (test 137 mg/dL 70-115 H If you con operator electronic warfare your code = POCGLUC) patient crit ically ill, the Joseluis Accu- Chek InformII meters hould not be used for Glu cose determinations. Draw a venous Glucose and send to the Main Lab for Analysis. POC Glucose, [id number] 18:57:00 Test Item Value Reference Range Interpretation Comments POC Glucose (test 237 mg/dL 70-115 H If you con operator electronic warfare your code = POCGLUC) patient crit ically ill, the Joseluis Accu- Chek InformII meters hould not be used for Glu cose determinations. Draw a venous Glucose and send to the Main Lab for Analysis. POC Glucose, [id number] 16:40:00 Test Item Value Reference Range Interpretation Comments POC Glucose (test 185 mg/dL 70-115 H If you con operator electronic warfare your code = POCGLUC) patient crit ically ill, the Joseluis Accu- Chek InformII meters hould not be used for Glu cose determinations. Draw a venous Glucose and send to the Main Lab for Analysis. POC Glucose, [id number] 11:19:00 Test Item Value Reference Range Interpretation Comments POC Glucose (test 127 mg/dL 70-115 H If you con operator electronic warfare your code = POCGLUC) patient crit ically ill, the Joseluis Accu- Chek InformII meters hould not be used for Glu cose determinations. Draw a venous Glucose and send to the Main Lab for Analysis. POC Glucose, [id number] 08:08:00 Test Item Value Reference Range Interpretation Comments POC Glucose (test 117 mg/dL 70-115 H If you con operator electronic warfare your code = POCGLUC) patient crit ically ill, the Joseluis Accu- Chek InformII meters hould not be used for Glu cose determinations. Draw a venous Glucose and send to the Main Lab for Analysis. Thyroid Stimulating Hormone (TSH)2017-06-11 08:04:00 Test Item Value Reference Range Interpretation Comments TSH (test code = TSH) 2.99 mIU/mL 0.270-4.200 N Urinalysis [id number] 07:04:00 Test Item Value Reference Range Interpretation Comments Color (test code = COLOR) Yellow Yellow,Straw,Pl N yellow Clarity (test code = Cloudy Clear A CLAR) Specific [place] (test 1.012 1.001-1.035 N code = SPGR) pH (test code = PH) 5.0 5.0-9.0 N Ketone (test code = KET) 15 mg/dL Negative A Glucose (test code = Negative mg/dL Negative N GLUCUR) Protein (test code = 500 mg/dL Negative A PROT) Bilirubin (test code = Negative mg/dL Negative N BILI) Occult Blood (test code = Moderate Negative A UDOB) Urobilinogen (test code = 0.2 mg/dL 0.2-1.0 N UROB) Nitrite (test code = NIT) Positive Negative A Leuk Esterase (test code Large Negative A = LEUK) Micros Exam (test code = Indicated MEXAM) Epithelial Cells (test 6-9 /LPF 0-30 A code = EPI) WBC, Urine (test code = 15-19 /HPF 0-5 A UWBC) RBC, Urine (test code = 3-5 /HPF 0-5 A URBC) Bacteria (test code = Many /HPF BACT) [id number] 06:59:00 Test Item Value Reference Range Interpretation Comments Amphetamine (test Negative Negative N For diagno stic code = AMPH) purposes only, positive result s should always b e assessedin conjunctionwith the patient's medic al history,clinica l examination and otherfindings.T o fulfill legal requirements, a more specific altern ate chemical method must be used inorder to obtain a Confirmed salina lytical result. GC/MS i s the preferred confi rmatory method. Barbiturates (test Negative Negative N code = GUSTAVO) Benzodiazepine (test Negative Negative N code = FRANCINE) Cocaine (test code = Negative Negative N COCA) Methadone (test code Negative Negative N = MTHD) Opiates (test code = Negative Negative N OPIA) PCP (test code = PCP) Negative Negative N Propoxyphene (test Negative Negative N code = PROPOX) THC (test code = THC) POSITIVE Negative A Alcohol, Urine (test <0.01 g/dL 0.00-0.01 N code = ETOHU) Glycosylated [id number] 06:57:00 Test Item Value Reference Range Interpretation Comments HBA1c (test code = HBA1C) 5.0 % 4.8-5.9 N Vitamin [id number] 06:50:00 Test Item Value Reference Range Interpretation Comments Vitamin B 12 (test code = VITB12) 985 pg/mL 211-946 H Basic Metabolic [id number] 06:49:00 Test Item Value Reference Range Interpretation Comments Sodium (test code = 135 mmol/L 135-145 N NA) Potassium (test 4.7 mmol/L 3.5-5.1 N code = K) Chloride (test code 96 mmol/L 98-105 L = CL) Carbon Dioxide 22 mmol/L 22-29 N (test code = CO2) Glucose (test code 100 mg/dL 70-115 N = GLU) Blood Urea Nitrogen 51 mg/dL 8-23 H (test code = BUN) Creatinine (test 1.5 mg/dL 0.5-0.9 H code = CREAT) Calcium (test code 8.2 mg/dL 8.3-10.5 L = CA) BUN/Creatinine 34.0 Ratio (test code = BCRATIO) Anion Gap (test 17 mmol/L 7-16 H code = AGAP) Estimated GFR (test 37 eGFR (es timated code = GFR) mL/min/1.73m2 Glomerular Davey tration Rate) is an est imated value,calculate d from the patient's s nella creatinine usin g the MDRD equation.I t is NOT the patient 's actual GFR. The eGFR provides a more clinicallyusefu l measure of kidn ey disease than se rum creatinine alone.This calculation lenny es sex and race into account, if the informationis provided. If th e race is not provided , and the patient isAfrican-Ameri can, multiply by 1.2 12. If sex is not prov ided, and thepatient is female, multipl y by 0.742. Results for patients <18 ye ars ofage have not been validated by e MDRD study and franky spivey be interpretedwith caution.eGFR Re sult Interpretation: eGFR > or = 60 is in t he Normal RangeeGF R < 60 may mean kidney diseaseeGFR < 1 5 may mean kidney failureRange s recommended by the National Kidney Foundation,http ://nkd ep.nih.gov Magnesium, [id number] 06:35:00 Test Item Value Reference Range Interpretation Comments Magnesium (test code = MG) 1.6 mg/dL 1.7-2.5 L Lipid [id number] 06:35:00 Test Item Value Reference Range Interpretation Comments Cholesterol (test 193 mg/dL 0-200 N code = CHOL) Triglycerides (test 99 mg/dL 9-200 N code = TRIG) HDL (test code = 102 mg/dL 50-60 H HDL) Chol/HDL (test code 1.9 Ratio 0.0-4.4 N = CHOLPHDL) LDL, Calculated 71 0-130 N (NOTE)RISK O F HEART (test code = LDLC) DISEASEPu blished by [place] Heart AssociationAnal yte Optimal Boderli ne Increased RiskC HOL <200 200-239 >240TRI G <150 150-199 >200HDL Male: >60 <40HDL Fema le: >60 <50LDL <100 130 -159 >160LDL NEAR OP TIMAL IS 100-129 VLDL (test code = 20 mg/dL 5-40 N VLDL) LDL/HDL (test code = 1 LDLPHDL) Prothrombin [id number] 06:18:00 Test Item Value Reference Range Interpretation Comments PT (test code = PT) 10.80 seconds 9.78-13.35 N INR (test code = INR) 0.96 Ratio 0.6-1.2 N CK [id number] 22:31:00 Test Item Value Reference Range Interpretation Comments CK (test code = CK) 617 U/L 26-192 H CKMB (test code = CKMB) 11.7 ng/mL 0.0-2.8 H CKMB% (test code = CKMBP) 1.9 % 0.0-3.4 N CK [id number] 22:31:00 Test Item Value Reference Range Interpretation Comments CK (test code = CK) 617 U/L 26-192 H Troponin [id number] 22:31:00 Test Item Value Reference Range Interpretation Comments Troponin T (test code = DENIS) 0.085 ng/mL 0.000-0.090 N POC Glucose, [id number] 20:07:00 Test Item Value Reference Range Interpretation Comments POC Glucose (test 110 mg/dL 70-115 N If you con operator electronic warfare your code = POCGLUC) patient crit ically ill, the Joseluis Accu- Chek InformII meters hould not be used for Glu cose determinations. Draw a venous Glucose and send to the Main Lab for Analysis. CT HEAD OR BRAIN WO [id number] 15:21:40CT HEAD WITHOUT CONTRASTLOCATION: R16 INDICATION: weakness COMPARISON: 03/15/08TECHNIQUE: Axial scanswere obtained from skull base to the vertex.Coronal and sagittal reconstructions obtained from the axial data. One or more of the following dose reduction techniques were used:Automated exposure control, adjustment of the mA and/or kV according topatient size, and/or utilization of iterative reconstruction techniqueFINDINGS: There is no evidence of hemorrhage or hydrocephalus. 7 mm rightputaminal chronic lacunar infarction versus perivascular space. There issubcortical, periventricular and deep white matter hypoattenuationcompatible with microangiopathic ischemic disease.Atherosclerotic calcification of the carotid siphons and vertebralarteries. There is generalized cerebral atrophy.There is no mass effect or midline shift. There is no abnormal intra nor extra-axial fluid collection. The calvarium is intact without fracture. The visualized paranasal sinuses and mastoids are clear. 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 MR is recommended if acute stroke is clinically suspected.Basic Metabolic Panel 2017-06-10 14:31:00 Test Item Value Reference Range Interpretation Comments Sodium (test code = 134 mmol/L 135-145 L NA) Potassium (test 4.5 mmol/L 3.5-5.1 N code = K) Chloride (test code 93 mmol/L 98-105 L = CL) Carbon Dioxide 20 mmol/L 22-29 L (test code = CO2) Glucose (test code 113 mg/dL 70-115 N = GLU) Blood Urea Nitrogen 58 mg/dL 8-23 H (test code = BUN) Creatinine (test 1.9 mg/dL 0.5-0.9 H code = CREAT) Calcium (test code 8.3 mg/dL 8.3-10.5 N = CA) BUN/Creatinine 30.5 Ratio (test code = BCRATIO) Anion Gap (test 21 mmol/L 7-16 H code = AGAP) Estimated GFR (test 28 eGFR (es timated code = GFR) mL/min/1.73m2 Glomerular Davey tration Rate) is an est imated value,calculate d from the patient's s nella creatinine usin g the MDRD equation.I t is NOT the patient 's actual GFR. The eGFR provides a more clinicallyusefu l measure of kidn ey disease than se rum creatinine alone.This calculation lenny es sex and race into account, if the informationis provided. If th e race is not provided , and the patient isAfrican-Ameri can, multiply by 1.2 12. If sex is not prov ided, and thepatient is female, multipl y by 0.742. Results for patients <18 ye ars ofage have not been validated by th e MDRD study and shoul d be interpretedwith caution.eGFR Re sult Interpretation: eGFR > or = 60 is in t he Normal RangeeGF R < 60 may mean kidney diseaseeGFR < 1 5 may mean kidney failureRange s recommended by the National Kidney Foundation,http ://nkd ep.nih.gov 90310& PELVIS W/O [id number] 14:21:03CT ABD & PELVIS W/O CONTRASTLOCATION: [id number]: Abd pain COMPARISON: Abdominal ultrasound 2007TECHNIQUE: Axial images of the abdomen and pelvis were obtained withoutcontrast. One or more of the following dose reduction techniques were used:Automated exposure control, adjustment of the mA and/or kV according topatient size, and/or utilization of iterative reconstruction technique.DISCUSSION:Lower thorax: Mild bibasilar atelectasis or scarring. Coronary arteryand mitral calcifications are partially visualized.Hepatobiliary: Hypodense liver suggests fatty infiltration No biliaryductal dilata tion.Gallbladder: Grossly unremarkable.Spleen: Unremarkable.Pancreas: Mildly atrophic. Subtle peripancreatic fat stranding ispresent.Adrenals: The left adrenal gland is thickened. The right adrenal glandis grossly unremarkable.Kidneys/ureters: Bilateral renal cysts are present, right greater thanleft.Several of the cysts are hyperdense, which suggests hemorrhagiccysts. Bilateral perinephric fat stranding is nonspecific. Nohydronephrosis is seen. The ureters are grossly unremarkable. There isno evidence for radiopaque urinary tract calculiPelvic organs/bladder: The uterus is atrophic. The bladder and adnexaare grossly unremarkable.Vessels: Aortoiliac calcific atherosclerosis.Lymph nodes: No lymphadenopathy.Peritoneum/retroperitoneum: Trace free fluid is seen in the pelvis.There is no definite evidence for pneumoperitoneum.Bowel: A short segment of transverse colon and a few small bowel loopsslightly protrude into a broad-based ventral hernia. Diastases recti ispresent. A few mildly distended loops of proximal small bowel are seenin the left upper quadrant. No definite transition point is seen.Otherwise, no definite abnormal bowel wall thickening or evidence ofobstruction. No inflammatory short es are seen in the expected area ofthe appendix. Colonic diverticulosis is present without diverticulitisBones/soft tissues: Bone demineralization limits osseous evaluation.There are advanced degenerative changes throughout the spine. Mildcompression deformities of the T11, T12, and L1 vertebral bodies may bechronic; there is no gross fracture retropulsion.IMPRESSION:1. Subtle peripancreatic fat stranding; correlate for acutepancreatitis. The pancreas is mildly atrophic. 2. Thickened left adrenal gland may be due to hyperplasia.3. Nonspecific bilateral perinephric fat stranding. Bilateral renalcysts, some of which are hemorrhagic.4. Trace free fluid in the pelvis.5. Few nonspecific mildly distended loops of proximal small bowel inthe left upper quadrant could be due to focal ileus.6. Otherwise, no acute abnormalities in the abdomen or pelvis.7. Colonic diverticulosis without diverticulitis.8. Mild compression deformities of the T11, T12, and L1 vertebralbodies may be chronic; no gross fracture retropulsion.CBC with [id number] 12:05:00 Test Item Value Reference Range Interpretation Comments WBC (test code = WBC) 7.4 K/cumm 4.4-10.5 N RBC (test code = RBC) 2.52 M/cumm 3.75-5.20 L Hemoglobin (test code 8.9 gm/dL 12.2-14.8 L = HGB) Hematocrit (test code 28.5 % 36.5-44.4 L = HCT) MCV (test code = MCV) 113.0 fL 80-100 H MCH (test code = MCH) 35.4 pg 27.0-32.5 H MCHC (test code = 31.3 g/dL 32.0-37.5 L MCHC) RDW (test code = RDW) 18.9 % 11.5-14.5 H Platelet Count (test 91 K/cumm 140-440 L code = PLTCT) MPV (test code = MPV) 9.5 fL Diff Method (test code Manual = DIFFM) Neutrophil (test code 85.1 % 36-70 H = NEUT) Lymphocyte (test code 10.1 % 12-44 L = LYMPH) Monocyte (test code = 3.9 % 0-11 N MONO) Eosinophil (test code 0.5 % 0-7 N = EOS) Basophil (test code = 0.3 % 0-2 N BASO) Neutro Abs (test code 6.3 K/cumm 1.6-7.4 N = ANEUT) Lymph Abs (test code = 0.8 K/cumm 0.5-4.6 N ALYMPH) Ector Abs (test code = 0.3 K/cumm 0.0-1.2 N AMONO) Eos Abs (test code = 0.04 K/cumm 0.00-0.74 N AEOS) Baso Abs (test code = 0.0 K/cumm 0.00-0.21 N ABASO) RBC Morphology (test Moderate Hypochromia code = RBCMRPH) Platelet Est (test Decreased Platelet on code = PLTEST) Smear [id number] 11:57:00 Test Item Value Reference Range Interpretation Comments Lipase (test code = LIP) 648 U/L 13-60 H Comprehensive Metabolic [id number] 11:51:00 Test Item Value Reference Range Interpretation Comments Sodium (test code = 131 mmol/L 135-145 L NA) Potassium (test 5.6 mmol/L 3.5-5.1 H hemolysed code = K) Chloride (test code 87 mmol/L 98-105 L = CL) Carbon Dioxide 22 mmol/L 22-29 N (test code = CO2) Glucose (test code 125 mg/dL 70-115 H = GLU) Blood Urea Nitrogen 61 mg/dL 8-23 H (test code = BUN) Creatinine (test 2.1 mg/dL 0.5-0.9 H code = CREAT) Calcium (test code 9.0 mg/dL 8.3-10.5 N = CA) Prot Total (test 7.0 g/dL 6.4-8.3 N code = TP) Albumin (test code 4.3 g/dL 3.5-5.2 N = ALB) A/G Ratio (test 1.6 Ratio code = AGRATIO) Globulin (test code 2.7 2.9-3.1 L = GLOB) Bili Total (test 1.0 mg/dL 0.1-0.9 H code = TBIL) Alk Phos (test code 97 U/L 35-104 N = APHOS) AST (test code = 64 U/L 1-32 H hemolysed AST) ALT (test code = 37 U/L 1-33 H ALT) BUN/Creatinine 29.0 Ratio (test code = BCRATIO) Anion Gap (test 22 mmol/L 7-16 H code = AGAP) Estimated GFR (test 25 eGFR (es timated code = GFR) mL/min/1.73m2 Glomerular Davey tration Rate) is an est imated value,calculate d from the patient's s nella creatinine usin g the MDRD equation.I t is NOT the patient 's actual GFR. The eGFR provides a more clinicallyusefu l measure of kidn ey disease than se rum creatinine alone.This calculation lenny es sex and race into account, if the informationis provided. If th e race is not provided , and the patient isAfrican-Ameri can, multiply by 1.2 12. If sex is not prov ided, and thepatient is female, multipl y by 0.742. Results for patients <18 ye ars ofage have not been validated by e MDRD study and gaudencioul d be interpretedwith caution.eGFR Re sult Interpretation: eGFR > or = 60 is in t he Normal RangeeGF R < 60 may mean kidney diseaseeGFR < 1 5 may mean kidney failureRange s recommended by the National Kidney Foundation,http ://nkd ep.nih.gov Notes Date/Time Note Provider Source 2017-12-24 00:00:45-00:00 Tiny right basal ganglia CSF -density lacunar infarction is also likely chronic. I have reviewed this examination and concur with the interpretation. [facility] Clinical Indication: - seizure. Comparison: None. TECHNIQUE: Sequential trans- axial images were obtained through the head without the administration of IV iodinated contrast. Coronal and sagittal reconstructions were obtained. Dose: DLP = 757 mGy-cm Findings: Supratentorial brain: Mild d ecreased attenuation likely due to chronic small vessel ischemic change. No mass. No evidence of a large subacute infarct. Old lacunar infarct within the right thalamus. Brainstem and cerebellum: Normal. Ventricles, sulci and extra- axial spaces: Mildly prominent consistent with mild diffuse cerebral atrophy. No hemorrhage. Orbits: Mild exophthalmos. Paranasal sinuses: Small inf erior left maxillary sinus mucous retention cyst or polyp. IMPRESSION: Mild periventricular white m atter disease consistent with chronic small vessel ischemia and mild diffuse cerebral atrophy. Old right thalamic lacunar infarct. Mild exophthalmos. No acute findings. No mass, hemorrhage or subacu te infarct. SL: RENE 2017-12-23 21:20:00-00:00 Clinical Indication: - dyspnea; [facility] Comparison: None Technique: X-ray chest frontal projection FINDINGS: There is mild bilateral pulm onary congestion. There is consolidation in the right lower lobe. The heart is normal in size. The mediastinum and jonathan are unremarkable. The visualized bones and soft tissues are within normal limits. IMPRESSION: Mild bilateral pulmonary congestion. Consolidat ion in the right lower lobe. SL: BECCA 2017-07-16 23:38:34-00:00 [facility] Progress Note PATIENT NAME: CHANDA BELL PHYSICIAN: Mike Ferrera MD Admitted: MR NUMBER: [id number] DISCHARGED: SUBJECTIVE: The patient is seen on rounds. She is up, eating lunch, complaining of lower extremity edema. Denies headaches, lightheadedne ss, chest pain or shortness of breath. OBJECTIVE: VITAL SIGNS: Blood pressure 131/57, pulse 65, re spiratory rate 18, temp 98.2. CHEST: Bilateral breath sounds are clear to ausc ultation. HEART: Regular rate and rhythm. ABDOMEN: Positive bowel sounds. Soft, nontender. EXTREMITIES: No clubbing, cyanosis. 2 to 3+ lowe r extremity edema with tenderness. ASSESSMENT/PLAN: 1. Lumbar stenosis with low back pain and polyn europathy. Continue activities of daily living. Hold therapies due to lower extremity swelling and pain. 2. Lower extremity swelling and pain. Obtain Do ppler to assess for deep vein thrombosis. 3. History of tobacco and alcohol abuse. Contin ue supportive treatment. Ilda Ferrera MD GKB/SIV TD: 06/19/2017 21:17 [facility] Progress Note PATIENT NAME: CHANDA BELL PHYSICIAN: Mike Ferrera MD Admitted: MR NUMBER: [id number] DISCHARGED: SUBJECTIVE: The patient is seen on rounds. She is up, eating lunch, complaining of lower extremity edema. Denies headaches, lightheadedne ss, chest pain or shortness of breath. OBJECTIVE: VITAL SIGNS: Blood pressure 131/57, pulse 65, re spiratory rate 18, temp 98.2. CHEST: Bilateral breath sounds are clear to ausc ultation. HEART: Regular rate and rhythm. ABDOMEN: Positive bowel sounds. Soft, nontender. EXTREMITIES: No clubbing, cyanosis. 2 to 3+ lowe r extremity edema with tenderness. ASSESSMENT/PLAN: 1. Lumbar stenosis with low back pain and polyn europathy. Continue activities of daily living. Hold therapies due to lower extremity swelling and pain. 2. Lower extremity swelling and pain. Obtain Do ppler to assess for deep vein thrombosis. 3. History of tobacco and alcohol abuse. Contin ue supportive treatment. MD INDIGO Moreno/YAIMA TD: 06/19/2017 21:17 Electronically Authenticated by: Ilda Ferrera MD On 07/16/2017 11:38 PM CDT 2017-07-16 23:38:29-00:00 [facility] Progress Note PATIENT NAME: CHANDA BELL PHYSICIAN: Mike Ferrera MD Admitted: MR NUMBER: [id number] DISCHARGED: DATE OF PROGRESS NOTE: 06/18/2017 The patient is seen on rounds. She is up in her bedside. Next, no significant problems have been reported. Continu e ADL training with occupational therapy and work on safe mobility w [facility]. MD INDIGO Moreno/GOP/SUB TD: 06/18/2017 23:21 [facility] Progress Note PATIENT NAME: CHANDA BELL PHYSICIAN: Mike Ferrera MD Admitted: MR NUMBER: [id number] DISCHARGED: DATE OF PROGRESS NOTE: 06/18/2017 The patient is seen on rounds. She is up in her bedside. Next, no significant problems have been reported. Continu e ADL training with occupational therapy and work on safe mobility w ith physical therapy. MD INDIGO Moreno/DIANE/MADINA TD: 06/18/2017 23:21 Electronically Authenticated by: Ilda Ferrera MD On 07/16/2017 11:38 PM CDT 2017-07-16 23:38:24-00:00 [facility] Progress Note PATIENT NAME: CHANDA BELL PHYSICIAN: Mike Ferrera MD Admitted: MR NUMBER: [id number] DISCHARGED: DATE OF SERVICE: 06/25/2017. SUBJECTIVE: The patient seen on rounds. She is up at her bed side. She denies headaches, lightheadedness, chest pain, or shortness of gill ath. Denies any numbness, tingling or weakness. OBJECTIVE: VITAL SIGNS: Blood pressure 134/50, pulse 68, re spiratory rate 16, and temperature 98.5. ASSESSMENT AND PLAN: 1. Lumbar stenosis with low back pain clinicall y improving. Continue ADL training, occupational therapy and work on safe mobility with physical therapy. 2. Depression. Continue on supportive treatment . 3. Deep venous thrombosis prophylaxis with Love nox. Monitor for signs of bleeding. 4. Hypertension. Decrease diastolic blood press ure. The patient is asymptomatic. Monitor for signs and symptoms of hypotension. MD INDIGO Moreno/KATTY TD: 06/25/2017 21:05 [facility] Progress Note PATIENT NAME: CHANDA BELL PHYSICIAN: Mike Ferrera MD Admitted: MR NUMBER: [id number] DISCHARGED: DATE OF SERVICE: 06/25/2017. SUBJECTIVE: The patient seen on rounds. She is up at her bed side. She denies headaches, lightheadedness, chest pain, or shortness of gill ath. Denies any numbness, tingling or weakness. OBJECTIVE: VITAL SIGNS: Blood pressure 134/50, pulse 68, re spiratory rate 16, and temperature 98.5. ASSESSMENT AND PLAN: 1. Lumbar stenosis with low back pain clinicall y improving. Continue ADL training, occupational therapy and work on safe mobility with physical therapy. 2. Depression. Continue on supportive treatment . 3. Deep venous thrombosis prophylaxis with Love nox. Monitor for signs of bleeding. 4. Hypertension. Decrease diastolic blood press ure. The patient is asymptomatic. Monitor for signs and symptoms of hypotension. MD MELI Moreno TD: 06/25/2017 21:05 Electronically Authenticated by: Ilda Ferrera MD On 07/16/2017 11:38 PM CDT 2017-07-07 17:15:14-00:00 [facility] Psych Eval PATIENT NAME: CHANDA BELL PHYSICIAN: Feliz Palma MD Admitted: MR NUMBER: [id number] DISCHARGED: Psych Eval Patient Name: CHANDA BELL Date of Service: Date of : 1950 Clinician: Nadir Palma MD User Field 1: J Encounter Visit: 6TJ User Field 3: J IDENTIFICATION INFORMATION: The patient is a 67-year-old female. S he lives by herself. She presented to the hospital due to her desire to g et detoxification in a rehabilitation from alcohol. Psychiatric consult ation was requested to evaluate the patient for management of alcohol w ithdrawal and her depression. CHIEF COMPLAINT: The patient stated, "I'm an alcoholic." HISTORY OF PRESENT ILLNESS: The patient presented to the hospital due to her alcoholism, reported that she has been drinking "a lot." Reported that she has been drinking few shots to half a large bottle of vodka almost every day . The patient reported that she has multiple medical problems including epil epsy, COPD, stroke and she has now got to the point that she believes she h as to stop drinking. The patient was hospitalized for alcohol detox. The patient reported that she can no longer walk and she feels very weak and n eeds assistance with activities of daily living. Currently, there is no evidence of delirium tremens, acute alcoholic hallucinosis or withdra wal seizures. The patient endorses symptoms of depression such as sad mood , anhedonia and has been treated with antidepressants in the past, but cu rrently she has been noncompliant. The patient denies feeling suicida l or hopeless. Denies symptoms of ezequiel, hypomania, eating disorder, s omatization, phobias, OCD and access to guns. The patient reported that her de pression and alcoholism got worse after the of her . ALLERGIES: NO KNOWN DRUG ALLERGIES. PAST MEDICAL HISTORY: Epilepsy, diabetes, COPD and stroke. PAST PSYCHIATRIC HISTORY: The patient reported that she has made 3 suicida l attempts in the past and she had been in psychiatric hospital. The patien t had been to the rehab, last one was a long time ago. SOCIAL HISTORY: The patient lives alone. Reports history of trau ma. She has 3 children, they are all grown and involved in her life. FAMILY HISTORY: Parents alcoholic. [facility] Psych Eval PATIENT NAME: CHANDA BELL PHYSICIAN: Feliz Palma MD Admitted: MR NUMBER: [id number] DISCHARGED: Psych Eval Patient Name: CHANDA BELL Date of Service: Date of : 1950 Clinician: Nadir Palma MD User Field 1: J Encounter Visit: 6TJ User Field 3: J IDENTIFICATION INFORMATION: The patient is a 67-year-old female. S he lives by herself. She presented to the hospital due to her desire to g et detoxification in a rehabilitation from alcohol. Psychiatric consult ation was requested to evaluate the patient for management of alcohol w ithdrawal and her depression. CHIEF COMPLAINT: The patient stated, "I'm an alcoholic." HISTORY OF PRESENT ILLNESS: The patient presented to the hospital due to her alcoholism, reported that she has been drinking "a lot." Reported that she has been drinking few shots to half a large bottle of vodka almost every day . The patient reported that she has multiple medical problems including epil epsy, COPD, stroke and she has now got to the point that she believes she h as to stop drinking. The patient was hospitalized for alcohol detox. The patient reported that she can no longer walk and she feels very weak and n eeds assistance with activities of daily living. Currently, there is no evidence of delirium tremens, acute alcoholic hallucinosis or withdra wal seizures. The patient endorses symptoms of depression such as sad mood , anhedonia and has been treated with antidepressants in the past, but cu rrently she has been noncompliant. The patient denies feeling suicida l or hopeless. Denies symptoms of ezequiel, hypomania, eating disorder, s omatization, phobias, OCD and access to guns. The patient reported that her de pression and alcoholism got worse after the of her . ALLERGIES: NO KNOWN DRUG ALLERGIES. PAST MEDICAL HISTORY: Epilepsy, diabetes, COPD and stroke. PAST PSYCHIATRIC HISTORY: The patient reported that she has made 3 suicida l attempts in the past and she had been in psychiatric hospital. The joseph bates had been to the rehab, last one was a long time ago. SOCIAL HISTORY: The patient lives alone. Reports history of neno ma. She has 3 children, they are all grown and involved in her life. FAMILY HISTORY: Parents alcoholic. Patient Name: CHANDA BELL SUBSTANCE ABUSE: Significant for alcoholism. Reported that she dr inks daily. Started drinking at an early age. Denies history of DUI/ DWI. Denies history of other substance use. However, her drug screen is positive for cannabis. The patient is a chronic smoker. PHYSICAL EXAMINATION: MENTAL STATUS: The patient appears as stated age . The patient is anxious, but cooperative, makes good eye contact. Speech is spontaneous. Described mood as sad. Affect, mood congruent. Denies suic idal or homicidal ideation. No active delusions or hallucinations. Alert a nd oriented to time, place, person, and situation. Insight, judgment, and im pulse control improving. IMPRESSION: The patient is a 67-year-old female who presente d to the hospital due to her desire to get detoxification from alcohol. The p atient has multiple medical comorbidities. DSM DIAGNOSES: PSYCHIATRIC: Alcohol use disorder, severe; major depressive disorder, moderate, recurrent, without psychosis; nicotine use disorder, moderate. MEDICAL: As stated. PSYCHOSOCIAL: Unable to take care of herself. PSYCHIATRIC RECOMMENDATION: We will start Celexa 10 mg at bedtime. Continue to monitor for alcohol detoxification as per [facility] protocol. Risks, bene fits, alternative of current medications explained to the patient. The joseph bates may benefit with placement in a personal senior care since she cannot perform activities of daily living. The patient is not stable for inpatient rehabili tation program at this time. Advised the patient to attend online AA meetings . We can also consider anticraving agents. No need for inpatient psychi atric stabilization. Nadir Palma MD Date Dictated: 06/12/2017 Date 06/12/2017 Transcribed: SR/SUB Patient Name: CHANDA BELL SUBSTANCE ABUSE: Significant for alcoholism. Reported that she dr inks daily. Started drinking at an early age. Denies history of DUI/ DWI. Denies history of other substance use. However, her drug screen is positive for cannabis. The patient is a chronic smoker. PHYSICAL EXAMINATION: MENTAL STATUS: The patient appears as stated age . The patient is anxious, but cooperative, makes good eye contact. Speech is spontaneous. Described mood as sad. Affect, mood congruent. Denies suic idal or homicidal ideation. No active delusions or hallucinations. Alert an d oriented to time, place, person, and situation. Insight, judgment, and im pulse control improving. IMPRESSION: The patient is a 67-year-old female who presente d to the hospital due to her desire to get detoxification from alcohol. The p atient has multiple medical comorbidities. DSM DIAGNOSES: PSYCHIATRIC: Alcohol use disorder, severe; major depressive disorder, moderate, recurrent, without psychosis; nicotine use disorder, moderate. MEDICAL: As stated. PSYCHOSOCIAL: Unable to take care of herself. PSYCHIATRIC RECOMMENDATION: We will start Celexa 10 mg at bedtime. Continue to monitor for alcohol detoxification as per [facility] protocol. Risks, bene fits, alternative of current medications explained to the patient. The patien t may benefit with placement in a personal senior care since she cannot perform activities of daily living. The patient is not stable for inpatient rehabili tation program at this time. Advised the patient to attend online AA meetings . We can also consider anticraving agents. No need for inpatient psychi atric stabilization. Nadir Palma MD Date Dictated: 06/12/2017 Date 06/12/2017 Transcribed: SR/SUB Electronically Authenticated by: Nadir Palma MD On 07/07/2017 05:14 PM CDT 2017-06-28 17:07:43-00:00 [facility] Progress Note PATIENT NAME: CHANDA BELL PHYSICIAN: Shahnaz Velasco MD Admitted: MR NUMBER: [id number] DISCHARGED: DATE OF SERVICE: 06/26/2017 TIME OF SERVICE: 03:53 p.m. SUBJECTIVE: The patient is seen lying in the bed. No overnig ht acute issues. Her main concern is her legs have become increasingly swo llen. Otherwise, she is breathing okay. She has been told that she will be discharged tomorrow from rehabilitation. PHYSICAL EXAMINATION: VITAL SIGNS: On exam, temperature 98.2, pulse 62 , respirations 19, blood pressure initially was 117/42 and then 158/77, p ulse ox 100% on room air. GENERAL: This is a late middle-aged fe male lying in bed, in no acute distress. HEENT: Atraumatic, normocephalic head. NECK: Supple. RESPIRATION: Fairly clear lungs. CARDIOVASCULAR: S1 plus S2. No murmur. ABDOMEN: Soft, obese. Bowel sounds positive. EXTREMITIES: There is 2 to 3+ pitting edema in b oth lower extremities. No warmth or tenderness noted. SKIN: Normal. LYMPHATIC: Normal LABORATORY DATA: Glucose is 141 to 250. Last magnesium was 1.5. S odium 130, potassium 3.9, chloride 95, bicarbonate 26, BUN 39, creatinine was 1.4, glucose 220, calcium 8.9. WBC 6.5, hemoglobin 8.3, hematocrit 27.0, p latelets are 272. List of her current medications are reviewed. IMPRESSION: 1. Debility and deconditioning secondary to alc ohol-induced pancreatitis. 2. History of alcohol abuse. 3. Acute on chronic kidney disease, stage II to III improved after IV hydration. 4. Bilateral lower extremity edema secondary to IV hydration and probably underlying liver cirrhosis. 5. Hyperglycemia, borderline diabetes. 6. Hyponatremia. 7. Anemia with thrombocytopenia secondary to li isaura dysfunction. PLAN: The patient is being managed on the [facility] ehabilitation Unit. She has finished her physical and occupational therapy. Main concern is bilateral lower extremity edema, which I think the etiolog y is multifactorial, 1. Secondary to the IV fluids she has received d uring the hospital stay. 2. Secondary to amlodipine, which can cause robinson a. [facility] Progress Note PATIENT NAME: CHANDA BELL PHYSICIAN: Shahnaz Velasco MD Admitted: MR NUMBER: [id number] DISCHARGED: DATE OF SERVICE: 06/26/2017 TIME OF SERVICE: 03:53 p.m. SUBJECTIVE: The patient is seen lying in the bed. No overnig ht acute issues. Her main concern is her legs have become increasingly swo llen. Otherwise, she is breathing okay. She has been told that she will be discharged tomorrow from rehabilitation. PHYSICAL EXAMINATION: VITAL SIGNS: On exam, temperature 98.2, pulse 62 , respirations 19, blood pressure initially was 117/42 and then 158/77, p ulse ox 100% on room air. GENERAL: This is a late middle-aged fe male lying in bed, in no acute distress. HEENT: Atraumatic, normocephalic head. NECK: Supple. RESPIRATION: Fairly clear lungs. CARDIOVASCULAR: S1 plus S2. No murmur. ABDOMEN: Soft, obese. Bowel sounds positive. EXTREMITIES: There is 2 to 3+ pitting edema in b oth lower extremities. No warmth or tenderness noted. SKIN: Normal. LYMPHATIC: Normal LABORATORY DATA: Glucose is 141 to 250. Last magnesium was 1.5. S odium 130, potassium 3.9, chloride 95, bicarbonate 26, BUN 39, creatinine was 1.4, glucose 220, calcium 8.9. WBC 6.5, hemoglobin 8.3, hematocrit 27.0, p latelets are 272. List of her current medications are reviewed. IMPRESSION: 1. Debility and deconditioning secondary to alc ohol-induced pancreatitis. 2. History of alcohol abuse. 3. Acute on chronic kidney disease, stage II to III improved after IV hydration. 4. Bilateral lower extremity edema secondary to IV hydration and probably underlying liver cirrhosis. 5. Hyperglycemia, borderline diabetes. 6. Hyponatremia. 7. Anemia with thrombocytopenia secondary to li isaura dysfunction. PLAN: [facility] She has finished her physical and occupational therapy. Main concern is bilateral lower extremity edema, which I think the etiolog y is multifactorial, 1. Secondary to the IV fluids she has received d uring the hospital stay. 2. Secondary to amlodipine, which can cause robinson a. Patient Name: CHANDA BELL 3. Secondary to the underlying liver dysfunction and probably renal insufficiency. At this point, I would discontinue the amlodipin e. I will start her on some oral Lasix as lower extremity edema is pretty di sabling. Her venous Dopplers have been done last week and were negative for D VT. We will recheck the BMP and creatinine in the morning. For history of se izures, she is on zonisamide and Neurontin. For hypertension, I will use hydr alazine p.r.n. and/or Lasix will help with the blood pressure as well. For o steoarthritis of the knee, physical and occupational therapy. For hyperglyc emia, her A1c was only 5.0. Glucose has been elevated here in the hospital. It is up to 304. As her multiple readings are greater than 200 and 300, that would qualify her to have diabetes, although this could be secondary to the chronic pancreatitis and a history of heavy alcohol use. I would avoi d metformin, replace her on a low dose of glipizide to help her with the bart betes and we will follow clinically. Edgar Velasco MD MSA/JENNIFER/HARRIS TD: 06/26/2017 18:10 Patient Name: CHANDA BELL 3. Secondary to the underlying liver dysfunction and probably renal insufficiency. At this point, I would discontinue the amlodipin e. I will start her on some oral Lasix as lower extremity edema is pretty di sabling. Her venous Dopplers have been done last week and were negative for D VT. We will recheck the BMP and creatinine in the morning. For history of se izures, she is on zonisamide and Neurontin. For hypertension, I will use hydr alazine p.r.n. and/or Lasix will help with the blood pressure as well. For o steoarthritis of the knee, physical and occupational therapy. For hyperglyc emia, her A1c was only 5.0. Glucose has been elevated here in the hospital. It is up to 304. As her multiple readings are greater than 200 and 300, that would qualify her to have diabetes, although this could be secondary to the chronic pancreatitis and a history of heavy alcohol use. I would kristen id metformin, replace her on a low dose of glipizide to help her with the bart betes and we will follow clinically. Edgar Velasco MD MSA/JENNIFER/HARRIS TD: 06/26/2017 18:10 Electronically Authenticated by: Edgar Velasco MD On 06/28/2017 05:07 PM CDT 2017-06-28 10:20:06-00:00 [facility] Discharge Summary PATIENT NAME: CHANDA BELL PHYSICIAN: Amos Oleary MD Admitted: MR NUMBER: [id number] DISCHARGED: 06/27/2017 12:0 0:00 DISCHARGE DIAGNOSES: 1. Alcoholic. 2. Diabetes mellitus with diabetic polyneuropat hy. 3. Seizure disorder. 4. TIA. 5. 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 6. Seizure disorder. 7. Anemia of chronic disease. 8. Thrombocytopenia. 9. Acute on chronic renal insufficiency. 10. Alcohol-induced pancreatitis. 11. Gait disturbance. HISTORY OF PRESENT ILLNESS: The patient is a 67-year-old right-handed female with multiple medical problems including history of alcohol abuse. She was admitted to the hospital after being found on the floor followin g a heavy drinking binge. She was noted to have abdominal pain and was fou nd to have acute pancreatitis, acute on chronic renal failure wit h volume depletion. She was hydrated and stabilized, but was noted to have w eakness. Workup for stroke was negative. She was thought to have a TIA, was stabilized in acute care medicine before being transferred to rehab for c omprehensive inpatient rehabilitation program. Physical examination on discharge, please refer to the progress notes. HOSPITAL COURSE: The patient was admitted to rehab for [facility] inpatient rehabilitation program. She participated in therapy and made so me progress. At the time of discharge in physical therapy she is modified in dependent with bed mobility, transfers, wheelchair mobility and was ambulatin g using a rolling walker over 150 feet, sitting and standing balance were good . In occupational therapy, she also made some progress. At time of discharg e, she is modified independent with eating, grooming and hygiene, u pper and lower body ADLs, toileting, and shower transfer. Activity toleran ce was also fair. The patient's other problems included diabetes melli tus, which was controlled. Hypertension remained stable. She is being disch arged today. DISCHARGE MEDICATIONS: Reviewed and reconciled. FOLLOWUP: The patient is to follow up with her PCP in 1-2 weeks. She is to have home health therapy 3 times a week for 4 weeks, MD DAVID Plasencia/SOL [facility] Discharge Summary PATIENT NAME: CHANDA BELL PHYSICIAN: Amos Oleary MD Admitted: MR NUMBER: [id number] DISCHARGED: 06/27/2017 12:0 0:00 DISCHARGE DIAGNOSES: 1. Alcoholic. 2. Diabetes mellitus with diabetic polyneuropat hy. 3. Seizure disorder. 4. TIA. 5. 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 6. Seizure disorder. 7. Anemia of chronic disease. 8. Thrombocytopenia. 9. Acute on chronic renal insufficiency. 10. Alcohol-induced pancreatitis. 11. Gait disturbance. HISTORY OF PRESENT ILLNESS: The patient is a 67-year-old right-handed female with multiple medical problems including history of alcohol abuse. She was admitted to the hospital after being found on the floor followin g a heavy drinking binge. She was noted to have abdominal pain and was fou nd to have acute pancreatitis, acute on chronic renal failure wit h volume depletion. She was hydrated and stabilized, but was noted to have w eakness. Workup for stroke was negative. She was thought to have a TIA, was stabilized in acute care medicine before being transferred to rehab for c omprehensive inpatient rehabilitation program. Physical examination on discharge, please refer to the progress notes. HOSPITAL COURSE: The patient was admitted to rehab for [facility] inpatient rehabilitation program. She participated in therapy and made so me progress. At the time of discharge in physical therapy she is modified in dependent with bed mobility, transfers, wheelchair mobility and was ambulatin g using a rolling walker over 150 feet, sitting and standing balance were good . In occupational therapy, she also made some progress. At time of discharg e, she is modified independent with eating, grooming and hygiene, u pper and lower body ADLs, toileting, and shower transfer. Activity toleran ce was also fair. The patient's other problems included diabetes melli tus, which was controlled. Hypertension remained stable. She is being disch arged today. DISCHARGE MEDICATIONS: Reviewed and reconciled. FOLLOWUP: The patient is to follow up with her PCP in 1-2 weeks. She is to have home health therapy 3 times a week for 4 weeks, MD DAVID Plasencia/SOL Patient Name: BELLCHANDA TD: 06/27/2017 12:19 CC:Amos Oleary MD([employer]) Patient Name: CHANDA BELL TD: 06/27/2017 12:19 CC:Amos Oleary MD([employer]) Electronically Authenticated by: Amos Oleary MD On 06/28/2017 10:20 AM C DT 2017-06-20 08:39:11-00:00 [facility] HandP/NORMA PATIENT NAME: CHANDA BELL PHYSICIAN: Amos Oleary MD Admitted: MR NUMBER: [id number] DISCHARGED: DATE OF ADMISSION: 06/14/2017 CHIEF COMPLAINT: "I have a lot of back and knee pain and I feel w eak and tired." BRIEF HISTORY OF PRESENT ILLNESS: The patient is a 67-year-old right-handed female with multiple medical problems, including a history of TIA, alcohol ab use, diabetes mellitus with polyneuropathy. She was found on the floor at [facility] with abdominal pain, nausea and vomiting. Workup revealed acute renal failure as well as severe volume depletion and pancreatitis. She was rehyd rated and stabilized, but she is debilitated. She is having increased pain in her lower extremities. The patient has a history of a disc herniation i n the past as well as knee pain, which she thought was related to osteoarth ritis, worse on the left than on the right. She is having problems ambulating. PAST MEDICAL HISTORY: Significant for diabetes mellitus, obesity, hist ory of TIA, history of seizure disorder, history of alcohol abuse, panc reatitis, anemia of chronic disease, history of thrombocytopenia, and major depressive disorder. FAMILY HISTORY: Noncontributory. SOCIAL AND FUNCTIONAL HISTORY: The patient has 3 children. She lives alone in a [facility]. Prior to admission, she uses a rollator to get around. e also has a cane. She smokes half pack of cigarettes a day. She denies any alcohol use, but the record did say she has a history of alcohol abus e. ALLERGIES: THERE IS NO KNOWN DRUG ALLERGIES. MEDICATIONS: Reviewed and reconciled. REVIEW OF SYSTEMS: A 12 organ system review were done and they were reviewed except for . PHYSICAL EXAMINATION: GENERAL: She is conscious female in moderate dis comfort, alert and oriented x3. VITAL SIGNS: Temperature is 97.8, pulse 84, resp iration 18, blood pressure 144/66. HEENT: Extraocular motions intact. Pupils are eq ual, round and reactive to light and accommodation. Oropharynx without any erythema. NECK: Supple. There is no JVD or bruits. CHEST: Occasional alcohol with expiratory wheezi ng. [facility] HandP/NORMA PATIENT NAME: CHANDA BELL PHYSICIAN: Amos Oleary MD Admitted: MR NUMBER: [id number] DISCHARGED: DATE OF ADMISSION: 06/14/2017 CHIEF COMPLAINT: "I have a lot of back and knee pain and I feel w eak and tired." BRIEF HISTORY OF PRESENT ILLNESS: The patient is a 67-year-old right-handed female with multiple medical problems, including a history of TIA, alcohol ab use, diabetes mellitus with polyneuropathy. She was found on the floor at [facility] with abdominal pain, nausea and vomiting. Workup revealed acute renal failure as well as severe volume depletion and pancreatitis. She was rehyd rated and stabilized, but she is debilitated. She is having increased pain in her lower extremities. The patient has a history of a disc herniation i n the past as well as knee pain, which she thought was related to osteoarth ritis, worse on the left than on the right. She is having problems ambulating. PAST MEDICAL HISTORY: Significant for diabetes mellitus, obesity, hist ory of TIA, history of seizure disorder, history of alcohol abuse, panc reatitis, anemia of chronic disease, history of thrombocytopenia, and major depressive disorder. FAMILY HISTORY: Noncontributory. SOCIAL AND FUNCTIONAL HISTORY: The patient has 3 children. She lives alone in a [facility]. Prior to admission, she uses a rollator to get around. [facility] also has a cane. She smokes half pack of cigarettes a day. She denies any alcohol use, but the record did say she has a history of alcohol abus e. ALLERGIES: THERE IS NO KNOWN DRUG ALLERGIES. MEDICATIONS: Reviewed and reconciled. REVIEW OF SYSTEMS: A 12 organ system review were done and they were reviewed except for . PHYSICAL EXAMINATION: GENERAL: She is conscious female in moderate dis comfort, alert and oriented x3. VITAL SIGNS: Temperature is 97.8, pulse 84, resp iration 18, blood pressure 144/66. HEENT: Extraocular motions intact. Pupils are eq ual, round and reactive to light and accommodation. Oropharynx without any erythema. NECK: Supple. There is no JVD or bruits. CHEST: Occasional alcohol with expiratory wheezi ng. Patient Name: CHANDA BELL ABDOMEN: Soft and obese. Normal bowel sounds, no ntender, and nondistended. EXTREMITIES: There is no cyanosis or clubbing. MUSCULOSKELETAL: The patient has palpable tender ness and spasm in the thoracolumbar region, as well as bilateral knees , worse on the left, with some crepitation. NEUROLOGIC: Cranial nerves II through XII are in tact. Sensory is decreased pinprick and light touch. Strength is 4/5 in all extremities. FUNCTIONAL EXAM: Sitting balance is good, standi ng balance was not obtained. ASSESSMENT: 1. History of lumbar spinal stenosis with low b ack pain. 2. History of alcohol abuse. 3. History of pancreatitis. 4. Diabetes mellitus with diabetic polyneuropat hy. 5. Gait disturbance. 6. History of tobacco abuse. PLAN: [facility]. The patient will be able to tolerate 3 hours of therapy 5 to 7 days a week and this will include 1 to 2 hours of physical t herapy for retraining in bed mobility, transfers, balance, coordination, whee lchair mobility and ambulation using assistive device. She would be able to tolerate 1 to 2 hours of occupational therapy for retraining in ADLs, energy conservation and endurance. Rehab goals is for the patient to be at modified independent with bed mobility, transfer, balance coordination, wh eelchair mobility and ambulation with assistive device. Rehab potentia l is good. Estimated length of stay is . Problems include neck and low back pain. We will obtain an x-ray of the lumbar as well as the knee. We will try a Lidode rm patch. Anorexia, we will do a calorie count and start the patient on gluc ose control. Internal medicine to follow the patient for medical manag ement. MD DAVID Plasencia/KOURTNEY/MADINA/DARIELA TD: 06/14/2017 12:33 Patient Name: CHANDA BELL ABDOMEN: Soft and obese. Normal bowel sounds, no ntender, and nondistended. EXTREMITIES: There is no cyanosis or clubbing. MUSCULOSKELETAL: The patient has palpable tender ness and spasm in the thoracolumbar region, as well as bilateral knees , worse on the left, with some crepitation. NEUROLOGIC: Cranial nerves II through XII are in tact. Sensory is decreased pinprick and light touch. Strength is 4/5 in all extremities. FUNCTIONAL EXAM: Sitting balance is good, standi ng balance was not obtained. ASSESSMENT: 1. History of lumbar spinal stenosis with low b ack pain. 2. History of alcohol abuse. 3. History of pancreatitis. 4. Diabetes mellitus with diabetic polyneuropat hy. 5. Gait disturbance. 6. History of tobacco abuse. PLAN: We will [facility]. The patient will be able to tolerate 3 hours of therapy 5 to 7 days a week and this will include 1 to 2 hours of physical t herapy for retraining in bed mobility, transfers, balance, coordination, whee lchair mobility and ambulation using assistive device. She would be able to tolerate 1 to 2 hours of occupational therapy for retraining in ADLs, energy conservation and endurance. Rehab goals is for the patient to be at modified independent with bed mobility, transfer, balance coordination, wh eelchair mobility and ambulation with assistive device. Rehab potentia l is good. Estimated length of stay is . Problems include neck and low back pain. We will obtain an x-ray of the lumbar as well as the knee. We will try a Lidode rm patch. Anorexia, we will do a calorie count and start the patient on gluc ose control. Internal medicine to follow the patient for medical manag ement. MD DAVID Plasencia/KOURTNEY/MADINA/DARIELA TD: 06/14/2017 12:33 Electronically Authenticated by: Amos Oleary MD On 06/20/2017 08:39 AM C DT 2017-06-18 22:24:54-00:00 [facility] Discharge Summary PATIENT NAME: CHANDA BELL PHYSICIAN: Shahnaz Velasco MD Admitted: MR NUMBER: [id number] DISCHARGED: 06/13/2017 12:0 0:00 DISCHARGE DIAGNOSES: 1. Alcohol-induced pancreatitis. 2. Thrombocytopenia, secondary to liver dysfunc tion. 3. Acute renal failure, resolved with intraveno us hydration. 4. Chronic anemia, macrocytic secondary to alco hol abuse. 5. Generalized weakness. 6. Depression. CONSULTATION DURING ADMISSION: Nadir Palma MD for psychiatry. PROCEDURES DURING ADMISSION: Include CT abdomen and pelvis without contrast, which shows evidence of mild peripancreatic fat stranding, likely acute pancr eatitis. CT head without contrast shows no acute pathology and a 7 mm rig ht putaminal chronic lacunar infarct versus perivascular space. LABORATORY RESULTS FROM THE HOSPITAL STAY: At discharge, WBC 4.9, hemoglobin 7.4, hematocri t 23.6, platelets 66,000. Sodium 134, potassium 3.8, chloride 98, bicarbon ate 25, BUN 31, creatinine 1.0, glucose 143, calcium is 8.3. Lipase was 226 . Urine drug screen positive for THC. TSH is 2.9. HOSPITAL COURSE: This is an elderly female with past me dical history of heavy alcoholism, chronic anemia, seizure disorder, di et-controlled diabetes mellitus, presented to [facility] emergency ro with generalized weakness. Apparently, she has been drinking heavily and w as found on the floor by her neighbors. She was having some mild abdominal pa in, nausea, and vomiting. She came in with acute renal failure. CT of abdo men and pelvis showed evidence of mild pancreatitis. Her lipase was el evated. She was admitted for IV hydration, supportive care, and managemen t of acute pancreatitis. She stabilized. Her renal function has now resolved. She has mild anemia. Overall is improved, but has generalized weaknes s. Her main issues are social and also psychiatric. She was seen by Maria Antonia roman. They recommended transfer to alcohol rehab program. They started her on Celexa. Overall is improving. Once we have a place for her in the npatient rehabilitation program, she could be discharged. For mild anemi a, we have transfused 1 unit packed RBCs with the hemoglobin 7.4, probably sh e would feel better with the transfusion. Edgar Velasco MD MSA/CAROLE TD: 06/13/2017 13:37 [facility] Discharge Summary PATIENT NAME: CHANDA BELL PHYSICIAN: Shahnaz Velasco MD Admitted: MR NUMBER: [id number] DISCHARGED: 06/13/2017 12:0 0:00 DISCHARGE DIAGNOSES: 1. Alcohol-induced pancreatitis. 2. Thrombocytopenia, secondary to liver dysfunc tion. 3. Acute renal failure, resolved with intraveno us hydration. 4. Chronic anemia, macrocytic secondary to alco hol abuse. 5. Generalized weakness. 6. Depression. CONSULTATION DURING ADMISSION: Nadir Palma MD for psychiatry. PROCEDURES DURING ADMISSION: Include CT abdomen and pelvis without contrast, which shows evidence of mild peripancreatic fat stranding, likely acute pancr eatitis. CT head without contrast shows no acute pathology and a 7 mm rig ht putaminal chronic lacunar infarct versus perivascular space. LABORATORY RESULTS FROM THE HOSPITAL STAY: At discharge, WBC 4.9, hemoglobin 7.4, hematocri t 23.6, platelets 66,000. Sodium 134, potassium 3.8, chloride 98, bicarbon ate 25, BUN 31, creatinine 1.0, glucose 143, calcium is 8.3. Lipase was 226 . Urine drug screen positive for THC. TSH is 2.9. HOSPITAL COURSE: This is an elderly female with past me dical history of heavy alcoholism, chronic anemia, seizure disorder, di et-controlled diabetes mellitus, presented to [facility] emergency ro om with generalized weakness. Apparently, she has been drinking heavily and w as found on the floor by her neighbors. She was having some mild abdominal pa in, nausea, and vomiting. She came in with acute renal failure. CT of abdo men and pelvis showed evidence of mild pancreatitis. Her lipase was el evated. She was admitted for IV hydration, supportive care, and managemen t of acute pancreatitis. She stabilized. Her renal function has now resolved. She has mild anemia. Overall is improved, but has generalized weaknes s. Her main issues are social and also psychiatric. She was seen by Maria Antonia roman. They recommended transfer to alcohol rehab program. They started her on Celexa. Overall is improving. Once we have a place for her in the i npatient rehabilitation program, she could be discharged. For mild anemi a, we have transfused 1 unit packed RBCs with the hemoglobin 7.4, probably sh e would feel better with the transfusion. Edgar Velasco MD MSA/CAROLE TD: 06/13/2017 13:37 Electronically Authenticated by: Edgar Velasco MD On 06/18/2017 10:24 PM CDT 2017-06-18 22:24:50-00:00 [facility] Consultation PATIENT NAME: CHANDA BELL PHYSICIAN: Shahnaz Velasco MD Admitted: MR NUMBER: [id number] DISCHARGED: REASON FOR CONSULTATION: Medical co-management. HISTORY OF PRESENTING ILLNESS: This is a 67-year -old female, who was initially admitted to [facility] or on 06/10/2017 and then 06/14/2017 with diagnosis of alcohol-induced gonzales creatitis, evidence of liver dysfunction, secondary thrombocytopenia, acute r enal failure and with baseline chronic kidney disease, chronic anemia, generalized weakness, and depression, now transferred to [facility] litation Unit for continued physical and occupational therapy and reconditio ciro. When I see her in the room today, she is sitting, eating her breakfast . She is feeling much better. Food is staying down. No vomiting. Overa ll, much improved. PAST MEDICAL HISTORY: Includes history of seizur e disorder, questionable history of TIA/CVA in the past, history of heavy alcohol use, and diet-controlled diabetes mellitus. PAST SURGICAL HISTORY: Includes tubal ligation, tonsillectomy. ALLERGIES: SHE IS ALLERGIC TO PENICILLINS. HOME MEDICINES: At home, she was taking just zon isamide and Neurontin. CURRENT MEDICINES: Please see attached MAR. SOCIAL HISTORY: Still smokes about 1/2 pack of c igarettes per day. Was drinking heavily every day vodka, for which she was admitted to the medical floor. Denies any other drugs. FAMILY HISTORY: Mother also has history of seizu re disorder. CODE STATUS: The patient is FULL CODE. SOCIAL HISTORY: [facility] IMMUNIZATIONS: Up to date. REVIEW OF SYSTEMS: A 10-system review of systems was done and was negative except for the HPI. PHYSICAL EXAMINATION: VITAL SIGNS: Temperature 97.8, pulse 78, respira tions 18, blood pressure 129/75, pulse ox is 98% on room air. GENERAL: This is an elderly female sit ting in chair, no acute distress. HEENT: Atraumatic, normocephalic head. She has e cchymosis around the left eye, which has been healing. NECK: Supple. RESPIRATIONS: Fairly clear lungs. CARDIOVASCULAR: S1 plus S2. No murmur. ABDOMEN: Soft, obese. Bowel sounds positive. [facility] Consultation EXTREMITIES: Trace to no edema. NEUROLOGIC: She does move all extremities. SKIN: Normal. LYMPHATIC: Normal. LABORATORY DATA: Today, sodium 127, potassium 4. 0, chloride 95, bicarbonate 25, glucose 228, BUN 29, creatinine 1.2, calcium 8.6, ALT 32, AST 46. X-ray of the knees were done, which just shows no acut e osseous abnormality, but does show osteoarthritis. WBC 5.5, hemoglobin 8. 9, hematocrit 29.3, platelet was 105. Most recent lipase was 226 and a hemogl obin A1c was 5.0. IMPRESSION: 1. Debility with deconditioning. 2. Alcohol-induced pancreatitis, improved. 3. Anemia with thrombocytopenia secondary to li isaura dysfunction. 4. History of seizure disorder. 5. History of depression. No evidence of suicid al ideation. 6. Hyperglycemia with hemoglobin A1c of 5.0. 7. Hyponatremia. 8. Renal insufficiency, acute on chronic, impro yaya. PLAN: 1. The patient was transferred to the [facility] Rehabilitation Unit for continued physical and occupational therapy. 2. Her pancreatitis is now improved. She is galilea erating oral diet. 3. She has mild hyponatremia. This could be sec ondary to history of alcohol use. She is encouraged on fluid restric tion and monitor. 4. For renal insufficiency, this was acute on c hronic. She came in with a creatinine of 2.0, currently is 1.2. She likely has some mild chronic renal insufficiency at baseline as well. Contin ue to monitor. 5. History of seizure. She is resumed back on h er zonisamide and Neurontin. 6. Mild hypertension. I will add some amlodipin e to her regime and monitor. 7. GI prophylaxis. She will be on Protonix and Zofran p.r.n. 8. She does have osteoarthritis of the knees. I will continue physical and occupational therapy. 9. She does have hyperglycemia. Glucose was 228 in the morning sample and yesterday had a hemoglobin A1c of 5.0. This is likely secondary to pancreatitis. Just keep her on insulin slidi ng scale for now and monitor. Continue to follow. [facility] Consultation Edgar Velasco MD MSA/TORI TD: 06/15/2017 09:06 Electronically Authenticated and Edited by: Edgar Velasco MD On 06/18/2017 10:24 PM CDT 2017-06-18 22:24:50-00:00 [facility] Discharge Summary PATIENT NAME: CHANDA BELL PHYSICIAN: Shahnaz Velasco MD Admitted: MR NUMBER: [id number] DISCHARGED: 06/14/2017 09:3 3:00 DATE OF SERVICE: 06/14/2017 TIME OF SERVICE: 09:00 a.m. ADDENDUM SUBJECTIVE: The patient is seen in the acute med ical unit until 06/14/2017. She was still receiving blood transfusion and th at has delayed her discharge to rehab and now this morning, she has finished her blood transfusion and hemoglobin is up to 8.9, and she will be dischar ged to the rehabilitation unit for continued physical and occupational the rapy. PHYSICAL EXAMINATION: VITAL SIGNS: Temperature 97.6, pulse 90, respira tions 16, blood pressure 142/83, pulse ox 96% on room air. GENERAL: Elderly female, in no acute d istress. HEENT: Atraumatic and normocephalic head. Mild e cchymosis around the left eye. NECK: Supple. RESPIRATIONS: Fairly clear lungs. CARDIOVASCULAR: S1 plus S2. No murmur. ABDOMEN: Soft, obese. Bowel sounds positive. EXTREMITIES: Trace to no edema. NEUROLOGIC: She is moving all 4 extremities. SKIN: Normal. LYMPHATIC: Normal. LABORATORY DATA: Today, WBC is 5.5, hemoglobin 8 .9, hematocrit 29.3, and platelets 105,000. Most recent chemistry, sodium 34, potassium 3.8, chloride 98, bicarb 25, BUN 31, creatinine 1.0, glucose 1 43, calcium 8.3. IMPRESSION AND PLAN: The patient is medically st able over to transfer to [facility] unit. We will follow the p atient over there. Edgar Velasco MD MSA/KVNG/JENNIFER TD: 06/14/2017 11:25 [facility] Discharge Summary PATIENT NAME: CHANDA BELL PHYSICIAN: Shahnaz Velasco MD Admitted: MR NUMBER: [id number] DISCHARGED: 06/14/2017 09:3 3:00 DATE OF SERVICE: 06/14/2017 TIME OF SERVICE: 09:00 a.m. ADDENDUM SUBJECTIVE: The patient is seen in the acute med ical unit until 06/14/2017. She was still receiving blood transfusion and th at has delayed her discharge to rehab and now this morning, she has finished her blood transfusion and hemoglobin is up to 8.9, and she will be dischar ged to the rehabilitation unit for continued physical and occupational the rapy. PHYSICAL EXAMINATION: VITAL SIGNS: Temperature 97.6, pulse 90, respira tions 16, blood pressure 142/83, pulse ox 96% on room air. GENERAL: Elderly female, in no acute d istress. HEENT: Atraumatic and normocephalic head. Mild e cchymosis around the left eye. NECK: Supple. RESPIRATIONS: Fairly clear lungs. CARDIOVASCULAR: S1 plus S2. No murmur. ABDOMEN: Soft, obese. Bowel sounds positive. EXTREMITIES: Trace to no edema. NEUROLOGIC: She is moving all 4 extremities. SKIN: Normal. LYMPHATIC: Normal. LABORATORY DATA: Today, WBC is 5.5, hemoglobin 8 .9, hematocrit 29.3, and platelets 105,000. Most recent chemistry, sodium 34, potassium 3.8, chloride 98, bicarb 25, BUN 31, creatinine 1.0, glucose 1 43, calcium 8.3. IMPRESSION AND PLAN: The patient is medically st able over to transfer to [facility] unit. We will follow the p atient over there. Edgar Velasco MD MSA/KVNG/JENNIFER TD: 06/14/2017 11:25 Electronically Authenticated by: Edgar Velasco MD On 06/18/2017 10:24 PM CDT 2017-06-18 22:24:24-00:00 [facility] Progress Note PATIENT NAME: CHANDA BELL PHYSICIAN: Shahnaz Velasco MD Admitted: MR NUMBER: [id number] DISCHARGED: DATE OF SERVICE: 06/12/2017 TIME OF SERVICE: 11:00 a.m. SUBJECTIVE: The patient is sitting in the chair. She feels m uch better. She did walk with the help of physical therapy. She wants to eat oral diet. PHYSICAL EXAMINATION: VITAL SIGNS: Temperature 98.2, pulse 80, respira tions 20, blood pressure 139/70, pulse ox 100% on room air. GENERAL: This is an elderly appearing female sitting in chair, no acute distress. HEAD AND NECK: Atraumatic and normocephalic head . She has got a healing ecchymosis in the left eyelid. RESPIRATION: Fairly clear lungs. CARDIOVASCULAR: S1 plus S2. No murmur. ABDOMEN: Soft, obese. Bowel sounds positive. EXTREMITIES: Trace no edema. NEUROLOGIC: She is moving all 4 extremities. SKIN: Normal. LYMPHATICS: Normal. LABORATORY DATA: Glucose 137 to 164. WBC 5.5, hemoglobin 7.5, hem atocrit 22.2, platelets are 54,000, BUN 33, creatinine 0.9, glucose 130, mag is 1.6 today. Platelets when she came in was 91,000. MEDICATIONS: List of her current medications are reviewed. IMPRESSION: 1. Alcohol-induced pancreatitis. 2. Chronic anemia. 3. Thrombocytopenia, likely secondary to liver dysfunction. 4. Acute renal failure, resolved with IV hydrat ion. 5. Generalized weakness. 6. Depression, improved. PLAN: The patient is clinically much better. I would a dvance her diet to solid today. She is on Pepcid and Zofran, IV fluids wi ll be discontinued. Monitor for any signs of alcohol withdrawal. For the thr ombocytopenia, I would keep the heparin on hold. Also, anemia, I think this all secondary to liver disease, although monitor the hemoglobin, transf use for hemoglobin less than 7. I request Psychiatric evaluation by Dr. Hall and then the patient is being awaiting transfer to the inpatient detoxificatio n. Continue with physical and occupational therapy. Patient Name: CHANDA BELL Edgar Velasco MD MSA/WIL/BELINDA TD: 06/12/2017 11:27 Electronically Authenticated and Edited by: Edgar Velasco MD On 06/18/2017 10:24 PM CDT 2017-06-18 22:24:19-00:00 [facility] Progress Note PATIENT NAME: CHANDA BELL PHYSICIAN: Shahnaz Velasco MD Admitted: MR NUMBER: [id number] DISCHARGED: TIME OF SERVICE: 9:52 a.m. SUBJECTIVE: The patient is seen lying in the bed. She feels much better. She said that she really wants to eat. Her nausea has resolved . She has mild abdominal pain in the epigastric region. No fever. PHYSICAL EXAMINATION: VITAL SIGNS: Temperature 98.9, pulse 76, respira tions 20, blood pressure 139/65, pulse ox 98% on room air. GENERAL: This is an elderly female lyi ng in bed, in no acute distress. HEENT: Atraumatic, normocephalic head. She has g ot healing ecchymosis in the left eye. RESPIRATIONS: Fairly clear lungs. CARDIOVASCULAR: S1 plus S2. No murmur. ABDOMEN: Soft, obese. Bowel sounds positive, min imal tenderness. EXTREMITIES: No edema. NEUROLOGIC: No focal deficit. SKIN: Normal. LYMPHATIC: Normal. LABORATORY DATA: Urine drug screen positive for THC. Urinalysis p ositive nitrites, large leukocyte esterase, WBC 15-19. Vitamin B12 is 98 5. Hemoglobin A1c 5.0. TSH 2.9. Sodium 135, potassium 4.7, chl oride 96, bicarbonate 22, BUN 51, creatinine 1.5, calcium 8.2, LDL is 71, triglycerides 199, mag is 1.6. CT head, no acute intracranial pathology. T here was a 7-mm right perivascular space. CT abdomen and pelvis was s howing subtle peripancreatic fat stranding correlate for acute pancreatitis, bilateral renal cysts. IMPRESSION: 1. Acute pancreatitis secondary to heavy alcoho l use. 2. Generalized weakness. 3. Alcohol dependence with history of abuse. 4. Type 2 diabetes mellitus, diet controlled. 5. History of depression. 6. History of seizure disorder. PLAN: The patient is clinically improving. She has bee n on IV hydration, on thiamine and folic acid. We have been monitoring her for alcohol withdrawal. She is on Ativan p.r.n. Her pancreatitis seems to be clinically improving. I will start her on clear liquid diet. Continue Pepcid, Zofran, pain control. We will also trend her lipase. CT of th e abdomen and pelvis was negative for acute pathology except for mild acu te pancreatitis. CT head shows no acute pathology. Dr. Nadir Palma has b een considered for Psychiatry. The patient requires inpatient detox ification program. Case Patient Name: CHANDA BELL management has been consulted. We will order phy sical and occupational therapy. For history of seizures, she is on zoni samide and Neurontin. Replace mag. Further recommendations will be bas ed on the progress. Edgar Velasco MD MSA/PAOLO/JENNIFER//JOY TD: 06/11/2017 12:14 Electronically Authenticated and Edited by: Edgar Velasco MD On 06/18/2017 10:24 PM CDT 2017-06-11 08:02:21-00:00 [facility] History and Physical PATIENT NAME: CHANDA BELL PHYSICIAN: Shahnaz Velasco MD Admitted: MR NUMBER: [id number] DISCHARGED: CHIEF COMPLAINT: Generalized weakness, alcohol intoxication, naus ea and abdominal pain. HISTORY OF PRESENT ILLNESS: This is a 67-year-old female with past medical history of heavy alcohol use, history of seizure disorder, prior history of TIA, history of diet-controlled diabetes mellitus, who was broug ht to [facility] emergency room with generalized weakness. Apparently, she has been drinking heavy almost every day and she was found on the floor by the neighbors couple of days ago, but she refused to go to the emergency room. But today finally, because she was also having abdominal pain, naus ea and vomiting, she was brought to the emergency room here. Her labs hav e shown that she has evidence of acute renal failure. She has lipase level also elevated. A CT abdomen and pelvis is being ordered. She has triny gan diagnosed with alcohol-induced pancreatitis and will be admitte d to the hospital. Also, she has generalized weakness at least going on for t he last 3 months. She is up to the point where she is only able to transfer to the chair. She also complains of being depressed, although she denie s being suicidal. She is here, in fact the neighbors brought her here to get help regarding the alcohol detoxification program and admitted to [facility] for further workup. PAST MEDICAL HISTORY: Includes history of seizure disorder, questionab le history of TIA/CVA in the past, history of heavy alcohol use, and diet-con trolled diabetes mellitus. PAST SURGICAL HISTORY: She had a tubal ligation and tonsillectomy in past. ALLERGIES: SHE IS ALLERGIC TO PENICILLIN. HOME MEDICINES: She told me tablets of zonisamide 100 mg 2 to 3 times a day and then Neurontin 100 mg t.i.d. SOCIAL HISTORY: She does smoke cigarettes about a 1/2 pack per d ay. Alcohol use has been almost daily. She drinks vodka moderately heavy, although she says that some days she does not drink. Denies any other drugs. FAMILY HISTORY: Mother has also had history of seizure disorder. CODE STATUS: The patient wishes to be Full Code. SOCIAL STATUS: Also, the patient lives in an apartment by don . [facility] History and Physical PATIENT NAME: CHANDA BELL PHYSICIAN: Shahnaz Velasco MD Admitted: MR NUMBER: [id number] DISCHARGED: CHIEF COMPLAINT: Generalized weakness, alcohol intoxication, naus ea and abdominal pain. HISTORY OF PRESENT ILLNESS: This is a 67-year-old female with past medical history of heavy alcohol use, history of seizure disorder, prior history of TIA, history of diet-controlled diabetes mellitus, who was broug ht to [place] emergency room with generalized weakness. Apparently, she has been drinking heavy almost every day and she was found on the floor by the neighbors couple of days ago, but she refused to go to the emergency room. But today finally, because she was also having abdominal pain, naus ea and vomiting, she was brought to the emergency room here. Her labs hav e shown that she has evidence of acute renal failure. She has lipase level also elevated. A CT abdomen and pelvis is being ordered. She has bee n diagnosed with alcohol-induced pancreatitis and will be admitte d to the hospital. Also, she has generalized weakness at least going on for [facility] last 3 months. She is up to the point where she is only able to transfer to the chair. She also complains of being depressed, although she denie s being suicidal. She is here, in fact the neighbors brought her here to get help regarding the alcohol detoxification program and admitted to [facility] for further workup. PAST MEDICAL HISTORY: Includes history of seizure disorder, questionab le history of TIA/CVA in the past, history of heavy alcohol use, and diet-con trolled diabetes mellitus. PAST SURGICAL HISTORY: She had a tubal ligation and tonsillectomy in past. ALLERGIES: SHE IS ALLERGIC TO PENICILLIN. HOME MEDICINES: She told me tablets of zonisamide 100 mg 2 to 3 times a day and then Neurontin 100 mg t.i.d. SOCIAL HISTORY: She does smoke cigarettes about a 1/2 pack per d ay. Alcohol use has been almost daily. She drinks vodka moderately heavy, although she says that some days she does not drink. Denies any other drugs. FAMILY HISTORY: Mother has also had history of seizure disorder. CODE STATUS: The patient wishes to be Full Code. SOCIAL STATUS: Also, the patient lives in an apartment by [address]. Patient Name: CHANDA BELL IMMUNIZATIONS: Up to date. REVIEW OF SYSTEMS: A 10-system review of system was done was negati ve except for the HPI. PHYSICAL EXAMINATION: VITAL SIGNS: Blood pressure 130/61, pulse 95, re spiration 18, temperature 98.3, pulse 100% on room air. Weight 193, height 5 feet 2 inches. GENERAL: This is an elderly female lyi ng in bed. HEENT: Atraumatic and normocephalic head. She ho s a well healing bruise over the left eyelid area. NECK: Supple. RESPIRATIONS: Fairly clear lungs. CARDIOVASCULAR: S1 plus S2. No murmur. ABDOMEN: Soft, obese. Bowel sounds positive. EXTREMITIES: Trace to no edema. NEUROLOGIC: Tongue is midline. Cranial nerves ar e intact, though she does have generalized weakness. Power is about 4/5 in all extremities. SKIN: Normal. LYMPHATIC: Normal. LABORATORY DATA: Sodium 131, potassium 5.6, hemolyzed chloride 87 , bicarbonate 22. Glucose 125, BUN 16, creatinine 2.1, calcium 9.0, ALT 37 , AST 64, total bilirubin 11.0. Lipase is 48. WBC 7.4, hemoglobin 8.9, hem atocrit 28.5, platelet is 91 with MCV of 113. IMPRESSION: 1. Alcohol-induced acute pancreatitis. 2. Acute renal failure secondary to dehydration, rule out rhabdomyolysis. 3. Type 2 diabetes mellitus, diet controlled. 4. Depression. Denies suicidal ideation. 5. History of seizure disorder. PLAN: The patient will be admitted to the medical [facility]. I would hydrate her with IV saline 30 to 100 mL an hour. I will also add thiamine and folic acid. We will monitor for signs of alcohol withdrawal. Keep her on Ativan p.r.n. Her pancreatitis is likely secondary to alcohol use. We will keep her n.p.o. except for meds, IV fluids, Pepcid, Zofran, and pain control. I will check a lipid panel. We will follow the CT abdomen and p koby without contrast. Her main issues will be psychiatric. She needs to ho ve psych evaluation. I will request Dr. aHll to see her. She will require dusty carrillo to a detoxication program. The patient, right now she is motivated to try to quit drinking alcohol. Also because of generalized weakness an d a vague history that she has had strokes in the past, I will get a CT hea d without contrast to rule Patient Name: CHANDA BELL IMMUNIZATIONS: Up to date. REVIEW OF SYSTEMS: A 10-system review of system was done was negati ve except for the HPI. PHYSICAL EXAMINATION: VITAL SIGNS: Blood pressure 130/61, pulse 95, re spiration 18, temperature 98.3, pulse 100% on room air. Weight 193, height 5 feet 2 inches. GENERAL: This is an elderly female lyi ng in bed. HEENT: Atraumatic and normocephalic head. She ho s a well healing bruise over the left eyelid area. NECK: Supple. RESPIRATIONS: Fairly clear lungs. CARDIOVASCULAR: S1 plus S2. No murmur. ABDOMEN: Soft, obese. Bowel sounds positive. EXTREMITIES: Trace to no edema. NEUROLOGIC: Tongue is midline. Cranial nerves ar e intact, though she does have generalized weakness. Power is about 4/5 in all extremities. SKIN: Normal. LYMPHATIC: Normal. LABORATORY DATA: Sodium 131, potassium 5.6, hemolyzed chloride 87 , bicarbonate 22. Glucose 125, BUN 16, creatinine 2.1, calcium 9.0, ALT 37 , AST 64, total bilirubin 11.0. Lipase is 48. WBC 7.4, hemoglobin 8.9, hem atocrit 28.5, platelet is 91 with MCV of 113. IMPRESSION: 1. Alcohol-induced acute pancreatitis. 2. Acute renal failure secondary to dehydration, rule out rhabdomyolysis. 3. Type 2 diabetes mellitus, diet controlled. 4. Depression. Denies suicidal ideation. 5. History of seizure disorder. PLAN: [facility] I would hydrate her with IV saline 30 to 100 mL an hour. I will also add thiamine and folic acid. We will monitor for signs of alcohol withdrawal. Keep her on Ativan p.r.n. Her pancreatitis is likely secondary to alcohol use. We will keep her n.p.o. except for meds, IV fluids, Pepcid, Zofran, and pain control. I will check a lipid panel. We will follow the CT abdomen and p koby without contrast. Her main issues will be psychiatric. She needs to ho ve psych evaluation. I will request Dr. Hall to see her. She will require tr meganfer to a detoxication program. The patient, right now she is motivated to try to quit drinking alcohol. Also because of generalized weakness an d a vague history that she has had strokes in the past, I will get a CT hea d without contrast to rule Patient Name: CHANDA BELL out any acute pathology. For DVT prophylaxis, deep ep her on heparin subQ. For her seizures, I will keep her on the zonisamide and Neurontin. Further recommendations will be based on the progress. Edgar Velasco MD MSA/CHARISSE TD: 06/10/2017 18:22 Patient Name: CHANDA BELL out any acute pathology. For DVT prophylaxis, deep ep her on heparin subQ. For her seizures, I will keep her on the zonisamide and Neurontin. Further recommendations will be based on the progress. MD DAWN Roldan TD: 06/10/2017 18:22 Electronically Authenticated by: Edgar Velasco MD On 06/11/2017 08:02 AM CDT
--- NOTE | 2023-03-13 18:11 | RAD REPORT ---
EXAM DESCRIPTION: RAD - Chest Single View - 03/13/2023 6:03 pm CLINICAL HISTORY: leg swelling Chest pain. COMPARISON: No comparisons FINDINGS: Portable technique limits examination quality. Interstitial opacities are mildly prominent bilaterally. This may indicate viral infection or mild in terstitial pulmonary edema. The heart is mildly prominent in size. No displaced fractures.
[2023-03-13 18:21] LABS: Hematocrit 32.4 % (36.0-45.0); MCV 92.3 fL (80-100); RBC Red Blood Cell Count 3.51 M/uL (3.86-4.86)
[2023-03-13 18:22] LABS: Absolute Lymphocytes (CBC) 1.4 K/uL (0.7-4.9); Lymphocytes % 15.4 % (15.3-44.8)
[2023-03-13 18:25] LABS: Protime INR 1.04
[2023-03-13] MEDS ORDERED: FENTANYL CITR 100 MCG/2 ML ONE (18:32)
[2023-03-13 18:41] LABS: Bilirubin Direct 0.1 mg/dL (0-0.2); Bilirubin Indirect, Calculated 0.1 mg/dL (0.2-0.8); Bilirubin Total 0.2 mg/dL (0.2-1.0); Protein, Total 5.9 g/dL (6.4-8.2)
--- NOTE | 2023-03-13 19:15 | RAD REPORT ---
EXAM DESCRIPTION: RAD - Foot Left 3 View - 03/13/2023 6:47 pm CLINICAL HISTORY: big toe pain/swelling COMPARISON: No comparisons FINDINGS: No acute fracture or dislocation evident. Soft tissue swelling is seen affecting the great toe and dorsal forefoot. Prominent degenerative arthritic changes particularly notable first MTP keisha nt. Large plantar calcaneal spur is seen. 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
--- NOTE | 2023-03-13 19:16 | RAD REPORT ---
EXAM DESCRIPTION: RAD - Foot Right 3 View - 03/13/2023 6:47 pm CLINICAL HISTORY: small toe pain Pain and swelling COMPARISON: No comparisons FINDINGS: Moderate soft tissue swelling is seen along the dorsum of the foot. Advanced arthritic lora nges are present involving the first MTP joint. Small posterior plantar calcaneal spurs. 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 No acute fracture or dislocation.
--- NOTE | 2023-03-13 19:50 | RAD REPORT ---
EXAM DESCRIPTION: US - Extrem Venous W Compress Eladio - 03/13/2023 7:40 pm CLINICAL HISTORY: Pain;Swelling Bilateral leg edema and swelling. COMPARISON: No comparisons TECHNIQUE: Real-time sonographic interrogation of the left and right lower extremity deep venous sys tems was performed. FINDINGS: Normal compressibility, flow augmentation, phasic flow and spontaneous flow is identified in both the left and right lower extremity deep venous systems. IMPRESSION: No sonographic evidence of left or right lower extremity deep venous thrombosis.
--- NOTE | 2023-03-13 19:51 | RAD REPORT ---
EXAM DESCRIPTION: US - Lower Extremity Arterial Bilat - 03/13/2023 7:40 pm CLINICAL HISTORY: PAIN COMPARISON: No comparisons TECHNIQUE: Bilateral lower extremity arterial Doppler examination was performed with betina boswell at velocity measurement. FINDINGS: Diffuse monophasic waveforms are seen involving both bilateral lower extremity arterial systems. No high-grade stenosis or occlusion. IMPRESSION: Diffuse monophasic waveforms involving both lower extremity arterial systems. This patte rn is most compatible with aortoiliac inflow stenosis.
[2023-03-13] MEDS ORDERED: POTASSIUM 25 MEQ EFFERV TAB ONE (20:28)
[2023-03-13] MEDS ORDERED: MORPHINE 4 MG/ML SYR ONE (20:28)
[2023-03-13] MEDS ORDERED: LIDOCAINE 1% MPF 5 ML VIAL ONE (20:51)
[2023-03-13] MEDS ORDERED: NA CHLORIDE 0.9% 100 ML ONE (20:51)
[2023-03-13] MEDS ORDERED: CEFEPIME 1 GM/VIAL ONE (20:52)
--- NOTE | 2023-03-13 21:07 | EDPHYS ---
Physician Documentation [facility] Name: Anh Alvarado Age: 73 yrs Sex: Female : 1950 Arrival Date: 03/13/2023 Time: 17:23 Bed 2 Private MD: ED Physician Elena Morgan HPI: 03/13 17:55 This 73 yrs old Female presents to ER via Wheelchair with complaints of Leg Pain, Leg cp Swelling. 17:55 The patient presents with pain, that is acute, swelling. The complaints affect the cp right lower leg and left lower leg. 17:55 Onset: The symptoms/episode began/occurred 3 day(s) ago. cp 17:55 Associated signs and symptoms: Pertinent positives: calf tenderness, discoloration of cp left great toe, Pertinent negatives fever, numbness. Treatment prior to arrival includes: no previous treatment. Historical: - Allergies: 17:46 PENICILLINS; ll1 17:46 Actos; ll1 17:46 Ibuprofen; ll1 - PMHx: 17:46 Diabetes mellitus; Hypertensive disorder; Myocardial infarction; stroke x 2; ll1 - PSHx: 17:46 tubes tied; ll1 - Immunization history:: Client reports receiving the 2nd dose of the Covid vaccine. - Social history:: Smoking status: Patient reports the use of cigarette tobacco products, smokes one-half pack cigarettes per day. ROS: 18:00 Constitutional: Negative for body aches, chills, fever, poor PO intake. cp 18:00 Cardiovascular: Negative for chest pain, edema, palpitations. cp 18:00 Eyes: Negative for injury, pain, redness, and discharge. cp 18:00 ENT: Negative for drainage from ear(s), ear pain, sore throat, difficulty swallowing, difficulty handling secretions. 18:00 Respiratory: Negative for cough, shortness of breath, wheezing. 18:00 Abdomen/GI: Negative for abdominal pain, nausea, vomiting, and diarrhea. cp 18:00 Back: Negative for pain at rest, pain with movement. 18:00 MS/extremity: Positive for pain, of the right foot and left foot and right lower leg and left lower leg. 18:00 Neuro: Negative for altered mental status, dizziness, headache, syncope, weakness. 18:00 All other systems are negative. Exam: 18:05 Constitutional: The patient appears in no acute distress, alert, awake, cp non-diaphoretic, non-toxic, well developed, well nourished. 18:05 Head/Face: Normocephalic, atraumatic. cp 18:05 Eyes: Periorbital structures: appear normal, Conjunctiva: normal, no exudate, no injection, Sclera: no appreciated abnormality, Lids and lashes: appear normal, bilaterally. 18:05 ENT: External ear(s): are unremarkable, Nose: is normal, Mouth: Lips: moist, Oral mucosa: pink and intact, moist, Posterior pharynx: is normal, airway is patent, no erythema, no exudate. 18:05 Neck: ROM/movement: is normal, is supple, without pain, no range of motions limitations. 18:05 Chest/axilla: Inspection: normal. 18:05 Cardiovascular: Rate: normal, Rhythm: regular. 18:05 Respiratory: the patient does not display signs of respiratory distress, Respirations: normal, no use of accessory muscles, no retractions, labored breathing, is not present, Breath sounds: are clear throughout, no decreased breath sounds, no stridor, no wheezing. 18:05 Abdomen/GI: Exam negative for discomfort, distension, guarding, Inspection: obese 18:05 Musculoskeletal/extremity: Extremities: grossly normal except: noted in the left lower leg: tenderness, moderate swelling of left calf, There is no evidence of erythema, noted in the left great toe: ecchymosis, pain, swelling, tenderness, noted in the right lower leg: swelling, tenderness, mild erythema noted anterior right ankle with superficial wound, Noted in right small toe: erythema, swelling, tenderness, small wound noted plantar surface of distal phalanx. 18:05 Neuro: Orientation: to person, place \T\ time. Mentation: is normal. 18:13 ECG was reviewed by the Attending Physician. cp 18:18 ECG was reviewed by the Attending Physician. cp Vital Signs: 17:47 BP 143 / 66; Pulse 80; Resp 17; Temp 98.8; Pulse Ox 98% ; Weight 73.03 kg; Height 4 ft. ll1 11 in. ; Pain 9/10; 18:20 BP 149 / 63; Pulse 74; Resp 12; Temp 97.8; Pulse Ox 99% on R/A; Pain 9/10; sc3 19:20 BP 156 / 76; Pulse 72; Resp 18 S; Pulse Ox 99% on R/A; as6 20:05 BP 157 / 69; Pulse 96; Resp 18 S; Pulse Ox 97% on R/A; as6 21:00 BP 148 / 70; Pulse 76; Resp 16; Temp 98; Pulse Ox 98% on R/A; rv 17:47 Body Mass Index 32.52 (73.03 kg, 149.86 cm) ll1 17:47 Pain Scale: Adult ll1 18:20 Pain Scale: Adult sc3 Esperanza Coma Score: 21:00 Eye Response: spontaneous(4). Motor Response: obeys commands(6). Verbal Response: rv oriented(5). Total: 15. MDM: 18:00 Patient medically screened. cp 20:00 Differential diagnosis: sepsis, cellulitis, osteomyelitis, DVT, arterial occlusion. cp 21:05 Data reviewed: vital signs, nurses notes, lab test result(s), EKG, radiologic studies, cp plain films, ultrasound. 21:05 Consideration of Admission/Observation Escalation of care including cp admission/observation considered. Management of patient was discussed with the following: ED attending who recommends outpatient treatment with oral antibiotics. 03/13 17:47 Order name: Basic Metabolic Panel; Complete Time: 18:58 cp / 18:58 Interpretation: Normal except: NA 132; K 3.0; CL 97; CRE 3.47; GFR 14; CA 8.2. cp 03/13 17:47 Order name: CBC with Diff; Complete Time: 18:58 cp 03/13 18:59 Interpretation: Normal except: RBC 3.51; HGB 10.6; HCT 32.4; FLORENTIN% 75.9. cp 03/13 17:47 Order name: LFT's; Complete Time: 18:58 cp 03/13 20:06 Interpretation: Normal except: ALT 11; IBILI, CALC 0.1; TP 5.9; ALB 2.0; GLOB 3.9; A/G cp 0.5. 03/13 17:47 Order name: PT-INR; Complete Time: 18:58 cp 03/13 17:47 Order name: Ptt, Activated; Complete Time: 18:58 cp 03/13 17:47 Order name: XRAY Chest (1 view); Complete Time: 18:58 cp 03/13 18:59 Interpretation: Report review. 03/13 17:47 Order name: US Extremity Venous W Compression Eladio; Complete Time: 20:02 cp 03/13 17:47 Order name: US Lower Extremity Arterial Bilateral; Complete Time: 20:02 03/13 18:17 Order name: XRAY Foot LEFT 3 View; Complete Time: 20:02 cp 03/13 18:17 Order name: XRAY Foot RIGHT 3 View; Complete Time: 20:02 cp 03/13 17:47 Order name: EKG; Complete Time: 17:48 cp 03/13 17:47 Order name: Cardiac monitoring; Complete Time: 18:08 cp 03/13 17:47 Order name: EKG - Nurse/Tech; Complete Time: 18:01 cp 03/13 17:47 Order name: IV Saline Lock; Complete Time: 18:08 cp 03/13 17:47 Order name: Labs collected and sent; Complete Time: 19:04 cp 03/13 17:47 Order name: O2 Per Protocol; Complete Time: 18:22 03/13 17:47 Order name: O2 Sat Monitoring; Complete Time: 18:08 cp EC:13 Rate is 74 beats/min. Rhythm is regular. MT interval is normal. QRS interval is normal. cp QT interval is normal. T waves are Inverted in lead aVL. Interpreted by me. Reviewed by me. 18:18 Rate is 73 beats/min. Rhythm is regular. MT interval is normal. QRS interval is normal. cp QT interval is normal. T waves are Inverted in lead aVR. Interpreted by me. Reviewed by me. Administered Medications: 18:25 Drug: fentaNYL (PF) IVP 25 mcg {Note: given by Faraz Abbott RN.} Route: IVP; Site: as6 right antecubital; 21:42 Follow up: Response: No adverse reaction rv 20:30 Drug: morphine IVP or IV 4 mg Route: IVP; Infused Over: 4 mins; Site: right antecubital;rv 21:41 Follow up: Response: No adverse reaction; Marked relief of symptoms rv 20:35 Drug: Potassium PO Effervescent Tablet 50 mEq Route: PO; rv 21:41 Follow up: Response: No adverse reaction rv 20:45 Drug: Cefepime IVPB 1 grams Route: IVPB; Rate: 200 ml/hr; Infused Over: 30 mins; Site: rv left antecubital; 21:41 Follow up: Response: No adverse reaction; IV Status: Completed infusion rv 21:15 Drug: Trimethoprim-Sulfamethoxazole PO (160 mg-800 mg (DS) 1 tablet Route: PO; rv 21:41 Follow up: Response: Medication administered at discharge. rv Disposition Summary: 03/13/23 21:06 Discharge Ordered Location: Home cp Problem: new cp Symptoms: have improved cp Condition: Stable cp Diagnosis - Cellulitis of right toe - fifth toe cp - Cellulitis of left toe - big toe cp - Hypokalemia cp Followup: cp - With: Private Physician - When: 1 - 2 days - Reason: Wound Recheck Discharge Instructions: - Discharge Summary Sheet cp - Cellulitis, Adult cp Forms: - Medication Reconciliation Form cp - Thank You Letter cp - Antibiotic Education cp - Prescription Opioid Use cp Prescriptions: - Cephalexin 250 mg Oral Capsule - take 1 capsule by ORAL route every 12 hours for 10 days; 20 capsule; Refills: cp 0, Product Selection Permitted - Bactrim DS 800-160 mg Oral Tablet - take 1 tablet by ORAL route once daily for 10 days; 10 tablet; Refills: 0, cp Product Selection Permitted Signatures: Dispatcher [employer] EDMS Constantino Ayala PA PA cp Bong Rolle RN RN rv Yadi Lei RN RN ll1 Lalito Herrera RN RN as6 Corrections: (The following items were deleted from the chart) 20:50 20:24 BLOOD CULTURE*+BA.LAB.BRZ ordered. EDMS EDMS 20:52 20:24 LACTATE+C.LAB.BRZ ordered. EDMS EDMS
--- NOTE | 2023-03-13 21:07 | ER ---
Nurse's Notes [facility] Name: Anh Alvarado Age: 73 yrs Sex: Female : 1950 Arrival Date: 03/13/2023 Time: 17:23 Bed 2 Private MD: Diagnosis: Cellulitis of right toe-fifth toe;Cellulitis of left toe-big toe;Hypokalemia Presentation: 03/13 17:47 Chief complaint: Patient states: L foot great toe turning black and painful for a few ll1 days. L calf swollen also. Coronavirus screen: Vaccine status: Patient reports receiving the 2nd dose of the covid vaccine. Client denies travel out of the [place] in the last 14 days. At this time, the client does not indicate any symptoms associated with coronavirus-19. Ebola Screen: Patient denies travel to an Ebola-affected area in the 21 days before illness onset. Initial Sepsis Screen: Does the patient meet any 2 criteria? No. Patient's initial sepsis screen is negative. Does the patient have a suspected source of infection? No. Patient's initial sepsis screen is negative. Risk Assessment: Do you want to hurt yourself or someone else? Patient reports no desire to harm self or others. Onset of symptoms was March 10, 2023. 17:47 Method Of Arrival: Wheelchair ll1 17:47 Acuity: HOOD 3 ll1 Historical: - Allergies: 17:46 PENICILLINS; ll1 17:46 Actos; ll1 17:46 Ibuprofen; ll1 - PMHx: 17:46 Diabetes mellitus; Hypertensive disorder; Myocardial infarction; stroke x 2; ll1 - PSHx: 17:46 tubes tied; ll1 - Immunization history:: Client reports receiving the 2nd dose of the Covid vaccine. - Social history:: Smoking status: Patient reports the use of cigarette tobacco products, smokes one-half pack cigarettes per day. Screenin:21 [facility] ED Fall Risk Assessment (Adult) History of falling in the last 3 months, sc3 including since admission No falls in past 3 months (0 pts) Confusion or Disorientation No (0 pts) Intoxicated or Sedated No (0 pts) Impaired Gait No (0 pts) Mobility Assist Device Used No (0 pt) Altered Elimination No (0 pt) Score/Fall Risk Level 0 - 2 = Low Risk. Abuse screen: Denies threats or abuse. Nutritional screening: No deficits noted. Tuberculosis screening: No symptoms or risk factors identified. Assessment: 18:16 General: Appears in no apparent distress. Behavior is calm, cooperative, appropriate sc3 for age, Smells of Reports Denies. Pain: Complains of pain in right foot and left foot Pain radiates to right foot and left foot Pain currently is 9 out of 10 on a pain scale. Quality of pain is described as sharp, tender, Pain began. Pain:. Neuro: No deficits noted. Cardiovascular: No deficits noted. Respiratory: No deficits noted. GI: No deficits noted. No signs and/or symptoms were reported involving the gastrointestinal system. : No deficits noted. No signs and/or symptoms were reported regarding the genitourinary system. EENT: No deficits noted. No signs and/or symptoms were reported regarding the EENT system. Derm: No deficits noted. No signs and/or symptoms reported regarding the dermatologic system. Musculoskeletal: No deficits noted. No signs and/or symptoms reported regarding the musculoskeletal system. Injury Description: Ulceration to Right 5th toe. Cyanotic Left Great toe. 20:04 General: Appears in no apparent distress. pt c/o pain to left leg, provider notified. as6 no other complaints or concerns at this time. Respiratory: Respiratory effort is even, unlabored, Respiratory pattern is regular, symmetrical. Vital Signs: 17:47 BP 143 / 66; Pulse 80; Resp 17; Temp 98.8; Pulse Ox 98% ; Weight 73.03 kg; Height 4 ft. ll1 11 in. ; Pain 9/10; 18:20 BP 149 / 63; Pulse 74; Resp 12; Temp 97.8; Pulse Ox 99% on R/A; Pain 9/10; sc3 19:20 BP 156 / 76; Pulse 72; Resp 18 S; Pulse Ox 99% on R/A; as6 20:05 BP 157 / 69; Pulse 96; Resp 18 S; Pulse Ox 97% on R/A; as6 21:00 BP 148 / 70; Pulse 76; Resp 16; Temp 98; Pulse Ox 98% on R/A; rv 17:47 Body Mass Index 32.52 (73.03 kg, 149.86 cm) ll1 17:47 Pain Scale: Adult ll1 18:20 Pain Scale: Adult sc3 Vitals: 18:20 Cardiac Rhythm Assessment Regular Sinus rhythm. sc3 Esperanza Coma Score: 21:00 Eye Response: spontaneous(4). Motor Response: obeys commands(6). Verbal Response: rv oriented(5). Total: 15. ED Course: 17:26 Patient arrived in ED. im 17:31 Constantino Ayala PA is PHCP. cp 17:31 Elena Morgan MD is Attending Physician. cp 17:46 Arm band placed on. ll1 17:48 Triage completed. ll1 18:04 XRAY Chest (1 view) In Process Unspecified. EDMS 18:21 Inserted saline lock: 20 gauge in right antecubital area, using aseptic technique. sc3 18:28 Faraz Abbott, RN is Primary Nurse. sc3 18:48 XRAY Foot LEFT 3 View In Process Unspecified. EDMS 18:49 XRAY Foot RIGHT 3 View In Process Unspecified. EDMS 19:00 Patient has correct armband on for positive identification. rv 19:42 US Extremity Venous W Compression Eladio In Process Unspecified. EDMS 19:42 US Lower Extremity Arterial Bilateral In Process Unspecified. EDMS 21:41 No provider procedures requiring assistance completed. IV discontinued, intact, rv bleeding controlled, No redness/swelling at site. Pressure dressing applied. Administered Medications: 18:25 Drug: fentaNYL (PF) IVP 25 mcg {Note: given by Faraz Abbott, LOPEZ.} Route: IVP; Site: as6 right antecubital; 21:42 Follow up: Response: No adverse reaction rv 20:30 Drug: morphine IVP or IV 4 mg Route: IVP; Infused Over: 4 mins; Site: right antecubital;rv 21:41 Follow up: Response: No adverse reaction; Marked relief of symptoms rv 20:35 Drug: Potassium PO Effervescent Tablet 50 mEq Route: PO; rv 21:41 Follow up: Response: No adverse reaction rv 20:45 Drug: Cefepime IVPB 1 grams Route: IVPB; Rate: 200 ml/hr; Infused Over: 30 mins; Site: rv left antecubital; 21:41 Follow up: Response: No adverse reaction; IV Status: Completed infusion rv 21:15 Drug: Trimethoprim-Sulfamethoxazole PO (160 mg-800 mg (DS) 1 tablet Route: PO; rv 21:41 Follow up: Response: Medication administered at discharge. rv Medication: 18:21 VIS not applicable for this client. sc3 Outcome: 21:06 Discharge ordered by MD. cp 21:41 Discharged to home via wheelchair, with family. rv 21:41 Condition: good 21:41 Discharge instructions given to patient, Instructed on discharge instructions, follow up and referral plans. medication usage, Demonstrated understanding of instructions, follow-up care, medications, Prescriptions given X 2. 21:42 Patient left the ED. rv Signatures: Dispatcher [employer] EDMS Constantino Ayala PA PA cp Bong Rolle, RN RN rv Yadi Lei RN RN ll1 Lalito Herrera RN RN as6 Obdulia Johnston Sebastian, RN RN sc3
[2023-03-13] MEDS ORDERED: SMZ./TMP. 800/160 MG TABLET ONE (21:13)
[2023-03-13 22:43] VITALS: BP 148/70; TEMP 98; O2SAT 98
--- NOTE | 2023-03-14 14:17 | EKG ---
Test Date: 2023-03-13 Test Time: 18:12:47 Distribution Manager: CONRADO MEASUREMENT RESULTS: Intervals: Rate: 73 MS: 172 QRSD: 84 QT: 436 QTc: 480 Linch: P: 78 MS: 172 QRS: 5 T: 55 INTERPRETIVE STATEMENTS: Normal sinus rhythm Low voltage QRS Septal infarct, age undetermined Abnormal ECG No previous ECG available for comparison Electronically Signed On 03-14-23 14:16:00 CDT by Delvis Waddell
== END 2023-03-13 21:42 | disposition home or self-care (01) ==
LOC: ER 17:23
DX: L03.031 Cellulitis of right toe (principal); L03.032 Cellulitis of left toe; E87.6 Hypokalemia; E11.9 Type 2 diabetes mellitus without complications; I10 Essential (primary) hypertension; I25.2 Old myocardial infarction; F17.210 Nicotine dependence, cigarettes, uncomplicated; Z88.0 Allergy status to penicillin; Z88.6 Allergy status to analgesic agent; Z88.8 Allergy status to other drugs, medicaments and biological substances
CPT/HCPCS: 96365; 93005; 85025; 80048; 36415; 85610; 80076; 85730; 71045; 73630 ×2; 93925; 93970; 96375; 99284; J2001; J3010; J0692